=== PATIENT | female | born 1955 | race Two or more races ===

== ENCOUNTER → 2020-06-15 10:29 | Outpatient (BNVA) | payer MEDICARE, MEDICAID, SELFPAY | PROVIDERS: PCP Nurse Practitioner Family; Visit Provider Internal Medicine Endocrinology, Diabetes & Metabolism | DX: M81.0 Age-related osteoporosis without current pathological fracture (principal); E04.2 Nontoxic multinodular goiter; Z86.39 Personal history of other endocrine, nutritional and metabolic disease | CPT/HCPCS: 99212 ==

== ENCOUNTER 2020-07-20 13:29 | Outpatient (REF) | payer MEDICARE, MEDICAID, SELFPAY ==
--- NOTE | ~2020-07-20 | MM_ITS ---
EXAMINATION: MM SCREENING DIGITAL BREAST TOMOSYNTHESIS, BILATERAL CLINICAL INFORMATION: Screening. Asymptomatic. The lifetime risk of breast cancer based on the Tyrer-Cuzick Model is 3.8%. COMPARISON: Mammography: 04/30/2019 and studies dating back to 07/30/2010. TECHNIQUE: Digital breast tomosynthesis is performed in both the craniocaudal and mediolateral oblique views along with computer-aided detection (CAD). Synthesized 2D images are generated from the tomosynthesis. Additional right exaggerated craniocaudal view performed. FINDINGS: There are scattered areas of fibroglandular density (ACR BI-RADS breast composition Category b). No new suspicious mass or grouping of microcalcifications seen within the right breast. Within the left breast, just inferior to nipple line on mediolateral oblique study, there is a 5 x 4 mm circumscribed lesion approximately 5 cm from the nipple. On craniocaudal view, this is not well seen but there is a density in the central aspect of the left breast approximately 5 cm from nipple. Recommend spot compression views and if lesion is persistent then ultrasound. MM/MM tomosynthesis screening BI IMPRESSION: Question developing density left breast as described. ASSESSMENT: BI-RADS 0: Incomplete - Need Additional Imaging Evaluation RECOMMENDATION: 1. Additional views of the left breast. 2. Targeted ultrasound if warranted after review of the additional views. 3. Radiology department staff will contact the patient for additional imaging. This patient's information was entered into a reminder system with a target due date for their next mammogram.
== END 2020-07-20 13:30 | disposition home or self-care (01) ==
LOC: HO.MAMMO 13:29
PROVIDERS: PCP Nurse Practitioner Family; Visit Provider Nurse Practitioner Family
DX: Z12.31 Encounter for screening mammogram for malignant neoplasm of breast (principal); M81.0 Age-related osteoporosis without current pathological fracture
CPT/HCPCS: 77063; 77067; 96372; 96402; J0897

== ENCOUNTER 2020-08-14 13:01 | Outpatient (REF) | payer MEDICARE, MEDICAID, SELFPAY ==
--- NOTE | ~2020-08-14 | MM_ITS ---
EXAMINATION: MM DIAGNOSTIC DIGITAL BREAST TOMOSYNTHESIS, LEFT US DIAGNOSTIC ULTRASOUND BREAST, LEFT CLINICAL INFORMATION: Recall from screening for subtle smooth nodule central left breast just below posterior nipple line central 6:00 position. COMPARISON: Mammography: 07/20/2020, 04/30/2019 TECHNIQUE: Digital breast tomosynthesis is performed. 2D images are generated from the tomosynthesis. The following views are obtained: 3-D spot CC, 3-D spot MLO Ultrasound left breast is targeted to the mid central breast imaging from the 4:00 through 8:00 position. Grayscale imaging and color Doppler are performed without and with harmonics. FINDINGS: There are scattered areas of fibroglandular density (ACR BI-RADS breast composition Category b). The additional views confirm a subtle smooth nodule central 6:00 left breast mid depth approximately 5 mm. Ultrasound demonstrates a simple cyst 6:00 position 4 cm from nipple measuring 0.5 x 0.4 cm. There is increased through-transmission of sound. No associated color flow. No solid mass or architectural abnormality. Results are discussed with the patient at time of visit, using an container crane operator. MM/MM tomosynthesis added views L IMPRESSION: Small cyst central 6:00 left breast corresponding to finding on recent screening mammography. ASSESSMENT: BI-RADS 2: Benign RECOMMENDATION: Routine annual mammography screening. This patient's information was entered into a reminder system with a target due date for their next mammogram.
== END 2020-08-14 13:02 | disposition home or self-care (01) ==
LOC: HO.MAMMO 13:01
PROVIDERS: Visit Provider Family Medicine
DX: R92.2 Inconclusive mammogram (principal)
CPT/HCPCS: 76642; 77061; 77065

== ENCOUNTER 2021-01-19 11:07 | Outpatient (REF) | payer MEDICARE, MEDICAID, SELFPAY ==
[2021-01-19 12:15] LABS: Albumin Level 4.5 g/dL (3.5-5.0); Calcium 10.1 mg/dL (8.4-10.2)
[2021-01-19 12:44] LABS: Thyroid Stimulating Hormone 0.67 uIU/mL (0.32-4.0); Vitamin D 25-OH Total 47.8 ng/mL (>30)
[2021-01-21 05:52] LABS: Calcium (PTHI) 9.9 mg/dL (8.6-10.4); PTHI 41 pg/mL (14-64)
[2021-01-25 16:37] LABS: N-Telopeptide 43 (see note); NTXCreaRU 99 mg/dL (20-275)
== END 2021-01-19 11:08 | disposition home or self-care (01) ==
LOC: HO.LAB 11:07
PROVIDERS: PCP Internal Medicine; Visit Provider Internal Medicine Endocrinology, Diabetes & Metabolism
DX: M81.0 Age-related osteoporosis without current pathological fracture (principal)
CPT/HCPCS: 36415; 82040; 82306; 82310; 82523; 83970; 84439; 84443

== ENCOUNTER → 2021-01-29 10:07 | Outpatient (BNVA) | payer MEDICARE, MEDICAID, SELFPAY | PROVIDERS: PCP Nurse Practitioner Family; Visit Provider Internal Medicine | DX: M81.0 Age-related osteoporosis without current pathological fracture (principal) | CPT/HCPCS: 96372; J0897 ==

== ENCOUNTER 2021-02-24 13:34 | Outpatient (REF) | payer MEDICARE, MEDICAID, SELFPAY ==
--- NOTE | ~2021-02-24 | MM_ITS ---
EXAMINATION: MM DIAGNOSTIC DIGITAL BREAST TOMOSYNTHESIS, BILATERAL US DIAGNOSTIC ULTRASOUND BREAST, RIGHT CLINICAL INFORMATION: Fullness noted by patient superficial right axilla. Mild fullness on clinical exam. Possible node. The lifetime risk of breast cancer based on the Tyrer-Cuzick Model is 4%. COMPARISON: Mammography: 08/14/2020, 07/20/2020, 04/30/2019, 04/26/2018, 04/07/2017 TECHNIQUE: Digital breast tomosynthesis is performed in both the craniocaudal and mediolateral oblique views along with computer-aided detection (CAD). Synthesized 2D images are generated from the tomosynthesis. Additional exaggerated right CC view is provided. Ultrasound right axilla is targeted to the area of clinical concern. Patient is able to point to area at time of imaging. Comparison imaging also performed left axilla. Grayscale imaging and color Doppler are performed without and with harmonics. FINDINGS: There are scattered areas of fibroglandular density (ACR BI-RADS breast composition Category b). Parenchymal pattern is similar to prior studies. There is no developing density or interval mass or architectural abnormality. No abnormal calcifications. No skin thickening or coarsening of the Stephen's ligaments. Ultrasound right axilla demonstrates no lymphadenopathy. There is no cystic or solid mass. No skin thickening or edema tracking in soft tissue planes. Results are discussed with the patient at time of visit, using an mimeograph operator. MM/MM tomosynthesis diagnostic BI IMPRESSION: No mammographic evidence of malignancy or inflammatory changes. Unremarkable targeted right ultrasound. ASSESSMENT: BI-RADS 1: Negative RECOMMENDATION: 1. Patient should be managed based on the clinical impression. If clinically indicated, further evaluation may be considered with surgical consult. Decision to proceed with biopsy should be based on clinical grounds and degree of clinical concern. 2. Otherwise, routine annual screening mammography. This patient's information was entered into a reminder system with a target due date for their next mammogram.
== END 2021-02-24 13:35 | disposition home or self-care (01) ==
LOC: HO.MAMMO 13:34
PROVIDERS: Visit Provider Internal Medicine
DX: R59.0 Localized enlarged lymph nodes (principal)
CPT/HCPCS: 76642; 77062; 77066

== ENCOUNTER 2021-11-04 11:59 | Emergency (ER) | payer MEDICARE, MEDICAID, SELFPAY ==
[2021-11-04 12:51] VITALS: BP 145/70; PULSE 63; RESP 18; TEMP 36.6; O2SAT 99; BMI 27.6
--- NOTE | 2021-11-04 13:10 | ED.BACK ---
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 She states the pain is across her lower back, worse on the right side, worse when she moves around. She also states that last night she could not get comfortable while lying down in bed. She took Tylenol with no relief in the pain. She reports having pain in the past similar to this but not as bad. She denies any radiation of the pain. She denies any numbness, weakness, tingling in her extremities. She denies bowel or bladder incontinence. She denies any other injuries. MD elicited complaint: back pain and back injury Pertinent past history: prior back pain Onset (ago): day(s) (1) Timing: constant Severity: moderate Similar Symptoms Previously: Yes Quality: aching and spasming Location: right lower back and left lower back Radiation: none Exacerbating factors: movement, supine positioning and lifting Relieving factors: immobilization Context: while lifting and turning/twisting Associated symptoms: denies other symptoms Treatments prior to arrival: acetaminophen Work related injury: No Related Data Home Medications Medication Instructions Recorded Confirmed acetaminophen 500 mg tablet 500 mg PO Q6H PRN 06/15/20 06/15/20 (Tylenol Extra Strength) amitriptyline 10 mg tablet 10 mg PO DAILY 06/15/20 06/15/20 denosumab 60 mg/mL subcutaneous 60 mg subcut [id number] 06/15/20 06/15/20 syringe (Prolia) diclofenac sodium 50 mg 50 mg PO BID 06/15/20 06/15/20 tablet,delayed release gabapentin 100 mg capsule 100 mg PO BEDTIME 06/15/20 06/15/20 lisinopril 20 mg tablet 20 mg PO DAILY 06/15/20 06/15/20 omega-3 fatty acids 1,000 mg 1,000 mg PO DAILY 06/15/20 06/15/20 capsule (Fish Oil Concentrate) Previous Rx's Medication Instructions Recorded calcium citrate 250 mg PO BID 30 days #60 tabs 06/15/20 cholecalciferol (vitamin D3) 50 50 mcg PO DAILY 30 days #30 caps 06/15/20 mcg (2,000 unit) capsule tizanidine 2 mg tablet 2 mg PO TID PRN muscle spasticity 11/04/21 #10 tabs Allergies Allergy/AdvReac Type Severity Reaction Status Date / Time butalbital [From FIORICET] Allergy Unknown SWELLING,HI Unverified 01/09/20 17:48 VES pepper (genus Capsicum) Allergy Unknown ITCHING Unverified 01/09/20 17:48 [PEPPER] acetaminophen [Fioricet] AdvReac Unknown swelling Verified 11/12/19 00:00 caffeine [Fioricet] AdvReac Unknown swelling Verified 11/12/19 00:00 Fioricet Allergy Unknown swollen Uncoded 11/04/11 00:00 Review of Systems Review of Systems: Constitutional: No Fever, No Chills ENT/Mouth: No sore throat, No Rhinorrhea Cardiovascular: No Chest Pain, No SOB Respiratory: No Cough, No Sputum Gastrointestinal: No Nausea, No Vomiting, No Diarrhea, No abdominal Pain Genitourinary: No Dysuria, No Urinary Frequency, No Hematuria, no incontinence. Musculoskeletal: + joint pain, + Myalgias Skin: No Skin Lesions, No rash Neuro: No Weakness, No Numbness, No Dizziness, No Headache Heme/Lymph: No Bruising, No Lymphadenopathy PMFSH Past Medical History Medical History (Updated 11/04/21 @ 13:34 by STIVEN Sanchez) History of primary hyperparathyroidism Non-toxic multinodular goiter Osteoporosis Surgical History (Updated 06/11/20 @ 14:06 by INGRID Lee) H/O parathyroidectomy Hx of section Hx of lithotripsy Hx of tubal ligation Family History Family History (Updated 06/11/20 @ 14:08 by INGRID Lee) Father No problems noted. Mother CVD (cardiovascular disease) Heart disease Social History Social History Advance Directives: No Advance Directives Information Provided: No Physical Exam Vital Signs: Vital Signs: Last Vital Signs Temp 97.8 F 11/04/21 12:51 Pulse 63 11/04/21 12:51 Resp 18 11/04/21 12:51 BP 145/70 H 11/04/21 12:51 Pulse Ox 99 11/04/21 12:51 O2 Del Method 11/04/21 12:51 BMI result Body Mass Index 27.6 Appearance: Alert. Oriented X3. No acute distress. HEENT: normal inspection CVS: Normal heart rate and rhythm. Pulses normal. Respiratory: No respiratory distress. Skin: Skin warm and dry. Normal skin color. Normal skin turgor. No rashes. Back: Normal inspection. Low lumbar, middle lumbar right-sided soft tissue tenderness. No midline tenderness. Limited flexion of the spine and rotation of the spine to the right due to pain. Extremities: Normal inspection x4, atraumatic, no lower extremity edema, normal range of motion. Neuro: Oriented X 3. No motor deficit. No sensory deficit. Slow but steady gait Course Course Course Narrative: 65-year-old female presents to the ER with lower back pain after she was moving a table yesterday. She has no red flag symptoms of LBP. Her exam is consistent with muscular strain and spasm. Will prescribe a muscle relaxer. She was also encouraged to continue taking Tylenol and anti-inflammatory medications for the pain. She was also encourage follow-up with her primary care doctor and she agrees to do so. She is stable for discharge home with outpatient follow-up and supportive care. Discharge Plan Discharge Clinical Impression: Strain of lumbar region Patient Disposition: Home, Self-Care Instructions: Low Back Strain (ED), Lower Back Exercises (ED) Additional Instructions: Your pain is most likely due to muscle spasm and strain. Recommend rest. No strenuous activity. No bending, lifting or twisting. Use ice several times per day for 20 minutes at a time for the next 48 hours and then change to heat. Take medications as prescribed to help with pain and discomfort. Follow up with your Primary Care Doctor this week. If your pain worsens, if you develop new numbness, tingling, weakness, loss of function or incontinence call 911 or come back to the ER right away for evaluation. Lo m?s probable es que ruby dolor se deba a espasmos y distensiones musculares. Recomendar descanso. Ninguna actividad extenuante. Sin doblar, levantar o torcer. Use hielo varias veces al d?a emmy 20 minutos a la vez emmy las pr?ximas 48 horas y luego cambie a calor. [place] los medicamentos seg?n lo prescrito para ayudar con el dolor y la incomodidad. Jevon un seguimiento con ruby m?dico de atenci?n primaria esta semana. Si ruby dolor empeora, si desarrolla un nuevo entumecimiento, hormigueo, debilidad, p?rdida de funci?n o incontinencia, llame al 911 o regrese a la aria de emergencias de inmediato para slick evaluaci?n. Prescriptions: New tizanidine 2 mg tablet 2 mg PO TID PRN (Reason: muscle spasticity) Qty: 10 0RF No Action lisinopril 20 mg tablet 20 mg PO DAILY diclofenac sodium 50 mg tablet,delayed release (DR/EC) 50 mg PO BID amitriptyline 10 mg tablet 10 mg PO DAILY Prolia 60 mg/mL syringe 60 mg subcut [id number] omega-3 fatty acids [Fish Oil Concentrate] 1,000 mg capsule 1,000 mg PO DAILY acetaminophen [Tylenol Extra Strength] 500 mg tablet 500 mg PO Q6H PRN gabapentin 100 mg capsule 100 mg PO BEDTIME calcium citrate 250 mg calcium tablet 250 mg PO BID 30 Days Qty: 60 7RF cholecalciferol (vitamin D3) 50 mcg (2,000 unit) capsule 50 mcg PO DAILY 30 Days Qty: 30 7RF Referrals: Kimberlee Balderrama MD [Primary Care Provider] - (LBP s/p lifting) Interventions: ED Discharge Assessment Last Done: 11/04/21 13:51 Discharge Date/Time: 11/04/21 13:53 Print Language: Sudanese
== END 2021-11-04 13:53 | disposition home or self-care (01) ==
PROVIDERS: Emergency Provider Emergency Medicine; PCP Internal Medicine
DX: S39.012A Strain of muscle, fascia and tendon of lower back, initial encounter (principal); M54.6 Pain in thoracic spine; X58.XXXA Exposure to other specified factors, initial encounter; Y93.9 Activity, unspecified; Y92.9 Unspecified place or not applicable; Y99.9 Unspecified external cause status; Z79.899 Other long term (current) drug therapy
CPT/HCPCS: 99282; 99283

== ENCOUNTER 2021-11-04 20:35 | Emergency (ER) | payer MEDICARE, MEDICAID, SELFPAY ==
--- NOTE | ~2021-11-04 | XR_ITS ---
EXAMINATION: XR LUMBOSACRAL SPINE CLINICAL INFORMATION: Lumbar pain minor trauma COMPARISON: 01/15/2015 TECHNIQUE: Three views of the lumbosacral spine. FINDINGS: There is anatomic alignment of the lumbar vertebral bodies and posterior elements. There is mild compression deformity of the superior endplate of L1. Remaining lumbar vertebral body heights are maintained. Intervertebral disc spaces are relatively well-preserved. Sacroiliac joints are intact. Moderate to large amount of stool is noted in the visualized abdomen. XR/XR lumbar spine 2-3V IMPRESSION: Mild compression deformity of the superior endplate of L1 which is age-indeterminate and may be chronic. If clinically warranted, acuity may be more definitively assessed with MRI.
[2021-11-04 21:43] VITALS: BP 146/76; PULSE 64; RESP 16; TEMP 37.4; O2SAT 97; BMI 27.6
[2021-11-04 22:14] LABS: Appearance Urine CLEAR; Color Urine YELLOW; Glucose Urine UA NEG (NEG); Leukocyte Esterase Urine TRACE (NEG); Nitrite Urine NEG (NEG); Urine Blood NEG (NEG); Urine Ketones NEG (NEG); Urine Protein NEG (NEG-TRACE)
[2021-11-04 22:23] LABS: Bacteria Urine TRACE /LPF; RBC Urine 0 /HPF (0); Squamous Epithelial Cell Urine TRACE /LPF; WBC Urine 0-2 /HPF (0-4)
[2021-11-05 03:16] VITALS: BP 145/65; PULSE 68; RESP 18; TEMP 36.8; O2SAT 96
--- NOTE | 2021-11-05 03:19 | ED_ITS ---
HPI - Back Pain/Injury General Chief Complaint: Back Pain/Injury Stated Complaint: lower back pain Time Seen by Provider: 11/05/21 03:19 Source: patient and family Mode of arrival: ambulatory Limitations: no limitations History of Present Illness HPI Narrative: Patient history of osteoporosis comes here for lower back pain which started for last few days ago after she lifted a table patient was seen earlier yesterday when the provider and prescribed tizanidine no x-ray was done patient comes here the pain is not getting better and has hard time in walking. No leg weakness no paresthesia and lower extremity no blood or bowel involvement patient has taken Tylenol for the pain Related Data Home Medications Medication Instructions Recorded Confirmed acetaminophen 500 mg tablet 500 mg PO Q6H PRN 06/15/20 06/15/20 (Tylenol Extra Strength) amitriptyline 10 mg tablet 10 mg PO DAILY 06/15/20 06/15/20 denosumab 60 mg/mL subcutaneous 60 mg subcut [id number] 06/15/20 06/15/20 syringe (Prolia) diclofenac sodium 50 mg 50 mg PO BID 06/15/20 06/15/20 tablet,delayed release gabapentin 100 mg capsule 100 mg PO BEDTIME 06/15/20 06/15/20 lisinopril 20 mg tablet 20 mg PO DAILY 06/15/20 06/15/20 omega-3 fatty acids 1,000 mg 1,000 mg PO DAILY 06/15/20 06/15/20 capsule (Fish Oil Concentrate) Previous Rx's Medication Instructions Recorded calcium citrate 250 mg PO BID 30 days #60 tabs 06/15/20 cholecalciferol (vitamin D3) 50 50 mcg PO DAILY 30 days #30 caps 06/15/20 mcg (2,000 unit) capsule tizanidine 2 mg tablet 2 mg PO TID PRN muscle spasticity 11/04/21 #10 tabs lidocaine 4 % topical patch 1 patch topical DAILY PRN pain #30 11/05/21 (Aspercreme (lidocaine)) ea Allergies Allergy/AdvReac Type Severity Reaction Status Date / Time butalbital [From FIORICET] Allergy Unknown SWELLING,HI Unverified 01/09/20 17:48 VES pepper (genus Capsicum) Allergy Unknown ITCHING Unverified 01/09/20 17:48 [PEPPER] acetaminophen [Fioricet] AdvReac Unknown swelling Verified 11/12/19 00:00 caffeine [Fioricet] AdvReac Unknown swelling Verified 11/12/19 00:00 Fioricet Allergy Unknown swollen Uncoded 11/04/11 00:00 Review of Systems Review of Systems: Yes all other systems are reviewed and are negative [facility] Past Medical History Medical History History of primary hyperparathyroidism Non-toxic multinodular goiter Osteoporosis Surgical History H/O parathyroidectomy Hx of section Hx of lithotripsy Hx of tubal ligation Family History Family History Father No problems noted. Mother CVD (cardiovascular disease) Heart disease Social History Social History Advance Directives: No Physical Exam Vital Signs: Vital Signs: Last Vital Signs Temp 98.2 F 11/05/21 03:16 Pulse 68 11/05/21 03:16 Resp 16 11/05/21 05:36 BP 145/65 H 11/05/21 03:16 Pulse Ox 96 11/05/21 03:16 O2 Del Method 11/05/21 03:16 BMI result Body Mass Index 27.6 Appearance: Alert. Oriented X3. No acute distress. ENT: Pharynx normal. Oral Mucosa moist Neck: Normal inspection. Neck supple. CVS: Normal heart rate and rhythm. Pulses normal. Respiratory: No respiratory distress. Equal air entry bilateral, no wheezing/rales/rhonchi Abdomen: Soft and nontender. Bowel sounds are present, no mass palpable, no CVA tenderness back: Diffuse tenderness L2-L3 no deformity Skin: Skin warm and dry. Normal skin color. Normal skin turgor. Extremities: No lower extremity edema. No calf tenderness Neuro: Oriented X 3. No motor deficit. No sensory deficit.No cerebellar signs , cranial nerves II-XII intact MDM - Back Pain/Injury MDM Narrative Medical decision making narrative: Patient x-ray showed minor L1 compression fracture age indeterminate likely the cause of the pain will apply Lidoderm patch advised to continue diclofenac sodium patient ambulatory in the ED Lab Data Attestation: I reviewed the patient's lab results. Labs: Lab Results 11/04/21 Range/Units 22:08 Urine Color YELLOW Urine Appearance CLEAR Urine pH 6.0 (5.0-8.0) Ur Specific [place] 1.020 (1.005-1.025) Urine Protein NEG (NEG-TRACE) MG/DL Urine Glucose (UA) NEG (NEG) MG/DL Urine Ketones NEG (NEG) MG/DL Urine Blood NEG (NEG) Urine Nitrite NEG (NEG) Ur Leukocyte Esterase TRACE H (NEG) Urine RBC 0 (0) /HPF Urine WBC 0-2 (0-4) /HPF Ur Squamous Epith Cells TRACE /LPF Urine Bacteria TRACE /LPF Discharge Plan Discharge Clinical Impression: Strain of lumbar region, Compression fracture of L1 lumbar vertebra Patient Disposition: Home, Self-Care Instructions: Vertebral Compression Fracture (ED), Acute Low Back Pain (ED) Additional Instructions: Local care as advised Apply a Lidoderm patch to the lower back at the painful area daily once a day Continue diclofenac sodium for pain as prescribed by your PCP Prescriptions: New lidocaine [Aspercreme (lidocaine HCl)] 4 % adhesive patch,medicated 1 patch topical DAILY PRN (Reason: pain) Qty: 30 0RF No Action tizanidine 2 mg tablet 2 mg PO TID PRN (Reason: muscle spasticity) Qty: 10 0RF lisinopril 20 mg tablet 20 mg PO DAILY diclofenac sodium 50 mg tablet,delayed release (DR/EC) 50 mg PO BID amitriptyline 10 mg tablet 10 mg PO DAILY Prolia 60 mg/mL syringe 60 mg subcut [id number] omega-3 fatty acids [Fish Oil Concentrate] 1,000 mg capsule 1,000 mg PO DAILY acetaminophen [Tylenol Extra Strength] 500 mg tablet 500 mg PO Q6H PRN gabapentin 100 mg capsule 100 mg PO BEDTIME calcium citrate 250 mg calcium tablet 250 mg PO BID 30 Days Qty: 60 7RF cholecalciferol (vitamin D3) 50 mcg (2,000 unit) capsule 50 mcg PO DAILY 30 Days Qty: 30 7RF Interventions: ED Discharge Assessment Last Done: 11/05/21 05:39 Discharge Date/Time: 11/05/21 06:00 Print Language: Wolof
[2021-11-05] MEDS: oxyCODONE HCl Immed Release 5 MG TABLET PO (05:31)
[2021-11-05] MEDS: Lidocaine 4 % Patch ADH..PATCH 1 PATCH TRANSDERMA (05:31)
[2021-11-05 05:36] VITALS: RESP 16
== END 2021-11-05 06:00 | disposition home or self-care (01) ==
PROVIDERS: Emergency Provider Internal Medicine; PCP Internal Medicine
DX: S39.012A Strain of muscle, fascia and tendon of lower back, initial encounter (principal); M48.56XA Collapsed vertebra, not elsewhere classified, lumbar region, initial encounter for fracture; X50.0XXA Overexertion from strenuous movement or load, initial encounter; Y93.9 Activity, unspecified; Y92.9 Unspecified place or not applicable; Y99.9 Unspecified external cause status
CPT/HCPCS: 72100; 81001; 99283; 99284

== ENCOUNTER 2021-11-15 15:22 | Emergency (ER) | payer MEDICARE, MEDICAID, SELFPAY ==
--- NOTE | ~2021-11-15 | CT_ITS ---
EXAMINATION: CT ABDOMEN AND PELVIS WITHOUT CONTRAST CLINICAL INFORMATION: Right low back pain. Unable to ambulate COMPARISON: Lumbar spine radiographs 11/05/2021 CT abdomen pelvis 10/30/2013, pelvic MRI 04/25/2009 TECHNIQUE: Multidetector volumetric imaging was performed from the superior aspect of the liver through the pubic symphysis. Sagittal and coronal reformatted images were obtained on the technologist's workstation. This CT examination was performed using dose optimization techniques as appropriate, variously including the following: *Automated exposure control *Adjustment of mA and/or kV according to patient size (this includes techniques or standardized protocols for targeted exams where dose is matched to indication/reason for exam; i.e. extremities or head) *Use of iterative reconstruction technique DLP: 430 mGy-cm FINDINGS: LUNG BASES: Bibasilar atelectasis is present, right greater than left LIVER, GALLBLADDER, AND BILIARY TREE: The liver is normal in size and shape but demonstrates decreased attenuation consistent with hepatic steatosis. There are areas of focal fatty sparing around the gallbladder. No focal hepatic lesion or biliary ductal dilatation is present. The gallbladder is unremarkable with no evidence of radiopaque gallstones, gallbladder wall thickening, or obvious pericholecystic inflammatory changes. PANCREAS: Unremarkable. SPLEEN: Unremarkable. ADRENAL GLANDS: Unremarkable. KIDNEYS AND URETERS: The kidneys are normal in size, shape, and attenuation. A single punctate 3 mm calcification present in the mid right kidney with a 5 mm nonobstructing calculus at on the left. No hydronephrosis, hydroureter, or ureteral calculi seen. No perinephric stranding. BLADDER: Unremarkable. GASTROINTESTINAL TRACT: There is a large 7.5 cm stool present in the rectum. No evidence of bowel obstruction. The small and large bowel are unremarkable. The appendix is unremarkable. ABDOMINAL WALL: No significant hernia is appreciated. Tiny periumbilical hernia containing only fat. LYMPH NODES: No retroperitoneal lymphadenopathy. VASCULAR: Calcific atherosclerotic changes are present without aneurysm PELVIC VISCERA: Unremarkable. OSSEOUS STRUCTURES: Lytic areas in sacrum unchanged dating back to 2013. This was examined by MRI in 2009 possibly thought to be Paget's disease. Given the long-term stability, this is not a worrisome finding. There is collapse of the superior endplate which could be seen on the recent lumbar spine films about 10 days ago however it appears slightly more compressed on the current study and this may be subacute. This was not present on the [address]/CT abdomen pelvis wo con IMPRESSION: 1. Compression fracture L1. If this is causing the patient's pain, MRI may be useful to see if there is edema which may respond to kyphoplasty 2. Bilateral nephrolithiasis without obstruction. 3. Hepatic steatosis 4. Large stool ball in rectum. 5. Long-term stability of many years regarding the sacral lesion. Fleischner guidelines were followed.
[2021-11-15 15:39] VITALS: BP 120/82; PULSE 65; O2SAT 98
[2021-11-15 15:45] VITALS: BP 120/84; PULSE 68; RESP 18; TEMP 36.4; O2SAT 99; BMI 25.4
--- NOTE | 2021-11-15 15:58 | ED_ITS ---
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 She was seen here twice for the same, on 11/04 and 11/05. XR of her lumbar spine showed an age indeterminate compression fracture at L1. She was prescribed a muscle relaxer and lidoderm patches with no relief. She reports the pain started 11/03 in her right lower back after she was moving a table. She has essentially been bedbound since. Her helps her use the bathroom into a container while in the bed. She has not gotten up because of the pain. She denies any urinary or bowel incontinence. MD elicited complaint: back pain Pertinent past history: prior back pain Onset (ago): week(s) (2) Timing: constant and progressively worsening Severity: severe Similar Symptoms Previously: Yes Quality: sharp and aching Location: right lower back Radiation: right upper leg Exacerbating factors: movement Relieving factors: none Context: while lifting Associated symptoms: difficulty walking Work related injury: No Related Data Home Medications Medication Instructions Recorded Confirmed acetaminophen 500 mg tablet 500 mg PO Q6H PRN 06/15/20 06/15/20 (Tylenol Extra Strength) amitriptyline 10 mg tablet 10 mg PO DAILY 06/15/20 06/15/20 denosumab 60 mg/mL subcutaneous 60 mg subcut [id number] 06/15/20 06/15/20 syringe (Prolia) diclofenac sodium 50 mg 50 mg PO BID 06/15/20 06/15/20 tablet,delayed release gabapentin 100 mg capsule 100 mg PO BEDTIME 06/15/20 06/15/20 lisinopril 20 mg tablet 20 mg PO DAILY 06/15/20 06/15/20 omega-3 fatty acids 1,000 mg 1,000 mg PO DAILY 06/15/20 06/15/20 capsule (Fish Oil Concentrate) Previous Rx's Medication Instructions Recorded calcium citrate 250 mg PO BID 30 days #60 tabs 06/15/20 cholecalciferol (vitamin D3) 50 50 mcg PO DAILY 30 days #30 caps 06/15/20 mcg (2,000 unit) capsule tizanidine 2 mg tablet 2 mg PO TID PRN muscle spasticity 11/04/21 #10 tabs lidocaine 4 % topical patch 1 patch topical DAILY PRN pain #30 11/05/21 (Aspercreme (lidocaine)) ea bisacodyl 10 mg rectal suppository 10 mg [place] DAILY #12 ea 11/15/21 (Dulcolax (bisacodyl)) oxycodone 5 mg tablet 5 mg PO BID PRN pain #6 tabs 11/15/21 polyethylene glycol 3350 17 17 g PO DAILY #119 grams 11/15/21 gram/dose oral powder (Miralax) Allergies Allergy/AdvReac Type Severity Reaction Status Date / Time butalbital [From FIORICET] Allergy Unknown SWELLING,HI Unverified 01/09/20 17:48 VES pepper (genus Capsicum) Allergy Unknown ITCHING Unverified 01/09/20 17:48 [PEPPER] acetaminophen [Fioricet] AdvReac Unknown swelling Verified 11/12/19 00:00 caffeine [Fioricet] AdvReac Unknown swelling Verified 11/12/19 00:00 Fioricet Allergy Unknown swollen Uncoded 11/04/11 00:00 Review of Systems Review of Systems: Constitutional: No Fever, No Chills ENT/Mouth: No sore throat, No Rhinorrhea Cardiovascular: No Chest Pain, No SOB Respiratory: No Cough, No Sputum Gastrointestinal: No Nausea, No Vomiting, No Diarrhea, No abdominal Pain Genitourinary: No Dysuria, No Urinary Frequency, No Hematuria Musculoskeletal: No joint pain, + Myalgias Skin: No Skin Lesions, No rash Neuro: No Weakness, No Numbness, No Dizziness, No Headache Psych: No Anxiety/Panic, No Depression Heme/Lymph: No Bruising, No Lymphadenopathy Endocrine: No Polyuria, No Polydipsia PMFSH Past Medical History Medical History History of primary hyperparathyroidism Non-toxic multinodular goiter Osteoporosis Surgical History H/O parathyroidectomy Hx of section Hx of lithotripsy Hx of tubal ligation Family History Family History Father No problems noted. Mother CVD (cardiovascular disease) Heart disease Social History Social History Advance Directives: No Advance Directives Information Provided: Yes Physical Exam Vital Signs: Vital Signs: Last Vital Signs Temp 97.6 F 11/15/21 15:45 Pulse 68 11/15/21 15:45 Resp 18 11/15/21 15:45 BP 120/84 11/15/21 15:45 Pulse Ox 99 11/15/21 15:45 O2 Del Method 11/15/21 15:45 BMI result Body Mass Index 25.4 Appearance: Alert. Oriented X3. No acute distress. HEENT: normal external inspection Neck: Normal inspection. Neck supple. CVS: Normal heart rate and rhythm. Pulses normal. Respiratory: No respiratory distress. Breath sounds normal. Abdomen: Soft and nontender. +BS x4 Back: right sided middle and lower lumbar area with soft tissue tenderness and palpable spasm. no midline tenderness. limited ROM of spine due to pain. No CVA tenderness. Staight leg raise test on the left leg is positive iliciting pain on the right lower back. no sensory deficits. Skin: Skin warm and dry. Normal skin color. Normal skin turgor. No rashes. Extremities: No lower extremity edema. Neuro: Oriented X 3. No motor deficit. No sensory deficit. Gait not tested due to pain Course Course Course Narrative: 65 yo female presenting to the ER for the 3rd time in 2 weeks with right sided low back pain after moving a table. XR lumbar spine showing age indeterminate L1 compression fracture. UA showed no UTI. Her exam and clinical presentation are consistent with soft tissue injury/muscle spasm with soft tissue tenderness of the middle lumbar area. No CVA tenderness. No midline tenderness. No red flag sy mptoms of low back pain. Concern is that she has bed bound for 2 weeks. Will mediate, get labs and CT scan for further evaluation. If she is unable to get up she will require placement to acute rehab vs admission for pain control. Reevaluation(s) Reevaluation #1: After oxycodone and toradol patient has been able to get up with nursing, ambulate around the room. She was put back in bed and then showed how to roll and pivot out of bed, she did well. Labs are unremarkable. UA negative for infection. CT scan is pending. Reevaluation #2: CT scan showing L1 compression fracture that the XR showed. It also showed a large stool ball in the rectum. Will plan for digital disimpaction, enema and oral bowel regimen. Anticipate she will be able to be discharged with plan for outpatient MRI and evaluation for possible kyphoplasty. Reevaluation #3: Moderate disimpaction of soft brown stool. Given enema as well. She feels well enough to be discharged home. She will take bowel regimen and follow up with her PCP. Comfortable with d/c home. MDM - Back Pain/Injury Lab Data Result diagrams: 11/15/21 17:41 11/15/21 17:41 Labs: Lab Results 11/15/21 11/15/21 11/15/21 Range/Units 17:41 17:41 17:41 WBC 9.0 (4.8-10.8) X10*3/uL RBC 4.19 L (4.20-5.50) X10*6/uL Hgb 13.0 (12.0-16.0) g/dl Hct 38.9 (37.0-47.0) % MCV 92.8 (80.0-98.0) fL MCH 31.0 (27.0-33.0) pg MCHC 33.4 (31.0-35.0) g/dl RDW 10.9 L (11.0-16.0) % Plt Count 394 (160-400) X10*3/uL MPV 9.5 (9.4-12.3) fL Immature Gran % (Auto) 0.4 (0.0-0.4) % Neut % (Auto) 73.5 H (45-73) % Lymph % (Auto) 17.6 L (20-40) % [place] % (Auto) 7.3 (2-11) % Eos % (Auto) 0.8 (0-4) % Baso % (Auto) 0.4 (0-2) % Lymph # (Auto) 1.6 (1.2-4.9) X10*3/uL [place] # (Auto) 0.7 (0.1-1.2) X10*3/uL Eos # (Auto) 0.1 (0.0-0.4) X10*3/uL Baso # (Auto) 0.0 (0.0-0.2) X10*3/uL Abs Immat Gran (auto) 0.04 H (0.00-0.03) X10*3/uL Absolute Neuts (auto) 6.6 (2.0-8.3) x10*3/uL Absolute Nucleated RBC 0.000 (0.0-0.012) X10*3/uL Nucleated RBC % (auto) 0.0 (0.0-0.2) /100WBC Sodium 140 (135-145) mmol/L Potassium 4.7 (3.3-5.1) mmol/L Chloride 104 (96-108) mmol/L Carbon Dioxide 29 (22-29) mmol/L Anion Gap 12 (12-20) BUN 31 H (9-16) mg/dL Creatinine 0.85 (0.5-1.4) mg/dL Estim Creat Clear Calc 52.4 Estimated GFR > 60 Random Glucose 111 (60-115) mg/dL Calcium 9.5 (8.4-10.2) mg/dL Magnesium 2.1 (1.6-2.6) mg/dL Total Bilirubin 0.4 (0.0-1.0) mg/dL Direct Bilirubin 0.2 (0.0-0.5) mg/dL AST 15 (5-31) U/L ALT 14 (0-31) U/L Alkaline Phosphatase 99 (39-117) U/L Total Protein 6.9 (6.5-8.0) g/dL Albumin 3.9 (3.5-5.0) g/dL COVID-19 ([facility]) Negative (Negative) COVID-19 Clin Com See Note Procedures Rectal Disimpaction Time out performed rectal disimpaction: Yes Indication: fecal impaction Procedural Sedation: No Sedation/Analgesia: none Technique: manual disimpaction with gloved finger Result: significant stool output Patient Tolerated Procedure: well and no complications Complications: none Critical Care Time Critical Care Time Critical Care Time: No Discharge Plan Discharge Clinical Impression: Compression fracture of L1 vertebra, Constipation Patient Disposition: Home, Self-Care Instructions: Constipation (ED), Acute Low Back Pain (ED) Additional Instructions: Your CT scan showed compression fracture of one of the bones in your lumbar spine. Recommend following up with your doctor for outpatient MRI and evaluation of possible kyphoplasty. Take the prescribed medication as needed for severe pain. CT scan also showed a large amount of stool in your rectum. Take the prescribed laxative medications. Getting up and walking around as well as drinking plenty of water can help with constipation. If you do not have a full bowel movement in the next 48 hours call your doctor or come back to the ER for further evaluation. Prescriptions: New polyethylene glycol 3350 [Miralax] 17 gram/dose powder 17 g PO DAILY Qty: 119 0RF bisacodyl [Dulcolax (bisacodyl)] 10 mg suppository 10 mg [place] DAILY Qty: 12 0RF oxycodone 5 mg tablet 5 mg PO BID PRN (Reason: pain) Qty: 6 0RF Rx Instructions: Partial Fill upon patient request. No Action tizanidine 2 mg tablet 2 mg PO TID PRN (Reason: muscle spasticity) Qty: 10 0RF lidocaine [Aspercreme (lidocaine)] 4 % adhesive patch,medicated 1 patch topical DAILY PRN (Reason: pain) Qty: 30 0RF lisinopril 20 mg tablet 20 mg PO DAILY diclofenac sodium 50 mg tablet,delayed release (DR/EC) 50 mg PO BID amitriptyline 10 mg tablet 10 mg PO DAILY Prolia 60 mg/mL syringe 60 mg subcut [id number] omega-3 fatty acids [Fish Oil Concentrate] 1,000 mg capsule 1,000 mg PO DAILY acetaminophen [Tylenol Extra Strength] 500 mg tablet 500 mg PO Q6H PRN gabapentin 100 mg capsule 100 mg PO BEDTIME calcium citrate 250 mg calcium tablet 250 mg PO BID 30 Days Qty: 60 7RF cholecalciferol (vitamin D3) 50 mcg (2,000 unit) capsule 50 mcg PO DAILY 30 Days Qty: 30 7RF Referrals: Kimberlee Balderrama MD [Primary Care Provider] - Darrell Sims MD [Physician] - (evaluation for possible kyphoplasty) Print Language: Frisian
[2021-11-15] MEDS: Ketorolac Tromethamine 30 MG/ML VIAL IM (16:25)
[2021-11-15] MEDS: oxyCODONE HCl Immed Release 5 MG TABLET PO ×2 (16:25→21:57)
--- NOTE | 2021-11-15 17:43 | PC.NURSE ---
labs drawn and sent for analysis. awaiting results.
[2021-11-15 17:52] LABS: MANUAL DIFF FLAG NO
[2021-11-15 17:56] LABS: Basophils Percent Auto 0.4 % (0-2); Eosinophils Absolute Auto 0.1 X10*3/uL (0.0-0.4); Eosinophils Percent Auto 0.8 % (0-4); Hematocrit 38.9 % (37.0-47.0); Imm Gran Abs Auto 0.04 X10*3/uL (0.00-0.03); Imm Gran Pct Auto 0.4 % (0.0-0.4); Lymphocytes Absolute Auto 1.6 X10*3/uL (1.2-4.9); Lymphocytes Percent Auto 17.6 % (20-40); Mean Corpuscular HGB Conc 33.4 g/dl (31.0-35.0); Mean Corpuscular Volume 92.8 fL (80.0-98.0); Mean Platelet Volume 9.5 fL (9.4-12.3); Monocytes Absolute Auto 0.7 X10*3/uL (0.1-1.2); Monocytes Percent Auto 7.3 % (2-11); Neutrophils Absolute Auto 6.6 x10*3/uL (2.0-8.3); Neutrophils Percent Auto 73.5 % (45-73); Platelet Count 394 X10*3/uL (160-400); Red Blood Count 4.19 X10*6/uL (4.20-5.50); Red Cell Distribution Width 10.9 % (11.0-16.0)
[2021-11-15 18:11] LABS: COVID-19 Test Negative (Negative)
[2021-11-15 18:13] LABS: Alanine Aminotransferase 14 U/L (0-31); Albumin Level 3.9 g/dL (3.5-5.0); Alkaline Phosphatase 99 U/L (39-117); Anion Gap 12 (12-20); Aspartate Amino Transferase 15 U/L (5-31); Bilirubin Direct 0.2 mg/dL (0.0-0.5); Bilirubin Total 0.4 mg/dL (0.0-1.0); Blood Urea Nitrogen 31 mg/dL (9-16); Calcium 9.5 mg/dL (8.4-10.2); Carbon Dioxide 29 mmol/L (22-29); Chloride 104 mmol/L (96-108); Creatinine Clr Calc Pharmacy 52.4; Estimated Glomerular Filt Rate > 60; Glucose Random 111 mg/dL (60-115); Magnesium 2.1 mg/dL (1.6-2.6); Potassium 4.7 mmol/L (3.3-5.1); Sodium 140 mmol/L (135-145); Total Protein 6.9 g/dL (6.5-8.0)
[2021-11-15] MEDS: polyethylene glycoL 3350 17 GM POWD.PACK PO (21:57)
--- NOTE | 2021-11-15 22:48 | PC.NURSE ---
Provider at bedside performing manual disimpaction on patient. Provider also ordered soap/water enema to be administered.
[2021-11-15] MEDS: Sodium Phosphate,Mono-Dibasic 133 ML ENEMA PR (23:17)
== END 2021-11-16 00:08 | disposition home or self-care (01) ==
PROVIDERS: Physician Assistant; Emergency Provider Emergency Medicine; PCP Internal Medicine
DX: M54.50 Low back pain, unspecified (principal); M79.662 Pain in left lower leg; M79.661 Pain in right lower leg; R26.2 Difficulty in walking, not elsewhere classified; Z79.899 Other long term (current) drug therapy; Z20.822 Contact with and (suspected) exposure to COVID-19
CPT/HCPCS: 74176; 80048; 80076; 83735; 85025; 87635; 96372; 99283; 99284; J1885

== ENCOUNTER 2021-11-26 14:03 | Outpatient (REF) | payer MEDICARE, MEDICAID, SELFPAY ==
--- NOTE | ~2021-11-26 | MM_ITS ---
EXAMINATION: BONE DENSITOMETRY CLINICAL INDICATION: Age-related osteoporosis without current pathological fracture. COMPARISON: Previous BD dated 09/11/2018 and baseline BD dated 05/28/2009. TECHNIQUE: Using a [employer] DXA System (software version: 13.1) manufactured by [employer], dual-energy x-ray absorptiometry was performed of the lumbar spine and left hip. The images are of good technical quality. Summary results are attached. FINDINGS: AP SPINE L2-L4 (excluding L1): The data of L1-L4 has been changed to exclude the L1 vertebral body, because degenerative sclerosis at this level may cause overestimation of lumbar spine density. Current: BMD 0.907 g/cm2, Z-score -0.6, T-score -2.4, osteopenia, 24.9% increase from previous, 25.4% increase from baseline (<5% change is not significant). Prior: BMD 0.726 g/cm2. Baseline: BMD 0.723 g/cm2. LEFT FEMUR, NECK: Current: BMD 0.600 g/cm2, Z-score -1.5, T-score -3.2, osteoporosis. Prior: BMD 0.618 g/cm2. Baseline: BMD 0.601 g/cm2. LEFT FEMUR, TOTAL: Current: BMD 0.739 g/cm2, Z-score -0.7, T-score -2.1, osteopenia, 4.9% decrease from previous, 0.4% increase from baseline (<5% change is not significant). Prior: BMD 0.777 g/cm2. Baseline: BMD 0.736 g/cm2. IDENTIFIED RISK FACTORS: Early menopause, secondary osteoporosis. HISTORY OF FRACTURE: None listed. MEDICATIONS: Calcium supplements or multivitamin, vitamin D. MM/XR DEXA axial skeleton IMPRESSION: 1. DIAGNOSIS: Osteoporosis based on the lowest T-score value of -3.2 in the femoral neck applying World Health Organization criteria. 2. 10-YEAR FRACTURE RISK PREDICTION, FRAX: Major osteoporotic fracture (clinical spine, forearm, hip or shoulder) 10.8%. Hip fracture 3.5%. 3. Treatment Recommendations: NOF guidelines recommend consideration for treatment in postmenopausal women and men age 50 and older presenting with the following: -A hip or vertebral (clinical or morphometric) fracture. -T-score less than or equal to -2.5 at the femoral neck or spine after appropriate evaluation to exclude secondary causes. -Low bone mass at the hip or spine and a 10-year fracture probability by FRAX of greater than or equal to 3% for hip fracture or greater than or equal to 20% for major osteoporotic fracture based on the [place] adapted WHO algorithm. 4. Other Recommendations: All treatment decisions require clinical judgment and consideration of individual patient factors, including patient preferences, comorbidities, previous drug use, risk factors not captured in the FRAX model (e.g. frailty, falls, vitamin D deficiency, increased bone turnover, interval significant decline in bone density) and possible under or overestimation of fracture risk by FRAX. Additional medical evaluation for secondary cause of low bone mineral density may be appropriate. FUTURE SCAN RECOMMENDATION: People with diagnosed cases of osteoporosis or at high risk for fracture should have regular bone mineral density tests. For patients eligible for Medicare, routine testing is allowed once every 2 years. The testing frequency can be increased to one year for patients who have rapidly progressing disease, those who are receiving or discontinuing medical therapy to restore bone mass, or have additional risk factors.
== END 2021-11-26 14:04 | disposition home or self-care (01) ==
LOC: HO.MAMMO 14:03
PROVIDERS: PCP Internal Medicine; Visit Provider Internal Medicine Endocrinology, Diabetes & Metabolism
DX: Z13.820 Encounter for screening for osteoporosis (principal); M81.0 Age-related osteoporosis without current pathological fracture; Z78.0 Asymptomatic menopausal state
CPT/HCPCS: 77080

== ENCOUNTER 2021-12-03 14:28 | Outpatient (REF) | payer MEDICARE, MEDICAID, SELFPAY ==
--- NOTE | ~2021-12-03 | MR_ITS ---
EXAMINATION: MR LUMBAR SPINE WITHOUT CONTRAST CLINICAL INFORMATION: 66-year-old with mild compression deformity noted along the superior endplate of L1 on previous x-rays. COMPARISON: 11/05/2021 x-rays. TECHNIQUE: MRI of the lumbar spine was obtained using routine sequences without contrast. FINDINGS: CORONAL ALIGNMENT: Mild S-shaped thoracolumbar scoliotic curvature suspected in the, slightly convex to the right at L4-L5 and to the left at L1-L2, similar to previous x-ray. SAGITTAL ALIGNMENT: Mild gibbus angulation noted at the T12-L1 junction consistent with an L1 compression fracture, similar to prior x-ray. Otherwise, the lumbosacral spine is anatomically aligned. LUMBOSACRAL JUNCTION: Normal. Five [id number] lumbar-type vertebral bodies. VERTEBRAL BODIES: There is a nonhealed superior endplate compression fracture of the L1 vertebral body, with approximately 37% loss of height anteriorly and mild retropulsion of the superior endplate with band-like T1 hypointensity extending across the superior endplate consistent with a benign, osteoporotic compression fracture. This is consistent with the recent bone density report of 11/26/2021. Remaining vertebral body heights are well maintained. Note is made of apparent expansion of the posterior margin of the sacrum between S1-S2 and the lowest visualized sacral segment which appears homogeneously T1 hyperintense with heterogeneous bone marrow hyperintensity on STIR imaging. This could reflect Paget's disease, as was suggested on an MRI of the pelvis performed on 08/21/2009. DISC SPACES AND ENDPLATES: The lumbar intervertebral disc space heights are well maintained. There is minor disc desiccation at L4-L5. There is mild anterior marginal endplate spurring at L1-L2 and T12-L1. SPINAL CANAL: No abnormal developmental findings. BONE MARROW: There is marrow edema in the compressed L1 vertebral body consistent with a nonhealed fracture. CONUS MEDULLARIS: Terminates at T12. Morphology and signal are normal. INTRADURAL NERVE ROOTS: Within normal limits. L5-S1: No disc herniation and no significant DJD, canal or neural foraminal stenosis. L4-L5: Minimal annular bulging. No facet arthrosis, canal or neural foraminal stenosis. L3-L4: No significant disc bulge or herniation. No facet arthrosis, canal or neural foraminal stenosis. L2-L3: Normal disc contour. No facet arthrosis, canal or neural foraminal stenosis. L1-L2: Normal disc contour. No facet arthrosis, canal or neural foraminal stenosis. T12-L1: Some retropulsion of the posterior endplate of the compressed L1 vertebral body is noted, with mild flattening of the ventral dural sac without significant spinal canal stenosis. No significant neural foraminal stenosis, no disc bulge or herniation and no significant facet arthrosis. PARASPINAL/RETROPERITONEAL: The paravertebral soft tissues appear grossly unremarkable. MR/MR lumbar spine wo con IMPRESSION: 1. [id number] benign-appearing, nonhealed compression fracture deformity of the L1 vertebral body with a mild degree of retropulsion of the superior endplate without significant canal stenosis or nerve root compression. Mild gibbus angulation at T12-L1. 2. Minor discogenic degenerative changes and minimal disc bulging at L4-L5. 3. Changes involving the sacrum as described above likely reflecting sequelae of Paget's disease as was suggested on a remote MRI of the pelvis which is no longer available for comparison.
== END 2021-12-03 14:29 | disposition home or self-care (01) ==
LOC: HO.MRI 14:28
PROVIDERS: Visit Provider Internal Medicine
DX: S32.010A Wedge compression fracture of first lumbar vertebra, initial encounter for closed fracture (principal); X58.XXXA Exposure to other specified factors, initial encounter; Y93.9 Activity, unspecified; Y92.9 Unspecified place or not applicable; Y99.8 Other external cause status
CPT/HCPCS: 72148

== ENCOUNTER → 2022-01-25 12:53 | Outpatient (BNVA) | payer MEDICARE, MEDICAID, SELFPAY | PROVIDERS: PCP Internal Medicine; Referring Provider Internal Medicine; Visit Provider Internal Medicine | DX: R00.1 Bradycardia, unspecified (principal); I08.1 Rheumatic disorders of both mitral and tricuspid valves; I27.20 Pulmonary hypertension, unspecified; I10 Essential (primary) hypertension; Z79.899 Other long term (current) drug therapy | CPT/HCPCS: 93005; 99202 ==

== ENCOUNTER 2022-02-07 13:04 | Emergency (ER) | payer MEDICARE, MEDICAID, SELFPAY ==
[2022-02-07 14:26] VITALS: BP 162/86; PULSE 60; RESP 18; TEMP 36.3; O2SAT 99; BMI 26.6
[2022-02-07 15:15] LABS: MANUAL DIFF FLAG NO
[2022-02-07 15:19] LABS: Basophils Percent Auto 0.4 % (0-2); Eosinophils Absolute Auto 0.1 X10*3/uL (0.0-0.4); Eosinophils Percent Auto 1.2 % (0-4); Hematocrit 37.4 % (37.0-47.0); Hemoglobin 12.2 g/dl (12.0-16.0); Imm Gran Abs Auto 0.02 X10*3/uL (0.00-0.03); Imm Gran Pct Auto 0.3 % (0.0-0.4); Lymphocytes Absolute Auto 1.9 X10*3/uL (1.2-4.9); Lymphocytes Percent Auto 27.8 % (20-40); Mean Corpuscular HGB Conc 32.6 g/dl (31.0-35.0); Mean Corpuscular Hemoglobin 30.9 pg (27.0-33.0); Mean Corpuscular Volume 94.7 fL (80.0-98.0); Mean Platelet Volume 9.5 fL (9.4-12.3); Monocytes Absolute Auto 0.6 X10*3/uL (0.1-1.2); Monocytes Percent Auto 8.2 % (2-11); Neutrophils Absolute Auto 4.2 x10*3/uL (2.0-8.3); Neutrophils Percent Auto 62.1 % (45-73); Platelet Count 342 X10*3/uL (160-400); Red Blood Count 3.95 X10*6/uL (4.20-5.50); Red Cell Distribution Width 11.6 % (11.0-16.0); White Blood Count 6.8 X10*3/uL (4.8-10.8)
[2022-02-07 15:27] LABS: Appearance Urine Clear; Color Urine Yellow; Glucose Urine UA Negative (Negative); Leukocyte Esterase Urine Small (1+) (Negative); Nitrite Urine Negative (Negative); PH 6.5 (5.0-9.0); Specific Gravity - Urine 1.025 (1.005-1.025); UMIC TRIGGER UACC YES; Urine Blood Negative (Negative); Urine Ketones Trace mg/dL (Negative); Urine Protein Negative (Neg-Trace)
[2022-02-07 15:32] LABS: Alanine Aminotransferase 10 U/L (0-31); Albumin Level 4.1 g/dL (3.5-5.0); Alkaline Phosphatase 107 U/L (39-117); Anion Gap 16 (12-20); Aspartate Amino Transferase 16 U/L (5-31); Bilirubin Direct 0.2 mg/dL (0.0-0.5); Bilirubin Total 0.5 mg/dL (0.0-1.0); Blood Urea Nitrogen 17 mg/dL (9-16); Calcium 9.8 mg/dL (8.4-10.2); Carbon Dioxide 28 mmol/L (22-29); Chloride 103 mmol/L (96-108); Creatinine Clr Calc Pharmacy 52.2; Estimated Glomerular Filt Rate > 60; Glucose Random 91 mg/dL (60-115); Potassium 4.1 mmol/L (3.3-5.1); Sodium 143 mmol/L (135-145); Total Protein 7.1 g/dL (6.5-8.0)
[2022-02-07 15:47] LABS: Bacteria Urine None Seen (None Seen); Hyaline Casts Urine 0-2 /LPF (0-2); RBC Urine 0-2 /HPF (0-2); UACC Culture Trigger YES; WBC Urine 0-5 /HPF (0-5)
[2022-02-07 17:12] VITALS: BP 161/70; PULSE 60; RESP 16; TEMP 36.7; O2SAT 99
[2022-02-07 22:55] VITALS: BP 134/66; PULSE 78; RESP 17; TEMP 36.5; O2SAT 99
== END 2022-02-08 00:56 | disposition left against medical advice (07) ==
PROVIDERS: Emergency Provider Emergency Medicine; PCP Internal Medicine
DX: R10.12 Left upper quadrant pain (principal); Z79.899 Other long term (current) drug therapy
CPT/HCPCS: 36415; 80053; 81001; 82248; 85025; 87086; 99282; 99283

== ENCOUNTER 2022-02-09 12:21 | Emergency (ER) | payer MEDICARE, MEDICAID, SELFPAY ==
--- NOTE | ~2022-02-09 | US_ITS ---
EXAMINATION: US PELVIS CLINICAL INFORMATION: Vaginal bleeding COMPARISON: None TECHNIQUE: Ultrasound of the pelvis is performed using both transabdominal and transvaginal transducers along with Doppler. Transvaginal imaging is performed due to inadequate visualization transabdominally. FINDINGS: Uterus: The uterus is anteverted and measures 10.4 x 2.5 x 5.4 cm. The double wall endometrial thickness is 3 mm. Anechoic fluid present within the endometrial canal and cervix. The uterus is smooth in contour and has normal myometrial echogenicity. There are at least 3 uterine fibroids ranging in size from 1.3-1.4 cm located along the uterine fundus. Adnexa: Both ovaries are visualized. There is normal color flow to the adnexa. There is no ovarian torsion. There is no pelvic ascites or fluid collection. Right ovary measures 2.0 x 1.1 x 1.7 cm. Left ovary measures 1.8 x 1.2 x 1.3 cm. US/US pelvic and transvaginal IMPRESSION: * There is anechoic fluid within the uterus and cervix normal bilayer endometrial thickness is only 3 mm. Most often anechoic endometrial fluid without endometrial thickening relates to benign cervical stenosis. On the images submitted for review, however, there is nonspecific heterogeneous increased echotexture adjacent to the endometrium as seen on static images 68-69, of unclear significance. In the setting of vaginal bleeding, consider tissue sampling. * Small uterine fibroids as described.
--- NOTE | ~2022-02-09 | CT_ITS ---
EXAMINATION: CT ABDOMEN AND PELVIS WITH CONTRAST CLINICAL INFORMATION: Left-sided abdominal pain with vaginal bleeding COMPARISON: 11/15/2021 TECHNIQUE: Multidetector volumetric images were obtained from the superior aspect of the liver through the pubic symphysis following administration 85 mL of Omnipaque 350 intravenous contrast. Sagittal and coronal reformatted images were obtained on the technologist's workstation. Oral contrast: No This CT examination was performed using dose optimization techniques as appropriate, variously including the following: *Automated exposure control *Adjustment of mA and/or kV according to patient size (this includes techniques or standardized protocols for targeted exams where dose is matched to indication/reason for exam; i.e. extremities or head) *Use of iterative reconstruction technique DLP: 424 mGy-cm FINDINGS: LUNG BASES: Basilar atelectasis is present, right greater than left. Coronary calcification is present. LIVER, GALLBLADDER, AND BILIARY TREE: The liver is normal in size and shape. I suspect hepatic steatosis.. No focal hepatic lesion or biliary ductal dilatation is present. The gallbladder is unremarkable with no evidence of radiopaque gallstones, gallbladder wall thickening, or obvious pericholecystic inflammatory changes. PANCREAS: Unremarkable. SPLEEN: Unremarkable. ADRENAL GLANDS: Unremarkable. KIDNEYS AND URETERS: The kidneys are normal in size, shape, and attenuation. Bilateral nonobstructing nephrolithiasis present with a 4 mm calculus in the left lower pole and a 2 mm calculus in the right lower pole. No hydronephrosis, hydroureter, or ureteral calculi seen. No perinephric stranding. There is a tiny left upper pole renal cortical cyst which needs no further imaging or follow-up. No solid renal masses are seen. BLADDER: Unremarkable. GASTROINTESTINAL TRACT: The small and large bowel are unremarkable. The appendix is none identified with certainty but there is no evidence of appendicitis. ABDOMINAL WALL: There is a small periumbilical hernia seen containing only fat LYMPH NODES: No retroperitoneal lymphadenopathy. VASCULAR: Calcific atherosclerotic plaque. No aneurysms PELVIC VISCERA: There is some cortical lobulation involving the uterus suggestive of small fibroids with one area of calcification at the fundus. Fluid is present within a slightly dilated endometrial cavity consistent with the history of vaginal bleeding. OSSEOUS STRUCTURES: Mild degenerative changes are present spine. Compression fracture involving the superior endplate of L4 and L1 and T9. The L4 and T9 changes are new when compared to 11/15/2021. Sacral lesion is unchanged and stable. CT/CT abdomen pelvis w IV con IMPRESSION: 1. There are uterine fibroids and a slightly thickened endometrium. Given the history of vaginal bleeding, transabdominal and endovaginal ultrasound is recommended for further evaluation.. 2. Incidental note made of hepatic steatosis, bilateral nonobstructing nephrolithiasis, small periumbilical hernia containing only fat and new compression fractures involving L4 and T9 when compared to 11/15/2021. Fleischner guidelines were followed.
[2022-02-09 15:25] VITALS: BP 167/62; PULSE 63; RESP 18; TEMP 37.2; O2SAT 99; BMI 21.1
[2022-02-09 16:05] LABS: MANUAL DIFF FLAG NO
[2022-02-09 16:07] LABS: Basophils Percent Auto 0.6 % (0-2); Eosinophils Absolute Auto 0.1 X10*3/uL (0.0-0.4); Eosinophils Percent Auto 1.3 % (0-4); Hematocrit 36.9 % (37.0-47.0); Hemoglobin 12.1 g/dl (12.0-16.0); Imm Gran Abs Auto 0.01 X10*3/uL (0.00-0.03); Imm Gran Pct Auto 0.2 % (0.0-0.4); Lymphocytes Absolute Auto 1.7 X10*3/uL (1.2-4.9); Lymphocytes Percent Auto 30.9 % (20-40); Mean Corpuscular HGB Conc 32.8 g/dl (31.0-35.0); Mean Corpuscular Hemoglobin 30.6 pg (27.0-33.0); Mean Corpuscular Volume 93.2 fL (80.0-98.0); Mean Platelet Volume 9.5 fL (9.4-12.3); Monocytes Absolute Auto 0.4 X10*3/uL (0.1-1.2); Monocytes Percent Auto 6.8 % (2-11); Neutrophils Absolute Auto 3.3 x10*3/uL (2.0-8.3); Neutrophils Percent Auto 60.2 % (45-73); Platelet Count 337 X10*3/uL (160-400); Red Blood Count 3.96 X10*6/uL (4.20-5.50); Red Cell Distribution Width 11.5 % (11.0-16.0); White Blood Count 5.4 X10*3/uL (4.8-10.8)
[2022-02-09 16:08] LABS: Appearance Urine Cloudy; Color Urine Yellow; Glucose Urine UA Negative (Negative); Leukocyte Esterase Urine Negative (Negative); Nitrite Urine Negative (Negative); PH 7.5 (5.0-9.0); Specific Gravity - Urine 1.015 (1.005-1.025); Urine Blood Negative (Negative); Urine Ketones Trace mg/dL (Negative); Urine Protein Negative (Neg-Trace)
[2022-02-09 16:26] LABS: Alanine Aminotransferase 11 U/L (0-31); Albumin Level 4.2 g/dL (3.5-5.0); Alkaline Phosphatase 104 U/L (39-117); Anion Gap 16 (12-20); Aspartate Amino Transferase 16 U/L (5-31); Bilirubin Direct 0.2 mg/dL (0.0-0.5); Bilirubin Total 0.6 mg/dL (0.0-1.0); Blood Urea Nitrogen 13 mg/dL (9-16); Calcium 9.9 mg/dL (8.4-10.2); Carbon Dioxide 27 mmol/L (22-29); Chloride 103 mmol/L (96-108); Creatinine Clr Calc Pharmacy 63.7; Estimated Glomerular Filt Rate > 60; Glucose Random 96 mg/dL (60-115); Lipase 52 U/L (8-78); Potassium 4.1 mmol/L (3.3-5.1); Sodium 142 mmol/L (135-145); Total Protein 6.9 g/dL (6.5-8.0)
--- NOTE | 2022-02-09 22:47 | ED_ITS ---
HPI - Abdominal Pain General Chief Complaint: Abdominal Pain Stated Complaint: ABD PAIN Time Seen by Provider: 02/09/22 22:25 Source: patient Mode of arrival: ambulatory Limitations: no limitations History of Present Illness HPI narrative: Patient comes to the emergency room complaining 3 weeks of left upper and lower abdominal pain and left flank pain. Patient states that the reason she came today is because yesterday she had an episode of vaginal bleeding. Patient states that for 20+ years she has not had any vaginal bleeding. Patient states it was very mild, no vaginal bleeding today. Patient denies nausea vomiting or diarrhea, no fever or chills, no URI or UTI symptoms Related Data Home Medications Medication Instructions Recorded Confirmed acetaminophen 500 mg tablet 500 mg PO Q6H PRN 06/15/20 01/25/22 (Tylenol Extra Strength) amitriptyline 10 mg tablet 10 mg PO DAILY 06/15/20 01/25/22 denosumab 60 mg/mL subcutaneous 60 mg subcut [id number] 06/15/20 01/25/22 syringe (Prolia) diclofenac sodium 50 mg 50 mg PO BID 06/15/20 01/25/22 tablet,delayed release gabapentin 100 mg capsule 100 mg PO BEDTIME 06/15/20 01/25/22 lisinopril 20 mg tablet 20 mg PO DAILY 06/15/20 01/25/22 omega-3 fatty acids 1,000 mg 1,000 mg PO DAILY 06/15/20 01/25/22 capsule (Fish Oil Concentrate) tramadol 50 mg tablet 50 mg PO TID PRN 01/25/22 01/25/22 Previous Rx's Medication Instructions Recorded calcium citrate 250 mg PO BID 30 days #60 tabs 06/15/20 cholecalciferol (vitamin D3) 50 50 mcg PO DAILY 30 days #30 caps 06/15/20 mcg (2,000 unit) capsule lidocaine 4 % topical patch 1 patch topical DAILY PRN pain #30 11/05/21 (Aspercreme (lidocaine)) ea bisacodyl 10 mg rectal suppository 10 mg WV DAILY #12 ea 11/15/21 (Dulcolax (bisacodyl)) polyethylene glycol 3350 17 17 g PO DAILY #119 grams 11/15/21 gram/dose oral powder (Miralax) Allergies Allergy/AdvReac Type Severity Reaction Status Date / Time butalbital [From FIORICET] Allergy Unknown SWELLING,HI Verified 01/25/22 13:09 VES pepper (genus Capsicum) Allergy Unknown ITCHING Verified 01/25/22 13:09 [PEPPER] acetaminophen [Fioricet] AdvReac Unknown swelling Verified 01/25/22 13:09 caffeine [Fioricet] AdvReac Unknown swelling Verified 01/25/22 13:09 Fioricet Allergy Unknown swollen Uncoded 01/25/22 13:09 Review of Systems Review of Systems Constitutional : No Weight loss, No Fever, No Chills, No Night Sweats, No Fatigue, No Malaise ENT/Mouth : No Hearing loss, No Ear Pain, No Nasal Congestion, No Sinus Pain, No Hoarseness, No sore throat, No Rhinorrhea, No Swallowing Difficulty Eyes: No Eye Pain, No Swelling, No Redness, No Foreign Body, No Discharge, No Vision Changes Cardiovascular : No Chest Pain, No SOB, No Dyspnea on Exertion, No Orthopnea, No Edema, No Palpitations Respiratory : No Cough, No Sputum, No Wheezing, No Smoke Exposure, No Dyspnea Gastrointestinal : No Nausea, No Vomiting, No Diarrhea, No Constipation, complaining of left abdominal pain both upper and lower quadrant and flank pain Genitourinary : Complaining of 1 episode of vaginal bleeding yesterday,, No Dysuria, No Urinary Frequency, No Hematuria, No Urinary Incontinence, No Urgency, complaining of mild left, No Urinary Flow Changes, No Hesitancy Musculoskeletal : No joint pain, No Myalgias, No Joint Swelling Skin : No Skin Lesions, No rash Neuro : No Weakness, No Numbness, No Paresthesias, No Loss of Consciousness, No Dizziness, No Headache Psych : No Anxiety/Panic, No Depression, No SI/HI/AH/VH, No Social Issues, Heme/Lymph: No Bruising, No Bleeding,No Lymphadenopathy Endocrine : No Polyuria, No Polydipsia, No Temperature Intolerance PMFSH Past Medical History Medical History Essential hypertension History of primary hyperparathyroidism Non-toxic multinodular goiter Osteoporosis Surgical History H/O parathyroidectomy Hx of section Hx of lithotripsy Hx of tubal ligation Family History Family History Father No problems noted. Mother CVD (cardiovascular disease) Heart disease Social History Social History (Updated 01/25/22 @ 13:11 by JULIAN Montgomery) Alcohol intake: never Patient Tobacco Use Status: Never used Tobacco Advance Directives: No Advance Directives Information Provided: No Physical Exam ED Vital Signs: Vital Signs - 24 hr 02/09/22 15:25 02/09/22 23:33 Temperature 98.9 F 98.3 F Pulse Rate 63 67 Respiratory Rate 18 Blood Pressure 167/62 H 118/77 Pulse Oximetry 99 97 Oxygen Delivery Method Room Air Room Air BMI result Body Mass Index 21.1 Const Other: Appearance: Alert. Oriented X3. No acute distress. Eyes: Pupils equal, round and reactive to light. ENT: Pharynx normal. Neck: Normal inspection. Neck supple. No lymph nodes noted. No crepitus CVS: Normal heart rate and rhythm. Pulses normal. Normal S1 and S2 Respiratory: No respiratory distress. Breath sounds normal. No Wheezing. No rales Abdomen: Soft , mild tenderness to palpation in left upper quadrant and left lower quadrant : No masses visualized, no vaginal bleeding. Skin: Skin warm and dry. Normal skin color. Normal skin turgor. Extremities: No lower extremity edema. No Lacerations. No Rash Neuro: Oriented X 3. No motor deficit. No sensory deficit. Moving all extremities. No slurred speech. CN 2 through 12 grossly intact Psych: calm, cooperative, normal affect Course Course Course Narrative: Patient states that she had an episode of vaginal bleeding yesterday. At her age, this is highly uncommon and concerning. CT scan will be done with contrast and we will also do a pelvic exam. Patient denies fever chills, no weight loss Patient's labs are within normal limits. No acute findings. I discussed with the patient that her CT scan shows uterine fibroids as likely thickened endometrium. Patient states that to her knowledge she has never been diagnosed with uterine fibroids. Vaginal and trans abdominal ultrasounds are pending Please follow-up with the ultrasound. Sign out given to Dr Jenny COLINDRES - Abdominal Pain Lab Data Result diagrams: 02/09/22 16:01 02/09/22 16:01 Labs: Lab Results 02/09/22 02/09/22 02/09/22 Range/Units 16:01 16:01 16:01 WBC 5.4 (4.8-10.8) X10*3/uL RBC 3.96 L (4.20-5.50) X10*6/uL Hgb 12.1 (12.0-16.0) g/dl Hct 36.9 L (37.0-47.0) % MCV 93.2 (80.0-98.0) fL MCH 30.6 (27.0-33.0) pg MCHC 32.8 (31.0-35.0) g/dl RDW 11.5 (11.0-16.0) % Plt Count 337 (160-400) X10*3/uL MPV 9.5 (9.4-12.3) fL Immature Gran % (Auto) 0.2 (0.0-0.4) % Neut % (Auto) 60.2 (45-73) % Lymph % (Auto) 30.9 (20-40) % Bailey % (Auto) 6.8 (2-11) % Eos % (Auto) 1.3 (0-4) % Baso % (Auto) 0.6 (0-2) % Lymph # (Auto) 1.7 (1.2-4.9) X10*3/uL Bailey # (Auto) 0.4 (0.1-1.2) X10*3/uL Eos # (Auto) 0.1 (0.0-0.4) X10*3/uL Baso # (Auto) 0.0 (0.0-0.2) X10*3/uL Abs Immat Gran (auto) 0.01 (0.00-0.03) X10*3/uL Absolute Neuts (auto) 3.3 (2.0-8.3) x10*3/uL Absolute Nucleated RBC 0.000 (0.0-0.012) X10*3/uL Nucleated RBC % (auto) 0.0 (0.0-0.2) /100WBC Sodium 142 (135-145) mmol/L Potassium 4.1 (3.3-5.1) mmol/L Chloride 103 (96-108) mmol/L Carbon Dioxide 27 (22-29) mmol/L Anion Gap 16 (12-20) BUN 13 (9-16) mg/dL Creatinine 0.74 (0.5-1.4) mg/dL Estim Creat Clear Calc 63.7 Estimated GFR > 60 Random Glucose 96 (60-115) mg/dL Calcium 9.9 (8.4-10.2) mg/dL Total Bilirubin 0.6 (0.0-1.0) mg/dL Direct Bilirubin 0.2 (0.0-0.5) mg/dL AST 16 (5-31) U/L ALT 11 (0-31) U/L Alkaline Phosphatase 104 (39-117) U/L Total Protein 6.9 (6.5-8.0) g/dL Albumin 4.2 (3.5-5.0) g/dL Lipase 52 (8-78) U/L Urine Color Yellow Urine Appearance Cloudy Urine pH 7.5 (5.0-9.0) Ur Specific [place] 1.015 (1.005-1.025) Urine Protein Negative (Neg-Trace) mg/dL Urine Glucose (UA) Negative (Negative) mg/dL Urine Ketones Trace (Negative) mg/dL Urine Blood Negative (Negative) Urine Nitrite Negative (Negative) Ur Leukocyte Esterase Negative (Negative) Discharge Plan Discharge Clinical Impression: Chronic abdominal pain, Abnormal vaginal bleeding in postmenopausal patient Patient Disposition: Home, Self-Care Instructions: Dysfunctional Uterine Bleeding (ED) Additional Instructions: Please follow-up with your primary care physician tomorrow. If you have any worsening or new symptoms, please return to the emergency room or call 911 Prescriptions: No Action polyethylene glycol 3350 [Miralax] 17 gram/dose powder 17 g PO DAILY Qty: 119 0RF bisacodyl [Dulcolax (bisacodyl)] 10 mg suppository 10 mg WV DAILY Qty: 12 0RF lidocaine [Aspercreme (lidocaine)] 4 % adhesive patch,medicated 1 patch topical DAILY PRN (Reason: pain) Qty: 30 0RF lisinopril 20 mg tablet 20 mg PO DAILY diclofenac sodium 50 mg tablet,delayed release (DR/EC) 50 mg PO BID amitriptyline 10 mg tablet 10 mg PO DAILY Prolia 60 mg/mL syringe 60 mg subcut [id number] omega-3 fatty acids [Fish Oil Concentrate] 1,000 mg capsule 1,000 mg PO DAILY acetaminophen [Tylenol Extra Strength] 500 mg tablet 500 mg PO Q6H PRN gabapentin 100 mg capsule 100 mg PO BEDTIME calcium citrate 250 mg calcium tablet 250 mg PO BID 30 Days Qty: 60 7RF cholecalciferol (vitamin D3) 50 mcg (2,000 unit) capsule 50 mcg PO DAILY 30 Days Qty: 30 7RF tramadol 50 mg tablet 50 mg PO TID PRN Referrals: Saúl Wilson MD [Physician] - 5 days (Postmenopausal vaginal bleeding)
[2022-02-09] MEDS: iohexoL 350 MG/ML 100 ML INFUS..BTL 85 ML IV (23:27)
[2022-02-09 23:33] VITALS: BP 118/77; PULSE 67; TEMP 36.8; O2SAT 97
[2022-02-10 02:34] VITALS: BP 146/56; PULSE 65; O2SAT 99
[2022-02-10 03:58] VITALS: BP 135/60; PULSE 57; O2SAT 96
== END 2022-02-10 04:44 | disposition home or self-care (01) ==
PROVIDERS: Emergency Medicine; Emergency Provider Internal Medicine; PCP Internal Medicine
DX: N95.0 Postmenopausal bleeding (principal); G89.29 Other chronic pain; R10.9 Unspecified abdominal pain; I10 Essential (primary) hypertension; Z79.899 Other long term (current) drug therapy
CPT/HCPCS: 36415; 51798; 74177; 76830; 76856; 80053; 81003; 82248; 83690; 85025; 99284; Q9967

== ENCOUNTER → 2022-02-16 13:56 | Outpatient (REF) | payer MEDICARE, MEDICAID, SELFPAY ==
--- NOTE | 2022-02-16 14:01 | HM_ITS ---
Conclusion: 1. Patient was monitored for total period of 1 day and 23 hours 2. Baseline was normal sinus rhythm with average heart of 68 beats per minute 3. Total of 2835 PACs accounting for 3% of total beats account for frequent PACs 4. Frequent short runs of supra will episodes of 3 to 11 beats, fastest at 152 beats per min suggestive SVT 5. No significant bradycardia or pauses noted 6. No patient reported symptoms MTDD
--- NOTE | 2022-02-16 14:01 | CA_ITS ---
Transthoracic Echocardiogram Patient (Last, First, Middle): Kimberlee Seaman M Gender: Female Date of : 1955 Age: 66 Procedure Date: 02/16/2022 Procedure Type: Transthoracic Echocardiogram Location: OP Height: 144.78 cm Weight: 55.79 kg BSA: 1.46 m2 Heart Rate: bpm BP: 118 / 60 mmHg Lyric Writer: Referring MD: Carlos Chacon MD Biomass Plant Manager: Tomas Hernandez MD Symptoms: I38 - Endocarditis, valve unspecified Study Quality: Fair ECG Rhythm: Sinus Conclusions: - 1. Normal LV systolic function with impaired relaxation filling pattern and suggestion of elevated left ventricular end-diastolic pressure 2. Moderately dilated left atrium 3. Moderate mitral and tricuspid regurgitation 4. Normal RV systolic pressure 5. No gross pericardial effusion Findings Left Ventricle Normal left ventricular size, thickness, and systolic function. The visually estimated ejection fraction is between 60-65%. Spectral Doppler is indicative of an impaired relaxation filling pattern. Elevated left ventricular end diastolic pressure. E/E prime ratio is between 8 and 15 consistent with indeterminate filling pressures. Right Ventricle Normal right ventricular cavity size and systolic function. Atria The left atrium is moderately dilated. Interatrial shunt cannot be excluded. The right atrium is normal in size. Aortic Valve The aortic valve structure and function is likely normal. There is no aortic valve stenosis. There is no aortic valve regurgitation. Mitral Valve There is mild anterior and posterior mitral leaflet thickening. There is moderate mitral valve regurgitation. There is no mitral valve stenosis. Pulmonic Valve The pulmonic valve was not well visualized. Tricuspid Valve Likely normal tricuspid valve structure and function. There is moderate tricuspid valve regurgitation. Normal right atrial pressure. There is no evidence of pulmonary hypertension. Great Vessels All visible segments of the aorta are normal in size. The pulmonary artery was not well visualized. Venous The inferior vena cava is normal in size and collapses greater than 50% with inspiration. Pericardium/Pleural There is no evidence of pericardial effusion. Prior Study Comparison Changes noted compared to prior study dated: 10/16/2019. RV systolic pressure is marginally reduced on this study Measurements 2D Linear Measurements Ao Root: 2.60 2.1-3.5 cm LVOT Diam: 1.90 3.0+(-)1.3 cm Mitral Valve MV Pk E: 0.89 MV PK A: 1.18 MV Decel Time: 180.00 E/A: 0.80 E'Lateral: 14.60 E'Medial: 5.98 E/E' Med: 14.90 E/E' Lat: 6.10 PHT: 53.00 MVA PHT: 4.15 Decel [place]cho: 4.94 Aortic Valve AoV Pk Regan: 1.71 AoV Mn Regan: 1.08 AoV VTI: 0.39 AoV Pk Grad: 12.00 Aov Mn Grad: 6.00 INEZ Cont.VTI: 1.58 LVOT LVOT Pk Regan: 1.25 LVOT Mn Regan: 0.59 LVOT VTI: 0.21 LVOT Pk Grad: 6.00 LVOT Mn Grad: 2.00 LVOT Diam: 1.90 LVOT Area: 2.84 Diastolic Function MV Pk E: 0.89 MV Pk A: 1.18 E/A: 0.80 E'Medial: 5.98 E/E' Med: 14.90 E' Laterial: 14.60 E/E' Lat: 6.10 Right Ventricle TAPSE (mm): 25.00 TVS' Regan: 12.00 Tricuspid Valve TR Pk Regan: 2.91 TR Pk Grad: 34.00 RA Press: 3.00 RVSP: 37.00 Great Vessels Aorta Ao Root-2D: 2.60 2.0-3.7 cm Ao Asc: 3.50 2.1-3.4 cm Pulmonary Valve PV Pk Regan: 1.24 Peak PV Grad: 6.00 Updated in Other Vendor System with Status of Final Tomas Hernandez MD electronically signed on 02/17/2022 11:34:08 AM with status of Final
== END ==
LOC: HO.CARD 13:56
PROVIDERS: PCP Internal Medicine; Visit Provider Internal Medicine
DX: R00.1 Bradycardia, unspecified (principal); I38 Endocarditis, valve unspecified
CPT/HCPCS: 93226; 93242; 93306

== ENCOUNTER → 2022-03-03 11:32 | Outpatient (BNVA) | payer MEDICARE, MEDICAID, SELFPAY | PROVIDERS: PCP Internal Medicine; Visit Provider Internal Medicine Endocrinology, Diabetes & Metabolism | DX: M81.0 Age-related osteoporosis without current pathological fracture (principal); E04.2 Nontoxic multinodular goiter | CPT/HCPCS: 96372; 99212; J0897 ==

== ENCOUNTER 2022-04-19 11:16 | Outpatient (REF) | payer MEDICARE, MEDICAID, SELFPAY ==
[2022-04-22 21:49] LABS: HPV 16 RNA DETECTED (NOT DETECTED); HPV mRNA E6/E7 rflx Detected (Not Detected)
== END 2022-04-19 11:17 | disposition home or self-care (01) ==
LOC: HO.LNP 11:16
PROVIDERS: PCP Internal Medicine; Visit Provider Advanced Practice Midwife
DX: Z12.4 Encounter for screening for malignant neoplasm of cervix (principal); Z11.51 Encounter for screening for human papillomavirus (HPV); N95.0 Postmenopausal bleeding
CPT/HCPCS: 58100; 87624; 87625; 88142; 99212

== ENCOUNTER 2022-05-16 14:03 | Outpatient (REF) | payer MEDICARE, MEDICAID, SELFPAY | END 2022-05-16 14:04 | disposition home or self-care (01) | LOC: HO.LNP 14:03 | PROVIDERS: PCP Internal Medicine; Visit Provider Obstetrics & Gynecology | DX: N95.0 Postmenopausal bleeding (principal); N90.89 Other specified noninflammatory disorders of vulva and perineum; D21.9 Benign neoplasm of connective and other soft tissue, unspecified; R87.610 Atypical squamous cells of undetermined significance on cytologic smear of cervix (ASC-US); R87.810 Cervical high risk human papillomavirus (HPV) DNA test positive | CPT/HCPCS: 56605; 58100; 88305; 88312; 99212 ==

== ENCOUNTER → 2022-05-26 13:37 | Outpatient (BNVA) | payer MEDICARE, MEDICAID, SELFPAY | PROVIDERS: PCP Internal Medicine; Referring Provider Internal Medicine; Visit Provider Nurse Practitioner Family | DX: I49.1 Atrial premature depolarization (principal); I47.1 Supraventricular tachycardia; I34.0 Nonrheumatic mitral (valve) insufficiency; I07.1 Rheumatic tricuspid insufficiency; I10 Essential (primary) hypertension | CPT/HCPCS: 99212 ==

== ENCOUNTER 2022-05-30 12:40 | Outpatient (REF) | payer MEDICARE, MEDICAID, SELFPAY | END 2022-05-30 12:41 | disposition home or self-care (01) | LOC: HO.LNP 12:40 | PROVIDERS: PCP Internal Medicine; Visit Provider Obstetrics & Gynecology | DX: R87.610 Atypical squamous cells of undetermined significance on cytologic smear of cervix (ASC-US) (principal); R87.810 Cervical high risk human papillomavirus (HPV) DNA test positive; D21.9 Benign neoplasm of connective and other soft tissue, unspecified; N95.0 Postmenopausal bleeding | CPT/HCPCS: 57454; 88305; 99212 ==

== ENCOUNTER 2022-07-13 08:32 | Outpatient (REF) | payer MEDICARE, MEDICAID, SELFPAY ==
--- NOTE | ~2022-07-13 | US_ITS ---
EXAMINATION: US ABDOMEN COMPLETE CLINICAL INFORMATION: Abdominal pain. Weight loss. COMPARISON: CT abdomen and pelvis 02/09/2022. Ultrasound renal 06/13/2014 and 12/06/2013. TECHNIQUE: Real-time imaging of the abdominal viscera. FINDINGS: PANCREAS: Visualized portions of pancreas are normal in appearance. ABDOMINAL AORTA: The visualized proximal and mid abdominal aorta are normal in caliber. The distal abdominal aorta is not well visualized and therefore not evaluated. INFERIOR VENA CAVA: Visualized portions are normal. LIVER: The liver is normal in size. The liver contour is normal. Liver echogenicity is increased diffusely. There is some areas of decreased echogenicity adjacent to the main portal vein and gallbladder which are nonspecific but most suggestive of focal fatty sparing. No focal hepatic lesion. There is no intrahepatic biliary duct dilatation seen. GALLBLADDER: The gallbladder is physiologically distended. There is a 3 mm echogenic but nonshadowing focus contiguous with the nondependent gallbladder wall which is most suggestive of a small polyp. Also noted is a small 3 mm calcification which appears adherent to the gallbladder wall. No definitive shadowing gallstones are identified. There is no gallbladder wall thickening or pericholecystic fluid appreciated. Negative sonographic Canales's sign. COMMON BILE DUCT: Normal in caliber measuring 0.2 cm in diameter. RIGHT KIDNEY: 4 mm nonobstructing mid pole calculus. No hydronephrosis. The kidney measures 9.0 cm in maximum dimension. LEFT KIDNEY: 3 mm nonobstructing lower pole calculus. No hydronephrosis. No hydronephrosis or focal parenchymal lesions. The kidney measures 10.6 cm in maximum dimension. SPLEEN: The spleen measures 8.8 cm in maximum dimension. FREE FLUID: None. US/US abdomen complete IMPRESSION: 1. Diffusely increased liver echogenicity. This is a nonspecific finding but most suggestive of hepatic steatosis. Correlation with liver enzymes recommended. 2. Suspected 3 mm gallbladder polyp. Follow-up as clinically indicated. 3. Tiny bilateral nonobstructing renal calculi. No hydronephrosis of either kidney.
== END 2022-07-13 08:33 | disposition home or self-care (01) ==
LOC: HO.US 08:32
PROVIDERS: PCP Internal Medicine; Visit Provider Internal Medicine
DX: R10.84 Generalized abdominal pain (principal); R63.4 Abnormal weight loss
CPT/HCPCS: 76700

== ENCOUNTER 2022-07-18 11:21 | Outpatient (REF) | payer MEDICARE, MEDICAID, SELFPAY ==
--- NOTE | ~2022-07-18 | US_ITS ---
EXAMINATION: US PELVIS CLINICAL INFORMATION: Myoma. COMPARISON: Ultrasound pelvis 02/10/2022. TECHNIQUE: Ultrasound of the pelvis is performed using both transabdominal and transvaginal transducers along with Doppler. Transvaginal imaging is performed due to inadequate visualization transabdominally. FINDINGS: Uterus: The uterus is anteverted, retroflexed and measures 10.5 cm in length, 2.2 cm in AP, and 3.6 cm in transverse dimension. The double wall endometrial thickness is 0.8 cm. The uterus is smooth in contour and has normal myometrial echogenicity. Previously visualized several fibroids are not seen at this exam. Adnexa: Both ovaries are visualized. There is normal color flow to the adnexa. There is no ovarian torsion. There is no pelvic ascites or fluid collection. Right ovary measures 2.7 x 1.3 x 2.2 cm and volume 4.0 mL. It is unremarkable. Previously it measured 2.0 x 1.1 x 1.7 cm. Left ovary measures 2.2 x 1.1 x 1.1 cm and volume 1.4 mL. It appears unremarkable. Previously it measured 1.8 x 1.2 x 1.3 cm. There is no free fluid in the cul-de-sac. US/US pelvic and transvaginal IMPRESSION: Unremarkable uterus with no fibroids seen at this time. The ovaries are unremarkable.
== END 2022-07-18 11:22 | disposition home or self-care (01) ==
LOC: HO.US 11:21
PROVIDERS: PCP Internal Medicine; Visit Provider Obstetrics & Gynecology
DX: N90.89 Other specified noninflammatory disorders of vulva and perineum (principal)
CPT/HCPCS: 76830; 76856

== ENCOUNTER 2022-08-16 10:18 | Outpatient (REF) | payer OTHER, SELFPAY | END 2022-08-16 10:19 | disposition home or self-care (01) | LOC: HO.LNP 10:18 | PROVIDERS: PCP Internal Medicine; Visit Provider Obstetrics & Gynecology | DX: R87.610 Atypical squamous cells of undetermined significance on cytologic smear of cervix (ASC-US) (principal); R87.810 Cervical high risk human papillomavirus (HPV) DNA test positive; D21.9 Benign neoplasm of connective and other soft tissue, unspecified | CPT/HCPCS: 88305; 99212 ==

== ENCOUNTER 2022-08-30 09:51 | Outpatient (REF) | payer OTHER, SELFPAY ==
[2022-08-30 12:41] LABS: Free T4 (Free Thyroxine) 1.02 ng/dL (0.71-1.85); Thyroid Stimulating Hormone 2.05 uIU/mL (0.32-4.0)
[2022-09-07 14:33] LABS: N-Telopeptide 45 (see note); NTXCreaRU 152 mg/dL (20-275)
== END 2022-08-30 09:52 | disposition home or self-care (01) ==
LOC: HO.LAB 09:51
PROVIDERS: PCP Internal Medicine; Visit Provider Internal Medicine Endocrinology, Diabetes & Metabolism
DX: E04.2 Nontoxic multinodular goiter (principal); M81.0 Age-related osteoporosis without current pathological fracture
CPT/HCPCS: 36415; 82523; 84439; 84443

== ENCOUNTER 2022-08-31 11:22 | Outpatient (REF) | payer OTHER, SELFPAY ==
[2022-08-31 13:58] LABS: Anion Gap 9 (12-20); Blood Urea Nitrogen 22 mg/dL (9-16); Calcium 9.7 mg/dL (8.4-10.2); Carbon Dioxide 33 mmol/L (22-29); Chloride 106 mmol/L (96-108); Estimated Glomerular Filt Rate > 60; Glucose Random 83 mg/dL (60-115); Potassium 4.5 mmol/L (3.3-5.1); Sodium 143 mmol/L (135-145)
== END 2022-08-31 11:23 | disposition home or self-care (01) ==
LOC: HO.LAB 11:22
PROVIDERS: PCP Internal Medicine; Visit Provider Internal Medicine Endocrinology, Diabetes & Metabolism
DX: M81.0 Age-related osteoporosis without current pathological fracture (principal)
CPT/HCPCS: 36415; 80048; 99212

== ENCOUNTER 2022-09-01 12:45 | Outpatient (REF) | payer OTHER, SELFPAY ==
--- NOTE | ~2022-09-01 | US_ITS ---
EXAMINATION: US THYROID CLINICAL INFORMATION: Nontoxic multinodular goiter. COMPARISON: Ultrasound thyroid 10/10/2019 and 10/18/2017. TECHNIQUE: Linear transducer grayscale and color Doppler examination with attention to the region of the thyroid. FINDINGS: SIZE: Measurements of the thyroid lobes and nodules are given in sagittal, anteroposterior and transverse dimensions respectively. Right Thyroid Lobe: 4.4 x 1.3 x 1.5 cm, volume 4.4 mL. Previously 4.2 x 1.4 x 1.6 cm, volume 5.0 mL. Parenchyma: The gland echotexture is homogeneous. Thyroid vascularity is normal. Left Thyroid Lobe: 4.5 x 1.2 x 1.7 cm, volume 4.5 mL. Previously 4.3 x 1.2 x 1.7 cm, volume 4.6 mL. Parenchyma: The gland echotexture is homogeneous. Thyroid vascularity is normal. Isthmus: 0.2 cm in maximum AP dimension. Previously 0.3 cm. No suspicious focal thyroid nodule is seen. A 0.9 cm cystic nodule with ringdown artifact, TR 1, does not warrant follow-up, previously 0.8 cm.. NODES: No lymphadenopathy is seen in the tissue surrounding the thyroid gland. US/US thyroid IMPRESSION: No suspicious thyroid nodule. ACR TI-RADS RECOMMENDATION REFERENCE: Ultrasound-guided fine-needle aspiration, followup ultrasound, no further follow up. * TR1 (0 point) and TR2 (2 points): No FNA or follow up. * TR3 (3 points): FNA if more than or equal to 2.5 cm in maximum dimension, followup ultrasound in 1, 3 and 5 years if 1.5 to 2.4 cm in maximum dimension. * TR4 (4-6 points): FNA if more than or equal to 1.5 cm in maximum dimension, followup ultrasound in 1, 2, 3 and 5 years if 1 to 1.4 cm in maximum dimension. * TR5 (more than or equal to 7 points): FNA if more than or equal to 1 cm in maximum dimension, followup ultrasound every year for 5 years if 0.5 to 0.9 cm in maximum dimension. * TR3, TR4 or TR5 nodules that are below the size threshold for followup receive no follow up.
== END 2022-09-01 12:46 | disposition home or self-care (01) ==
LOC: HO.US 12:45
PROVIDERS: PCP Internal Medicine; Visit Provider Internal Medicine Endocrinology, Diabetes & Metabolism
DX: E04.2 Nontoxic multinodular goiter (principal)
CPT/HCPCS: 76536

== ENCOUNTER → 2022-09-05 14:13 | Outpatient (BNVA) | payer OTHER, SELFPAY | PROVIDERS: PCP Internal Medicine; Visit Provider Obstetrics & Gynecology | DX: R87.610 Atypical squamous cells of undetermined significance on cytologic smear of cervix (ASC-US) (principal); R87.810 Cervical high risk human papillomavirus (HPV) DNA test positive | CPT/HCPCS: 99212 ==

== ENCOUNTER → 2022-09-06 12:48 | Outpatient (BNVA) | payer OTHER, SELFPAY | PROVIDERS: PCP Internal Medicine; Visit Provider Internal Medicine Endocrinology, Diabetes & Metabolism | DX: M81.0 Age-related osteoporosis without current pathological fracture (principal) | CPT/HCPCS: 96372; J0897 ==

== ENCOUNTER → 2023-02-13 13:46 | Outpatient (REF) | payer OTHER, SELFPAY ==
--- NOTE | 2023-02-13 13:49 | CA_ITS ---
Transthoracic Echocardiogram Patient (Last, First, Middle): Kimberlee Seaman M Gender: Female Date of : 1955 Age: 67 Procedure Date: 02/13/2023 Procedure Type: Transthoracic Echocardiogram Location: OP Height: 121.92 cm Weight: 45.36 kg BSA: 1.18 m2 Heart Rate: 55 bpm BP: 138 / 68 mmHg Baling Press Operator: SHAD Referring MD: Charisse Souza TRANSIT SPECIALIST-Janna [employer] Instrument Maker: Tomas Hernandez MD Symptoms: I34.0 - Nonrheumatic mitral (valve) insufficiency Study Quality: Adequate ECG Rhythm: Bradycardia Conclusions: - 1. Normal LV ejection fraction 65-70% with restrictive filling pattern 2. Moderately dilated left atrium 3. Moderate mitral regurgitation 4. Gymg-ip-qecpkkts tricuspid regurgitation with mildly elevated right ventricular systolic pressure 5. No gross pericardial effusion Findings Left Ventricle Normal left ventricular size, thickness, and systolic function. The visually estimated ejection fraction is between 65-70%. Spectral Doppler is indicative of a restrictive filling pattern. E/E prime ratio is between 8 and 15 consistent with indeterminate filling pressures. Right Ventricle Normal right ventricular cavity size and systolic function. Atria The left atrium is moderately dilated. There is no evidence of interatrial shunt. The right atrium is mildly dilated. Aortic Valve Normal aortic valve structure and function. There is no aortic valve stenosis. There is no aortic valve regurgitation. Mitral Valve There is mild anterior and moderate posterior mitral leaflet thickening. There is moderate mitral valve regurgitation. There is no mitral valve stenosis. Pulmonic Valve The pulmonic valve is likely normal. There is trace pulmonic valve regurgitation. Tricuspid Valve Normal tricuspid valve structure. There is mild to moderate tricuspid valve regurgitation. Normal right atrial pressure. Mild pulmonary hypertension is present. Great Vessels The pulmonary artery was not well visualized. Venous The inferior vena cava is normal in size and collapses greater than 50% with inspiration. Pericardium/Pleural There is no evidence of pericardial effusion. Prior Study Comparison Changes noted compared to prior study dated: 02/16/2022. RV systolic pressure is elevated Measurements 2D Linear Measurements IVSd: 0.84 0.6-0.9/0.6-1.0 cm LVIDd: 4.30 3.9-5.3/4.2-5.9 cm LVIDd Index: 3.64 2.4-3.2/2.2-3.1 cm/m2 LVIDs: 2.41 2.0-3.6 cm LVPWd: 0.75 0.7-1.1 cm LA Diam: 3.70 2.7-3.8/3.0-4.0 cm LAIDs Index: 3.14 1.5-2.3 cm/m2 LV Mass: 130.36 67-162/88-224 g LV Mass Index: 110.48 43-95/49-115 g/m2 LVOT Diam: 1.90 3.0+(-)1.3 cm 2D Systolic Function EF 4C: 66.40 >55% EF 2C: 70.10 >55% EF BiP: 69.40 >55% Mitral Valve MV Pk E: 1.18 MV PK A: 0.68 MV Decel Time: 170.00 E/A: 1.70 E'Lateral: 10.30 E'Medial: 4.79 E/E' Med: 24.60 E/E' Lat: 11.50 PHT: 50.00 MVA PHT: 4.40 Decel Kent: 6.95 MR Vol - PW Dopp: 9.36 MR VTI: 2.34 MR ERO: 4.00 MR Alias Regan: 0.39 MR RAD: 0.30 Aortic Valve AoV Pk Regan: 1.33 AoV Pk Grad: 7.00 INEZ: 2.20 LVOT LVOT Pk Regan: 1.13 LVOT Mn Regan: 0.76 LVOT VTI: 0.27 LVOT Pk Grad: 5.00 LVOT Mn Grad: 3.00 LVOT Diam: 1.90 LVOT Area: 2.84 Diastolic Function MV Pk E: 1.18 MV Pk A: 0.68 E/A: 1.70 E'Medial: 4.79 E/E' Med: 24.60 E' Laterial: 10.30 E/E' Lat: 11.50 Right Ventricle TAPSE (mm): 20.30 TVS' Regan: 12.10 Tricuspid Valve TR Pk Regan: 3.19 TR Pk Grad: 41.00 RA Press: 3.00 RVSP: 44.00 Great Vessels Aorta Sinus of Valsalva: 2.50 2.0-3.5 cm Ao Asc: 3.60 2.1-3.4 cm Pulmonary Veins Pulm Vein S/D 1.10 Pulmonary Valve PV Pk Regan: 0.98 Peak PV Grad: 4.00 Updated in Other Vendor System with Status of Final Tomas Hernandez MD electronically signed on 02/14/2023 12:14:46 PM with status of Final
== END ==
LOC: HO.CARD 13:46
PROVIDERS: PCP Internal Medicine; Visit Provider Nurse Practitioner Family
DX: I07.1 Rheumatic tricuspid insufficiency (principal); I34.0 Nonrheumatic mitral (valve) insufficiency
CPT/HCPCS: 93306

== ENCOUNTER → 2023-02-13 13:49 | Outpatient (BNV) | payer OTHER, SELFPAY | PROVIDERS: PCP Internal Medicine; Visit Provider Internal Medicine Cardiovascular Disease | DX: I34.0 Nonrheumatic mitral (valve) insufficiency (principal); I36.1 Nonrheumatic tricuspid (valve) insufficiency | CPT/HCPCS: 93306 ==

== ENCOUNTER 2023-02-23 14:19 | Outpatient (AMB) | payer OTHER, SELFPAY ==
[2023-02-23 14:46] VITALS: BP 138/64; PULSE 61; BMI 28.7
--- NOTE | 2023-02-23 14:46 | A.OFFVIS_ITS ---
Intake Vital Signs 02/23/23 14:46 Height 4 ft 6 in Weight 119 lb 0.794 oz BMI 28.7 BP 138/64 Blood Pressure Location Lt brachial Position Sitting Pulse 61 Intake Visit Reasons: follow up after echo Market Research Coordinator Required: Yes Market Research Coordinator Language: Cleaning Machine Operator Name: patrice pugh [id number] Allergies butalbital [From FIORICET] Allergy (Unknown, Verified 02/23/23 14:49) SWELLING,HIVES pepper (genus Capsicum) [PEPPER] Allergy (Unknown, Verified 02/23/23 14:49) ITCHING acetaminophen [Fioricet] Adverse Reaction (Unknown, Verified 02/23/23 14:49) swelling caffeine [Fioricet] Adverse Reaction (Unknown, Verified 02/23/23 14:49) swelling Fioricet Allergy (Unknown, Uncoded 08/16/22 10:29) swollen Medication List - Last Reconciled 02/23/23 by Charisse Souza PHYSICIAN OBSTETRICIAN-C acetaminophen (Tylenol Extra Strength) 500 mg PO Q6H PRN amitriptyline 10 mg PO DAILY bisacodyl (Dulcolax (bisacodyl)) 10 mg ME DAILY calcium citrate 250 mg PO BID 30 days cholecalciferol (vitamin D3) 50 mcg PO DAILY 30 days denosumab (Prolia) 60 mg subcut [id number] diclofenac sodium 50 mg PO BID famotidine 20 mg PO BID gabapentin 100 mg PO BEDTIME lisinopril 20 mg PO DAILY omega-3 fatty acids (Fish Oil Concentrate) 1,000 mg PO DAILY simvastatin 20 mg PO BEDTIME tramadol 50 mg PO TID PRN HPI follow up after echo HPI Details Kimberlee is a 67-year-old female with past medical history hypertension mitral regurgitation and tricuspid regurgitation, sinus bradycardia who presents for follow-up. Today she reports she has been doing well since her last visit in May. She has not had any concerning heart palpitations. She tells me last night she had a quick pain in her chest when she was laying down. Normally she has no chest discomfort at rest or with activity. She tells me her breathing is comfortable. No presyncope, syncope, falls. No PND, orthopnea or edema. Ambulates with a cane at times. Takes meds as directed [facility] Medical History Essential hypertension History of primary hyperparathyroidism Non-toxic multinodular goiter Osteoporosis Surgical History Hx of lithotripsy H/O parathyroidectomy Hx of tubal ligation Hx of section Family History Father No problems noted. Mother CVD (cardiovascular disease) Heart disease Social History Household Members: Spouse and Family Household Members Other:: , son Housing: Apartment Alcohol intake: never Patient Tobacco Use Status: Former Tobacco user Current occupational status: disabled Sexual orientation: Straight/Heterosexual Gender identity: Female Review of Systems Const All systems reviewed & are unremarkable except as noted in HPI and below ENT Denies dizziness Card Denies chest pain, Denies chest pain at rest, Denies chest pain with activity, Denies rapid heart rate, Denies pedal edema, Denies edema, Denies leg edema, Denies lightheadedness, Denies palpitations, Denies dyspnea, Denies dyspnea on exertion and Denies orthopnea Resp Denies cough, Denies dyspnea and Denies dyspnea on exertion GI Denies hematochezia and Denies change in stool character Musc Denies abnormal gait, Denies limited range of motion, Denies muscle cramps, Denies muscle weakness, Denies numbness, Denies radiating pain into limb, Denies stiffness and Denies tingling Neuro Denies abnormal gait, Denies dizziness, Denies numbness and Denies tingling Endo Denies palpitations Physical Exam Vital Signs: Last Vital Signs Pulse 61 02/23/23 14:46 BP 138/64 02/23/23 14:46 BMI result Body Mass Index 28.7 Const General: cooperative, healthy appearing, comfortable and no acute distress Orientation/consciousness: patient oriented x3 Neck Neck: Yes normal visual inspection Resp Effort & Inspection: normal respiratory effort Auscultation: clear to auscultation bilaterally, no crackles, no rales, no rhonchi and no wheezes Cardio Jugular venous distension: no JVD Rate: regular rate Rhythm: regular rhythm Heart sounds: S1 normal heart sound present, S2 normal heart sound present, no murmurs and no rubs Neuro General: patient oriented x3 Extrem General: Yes normal to inspection Psych Appearance: grossly normal Mental Status: mental status grossly normal Speech and movement: Normal speech and movement present Office Procedures EKG Details: Today, read by me, sinus rhythm with PAC, rate 61, QTC 430 millisecond [id number], Complete Assessment & Plan Assessment & Plan (1) Bradycardia: Code(s): R00.1 - Bradycardia, unspecified Plan: Previously evaluated for bradycardia. Pulse rate had been added 46 in her PCP office. Pulse rate 64 on her initial cardiology visit. EKG from 01/25/2022 showed normal sinus rhythm, rate 64. No reports of dizziness, presyncope, syncope, falls. She did undergo a Holter monitor on 02/16/2022 for 2 days showing sinus rhythm with average heart rate 68, PACs 3% of the time and brief runs of SVT, longest 11 beats. Echocardiogram done 02/16/2022 showed EF 60-65%, moderate left atrial dilation, moderate MR and moderate TR no significant change from 09/2019. Today she denies any concerning heart palpitations. She is currently not on any rate slowing medications. Will avoid rate slowing meds at this time as her average heart rate is only 68. No significant bradycardia or pauses were identified. EKG done today showing sinus rhythm with 1 Pac, rate 61. Continue good hydration, activity as tolerated. Cardiology office visit in 9 months, sooner if needed. Emergency care if ever needed for concerning symptoms. (2) PAC (premature atrial contraction): Code(s): I49.1 - Atrial premature depolarization Plan: As above (3) SVT (supraventricular tachycardia): Code(s): I47.1 - Supraventricular tachycardia Plan: Brief episodes as above, managed with conservative measures at this time (4) Mitral regurgitation: Code(s): I34.0 - Nonrheumatic mitral (valve) insufficiency Qualifiers: Cardiac valve disease etiology: nonrheumatic Qualified Code(s): I34.0 - Nonrheumatic mitral (valve) insufficiency Plan: Echo last year showing moderate MR and moderate TR. Repeat echo done 02/13/2023 showing EF 65-70%, moderately dilated left atrium, moderate MR, ggkh-hb-[id number] TR, mild pulmonary hypertension, RV SP increased. On examination she has no clinical signs of heart failure. She denies any breathing issues. Continue management with good blood pressure control (5) Tricuspid regurgitation: Code(s): I07.1 - Rheumatic tricuspid insufficiency Qualifiers: Cardiac valve disease etiology: nonrheumatic Qualified Code(s): I36.1 - Nonrheumatic tricuspid (valve) insufficiency Plan: As above Coding Level of Care Code Est Pt Level 3 (24885) Diagnoses Bradycardia R00.1 PAC (premature atrial contraction) I49.1 SVT (supraventricular tachycardia) I47.1 Nonrheumatic mitral valve regurgitation I34.0 Cardiac valve disease etiology: nonrheumatic Nonrheumatic tricuspid valve regurgitation I36.1 Cardiac valve disease etiology: nonrheumatic CPT Codes EKG - CPT: 98265-[id number], Complete ([id number]) Time Spent (min) 22
== END 2023-02-23 15:19 | disposition home or self-care (01) ==
PROVIDERS: Visit Provider Nurse Practitioner Family
DX: I49.1 Atrial premature depolarization (principal); I47.1 Supraventricular tachycardia; I34.0 Nonrheumatic mitral (valve) insufficiency; I36.1 Nonrheumatic tricuspid (valve) insufficiency
CPT/HCPCS: 93010; 99213

== ENCOUNTER → 2023-02-23 14:19 | Outpatient (BNVA) | payer OTHER, SELFPAY | PROVIDERS: Visit Provider Nurse Practitioner Family | DX: I49.1 Atrial premature depolarization (principal); I47.10 Supraventricular tachycardia, unspecified; I10 Essential (primary) hypertension; I34.0 Nonrheumatic mitral (valve) insufficiency; I36.1 Nonrheumatic tricuspid (valve) insufficiency | CPT/HCPCS: 93005; 99212 ==

== ENCOUNTER 2023-03-02 13:47 | Outpatient (AMB) | payer OTHER, SELFPAY ==
--- NOTE | 2023-03-02 13:52 | A.OFFVIS_ITS ---
Intake Vital Signs 03/02/23 14:00 Height 4 ft 6 in Weight 120 lb BMI 28.9 BP 181/80 H Blood Pressure Location Lt brachial Position Sitting Pulse 58 Pulse Source Pulse Oximeter Pulse Oximetry (%) 97 Intake Visit Reasons: BILATERAL LOW BACK PAIN/CONFIRMED Intake Note: Pain today 01/31 Malt Roaster Required: Yes Malt Roaster Language: Assistant Front End Manager Name: Gela MENDEZ #[id number] Allergies butalbital [From FIORICET] Allergy (Unknown, Verified 03/02/23 13:59) SWELLING,HIVES pepper (genus Capsicum) [PEPPER] Allergy (Unknown, Verified 03/02/23 13:59) ITCHING acetaminophen [Fioricet] Adverse Reaction (Unknown, Verified 03/02/23 13:59) swelling caffeine [Fioricet] Adverse Reaction (Unknown, Verified 03/02/23 13:59) swelling Fioricet Allergy (Unknown, Uncoded 08/16/22 10:29) swollen Medication List - Last Reconciled 03/02/23 by SEPIDEH Cross acetaminophen (Tylenol Extra Strength) 500 mg PO Q6H PRN amitriptyline 10 mg PO DAILY bisacodyl (Dulcolax (bisacodyl)) 10 mg [place] DAILY calcium citrate 250 mg PO BID 30 days cholecalciferol (vitamin D3) 50 mcg PO DAILY 30 days denosumab (Prolia) 60 mg subcut [id number] diclofenac sodium 50 mg PO BID famotidine 20 mg PO BID gabapentin 100 mg PO BEDTIME lisinopril 20 mg PO DAILY omega-3 fatty acids (Fish Oil Concentrate) 1,000 mg PO DAILY simvastatin 20 mg PO BEDTIME tramadol 50 mg PO TID PRN HPI BILATERAL LOW BACK PAIN/CONFIRMED HPI Details Patient is a pleasant 67 years old Hungarian speaking female with history of severe osteoporosis in femur and osteopenia in lumbar spine (receives Prolia injections), old L1 compression fracture, h/o left ankle fracture in 2009, presents today for initial evaluation of low back pain. Patient reports she was lifting and moving a heavy furniture last year and has been walking hunched upper back since then due to pain. Her pain is mostly axial without radiation into her lower extremities. She also reports right hip pain that occasionally radiates into her groin. Reports mild left hip pain as well. Occasionally she feels tingling in her right anterior thigh that terminates above knee without weakness or burning. Right anterior thigh tingling resolves with topical cream. Patient reports she was followed at [facility] for physical therapy and back injections, last one in November and was discharged from [facility] due to no show to her appointments. She is currently taking tramadol, Tylenol, NSAIDs for pain with partial pain relief. Pain affects her daily activities, functioning, sleep, social activities, mood and quality of life. Denies any fever, abdominal pain, dizziness, shortness of breath, bladder or bowel incontinence or saddle anesthesia. Ambulates with cane. Location Lower back pain, right groin and hip pain Duration Chronic pain > 1 year Characteristics of symptom or complaint Aching, shotting, sharp, dull, stabbing, throbbing Aggravating or associated factors Movements, lifting, extending backwards, cold weather, standing, walking Relieving factors Heat therapy, rest, Tramadol Treatment PT- no improvement, injections- november in [facility] Medical History Essential hypertension History of primary hyperparathyroidism Non-toxic multinodular goiter Osteoporosis Surgical History Hx of lithotripsy H/O parathyroidectomy Hx of tubal ligation Hx of section Family History Father No problems noted. Mother CVD (cardiovascular disease) Heart disease Social History Household Members: Spouse and Family Household Members Other:: , son Housing: Apartment Alcohol intake: never Patient Tobacco Use Status: Former Tobacco user Current occupational status: disabled Sexual orientation: Straight/Heterosexual Gender identity: Female Review of Systems Const All systems reviewed & are unremarkable except as noted in HPI and below Physical Exam General: Appears afebrile. Alert and oriented. Mood and affect appropriate. Follows and participates in conversation appropriately. Respiratory effort is unlabored. No cough. No nasal discharge. Able to transition from sit to stand unassisted. Ambulates with bilaterally normal heel strike and toe off. Back/Spine/Pelvis Other: Limited lumbar ROM due to pain. Antalgic gait, ambulates with cane. Can flex forward to 60-65degrees and extend to 5-10 degrees before experiencing lumbar pain. Demonstrates 5/5 strength of quadriceps bilaterally as well as flexion/dorsiflexion of bilateral feet against resistance. 2+ pedal pulses bilaterally. Seated straight leg rise with dorsiflexion negative bilaterally. +1 patellar and achilles reflexes bilaterally. Facet loading test positive bilaterally. Soy?s, Pelvic compression and Stinchfield tests reproduce right groin and bilateral lateral hip pain, but no lower back pain. Moderate right groin pain with left I/E hip rotations. Valsalva maneuver negative. Cervical Spine: loss of normal cervical lordosis, cervical muscular tenderness and No Cervical spine tenderness Thoracic/Lumbar Spine: thoracic and lumbar spine normal to inspection, No Thoracic/lumbar spine scar(s), Lasegue's sign negative, straight leg raise negative bilaterally, kyphosis, pain with thoraco-lumbar ROM, paraspinal muscle tenderness, thoraco-lumbar ROM limited, No thoracic spinal tenderness and lumbar spinal tenderness (L4-S1) Pelvis: no buttock tenderness Sacroiliac joints: bilaterally nontender Results Reviewed Results Reviewed: MR LUMBAR SPINE WITHOUT CONTRAST 12/03/21 CLINICAL INFORMATION: 66-year-old with mild compression deformity noted along the superior endplate of L1 on previous x-rays. COMPARISON: 11/05/2021 x-rays. TECHNIQUE: MRI of the lumbar spine was obtained using routine sequences without contrast. FINDINGS: CORONAL ALIGNMENT: Mild S-shaped thoracolumbar scoliotic curvature suspected in the, slightly convex to the right at L4-L5 and to the left at L1-L2, similar to previous x-ray. SAGITTAL ALIGNMENT: Mild gibbus angulation noted at the T12-L1 junction consistent with an L1 compression fracture, similar to prior x-ray. Otherwise, the lumbosacral spine is anatomically aligned. LUMBOSACRAL JUNCTION: Normal. Five [id number]-yml-[id number] lumbar-type vertebral bodies. VERTEBRAL BODIES: There is a nonhealed superior endplate compression fracture of the L1 vertebral body, with approximately 37% loss of height anteriorly and mild retropulsion of the superior endplate with band-like T1 hypointensity extending across the superior endplate consistent with a benign, osteoporotic compression fracture. This is consistent with the recent bone density report of 11/26/2021. Remaining vertebral body heights are well maintained. Note is made of apparent expansion of the posterior margin of the sacrum between S1-S2 and the lowest visualized sacral segment which appears homogeneously T1 hyperintense with heterogeneous bone marrow hyperintensity on STIR imaging. This could reflect Paget's disease, as was suggested on an MRI of the pelvis performed on 08/21/2009. DISC SPACES AND ENDPLATES: The lumbar intervertebral disc space heights are well maintained. There is minor disc desiccation at L4-L5. There is mild anterior marginal endplate spurring at L1-L2 and T12-L1. SPINAL CANAL: No abnormal developmental findings. BONE MARROW: There is marrow edema in the compressed L1 vertebral body consistent with a nonhealed fracture. CONUS MEDULLARIS: Terminates at T12. Morphology and signal are normal. INTRADURAL NERVE ROOTS: Within normal limits. L5-S1: No disc herniation and no significant DJD, canal or neural foraminal stenosis. L4-L5: Minimal annular bulging. No facet arthrosis, canal or neural foraminal stenosis. L3-L4: No significant disc bulge or herniation. No facet arthrosis, canal or neural foraminal stenosis. L2-L3: Normal disc contour. No facet arthrosis, canal or neural foraminal stenosis. L1-L2: Normal disc contour. No facet arthrosis, canal or neural foraminal stenosis. T12-L1: Some retropulsion of the posterior endplate of the compressed L1 vertebral body is noted, with mild flattening of the ventral dural sac without significant spinal canal stenosis. No significant neural foraminal stenosis, no disc bulge or herniation and no significant facet arthrosis. PARASPINAL/RETROPERITONEAL: The paravertebral soft tissues appear grossly unremarkable. IMPRESSION: 1. [id number] benign-appearing, nonhealed compression fracture deformity of the L1 vertebral body with a mild degree of retropulsion of the superior endplate without significant canal stenosis or nerve root compression. Mild gibbus angulation at T12-L1. 2. Minor discogenic degenerative changes and minimal disc bulging at L4-L5. 3. Changes involving the sacrum as described above likely reflecting sequelae of Paget's disease as was suggested on a remote MRI of the pelvis which is no longer available for comparison. XR LUMBOSACRAL SPINE 11/05/21 CLINICAL INFORMATION: Lumbar pain minor trauma COMPARISON: 01/15/2015 TECHNIQUE: Three views of the lumbosacral spine. FINDINGS: There is anatomic alignment of the lumbar vertebral bodies and posterior elements. There is mild compression deformity of the superior endplate of L1. Remaining lumbar vertebral body heights are maintained. Intervertebral disc spaces are relatively well-preserved. Sacroiliac joints are intact. Moderate to large amount of stool is noted in the visualized abdomen. IMPRESSION: Mild compression deformity of the superior endplate of L1 which is age-indeterminate and may be chronic. If clinically warranted, acuity may be more definitively assessed with MRI. Assessment & Plan Assessment & Plan (1) Osteoporosis: Code(s): M81.0 - Age-related osteoporosis without current pathological fracture (2) Chronic low back pain: Code(s): M54.50 - Low back pain, unspecified; G89.29 - Other chronic pain (3) Lumbar degenerative disc disease: Code(s): M51.36 - Other intervertebral disc degeneration, lumbar region (4) History of compression fracture of spine: Code(s): Z87.81 - Personal history of (healed) traumatic fracture (5) Bilateral hip pain: Code(s): M25.551 - Pain in right hip; M25.552 - Pain in left hip Plan Lumbar spine and hip with pelvic views imaging to assess degree of degenerative changes, any subluxation, listhesis, compression fractures or pars defects. [facility] and procedures. Schedule Bilateral Diagnostic L3-L4-DRL5 MBBs with local and fluoroscopy for potential Sprint PNS trial. Informational pamphlet provided. Expectations, risks and benefits were reviewed. Patient is aware he will be contacted to schedule this procedure. All questions were answered and the patient is in agreement of plan. Follow-up after injections and sooner as needed. Orders: Orders XR hip BI w PEL1V Today M25.551 - Pain in right hip, M25.552 - Pain in left hip XR lumbar spine 4V min Today G89.29 - Other chronic pain, M54.50 - Low back pain, unspecified XR thoracic spine 3V Today G89.29 - Other chronic pain, M54.50 - Low back pain, unspecified, Z87.81 - Personal history of (healed) traumatic fracture Medications: Changed From gabapentin 100 mg PO BEDTIME G89.29 - Other chronic pain, M54.50 - Low back pain, unspecified To gabapentin 100 mg PO BEDTIME 30 days 30 caps 0RF pain G89.29 - Other chronic pain, M54.50 - Low back pain, unspecified Coding Level of Care Code New Pt Level 4 (86505) Diagnoses Osteoporosis M81.0 Chronic low back pain M54.50; G89.29 Lumbar degenerative disc disease M51.36 History of compression fracture of spine Z87.81 Bilateral hip pain M25.551; M25.552
[2023-03-02 14:00] VITALS: BP 181/80; PULSE 58; O2SAT 97; BMI 28.9
== END 2023-03-02 14:14 | disposition home or self-care (01) ==
PROVIDERS: PCP Internal Medicine; Referring Provider Internal Medicine; Visit Provider Nurse Practitioner Family
DX: M81.0 Age-related osteoporosis without current pathological fracture (principal); M54.50 Low back pain, unspecified; G89.29 Other chronic pain; M51.36 Other intervertebral disc degeneration, lumbar region; Z87.81 Personal history of (healed) traumatic fracture; M25.551 Pain in right hip; M25.552 Pain in left hip
CPT/HCPCS: 99204

== ENCOUNTER → 2023-03-02 13:47 | Outpatient (BNVA) | payer OTHER, SELFPAY | PROVIDERS: PCP Internal Medicine; Referring Provider Internal Medicine; Visit Provider Nurse Practitioner Family | DX: M81.0 Age-related osteoporosis without current pathological fracture (principal); M54.50 Low back pain, unspecified; M51.36 Other intervertebral disc degeneration, lumbar region; M25.551 Pain in right hip; M25.552 Pain in left hip; Z87.81 Personal history of (healed) traumatic fracture; Z79.620 Long term (current) use of immunosuppressive biologic | CPT/HCPCS: 99202 ==

== ENCOUNTER 2023-03-07 10:03 | Outpatient (REF) | payer OTHER, SELFPAY ==
--- NOTE | ~2023-03-07 | XR_ITS ---
EXAMINATION: XR THORACIC SPINE XR BILATERAL HIPS AND PELVIS XR LUMBOSACRAL SPINE CLINICAL INFORMATION: Personal history of healed traumatic fracture. Patient unable to remove earrings at this time. Low back pain. Pain in right hip. COMPARISON: CT scan of the abdomen and pelvis of 02/09/2022. Radiograph lumbar spine 11/05/2021. TECHNIQUE: Three views of the thoracic spine. Five views of the lumbar spine. AP view of the pelvis and AP and lateral views of each of the bilateral hips. FINDINGS: THORACIC SPINE: The bones are diffusely demineralized. S-shaped thoracolumbar scoliosis. Advanced multilevel degenerative changes in the thoracic spine. Loss of height of multiple lower thoracic vertebral bodies extending from T8 through T12 levels, most notable at T9. The T9 compression fracture was also demonstrated on the prior exam of 02/09/2022. LUMBAR SPINE: Redemonstration of severe compression deformity of L1 vertebral body. Redemonstration of moderate superior endplate compression deformity at L4. Redemonstration of a sacral lesion, better characterized on prior CT scans. Visualization of the sacrum is limited due to overlying bowel. Bones are diffusely demineralized. Facet arthritis in the lower lumbar spine. Moderate multilevel lumbar spondylosis. PELVIS AND BILATERAL HIPS: The bones are diffusely demineralized. Mild degenerative changes in the bilateral hips with joint space narrowing, left greater than right. Degenerative changes in the bilateral sacroiliac joints. Alignment preserved. XR/XR hip BI w PEL1V IMPRESSION: 1. Multiple compression deformities of the thoracic and lumbar vertebral bodies, as detailed above. Diffuse demineralization. 2. Sacral lesion was better characterized on prior exams and is difficult to evaluate as visualization of the sacrum is limited due to overlying bowel. 3. Multilevel degenerative changes in the thoracolumbar spine. 4. Mild degenerative changes in the bilateral hips, left greater than right. MRI recommended if there is concern for fracture or other pathology. MRI should be considered for further evaluation.
--- NOTE | ~2023-03-07 | XR_ITS ---
EXAMINATION: XR THORACIC SPINE XR BILATERAL HIPS AND PELVIS XR LUMBOSACRAL SPINE CLINICAL INFORMATION: Personal history of healed traumatic fracture. Patient unable to remove earrings at this time. Low back pain. Pain in right hip. COMPARISON: CT scan of the abdomen and pelvis of 02/09/2022. Radiograph lumbar spine 11/05/2021. TECHNIQUE: Three views of the thoracic spine. Five views of the lumbar spine. AP view of the pelvis and AP and lateral views of each of the bilateral hips. FINDINGS: THORACIC SPINE: The bones are diffusely demineralized. S-shaped thoracolumbar scoliosis. Advanced multilevel degenerative changes in the thoracic spine. Loss of height of multiple lower thoracic vertebral bodies extending from T8 through T12 levels, most notable at T9. The T9 compression fracture was also demonstrated on the prior exam of 02/09/2022. LUMBAR SPINE: Redemonstration of severe compression deformity of L1 vertebral body. Redemonstration of moderate superior endplate compression deformity at L4. Redemonstration of a sacral lesion, better characterized on prior CT scans. Visualization of the sacrum is limited due to overlying bowel. Bones are diffusely demineralized. Facet arthritis in the lower lumbar spine. Moderate multilevel lumbar spondylosis. PELVIS AND BILATERAL HIPS: The bones are diffusely demineralized. Mild degenerative changes in the bilateral hips with joint space narrowing, left greater than right. Degenerative changes in the bilateral sacroiliac joints. Alignment preserved. XR/XR thoracic spine 3V IMPRESSION: 1. Multiple compression deformities of the thoracic and lumbar vertebral bodies, as detailed above. Diffuse demineralization. 2. Sacral lesion was better characterized on prior exams and is difficult to evaluate as visualization of the sacrum is limited due to overlying bowel. 3. Multilevel degenerative changes in the thoracolumbar spine. 4. Mild degenerative changes in the bilateral hips, left greater than right. MRI recommended if there is concern for fracture or other pathology. MRI should be considered for further evaluation.
--- NOTE | ~2023-03-07 | XR_ITS ---
EXAMINATION: XR THORACIC SPINE XR BILATERAL HIPS AND PELVIS XR LUMBOSACRAL SPINE CLINICAL INFORMATION: Personal history of healed traumatic fracture. Patient unable to remove earrings at this time. Low back pain. Pain in right hip. COMPARISON: CT scan of the abdomen and pelvis of 02/09/2022. Radiograph lumbar spine 11/05/2021. TECHNIQUE: Three views of the thoracic spine. Five views of the lumbar spine. AP view of the pelvis and AP and lateral views of each of the bilateral hips. FINDINGS: THORACIC SPINE: The bones are diffusely demineralized. S-shaped thoracolumbar scoliosis. Advanced multilevel degenerative changes in the thoracic spine. Loss of height of multiple lower thoracic vertebral bodies extending from T8 through T12 levels, most notable at T9. The T9 compression fracture was also demonstrated on the prior exam of 02/09/2022. LUMBAR SPINE: Redemonstration of severe compression deformity of L1 vertebral body. Redemonstration of moderate superior endplate compression deformity at L4. Redemonstration of a sacral lesion, better characterized on prior CT scans. Visualization of the sacrum is limited due to overlying bowel. Bones are diffusely demineralized. Facet arthritis in the lower lumbar spine. Moderate multilevel lumbar spondylosis. PELVIS AND BILATERAL HIPS: The bones are diffusely demineralized. Mild degenerative changes in the bilateral hips with joint space narrowing, left greater than right. Degenerative changes in the bilateral sacroiliac joints. Alignment preserved. XR/XR lumbar spine 4V min IMPRESSION: 1. Multiple compression deformities of the thoracic and lumbar vertebral bodies, as detailed above. Diffuse demineralization. 2. Sacral lesion was better characterized on prior exams and is difficult to evaluate as visualization of the sacrum is limited due to overlying bowel. 3. Multilevel degenerative changes in the thoracolumbar spine. 4. Mild degenerative changes in the bilateral hips, left greater than right. MRI recommended if there is concern for fracture or other pathology. MRI should be considered for further evaluation.
== END 2023-03-07 10:04 | disposition home or self-care (01) ==
LOC: HO.XRAY 10:03
PROVIDERS: Visit Provider Nurse Practitioner Family
DX: M54.50 Low back pain, unspecified (principal); M25.551 Pain in right hip; M25.552 Pain in left hip; G89.29 Other chronic pain; Z87.81 Personal history of (healed) traumatic fracture
CPT/HCPCS: 72072; 72110; 73521

== ENCOUNTER 2023-03-20 12:55 | Outpatient (REF) | payer OTHER, SELFPAY ==
[2023-03-20 14:15] LABS: Albumin Level 4.1 g/dL (3.5-5.0); Anion Gap 10 (12-20); Blood Urea Nitrogen 18 mg/dL (9-16); Calcium 9.2 mg/dL (8.4-10.2); Carbon Dioxide 30 mmol/L (22-29); Chloride 108 mmol/L (96-108); Estimated Glomerular Filt Rate > 60; Glucose Random 86 mg/dL (60-115); Potassium 4.5 mmol/L (3.3-5.1); Sodium 143 mmol/L (135-145)
== END 2023-03-20 12:56 | disposition home or self-care (01) ==
LOC: HO.LAB 12:55
PROVIDERS: PCP Internal Medicine; Visit Provider Internal Medicine Endocrinology, Diabetes & Metabolism
DX: M81.0 Age-related osteoporosis without current pathological fracture (principal)
CPT/HCPCS: 36415; 80048; 82040

== ENCOUNTER 2023-03-23 12:50 | Outpatient (AMB) | payer OTHER, SELFPAY ==
--- NOTE | 2023-03-23 13:13 | AM.OFFVISNUR ---
Intake Intake Visit Reasons: Prolia Injection Allergies butalbital [From FIORICET] Allergy (Unknown, Verified 03/02/23 13:59) SWELLING,HIVES pepper (genus Capsicum) [PEPPER] Allergy (Unknown, Verified 03/02/23 13:59) ITCHING acetaminophen [Fioricet] Adverse Reaction (Unknown, Verified 03/02/23 13:59) swelling caffeine [Fioricet] Adverse Reaction (Unknown, Verified 03/02/23 13:59) swelling Fioricet Allergy (Unknown, Uncoded 08/16/22 10:29) swollen Office Meds Prolia 60 mg/mL subcutaneous syringe Performing Provider: Pedro Mitchell MD Performing Location: [facility] [place] [facility] Administered by: Bonnie Zarate LPN on 03/23/23 13:13 Dose Route Admin Location Dispensed Lot Number Expiration Date ND Lab Rep 60 mg subcut Left arm 1 mL [id number] 06/21/25 [facility] Coding Assessment & Plan Assessment & Plan Orders: Orders AMB Denosumab Injection Practice Supplied Today M81.0 - Age-related osteoporosis without current pathological fracture
== END 2023-03-23 13:12 | disposition home or self-care (01) ==
PROVIDERS: PCP Internal Medicine; Visit Provider Internal Medicine Endocrinology, Diabetes & Metabolism
DX: M81.0 Age-related osteoporosis without current pathological fracture (principal)

== ENCOUNTER → 2023-03-23 12:50 | Outpatient (BNVA) | payer OTHER, SELFPAY | PROVIDERS: PCP Internal Medicine; Visit Provider Internal Medicine Endocrinology, Diabetes & Metabolism | DX: M81.0 Age-related osteoporosis without current pathological fracture (principal); Z79.620 Long term (current) use of immunosuppressive biologic | CPT/HCPCS: 96372; J0897 ==

== ENCOUNTER 2023-03-27 13:14 | Outpatient (AMB) | payer OTHER, MEDICAID, SELFPAY ==
--- NOTE | 2023-03-27 13:19 | A.OFFVIS_ITS ---
Intake Vital Signs 03/27/23 13:21 Height 4 ft 6 in Weight 120 lb 13.013 oz BMI 29.1 BP 146/69 H Blood Pressure Location Rt brachial Position Sitting Pulse 56 Intake Visit Reasons: Intermittent upper abdominal Pain Intake Note: Patient presents to in office visit today as a new patient for abd pain. CC: Patient c/o LUQ abdominal pain for about a year. She reports pain is constant and 10/10 pain scale. Per patient when she eats she gets bloated and pain gets worst. She denies having any other GI symptoms. 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: Yes Accompanied by: Self / Same As Patient Allergies butalbital [From FIORICET] Allergy (Unknown, Verified 03/27/23 13:26) SWELLING,HIVES pepper (genus Capsicum) [PEPPER] Allergy (Unknown, Verified 03/27/23 13:26) ITCHING acetaminophen [Fioricet] Adverse Reaction (Unknown, Verified 03/27/23 13:26) swelling caffeine [Fioricet] Adverse Reaction (Unknown, Verified 03/27/23 13:26) swelling Fioricet Allergy (Unknown, Uncoded 08/16/22 10:29) swollen HPI Intermittent upper abdominal Pain HPI Details 67-year-old female with past medical his tory of compression fracture of her spine, chronic back pain, SVTs, Pac's, tricuspid regurgitation, hypertension, hyperparathyroidism, goiter, osteoporosis is here for initial consultation. Patient reports left upper quadrant pain for over a year now. Patient reports that the pain is sharp and not always related to meals. Patient however does report to have postprandial abdominal bloating. Patient denies any acid reflux. Patient states that the pain is right underneath her ribcage. Patient denies any nausea or vomiting. Reports that she has been moving her bowels without any issues. History of constipation in the past. Patient believes that she empties her bowels completely. Patient reports that she never had a colonoscopy in the past. Denies melena, hematochezia, unintentional weight loss or ribbon like stools. [facility] Medical History Essential hypertension History of primary hyperparathyroidism Non-toxic multinodular goiter Osteoporosis Surgical History Hx of lithotripsy H/O parathyroidectomy Hx of tubal ligation Hx of section Family History Father No problems noted. Mother CVD (cardiovascular disease) Heart disease Social History Household Members: Spouse and Family Household Members Other:: , son Housing: Apartment Alcohol intake: never Patient Tobacco Use Status: Former Tobacco user Current occupational status: disabled Sexual orientation: Straight/Heterosexual Gender identity: Female Review of Systems Const Denies weight gain and Denies weight loss ENT Reports no additional complaints, Denies dysphagia and Denies odynophagia Card Reports no additional complaints Resp Reports no additional complaints GI Reports abdominal pain (LUQ), Denies belching, Denies melena, Reports bloating, Denies change in bowel habits, Denies dysphagia, Denies excessive flatus, Denies dyspepsia, Denies heartburn, Denies diarrhea, Denies loose stools, Denies nausea, Denies odynophagia and Denies vomiting Reports no additional complaints Musc Reports no additional complaints Neuro Reports no additional complaints Psych Reports no additional complaints Endo Reports no additional complaints Physical Exam Vital Signs: Last Vital Signs Pulse 56 03/27/23 13:21 BP 146/69 H 03/27/23 13:21 BMI result Body Mass Index 29.1 Const Other: Ambulating with cane General: healthy appearing, no acute distress and well developed Nutritional Appearance: well nourished Orientation/consciousness: patient oriented x3 HEENT Head: Yes normal to inspection, Yes normocephalic and Yes atraumatic Face and sinus: Yes normal facial exam Mouth: Normal oral and palatal mucosa present Throat: Yes posterior oropharynx normal, Yes tonsils normal and Yes uvula midline Eyes General: appearance normal, both eyes and all related structures Neck Neck: Yes normal visual inspection, Yes full ROM and Yes trachea midline Thyroid: Thyroid normal Resp Effort & Inspection: normal respiratory effort, able to speak in complete sen tences, no tracheal deviation and symmetric chest movement Auscultation: clear to auscultation bilaterally Cardio Jugular venous distension: no JVD Rate: regular rate Heart sounds: S1 normal heart sound present, S2 normal heart sound present, no gallops and no murmurs GI Inspection: Yes normal to inspection and No distended Palpation (GI): Soft to palpation, not firm, nontender and No hepatosplenomegaly present Auscultation: normal bowel sounds General: Yes no CVA tenderness Back/Spine/Pelvis Back: no CVA tenderness Skin General skin exam: elasticity normal, turgor normal and dry skin Neuro General: patient oriented x3 Psych Appearance: grossly normal Mental Status: mental status grossly normal Speech and movement: Normal speech and movement present Affect: normal affect Attitude: cooperative Thought process: Normal thought process present Thought content: Normal thought content present Insight: Good insight present (Psych) Judgement: Good judgement present (Psych) Assessment & Plan Assessment & Plan (1) Abdominal pain: Code(s): R10.9 - Unspecified abdominal pain Qualifiers: Abdominal location: left upper quadrant Qualified Code(s): R10.12 - Left upper quadrant pain (2) Postprandial abdominal bloating: Code(s): R14.0 - Abdominal distension (gaseous) Plan Patient reports left upper quadrant pain. Patient reports that she is moving her bowels, however she does not empty her bowels completely. Will send her script for Colace. Will check lipase, liver profile, thyroid study. Possible gas trapping in splenic flexure, however will send patient for CT scan, rule out diverticulitis, colitis. I will see patient in 2 months so we can discuss going for colonoscopy. Patient never had colonoscopy in the past. She is agreeable to this plan and verbalizes understanding of instructions. She was given the opportunity to ask questions and all questions answered. Thank you for allowing me to participate in her care Orders: Orders Lipase Today R10.9 - Unspecified abdominal pain CT abdomen w IV con Today R10.12 - Left upper quadrant pain, R10.9 - Unspecified abdominal pain Blood Urea Nitrogen Today R10.11 - Right upper quadrant pain Liver Panel Today R10.9 - Unspecified abdominal pain TSH reflex Free T4 Today K59.00 - Constipation, unspecified Creatinine Today R10.11 - Right upper quadrant pain Medications: New docusate sodium 100 mg PO DAILY 30 caps 3RF K59.00 - Constipation, unspecified Discontinued bisacodyl (Dulcolax (bisacodyl)) Discontinued Reason: Patient no longer taking 10 mg [place] DAILY 12 ea 0RF Coding Level of Care Code New Pt Level 3 (17988) Diagnoses Left upper quadrant abdominal pain R10.12 Abdominal location: left upper quadrant Postprandial abdominal bloating R14.0 Time Spent (min) 40 Comment 30 minutes spent with patient and additional 10 minutes spent reviewing her records
[2023-03-27 13:21] VITALS: BP 146/69; PULSE 56; BMI 29.1
== END 2023-03-27 15:21 | disposition home or self-care (01) ==
PROVIDERS: PCP Internal Medicine; Visit Provider Nurse Practitioner Family
DX: R10.12 Left upper quadrant pain (principal); R14.0 Abdominal distension (gaseous)
CPT/HCPCS: 99203; 99213

== ENCOUNTER → 2023-03-27 13:14 | Outpatient (BNVA) | payer OTHER, SELFPAY | PROVIDERS: PCP Internal Medicine; Visit Provider Nurse Practitioner Family | DX: R10.12 Left upper quadrant pain (principal); R14.0 Abdominal distension (gaseous) | CPT/HCPCS: 99202 ==

== ENCOUNTER 2023-03-28 14:09 | Outpatient (AMB) | payer OTHER, SELFPAY ==
[2023-03-28 14:16] VITALS: BP 178/84; PULSE 56; RESP 16; O2SAT 99; BMI 28.8
--- NOTE | 2023-03-28 14:16 | MHC.OFFVIS ---
Intake Vital Signs 03/28/23 14:16 Height 4 ft 6 in Weight 119 lb 8 oz BMI 28.8 BP 178/84 H Blood Pressure Location Rt brachial Position Sitting Respiration 16 Pulse 56 Pulse Source Pulse Oximeter Pulse Oximetry (%) 99 Oxygen Delivery Method Room Air Intake Visit Reasons: follow up xray results Safety Assistant Required: Yes Safety Assistant Language: Traffic Control Signaler Name: Gagan #[id number] Allergies butalbital [From FIORICET] Allergy (Unknown, Verified 03/28/23 14:16) SWELLING,HIVES pepper (genus Capsicum) [PEPPER] Allergy (Unknown, Verified 03/28/23 14:16) ITCHING acetaminophen [Fioricet] Adverse Reaction (Unknown, Verified 03/28/23 14:16) swelling caffeine [Fioricet] Adverse Reaction (Unknown, Verified 03/28/23 14:16) swelling Fioricet Allergy (Unknown, Uncoded 08/16/22 10:29) swollen HPI HPI Comments History of Present Illness Details Patient presents today for follow up to review recent thoracic, lumbar and hip xray results. Patient continues to endorce bilateral lower back pain with radiation into her buttocks and lateral hips and groin pain, worse on the right. She ambulates with slow, antalgic gait with use of cane. [facility] records were reviewed today and these are scanned in patient's chart. Patient underwent left interlaminar L1-L2 JARVIS on 05/10/22 with partial relief. We reviewed her xray imaging today. Patient has pending hip MRI to further evaluate sacral lesions and ongoing significant hip pain, right worse than left. We are also planning for diagnostic lumbar MBBs to address her axial low back symptoms for potential Sprint PNS. Given poor bone quality due to significant osteoporosis with history of multilevel compression fractures, patient is not candidate for steroid injections. Denies any recent cough, cold, infection, fever or other significant changes in medical history since last office visit. PRIOR: Patient is a pleasant 67 years old Occitan speaking female with history of severe osteoporosis in femur and osteopenia in lumbar spine (receives Prolia injections), old L1 compression fracture, h/o left ankle fracture in 2009, presents today for initial evaluation of low back pain. Patient reports she was lifting and moving a heavy furniture last year and has been walking hunched upper back since then due to pain. Her pain is mostly axial without radiation into her lower extremities. She also reports right hip pain that occasionally radiates into her groin. Reports mild left hip pain as well. Occasionally she feels tingling in her right anterior thigh that terminates above knee without weakness or burning. Right anterior thigh tingling resolves with topical cream. Patient reports she was followed at [facility] for physical therapy and back injections, last one in November and was discharged from [facility] due to no show to her appointments. She is currently taking tramadol, Tylenol, NSAIDs for pain with partial pain relief. Pain affects her daily activities, functioning, sleep, social activities, mood and quality of life. Denies any fever, abdominal pain, dizziness, shortness of breath, bladder or bowel incontinence or saddle anesthesia. Ambulates with cane. Location Lower back pain, right groin and hip pain Duration Chronic pain > 1 year Characteristics of symptom or complaint Aching, shotting, sharp, dull, stabbing, throbbing Aggravating or associated factors Movements, lifting, extending backwards, cold weather, standing, walking Relieving factors Heat therapy, rest, Tramadol Treatment PT- no improvement, injections- november in [facility] Medical History Essential hypertension History of primary hyperparathyroidism Non-toxic multinodular goiter Osteoporosis Surgical History Hx of lithotripsy H/O parathyroidectomy Hx of tubal ligation Hx of section Family History Father No problems noted. Mother CVD (cardiovascular disease) Heart disease Social History Household Members: Spouse and Family Household Members Other:: , son Housing: Apartment Alcohol intake: never Patient Tobacco Use Status: Former Tobacco user Current occupational status: disabled Sexual orientation: Straight/Heterosexual Gender identity: Female Review of Systems Const All systems reviewed & are unremarkable except as noted in HPI and below Physical Exam Vital Signs: Last Vital Signs Pulse 56 03/28/23 14:16 Resp 16 03/28/23 14:16 BP 178/84 H 03/28/23 14:16 Pulse Ox 99 03/28/23 14:16 Oxygen Delivery Method Room Air 03/28/23 14:16 BMI result Body Mass Index 28.8 General: Appears afebrile. Alert and oriented. Mood and affect appropriate. Follows and participates in conversation appropriately. Respiratory effort is unlabored. No cough. Able to transition from sit to stand unassisted. Ambulates with bilaterally normal heel strike and toe off. Back/Spine/Pelvis Other: Limited lumbar ROM due to pain. Antalgic gait, ambulates with cane. Demonstrates 5/5 strength of quadriceps bilaterally as well as flexion/dorsiflexion of bilateral feet against resistance. 2+ pedal pulses bilaterally. Seated straight leg rise with dorsiflexion negative bilaterally. +1 patellar and achilles reflexes bilaterally. Facet loading test positive bilaterally. Soy?s, Pelvic compression and Stinchfield tests reproduce right groin and bilateral lateral hip pain and lower back pain. Moderate right and mild left groin pain with I/E hip rotations. Valsalva maneuver negative. Cervical Spine: cervical muscular tenderness and No Cervical spine tenderness Thoracic/Lumbar Spine: thoracic and lumbar spine normal to inspection, No Thoracic/lumbar spine scar(s), Lasegue's sign negative, straight leg raise negative bilaterally, kyphosis, pain with thoraco-lumbar ROM, paraspinal muscle tenderness, thoraco-lumbar ROM limited, No thoracic spinal tenderness and lumbar spinal tenderness (L4-S1) Pelvis: no buttock tenderness Sacroiliac joints: bilaterally (right>left) tender to palpation Results Reviewed Results Reviewed: XR THORACIC SPINE XR BILATERAL HIPS AND PELVIS XR LUMBOSACRAL SPINE 03/07/23 CLINICAL INFORMATION: Personal history of healed traumatic fracture. Patient unable to remove earrings at this time. Low back pain. Pain in right hip. COMPARISON: CT scan of the abdomen and pelvis of 02/09/2022. Radiograph lumbar spine 11/05/2021. TECHNIQUE: Three views of the thoracic spine. Five views of the lumbar spine. AP view of the pelvis and AP and lateral views of each of the bilateral hips. FINDINGS: THORACIC SPINE: The bones are diffusely demineralized. S-shaped thoracolumbar scoliosis. Advanced multilevel degenerative changes in the thoracic spine. Loss of height of multiple lower thoracic vertebral bodies extending from T8 through T12 levels, most notable at T9. The T9 compression fracture was also demonstrated on the prior exam of 02/09/2022. LUMBAR SPINE: Redemonstration of severe compression deformity of L1 vertebral body. Redemonstration of moderate superior endplate compression deformity at L4. Redemonstration of a sacral lesion, better characterized on prior CT scans. Visualization of the sacrum is limited due to overlying bowel. Bones are diffusely demineralized. Facet arthritis in the lower lumbar spine. Moderate multilevel lumbar spondylosis. PELVIS AND BILATERAL HIPS: The bones are diffusely demineralized. Mild degenerative changes in the bilateral hips with joint space narrowing, left greater than right. Degenerative changes in the bilateral sacroiliac joints. Alignment preserved. IMPRESSION: 1. Multiple compression deformities of the thoracic and lumbar vertebral bodies, as detailed above. Diffuse demineralization. 2. Sacral lesion was better characterized on prior exams and is difficult to evaluate as visualization of the sacrum is limited due to overlying bowel. 3. Multilevel degenerative changes in the thoracolumbar spine. 4. Mild degenerative changes in the bilateral hips, left greater than right. MRI recommended if there is concern for fracture or other pathology. MRI should be considered for further evaluation. Assessment & Plan Assessment & Plan (1) History of compression fracture of spine: Code(s): Z87.81 - Personal history of (healed) traumatic fracture (2) Lumbar degenerative disc disease: Code(s): M51.36 - Other intervertebral disc degeneration, lumbar region (3) Chronic low back pain: Code(s): M54.50 - Low back pain, unspecified; G89.29 - Other chronic pain (4) Osteoporosis: Code(s): M81.0 - Age-related osteoporosis without current pathological fracture (5) Bilateral hip pain: Code(s): M25.551 - Pain in right hip; M25.552 - Pain in left hip Plan Lumbar spine and hip with pelvic views imaging results were reviewed with patient today with assistance of leather case finisher. [facility] records were reviewed for previous injections and procedures, records were scanned into patient's chart. Proceed with Bilateral Diagnostic L3-L4-DRL5 MBBs as planned for potential Sprint PNS trial. Expectations, risks and benefits were reviewed. Patient is aware she will be contacted to schedule this procedure. Short script provided for tramadol for moderate to severe pain. She was prescribed this last year and reports good tolerance without known side effects. Patient is aware not to take amitriptyline with tramadol due to potential drug interactions. She states she does not use amitriptyline daily. All questions were answered and the patient is in agreement of plan. Follow-up after injections and sooner as needed. Medications: New tramadol 50 mg PO TID PRN 20 tabs 0RF pain (scale score 7-10) G89.29 - Other chronic pain, M51.36 - Other intervertebral disc degeneration, lumbar region, M54.50 - Low back pain, unspecified, M81.0 - Age-related osteoporosis without current pathological fracture, Z87.81 - Personal history of (healed) traumatic fracture Coding Level of Care Code Est Pt Level 4 (72239) Diagnoses History of compression fracture of spine Z87.81 Lumbar degenerative disc disease M51.36 Chronic low back pain M54.50; G89.29 Osteoporosis M81.0 Bilateral hip pain M25.551; M25.552
== END 2023-03-28 14:33 | disposition home or self-care (01) ==
PROVIDERS: PCP Internal Medicine; Visit Provider Nurse Practitioner Family
DX: G89.29 Other chronic pain (principal); M54.50 Low back pain, unspecified; M51.36 Other intervertebral disc degeneration, lumbar region; Z87.81 Personal history of (healed) traumatic fracture; M81.0 Age-related osteoporosis without current pathological fracture; M25.551 Pain in right hip; M25.552 Pain in left hip
CPT/HCPCS: 99214

== ENCOUNTER → 2023-03-28 14:09 | Outpatient (BNVA) | payer OTHER, SELFPAY | PROVIDERS: PCP Internal Medicine; Visit Provider Nurse Practitioner Family | DX: M51.36 Other intervertebral disc degeneration, lumbar region (principal); M54.50 Low back pain, unspecified; M81.0 Age-related osteoporosis without current pathological fracture; M25.551 Pain in right hip; M25.552 Pain in left hip; G89.29 Other chronic pain; Z87.81 Personal history of (healed) traumatic fracture | CPT/HCPCS: 99212 ==

== ENCOUNTER 2023-05-15 14:27 | Outpatient (REF) | payer OTHER, SELFPAY ==
--- NOTE | ~2023-05-15 | CT_ITS ---
EXAMINATION: CT ABDOMEN WITH CONTRAST CLINICAL INFORMATION: Left upper quadrant pain. COMPARISON: CT abdomen and pelvis 02/09/2022.. TECHNIQUE: Contiguous axial thin section helical images of the abdomen were performed following the administration of oral contrast and 85 mL of Omnipaque 350 intravenous contrast. The data set was reformatted in the coronal and sagittal planes and reviewed on an independent workstation. This CT examination was performed using dose optimization techniques as appropriate, variously including the following: *Automated exposure control *Adjustment of mA and/or kV according to patient size (this includes techniques or standardized protocols for targeted exams where dose is matched to indication/reason for exam; i.e. extremities or head) *Use of iterative reconstruction technique DLP: 129 mGy-cm FINDINGS: LUNG BASES: The lung bases are clear. LIVER, GALLBLADDER, AND BILIARY TREE: The liver is normal size, contour and diffusely attenuated. No focal lesion or intrahepatic ductal dilatation. There is a punctate hyperdensity along the anterior gallbladder wall question small stone. PANCREAS: The pancreas is normal size and density. No focal lesion seen. SPLEEN: The spleen is normal size and density. ADRENAL GLANDS AND KIDNEYS: There is normal symmetry of bilateral adrenal glands and are unremarkable. Both kidney nephrograms are normal size, contour and position. There is a nonenhancing 7 mm midpole left renal cysts. A 5 mm radiopaque calculi seen in the lower pole calyx left kidney. BOWEL LOOPS: There is moderate stool and gas seen throughout the colon without significant distention. Oral contrast opacified small bowel loops are unremarkable. There is no free air or free fluid seen. LYMPH NODES: No abnormal size retroperitoneal lymph nodes or mass seen. VASCULAR: There is atherosclerotic calcification of abdominal aorta without aneurysmal dilatation BONES: There is superior endplate compression deformity L1, T12 and T11 vertebra. The superior end plate deformity of T12 and T11 vertebra is new from 02/09/2022. CT/CT abdomen w IV con IMPRESSION: 1. No acute intra-abdominal process seen. 2. Nonobstructive 5 mm radiopaque calculi lower pole calyx left kidney. 3. Mild constipation. 4. Superior endplate compression deformity T12 and T11 vertebra new from 02/09/2022. Superior endplate L1 compression deformity is old. Fleischner guidelines were followed.
[2023-05-15] MEDS: iohexoL 350 MG/ML 100 ML INFUS..BTL 85 ML IV (16:38)
[2023-05-15] MEDS: Barium Sulfate Oral (Berry) 450 ML ORAL.SUSP PO (16:39)
[2023-05-16 08:34] LABS: Creatinine POC 0.7 mg/dL (0.5-1.4); GFR POC > 60
== END 2023-05-15 14:28 | disposition home or self-care (01) ==
LOC: HO.CT 14:27
PROVIDERS: PCP Internal Medicine; Visit Provider Nurse Practitioner Family
DX: R10.12 Left upper quadrant pain (principal)
CPT/HCPCS: 74160; 82565; Q9967

== ENCOUNTER 2023-05-23 06:20 | Outpatient (REF) | payer OTHER, SELFPAY ==
--- NOTE | ~2023-05-23 | FL_ITS ---
EXAMINATION: XR FLUOROSCOPY WITH IMAGES CLINICAL INFORMATION: Low back pain. COMPARISON: None available. TECHNIQUE: Fluoroscopy Supervised By: Maria Guadalupe Conn APRN WIRER HELPER. Fluoroscopy Time: 0.6 minutes. Cumulative Dose: 5.84 mGy. DAP: 0.101 Gycm2. Images: 6. FINDINGS: There are 6 digital images obtained revealing needle positioned adjacent to the L4, L5, and S1 pedicles with soft tissue contrast opacification. Visualized bones are grossly unremarkable. FL/FL guidance in treatment room IMPRESSION: Fluoroscopy was provided to referring physician for pain management. Fluoroscopy guidance was provided to referring physician for pain management.
== END 2023-05-23 06:21 | disposition home or self-care (01) ==
LOC: CF 06:20
PROVIDERS: Visit Provider Anesthesiology
DX: M51.36 Other intervertebral disc degeneration, lumbar region (principal); M54.50 Low back pain, unspecified; M81.0 Age-related osteoporosis without current pathological fracture; M25.551 Pain in right hip; M25.552 Pain in left hip; M47.816 Spondylosis without myelopathy or radiculopathy, lumbar region; Z87.81 Personal history of (healed) traumatic fracture
CPT/HCPCS: 64493; 64494; J2795; Q9967

== ENCOUNTER 2023-05-23 12:41 | Outpatient (AMB) | payer OTHER, SELFPAY ==
[2023-05-23 12:49] VITALS: BP 126/70; PULSE 57; RESP 14; O2SAT 100; BMI 28.8
--- NOTE | 2023-05-23 12:49 | A.OFFVIS_ITS ---
Intake Vital Signs 05/23/23 12:49 05/23/23 12:51 Height 4 ft 6 in 4 ft 6 in Weight 119 lb 8 oz 119 lb 8 oz BMI 28.8 28.8 BP 126/70 120/64 Blood Pressure Location Lt brachial Lt brachial Position Sitting Sitting Respiration 14 14 Pulse 57 56 Pulse Source Pulse Oximeter Pulse Oximeter Pulse Oximetry (%) 100 99 Oxygen Delivery Method Room Air Room Air Comment pre-op post-op Intake Visit Reasons: BILATERAL DIAGNOSTIC L3, L4, DRL5 MBB Allergies butalbital [From FIORICET] Allergy (Unknown, Verified 05/23/23 12:50) SWELLING,HIVES pepper (genus Capsicum) [PEPPER] Allergy (Unknown, Verified 05/23/23 12:50) ITCHING acetaminophen [Fioricet] Adverse Reaction (Unknown, Verified 05/23/23 12:50) swelling caffeine [Fioricet] Adverse Reaction (Unknown, Verified 05/23/23 12:50) swelling Fioricet Allergy (Unknown, Uncoded 08/16/22 10:29) swollen [facility] Medical History Essential hypertension History of primary hyperparathyroidism Non-toxic multinodular goiter Osteoporosis Surgical History Hx of lithotripsy H/O parathyroidectomy Hx of tubal ligation Hx of section Family History Father No problems noted. Mother CVD (cardiovascular disease) Heart disease Social History Household Members: Spouse and Family Household Members Other:: , son Housing: Apartment Alcohol intake: never Patient Tobacco Use Status: Former Tobacco user Current occupational status: disabled Sexual orientation: Straight/Heterosexual Gender identity: Female Physical Exam Vital Signs: Last Vital Signs Pulse 56 05/23/23 12:51 Resp 14 05/23/23 12:51 BP 120/64 05/23/23 12:51 Pulse Ox 99 05/23/23 12:51 Oxygen Delivery Method Room Air 05/23/23 12:51 BMI result Body Mass Index 28.8 Assessment & Plan Assessment & Plan (1) History of compression fracture of spine: Code(s): Z87.81 - Personal history of (healed) traumatic fracture (2) Lumbar degenerative disc disease: Code(s): M51.36 - Other intervertebral disc degeneration, lumbar region (3) Chronic low back pain: Code(s): M54.50 - Low back pain, unspecified; G89.29 - Other chronic pain (4) Osteoporosis: Code(s): M81.0 - Age-related osteoporosis without current pathological fracture (5) Bilateral hip pain: Code(s): M25.551 - Pain in right hip; M25.552 - Pain in left hip (6) Spondylosis of lumbar region without myelopathy or radiculopathy: Code(s): M47.816 - Spondylosis without myelopathy or radiculopathy, lumbar region Plan: Diagnostic medial branch block L3,L4 dorsal ramus L5 bilateral.? ? ?Informed consent was explained to the patient. All questions were explained and? answered.? The patient was taken inside the operating room where she was positioned prone on the operating table. Time-out was performed delineating correct site, side, the nature of the procedure, patient's allergy, . All operating room staff was participating in OR time-out procedure. ? ? The lower back was prepped with ChloraPrep and draped with sterile towels.? C- arm was brought over the operating field and sq picture of L4-, L5 vertebra and S1 AREA were delineated on the screen.? Point of interest were delineated as confluence of superior articular process of L4 and L5 vertebra bilaterally with corresponding transverse processes as well as confluence of the sacral alae bilaterally with superior articular process of S1.? The projection of the point of interest to the skin were injected with the small amount of local anesthetic lidocaine 2% 1-1.5 cc.? After that 22 gauge 3.5 inch spinal needle was driven sequentially to the points of interest in tunnel vision fashion. After needles gently contacted the bone at the point of interests the needle was injected with small amount of the contrast.? The injection of the contrast did not demonstrate any intravascular or intrathecal spread of the contrast.? After that injection of the? ropivacaine 0.5%-1cc was performed at each needle location.??after that the needles were removed and Bandaids were applied. ? Upon completion of the injections? needle was? removed and sterile Band-Aids were applied.? The patient tolerated procedure very well. Plan Lumbar spine and hip with pelvic views imaging results were reviewed with patient today with assistance of supervisor inspecting. [facility] records were reviewed for previous injections and procedures, records were scanned into patient's chart. Proceed with Bilateral Diagnostic L3-L4-DRL5 MBBs as planned for potential Sprint PNS trial. Expectations, risks and benefits were reviewed. Patient is aware she will be contacted to schedule this procedure. Short script provided for tramadol for moderate to severe pain. She was prescribed this last year and reports good tolerance without known side effects. Patient is aware not to take amitriptyline with tramadol due to potential drug interactions. She states she does not use amitriptyline daily. All questions were answered and the patient is in agreement of plan. Follow-up after injections and sooner as needed. Orders: Orders FL guidance in treatment room Today M51.36 - Other intervertebral disc degeneration, lumbar region Coding Level of Care Code Procedure Only Diagnoses History of compression fracture of spine Z87.81 Lumbar degenerative disc disease M51.36 Chronic low back pain M54.50; G89.29 Osteoporosis M81.0 Bilateral hip pain M25.551; M25.552 Spondylosis of lumbar region without myelopathy or radiculopathy M47.816
[2023-05-23 12:51] VITALS: BP 120/64; PULSE 56; RESP 14; O2SAT 99; BMI 28.8
== END 2023-05-23 13:34 | disposition home or self-care (01) ==
LOC: HO.PMCPRC 12:41
PROVIDERS: PCP Internal Medicine; Visit Provider Anesthesiology
DX: M47.816 Spondylosis without myelopathy or radiculopathy, lumbar region (principal)
CPT/HCPCS: 64493; 64494

== ENCOUNTER 2023-05-29 13:38 | Outpatient (AMB) | payer OTHER, SELFPAY ==
[2023-05-29 13:39] VITALS: BP 155/72; PULSE 74; BMI 29.0
--- NOTE | 2023-05-29 13:39 | A.OFFVIS_ITS ---
Intake Vital Signs 05/29/23 13:39 Height 4 ft 6 in Weight 120 lb 5.958 oz BMI 29.0 BP 155/72 H Blood Pressure Location Lt brachial Position Sitting Pulse 74 Pulse Source Pulse Oximeter Intake Visit Reasons: Follow up 2 months Intake Note: Pt presents to the office today for a 2 month follow up for abdominal pain. Pt states she is still having stomach pain in her upper left quadrant. Pt denies any N/V/D. Pt states she always has this pain and it does not go away during the day at all. Allergies butalbital [From FIORICET] Allergy (Unknown, Verified 05/29/23 13:42) SWELLING,HIVES pepper (genus Capsicum) [PEPPER] Allergy (Unknown, Verified 05/29/23 13:42) ITCHING acetaminophen [Fioricet] Adverse Reaction (Unknown, Verified 05/29/23 13:42) swelling caffeine [Fioricet] Adverse Reaction (Unknown, Verified 05/29/23 13:42) swelling Fioricet Allergy (Unknown, Uncoded 05/29/23 13:42) swollen HPI Follow up 2 months HPI Details LAST VISIT Abdominal pain Postprandial abdominal bloating Plan Patient reports left upper quadrant pain. Patient reports that she is moving her bowels, however she does not empty her bowels completely. Will send her script for Colace. Will check lipase, liver profile, thyroid study. Possible gas trapping in splenic flexure, however will send patient for CT scan, rule out diverticulitis, colitis. I will see patient in 2 months so we can discuss going for colonoscopy. Patient never had colonoscopy in the past. She is agreeable to this plan and verbalizes understanding of instructions. She was given the opportunity to ask questions and all questions answered. ? Thank you for allowing me to participate in her care Orders Orders Lipase Today R10.9 CT abdomen w IV con Today R10.12, R10.9 Blood Urea Nitrogen Today R10.11 Liver Panel Today R10.9 TSH reflex Free T4 Today K59.00 Creatinine Today R10.11 TODAY'S VISIT Patient is here today for follow-up and to discuss lab results and CT scan results. Patient did not do any of her labs. She continues to have abdominal pain in the left upper quadrant. Patient states that sometimes the pain radiates to her scapula. Patient denies any nausea or vomiting. Patient reports that the pain is not always related to food. Patient states that she feels very gassy. Denies any epigastric pain. Patient admits to be drinking lots of milk, eating Pakistani food with lots of beans. CT scan showed no acute processes, mild to moderate stool burden with gas. No obstruction. No diverticulitis. Patient denies any melena, hematochezia, unintentional weight loss or ribbon like stools. Patient denies any dyspepsia, dysphagia or odynophagia. [facility] Medical History Essential hypertension History of primary hyperparathyroidism Non-toxic multinodular goiter Osteoporosis Surgical History Hx of lithotripsy H/O parathyroidectomy Hx of tubal ligation Hx of section Family History Father No problems noted. Mother CVD (cardiovascular disease) Heart disease Social History Household Members: Spouse and Family Household Members Other:: , son Housing: Apartment Alcohol intake: never Patient Tobacco Use Status: Former Tobacco user Current occupational status: disabled Sexual orientation: Straight/Heterosexual Gender identity: Female Review of Systems Const Denies weight gain and Denies weight loss ENT Reports no additional complaints, Denies dysphagia and Denies odynophagia Card Reports no additional complaints Resp Reports no additional complaints GI Reports abdominal pain (LUQ), Denies belching, Denies melena, Denies bloating, Reports constipation, Denies dysphagia, Denies excessive flatus, Denies dyspepsia, Denies heartburn, Denies diarrhea, Denies loose stools, Denies nausea, Denies odynophagia and Denies vomiting Reports no additional complaints Musc Reports no additional complaints Neuro Reports no additional complaints Psych Reports no additional complaints Endo Reports no additional complaints Physical Exam Vital Signs: Last Vital Signs Pulse 74 05/29/23 13:39 BP 155/72 H 05/29/23 13:39 BMI result Body Mass Index 29.0 Const General: healthy appearing, no acute distress and well developed Nutritional Appearance: obese Orientation/consciousness: patient oriented x3 Resp Effort & Inspection: normal respiratory effort, able to speak in complete sentences, no tracheal deviation and symmetric chest movement Auscultation: clear to auscultation bilaterally Cardio Rate: regular rate GI Inspection: Yes normal to inspection, No distended and Yes obesity Palpation (GI): Soft to palpation, not firm, nontender and No hepatosplenomegaly present Auscultation: normal bowel sounds General: Yes no CVA tenderness Back/Spine/Pelvis Back: no CVA tenderness Skin General skin exam: elasticity normal, turgor normal and dry skin Neuro General: patient oriented x3 Psych Appearance: grossly normal Mental Status: mental status grossly normal Results Reviewed Results Reviewed: CT OF ABDOMEN AND PELVIS 05/15/2023 FINDINGS: LUNG BASES: The lung bases are clear. LIVER, GALLBLADDER, AND BILIARY TREE: The liver is normal size, contour and diffusely attenuated. No focal lesion or intrahepatic ductal dilatation. There is a punctate hyperdensity along the anterior gallbladder wall question small stone. PANCREAS: The pancreas is normal size and density. No focal lesion seen. SPLEEN: The spleen is normal size and density. ADRENAL GLANDS AND KIDNEYS: There is normal symmetry of bilateral adrenal glands and are unremarkable. Both kidney nephrograms are normal size, contour and position. There is a nonenhancing 7 mm midpole left renal cysts. A 5 mm radiopaque calculi seen in the lower pole calyx left kidney. BOWEL LOOPS: There is moderate stool and gas seen throughout the colon without significant distention. Oral contrast opacified small bowel loops are unremarkable. There is no free air or free fluid seen. LYMPH NODES: No abnormal size retroperitoneal lymph nodes or mass seen. VASCULAR: There is atherosclerotic calcification of abdominal aorta without aneurysmal dilatation BONES: There is superior endplate compression deformity L1, T12 and T11 vertebra. The superior end plate deformity of T12 and T11 vertebra is new from 02/09/2022. CT/CT abdomen w IV con IMPRESSION: 1. No acute intra-abdominal process seen. 2. Nonobstructive 5 mm radiopaque calculi lower pole calyx left kidney. 3. Mild constipation. 4. Superior endplate compression deformity T12 and T11 vertebra new from 02/09/2022. Superior endplate L1 compression deformity is old. Assessment & Plan Assessment & Plan (1) Abdominal pain: Code(s): R10.9 - Unspecified abdominal pain Qualifiers: Abdominal location: left upper quadrant Qualified Code(s): R10.12 - Left upper quadrant pain (2) Postprandial abdominal bloating: Code(s): R14.0 - Abdominal distension (gaseous) (3) Constipation: Code(s): K59.00 - Constipation, unspecified Qualifiers: Constipation type: slow transit constipation Qualified Code(s): K59.01 - Slow transit constipation Plan Patient will take senna daily. Patient states that she has not been taking Colace. Patient was encouraged to increase fluid intake and activity to promote better bowel motility. Patient can take simethicone on as needed basis for bloating. Discussed with patient avoiding lactose. Patient will try to follow FODMAP diet. List of food recommended as well as list of food to avoid given to patient. Medications: New sennosides (Natural Senna Laxative) 17.2 mg (2 x 8.6 mg) PO BEDTIME 60 tabs 3RF constipation K59.00 - Constipation, unspecified simethicone 125 mg PO BID-QID PRN 120 caps 3RF abdominal distention K21.9 - Gastro-esophageal reflux disease without esophagitis Coding Level of Care Code Est Pt Level 4 (59234) Diagnoses Left upper quadrant abdominal pain R10.12 Abdominal location: left upper quadrant Postprandial abdominal bloating R14.0 Slow transit constipation K59.01 Constipation type: slow transit constipation Time Spent (min) 35 Comment 20 minutes spent with patient and additional 15 minutes spent reviewing her records
== END 2023-05-29 14:08 | disposition home or self-care (01) ==
PROVIDERS: PCP Internal Medicine; Visit Provider Nurse Practitioner Family
DX: R10.12 Left upper quadrant pain (principal); R14.0 Abdominal distension (gaseous); K59.01 Slow transit constipation
CPT/HCPCS: 99214

== ENCOUNTER 2023-05-29 13:38 | Outpatient (REF) | payer OTHER, SELFPAY ==
[2023-05-29 16:17] LABS: Alanine Aminotransferase 18 U/L (0-31); Albumin Level 4.2 g/dL (3.5-5.0); Alkaline Phosphatase 55 U/L (39-117); Aspartate Amino Transferase 18 U/L (5-31); Bilirubin Direct 0.1 mg/dL (0.0-0.5); Bilirubin Total 0.4 mg/dL (0.0-1.0); Blood Urea Nitrogen 21 mg/dL (9-16); Estimated Glomerular Filt Rate > 60; Lipase 52 U/L (8-78); Total Protein 7.7 g/dL (6.5-8.0)
[2023-05-29 16:33] LABS: TSH reflex Free T4 1.08 uIU/mL (0.32-4.0)
== END 2023-05-29 13:39 | disposition home or self-care (01) ==
LOC: HO.LAB 13:38
PROVIDERS: PCP Internal Medicine; Visit Provider Nurse Practitioner Family
DX: R10.11 Right upper quadrant pain (principal); R14.0 Abdominal distension (gaseous); R10.12 Left upper quadrant pain; K59.01 Slow transit constipation
CPT/HCPCS: 36415; 80076; 82565; 83690; 84443; 84520; 99212

== ENCOUNTER 2023-05-30 12:55 | Outpatient (AMB) | payer OTHER, SELFPAY ==
--- NOTE | 2023-05-30 12:58 | MHC.OFFVIS ---
Intake Vital Signs 05/30/23 13:02 Height 4 ft 6 in Weight 120 lb BMI 28.9 BP 177/79 H Blood Pressure Location Rt brachial Position Sitting Pulse 57 Pulse Source Pulse Oximeter Pulse Oximetry (%) 96 Oxygen Delivery Method Room Air Intake Visit Reasons: BILATERAL DIAGNOSTIC L3, L4, DRL5 MBB/05/23/23 Intake Note: Pain today 05/03 Field Map Technician Required: Yes Field Map Technician Language: Room Cleaner Name: Salena #[id number] Accompanied by: Self / Same As Patient Allergies butalbital [From FIORICET] Allergy (Unknown, Verified 05/30/23 13:03) SWELLING,HIVES pepper (genus Capsicum) [PEPPER] Allergy (Unknown, Verified 05/30/23 13:03) ITCHING acetaminophen [Fioricet] Adverse Reaction (Unknown, Verified 05/30/23 13:03) swelling caffeine [Fioricet] Adverse Reaction (Unknown, Verified 05/30/23 13:03) swelling Fioricet Allergy (Unknown, Uncoded 05/29/23 13:42) swollen HPI HPI Comments History of Present Illness Details Patient presents today to assess response to Bilateral Diagnostic L3-L4 DR L5 MBB on 05/23/[address] Calvert. Patient reports 90% pain relief for 3 days following the procedure with significant improvement in her daily functioning, mobility, range of motions, sleep and social interactions. Patient is interested in peripheral nerve stimulation with Sprint trial as next steps for a longer term pain relief. We also discussed lumbar medial branch RFA as next back up option. She is not candidate for therapeutic injections due to osteoporosis. Denies any recent cough, cold, infection, fever, any significant changes in her medical history, medications or recent hospitalizations. Past Procedures: 05/23/23: Bilateral Diagnostic L3-L4 DR L5 MBB-90% pain relief for 3 days PRIOR: Patient presents today for follow up to review recent thoracic, lumbar and hip xray results. Patient continues to endorce bilateral lower back pain with radiation into her buttocks and lateral hips and groin pain, worse on the right. She ambulates with slow, antalgic gait with use of cane. [facility] records were reviewed today and these are scanned in patient's chart. Patient underwent left interlaminar L1-L2 JARVIS on 05/10/22 with partial relief. We reviewed her xray imaging today. Patient has pending hip MRI to further evaluate sacral lesions and ongoing significant hip pain, right worse than left. We are also planning for diagnostic lumbar MBBs to address her axial low back symptoms for potential Sprint PNS. Given poor bone quality due to significant osteoporosis with history of multilevel compression fractures, patient is not candidate for steroid injections. Denies any recent cough, cold, infection, fever or other significant changes in medical history since last office visit. PRIOR: Patient is a pleasant 67 years old Bhutanese speaking female with history of severe osteoporosis in femur and osteopenia in lumbar spine (receives Prolia injections), old L1 compression fracture, h/o left ankle fracture in 2009, presents today for initial evaluation of low back pain. Patient reports she was lifting and moving a heavy furniture last year and has been walking hunched upper back since then due to pain. Her pain is mostly axial without radiation into her lower extremities. She also reports right hip pain that occasionally radiates into her groin. Reports mild left hip pain as well. Occasionally she feels tingling in her right anterior thigh that terminates above knee without weakness or burning. Right anterior thigh tingling resolves with topical cream. Patient reports she was followed at [facility] for physical therapy and back injections, last one in November and was discharged from [facility] due to no show to her appointments. She is currently taking tramadol, Tylenol, NSAIDs for pain with partial pain relief. Pain affects her daily activities, functioning, sleep, social activities, mood and quality of life. Denies any fever, abdominal pain, dizziness, shortness of breath, bladder or bowel incontinence or saddle anesthesia. Ambulates with cane. Location Lower back pain, right groin and hip pain Duration Chronic pain > 1 year Characteristics of symptom or complaint Aching, shotting, sharp, dull, stabbing, throbbing Aggravating or associated factors Movements, lifting, extending backwards, cold weather, standing, walking Relieving factors Heat therapy, rest, Tramadol Treatment PT- no improvement, injections- november in [facility] Medical History Essential hypertension History of primary hyperparathyroidism Non-toxic multinodular goiter Osteoporosis Surgical History Hx of lithotripsy H/O parathyroidectomy Hx of tubal ligation Hx of section Family History Father No problems noted. Mother CVD (cardiovascular disease) Heart disease Social History Household Members: Spouse and Family Household Members Other:: , son Housing: Apartment Alcohol intake: never Patient Tobacco Use Status: Former Tobacco user Current occupational status: disabled Sexual orientation: Straight/Heterosexual Gender identity: Female Review of Systems Const All systems reviewed & are unremarkable except as noted in HPI and below Physical Exam Vital Signs: Last Vital Signs Pulse 57 05/30/23 13:02 BP 177/79 H 05/30/23 13:02 Pulse Ox 96 05/30/23 13:02 Oxygen Delivery Method Room Air 05/30/23 13:02 BMI result Body Mass Index 28.9 General: Appears afebrile. Alert and oriented. Mood and affect appropriate. Follows and participates in conversation appropriately. Respiratory effort is unlabored. No cough. Able to transition from sit to stand unassisted. Ambulates with bilaterally normal heel strike and toe off. Back/Spine/Pelvis Cervical Spine: cervical muscular tenderness and No Cervical spine tenderness Thoracic/Lumbar Spine: thoracic and lumbar spine normal to inspection, No Thoracic/lumbar spine scar(s), Lasegue's sign negative, straight leg raise negative bilaterally, kyphosis, pain with thoraco-lumbar ROM, paraspinal muscle tenderness, thoraco-lumbar ROM limited, No thoracic spinal tenderness and lumbar spinal tenderness (L4-S1) Pelvis: no buttock tenderness Sacroiliac joints: bilaterally (right>left) tender to palpation Results Reviewed Results Reviewed: XR THORACIC SPINE XR BILATERAL HIPS AND PELVIS XR LUMBOSACRAL SPINE 03/07/23 CLINICAL INFORMATION: Personal history of healed traumatic fracture. Patient unable to remove earrings at this time. Low back pain. Pain in right hip. COMPARISON: CT scan of the abdomen and pelvis of 02/09/2022. Radiograph lumbar spine 11/05/2021. TECHNIQUE: Three views of the thoracic spine. Five views of the lumbar spine. AP view of the pelvis and AP and lateral views of each of the bilateral hips. FINDINGS: THORACIC SPINE: The bones are diffusely demineralized. S-shaped thoracolumbar scoliosis. Advanced multilevel degenerative changes in the thoracic spine. Loss of height of multiple lower thoracic vertebral bodies extending from T8 through T12 levels, most notable at T9. The T9 compression fracture was also demonstrated on the prior exam of 02/09/2022. LUMBAR SPINE: Redemonstration of severe compression deformity of L1 vertebral body. Redemonstration of moderate superior endplate compression deformity at L4. Redemonstration of a sacral lesion, better characterized on prior CT scans. Visualization of the sacrum is limited due to overlying bowel. Bones are diffusely demineralized. Facet arthritis in the lower lumbar spine. Moderate multilevel lumbar spondylosis. PELVIS AND BILATERAL HIPS: The bones are diffusely demineralized. Mild degenerative changes in the bilateral hips with joint space narrowing, left greater than right. Degenerative changes in the bilateral sacroiliac joints. Alignment preserved. IMPRESSION: 1. Multiple compression deformities of the thoracic and lumbar vertebral bodies, as detailed above. Diffuse demineralization. 2. Sacral lesion was better characterized on prior exams and is difficult to evaluate as visualization of the sacrum is limited due to overlying bowel. 3. Multilevel degenerative changes in the thoracolumbar spine. 4. Mild degenerative changes in the bilateral hips, left greater than right. MRI recommended if there is concern for fracture or other pathology. MRI should be considered for further evaluation. Assessment & Plan Assessment & Plan (1) Chronic low back pain: Code(s): M54.50 - Low back pain, unspecified; G89.29 - Other chronic pain (2) Lumbar degenerative disc disease: Code(s): M51.36 - Other intervertebral disc degeneration, lumbar region (3) Bilateral hip pain: Code(s): M25.551 - Pain in right hip; M25.552 - Pain in left hip (4) Spondylosis of lumbar region without myelopathy or radiculopathy: Code(s): M47.816 - Spondylosis without myelopathy or radiculopathy, lumbar region Plan Patient is status post diagnostic lumbar medial branch blocks with great results, providing patient with 90% pain relief for 3 days and significant improvement in her daily functioning, mobility and sleep. Patient is not candidate for therapeutic injections due to osteoporosis. We reviewed Sprint PNS trial as next steps and RFA as back up option. Schedule Bilateral L3 Medial Branch Sprint PNS trial with local and fluoroscopy for axial low back pain. Informational pamphlet provided to patient in Bhutanese again today Expectations, risks and benefits were reviewed. Patient is aware she will be contacted to schedule this procedure. Patient would like to attend clinic visits for Sprint dressing changes. All questions were answered and the patient is in agreement of plan. Follow-up after Sprint and sooner as needed. Coding Level of Care Code Est Pt Level 3 (95655) Diagnoses Chronic low back pain M54.50; G89.29 Lumbar degenerative disc disease M51.36 Bilateral hip pain M25.551; M25.552 Spondylosis of lumbar region without myelopathy or radiculopathy M47.816
[2023-05-30 13:02] VITALS: BP 177/79; PULSE 57; O2SAT 96; BMI 28.9
== END 2023-05-30 13:25 | disposition home or self-care (01) ==
PROVIDERS: PCP Internal Medicine; Visit Provider Nurse Practitioner Family
DX: M54.50 Low back pain, unspecified (principal); G89.29 Other chronic pain; M51.36 Other intervertebral disc degeneration, lumbar region; M25.551 Pain in right hip; M25.552 Pain in left hip; M47.816 Spondylosis without myelopathy or radiculopathy, lumbar region
CPT/HCPCS: 99213

== ENCOUNTER → 2023-05-30 12:55 | Outpatient (BNVA) | payer OTHER, SELFPAY | PROVIDERS: PCP Internal Medicine; Visit Provider Nurse Practitioner Family | DX: M54.50 Low back pain, unspecified (principal); M51.36 Other intervertebral disc degeneration, lumbar region; M25.551 Pain in right hip; M25.552 Pain in left hip; M47.816 Spondylosis without myelopathy or radiculopathy, lumbar region; G89.29 Other chronic pain | CPT/HCPCS: 99212 ==

== ENCOUNTER 2023-06-07 13:51 | Outpatient (REF) | payer OTHER, SELFPAY | END 2023-06-07 13:52 | disposition home or self-care (01) | LOC: HO.MAMMO 13:51 | PROVIDERS: PCP Internal Medicine; Visit Provider Internal Medicine | DX: Z12.31 Encounter for screening mammogram for malignant neoplasm of breast (principal) | CPT/HCPCS: 77063; 77067 ==

== ENCOUNTER → 2023-06-07 14:00 | Outpatient (BNV) | payer OTHER, SELFPAY | PROVIDERS: PCP Internal Medicine; Visit Provider Radiology Diagnostic Radiology | DX: Z12.31 Encounter for screening mammogram for malignant neoplasm of breast (principal) | CPT/HCPCS: 77063; 77067 ==

== ENCOUNTER 2023-07-06 14:39 | Outpatient (REF) | payer OTHER, SELFPAY ==
--- NOTE | ~2023-07-06 | MR_ITS ---
EXAMINATION: MR HIP WITHOUT CONTRAST, RIGHT CLINICAL INFORMATION: Right hip pain COMPARISON: Radiographs 03/07/2023 TECHNIQUE: MRI of the right hip was obtained using routine sequences on a high-field strength magnet. FINDINGS: No definite labral tear. Mild cartilage thinning at the anterior superior acetabular rim. Small degenerative cyst of the anterior acetabulum. No joint effusion. No stress reaction, fracture, or evidence of avascular necrosis. Mild gluteus minimus insertional tendinitis. No acute muscle strain or tear. MR/MR hip RT wo con IMPRESSION: 1. Mild right hip osteoarthritis. No acute osseous abnormality. No definite labral tear. 2. Gluteus medius insertional tendinitis with a small insertional enthesophyte.
== END 2023-07-06 14:40 | disposition home or self-care (01) ==
LOC: HO.MRI 14:39
PROVIDERS: PCP Internal Medicine; Visit Provider Nurse Practitioner Family
DX: M25.551 Pain in right hip (principal); M25.552 Pain in left hip; M81.0 Age-related osteoporosis without current pathological fracture
CPT/HCPCS: 73721

== ENCOUNTER 2023-07-11 06:31 | Outpatient (REF) | payer OTHER, SELFPAY ==
--- NOTE | ~2023-07-11 | FL_ITS ---
EXAMINATION: XR FLUOROSCOPY WITH IMAGES CLINICAL INFORMATION: Lumbar spondylosis without myelopathy or radiculopathy. COMPARISON: Intraoperative fluoroscopy dated 06/06/2023. TECHNIQUE: Fluoroscopy Supervised By: Dr. Elias Calvert. Fluoroscopy Time: 0.1 minutes. Cumulative Dose: 1.34 mGy. DAP: 0.0233 Gycm2. Images: 1. FINDINGS: The submitted image shows a guidewire overlapping the right paralumbar region. FL/FL guidance in treatment room IMPRESSION: Intraoperative fluoroscopic guidance is provided during lumbar fusion procedure. Please see the patient's Operative Report for full procedural details.
== END 2023-07-11 06:32 | disposition home or self-care (01) ==
LOC: CF 06:31
PROVIDERS: Visit Provider Anesthesiology
DX: M47.816 Spondylosis without myelopathy or radiculopathy, lumbar region (principal)
CPT/HCPCS: 64555; C1778

== ENCOUNTER 2023-07-11 10:48 | Outpatient (AMB) | payer OTHER, SELFPAY ==
--- NOTE | 2023-07-11 10:59 | MHC.OFFVIS ---
Intake Vital Signs 07/11/23 11:00 07/11/23 11:36 Height 4 ft 6 in 4 ft 6 in Weight 120 lb 120 lb BMI 28.9 28.9 BP 120/58 L 126/70 Blood Pressure Location Lt brachial Lt brachial Position Sitting Sitting Respiration 12 12 Pulse 58 55 Pulse Source Pulse Oximeter Pulse Oximeter Pulse Oximetry (%) 100 99 Oxygen Delivery Method Room Air Room Air Comment pre-op post-op Intake Visit Reasons: RIGHT L3 MB SPRINT PNS TRIAL/ATIVAN REQUEST PRIOR Allergies butalbital [From FIORICET] Allergy (Unknown, Verified 07/11/23 11:01) SWELLING,HIVES pepper (genus Capsicum) [PEPPER] Allergy (Unknown, Verified 07/11/23 11:01) ITCHING acetaminophen [Fioricet] Adverse Reaction (Unknown, Verified 07/11/23 11:01) swelling caffeine [Fioricet] Adverse Reaction (Unknown, Verified 07/11/23 11:01) swelling Fioricet Allergy (Unknown, Uncoded 05/29/23 13:42) swollen PFSH Medical History Essential hypertension History of primary hyperparathyroidism Non-toxic multinodular goiter Osteoporosis Surgical History Hx of lithotripsy H/O parathyroidectomy Hx of tubal ligation Hx of section Family History Father No problems noted. Mother CVD (cardiovascular disease) Heart disease Social History Household Members: Spouse and Family Household Members Other:: , son Housing: Apartment Alcohol intake: never Patient Tobacco Use Status: Former Tobacco user Current occupational status: disabled Sexual orientation: Straight/Heterosexual Gender identity: Female Physical Exam Vital Signs: Last Vital Signs Pulse 55 07/11/23 11:36 Resp 12 07/11/23 11:36 BP 126/70 07/11/23 11:36 Pulse Ox 99 07/11/23 11:36 Oxygen Delivery Method Room Air 07/11/23 11:36 BMI result Body Mass Index 28.9 Office Procedures Sprint PNS Device: Sprint PNS Device [id number] Percutaneous Peripheral Neuroelectrode Procedure: 73005 - Percutaneous Peripheral Neuroelectrode Procedure code (CPT) selection complete Assessment & Plan Assessment & Plan (1) Spondylosis of lumbar region without myelopathy or radiculopathy: Code(s): M47.816 - Spondylosis without myelopathy or radiculopathy, lumbar region Plan Sprint PNS L4 on the right Percutaneous implantation of peripheral nerve stimulation Sprint system. After the risks, benefits and alternatives were discussed with the patient and informed consent was obtained, patient was placed in the prone position and padded to foster comfort. Time out was performed delineating correct site and side of the procedure , name and of the patient, patient participated in time out procedure. Sterily draped C-arm was brought over the operating field and clear picture of the L4 lamina on the right was delineated on the screen. The upper central portion of the lamina was chosen as a target of the needle tip insertion . After identifying and marking the intended target, the skin around the planned entry point and the subcutaneous tissues were injected with local anesthetic forming skin wheal.. A percutaneous sleeve and stimulating probe lead introduction system were assembled, inserted and advanced through the skin wheal to the point of interest under C-arm view in tunnel vision fashion, the introducer needle was delivered to a location in proximity to the nerve. Multiple stimulation parameters were used to deliver stimulation to the nerve in concert with stimulating at multiple positions around the nerve. nerve target acquisition was confirmed noting generation of in the corresponding to the nerve being stimulated. Various electrical parameter combinations were tested, and the lead location was adjusted (physically relocated) until the patient indicated overlapping the distribution of the patient?s typical region of pain. The stimulating probe was removed from the introducer and a percutaneous lead was guided through the needle and delivered to a location in similar proximity to the nerve. Final location was verified with electrical stimulation. The introducer needle was removed, and the exposed end of the percutaneous lead was attached to an external stimulator unit. At the end of the case various electrical parameter combinations were again tested until the patient indicated paresthesia or muscle tension overlapping the distribution of the patient?s typical region of pain. After confirming that lead impedance was in the normal range, the external unit was detached, the needle was removed, and the lead was anchored at the skin. The lead was threaded into the connector block and electrical continuity and desired patient response was confirmed. The connector block was attached to the external stimulator unit. The site was covered with a sterile occlusive dressing and a image was taken to document final placement. Upon completion of the procedure the patient was taken outside the OR where she recovered uneventfully he went home without immediate complications Orders: Orders FL guidance in treatment room Today M47.816 - Spondylosis without myelopathy or radiculopathy, lumbar region Coding Level of Care Code Procedure Only Diagnoses Spondylosis of lumbar region without myelopathy or radiculopathy M47.816 CPT Codes Sprint PNS - Sprint PNS Device: Sprint PNS Device ([id number]) Sprint PNS - SPRINT: 42912 - Percutaneous Peripheral Neuroelectrode ([id number])
[2023-07-11 11:00] VITALS: BP 120/58; PULSE 58; RESP 12; O2SAT 100; BMI 28.9
[2023-07-11 11:36] VITALS: BP 126/70; PULSE 55; RESP 12; O2SAT 99; BMI 28.9
== END 2023-07-11 11:47 | disposition home or self-care (01) ==
PROVIDERS: PCP Internal Medicine; Visit Provider Anesthesiology
DX: M47.816 Spondylosis without myelopathy or radiculopathy, lumbar region (principal)
CPT/HCPCS: 64555

== ENCOUNTER 2023-07-17 11:26 | Outpatient (AMB) | payer OTHER, SELFPAY ==
--- NOTE | 2023-07-17 11:41 | A.OFFVIS_ITS ---
Intake Vital Signs 07/17/23 11:45 Height 4 ft 6 in Weight 117 lb BMI 28.2 BP 142/68 H Blood Pressure Location Rt brachial Position Sitting Pulse 55 Pulse Source Pulse Oximeter Pulse Oximetry (%) 98 Oxygen Delivery Method Room Air Intake Visit Reasons: RIGHT L3 MB PNS SPRINT TRIAL Intake Note: Pain today 08/31 Supervisor [employer] Required: Yes Supervisor [employer] Language: Vegetable Preparer Name: Gela #[id number] Accompanied by: Self / Same As Patient Allergies butalbital [From FIORICET] Allergy (Unknown, Verified 07/17/23 11:46) SWELLING,HIVES pepper (genus Capsicum) [PEPPER] Allergy (Unknown, Verified 07/17/23 11:46) ITCHING acetaminophen [Fioricet] Adverse Reaction (Unknown, Verified 07/17/23 11:46) swelling caffeine [Fioricet] Adverse Reaction (Unknown, Verified 07/17/23 11:46) swelling Fioricet Allergy (Unknown, Uncoded 05/29/23 13:42) swollen HPI HPI Comments History of Present Illness Details Patient presents today 1 week s/p Right L4 medial branch Sprint with Dr. Calvert. Patient reports 50% pain relief since procedure with minimal improvement in her daily functioning, mobility, range of motions and sleep. Her stimulation on arrival was set at 14 without any paresthesia. Patient was not sure how to adjust stimulation. We reviewed device care, dressing changes and program adjustments. Patient reports she is now comfortable to change her stimulation settings but prefers dressing changes in the office. Today we increased her stimulation to 50 with good tolerance. She reported overstimulation at 51-52. Dressing site was without any signs of infection, tenderness, redness, erythema or pathological discharge. Dressing change was done today in the clinic. Denies any recent cough, cold, infection, fever, any significant changes in her medical history, medications or recent hospitalizations. Past Procedures: 07/11/23: Right L4 MB Sprint PNS trial-5 0% pain relief at 14, increased stimulation to 50 05/23/23: Bilateral Diagnostic L3-L4 DR L5 MBB-90% pain relief for 3 days PRIOR: Patient presents today for follow up to review recent thoracic, lumbar and hip xray results. Patient continues to endorce bilateral lower back pain with radiation into her buttocks and lateral hips and groin pain, worse on the right. She ambulates with slow, antalgic gait with use of cane. [facility] records were reviewed today and these are scanned in patient's chart. Patient underwent left interlaminar L1-L2 JARVIS on 05/10/22 with partial relief. We reviewed her xray imaging today. Patient has pending hip MRI to further evaluate sacral lesions and ongoing significant hip pain, right worse than left. We are also planning for diagnostic lumbar MBBs to address her axial low back symptoms for potential Sprint PNS. Given poor bone quality due to significant osteoporosis with history of multilevel compression fractures, patient is not candidate for steroid injections. Denies any recent cough, cold, infection, fever or other significant changes in medical history since last office visit. PRIOR: Patient is a pleasant 67 years old Syrian speaking female with history of severe osteoporosis in femur and osteopenia in lumbar spine (receives Prolia injections), old L1 compression fracture, h/o left ankle fracture in 2009, presents today for initial evaluation of low back pain. Patient reports she was lifting and moving a heavy furniture last year and has been walking hunched upper back since then due to pain. Her pain is mostly axial without radiation into her lower extremities. She also reports right hip pain that occasionally radiates into her groin. Reports mild left hip pain as well. Occasionally she feels tingling in her right anterior thigh that terminates above knee without weakness or burning. Right anterior thigh tingling resolves with topical cream. Patient reports she was followed at [facility] for physical therapy and back injections, last one in November and was discharged from [facility] due to no show to her appointments. She is currently taking tramadol, Tylenol, NSAIDs for pain with partial pain relief. Pain affects her daily activities, functioning, sleep, social activities, mood and quality of life. Denies any fever, abdominal pain, dizziness, shortness of breath, bladder or bowel incontinence or saddle anesthesia. Ambulates with cane. Location Lower back pain, right groin and hip pain Duration Chronic pain > 1 year Characteristics of symptom or complaint Aching, shotting, sharp, dull, stabbing, throbbing Aggravating or associated factors Movements, lifting, extending backwards, cold weather, standing, walking Relieving factors Heat therapy, rest, Tramadol Treatment PT- no improvement, injections- november in [facility] Medical History Essential hypertension History of primary hyperparathyroidism Non-toxic multinodular goiter Osteoporosis Surgical History Hx of lithotripsy H/O parathyroidectomy Hx of tubal ligation Hx of section Family History Father No problems noted. Mother CVD (cardiovascular disease) Heart disease Social History Household Members: Spouse and Family Household Members Other:: , son Housing: Apartment Alcohol intake: never Patient Tobacco Use Status: Former Tobacco user Current occupational status: disabled Sexual orientation: Straight/Heterosexual Gender identity: Female Review of Systems Const All systems reviewed & are unremarkable except as noted in HPI and below Physical Exam General: Appears afebrile. Alert and oriented. Mood and affect appropriate. Follows and participates in conversation appropriately. Respiratory effort is unlabored. No cough. Able to transition from sit to stand unassisted. Ambulates with bilaterally normal heel strike and toe off. Lead Insertion Site: Lead insertion site looks clean, dry, intact.? No pathological discharge, no swelling and no erythema.? Lead site dressings were changed today in the clinic. Positive paresthesia at 50 on the right. Back/Spine/Pelvis Cervical Spine: cervical muscular tenderness and No Cervical spine tenderness Thoracic/Lumbar Spine: thoracic and lumbar spine normal to inspection, No Thoracic/lumbar spine scar(s), Lasegue's sign negative, straight leg raise negative bilaterally, kyphosis, pain with thoraco-lumbar ROM, paraspinal muscle tenderness, thoraco-lumbar ROM limited, No thoracic spinal tenderness and lumbar spinal tenderness (L4-S1) Pelvis: no buttock tenderness Results Reviewed Results Reviewed: XR THORACIC SPINE XR BILATERAL HIPS AND PELVIS XR LUMBOSACRAL SPINE 03/07/23 CLINICAL INFORMATION: Personal history of healed traumatic fracture. Patient unable to remove earrings at this time. Low back pain. Pain in right hip. COMPARISON: CT scan of the abdomen and pelvis of 02/09/2022. Radiograph lumbar spine 11/05/2021. TECHNIQUE: Three views of the thoracic spine. Five views of the lumbar spine. AP view of the pelvis and AP and lateral views of each of the bilateral hips. FINDINGS: THORACIC SPINE: The bones are diffusely demineralized. S-shaped thoracolumbar scoliosis. Advanced multilevel degenerative changes in the thoracic spine. Loss of height of multiple lower thoracic vertebral bodies extending from T8 through T12 levels, most notable at T9. The T9 compression fracture was also demonstrated on the prior exam of 02/09/2022. LUMBAR SPINE: Redemonstration of severe compression deformity of L1 vertebral body. Redemonstration of moderate superior endplate compression deformity at L4. Redemonstration of a sacral lesion, better characterized on prior CT scans. Visualization of the sacrum is limited due to overlying bowel. Bones are diffusely demineralized. Facet arthritis in the lower lumbar spine. Moderate multilevel lumbar spondylosis. PELVIS AND BILATERAL HIPS: The bones are diffusely demineralized. Mild degenerative changes in the bilateral hips with joint space narrowing, left greater than right. Degenerative changes in the bilateral sacroiliac joints. Alignment preserved. IMPRESSION: 1. Multiple compression deformities of the thoracic and lumbar vertebral bodies, as detailed above. Diffuse demineralization. 2. Sacral lesion was better characterized on prior exams and is difficult to evaluate as visualization of the sacrum is limited due to overlying bowel. 3. Multilevel degenerative changes in the thoracolumbar spine. 4. Mild degenerative changes in the bilateral hips, left greater than right. MRI recommended if there is concern for fracture or other pathology. MRI should be considered for further evaluation. Assessment & Plan Assessment & Plan (1) Spondylosis of lumbar region without myelopathy or radiculopathy: Code(s): M47.816 - Spondylosis without myelopathy or radiculopathy, lumbar region (2) Chronic low back pain: Code(s): M54.50 - Low back pain, unspecified; G89.29 - Other chronic pain (3) Lumbar degenerative disc disease: Code(s): M51.36 - Other intervertebral disc degeneration, lumbar region Plan Patient presented today 1 week s/p Right L4 Sprint placement with partial improvement in her daily activities, functioning and sleep. Dressing site was without any signs of infection or pathological discharge. Patient will continue to adjust stimulation settings as needed. Dressing change was done today in the clinic. Patient prefers dressing changes in the clinic.? Patient is scheduled to undergo Left side Sprint placement on 07/25/23. All questions were answered and the patient agreed with the plan. Follow up for dressing changes and Sprint lead removal as scheduled and sooner if needed.? Coding Level of Care Code Est Pt Level 3 (28152) Diagnoses Spondylosis of lumbar region without myelopathy or radiculopathy M47.816 Chronic low back pain M54.50; G89.29 Lumbar degenerative disc disease M51.36
[2023-07-17 11:45] VITALS: BP 142/68; PULSE 55; O2SAT 98; BMI 28.2
== END 2023-07-17 12:02 | disposition home or self-care (01) ==
PROVIDERS: PCP Internal Medicine; Visit Provider Nurse Practitioner Family
DX: M47.816 Spondylosis without myelopathy or radiculopathy, lumbar region (principal); M54.50 Low back pain, unspecified; G89.29 Other chronic pain; M51.36 Other intervertebral disc degeneration, lumbar region
CPT/HCPCS: 99024

== ENCOUNTER → 2023-07-17 11:26 | Outpatient (BNVA) | payer OTHER, SELFPAY | PROVIDERS: PCP Internal Medicine; Visit Provider Nurse Practitioner Family | DX: M47.816 Spondylosis without myelopathy or radiculopathy, lumbar region (principal); M54.50 Low back pain, unspecified; M51.36 Other intervertebral disc degeneration, lumbar region; G89.29 Other chronic pain | CPT/HCPCS: 99212 ==

== ENCOUNTER → 2023-07-24 11:30 | Outpatient (BNVA) | payer OTHER, SELFPAY | PROVIDERS: PCP Internal Medicine; Visit Provider Nurse Practitioner Family | DX: Z48.01 Encounter for change or removal of surgical wound dressing (principal) | CPT/HCPCS: 99211 ==

== ENCOUNTER 2023-07-25 07:02 | Outpatient (REF) | payer OTHER, SELFPAY ==
--- NOTE | ~2023-07-25 | FL_ITS ---
EXAMINATION: XR FLUOROSCOPY WITH IMAGES CLINICAL INFORMATION: Spondylosis without myelopathy or radiculopathy, lumbar region. COMPARISON: CT abdomen 05/15/2023, CT abdomen/pelvis 11/15/2021. TECHNIQUE: Fluoroscopy Supervised By: Dr. Maria Guadalupe Conn. Fluoroscopy Time: 0.1 minutes. Cumulative Dose: 3.40 mGy. DAP: 0.551 Gycm2. Images: 2. FINDINGS: A needle is seen overlying the L5 region. Some wires/leads are seen. Some other serpiginous thin radiopacities are noted. Please see Dr. Maria Guadalupe Conn's report for full procedural details. FL/FL guidance in treatment room IMPRESSION: Fluoroscopy and spot films provided during lumbar procedure.
== END 2023-07-25 07:03 | disposition home or self-care (01) ==
LOC: CF 07:02
PROVIDERS: Visit Provider Anesthesiology
DX: M47.816 Spondylosis without myelopathy or radiculopathy, lumbar region (principal); M81.0 Age-related osteoporosis without current pathological fracture
CPT/HCPCS: 64555; C1778

== ENCOUNTER 2023-07-25 10:42 | Outpatient (AMB) | payer OTHER, SELFPAY ==
[2023-07-25 11:44] VITALS: BP 120/62; PULSE 68; RESP 14; O2SAT 98; BMI 28.2
--- NOTE | 2023-07-25 11:44 | MHC.OFFVIS ---
Intake Vital Signs 07/25/23 11:44 Height 4 ft 6 in Weight 117 lb BMI 28.2 BP 120/62 Blood Pressure Location Lt brachial Position Sitting Respiration 14 Pulse 68 Pulse Source Pulse Oximeter Pulse Oximetry (%) 98 Oxygen Delivery Method Room Air Comment Pre-op Intake Visit Reasons: LEFT L3 MB PNS SPRINT TRIAL Allergies butalbital [From FIORICET] Allergy (Unknown, Verified 07/25/23 11:45) SWELLING,HIVES pepper (genus Capsicum) [PEPPER] Allergy (Unknown, Verified 07/25/23 11:45) ITCHING acetaminophen [Fioricet] Adverse Reaction (Unknown, Verified 07/25/23 11:45) swelling caffeine [Fioricet] Adverse Reaction (Unknown, Verified 07/25/23 11:45) swelling Fioricet Allergy (Unknown, Uncoded 05/29/23 13:42) swollen PFSH Medical History Essential hypertension History of primary hyperparathyroidism Non-toxic multinodular goiter Osteoporosis Surgical History Hx of lithotripsy H/O parathyroidectomy Hx of tubal ligation Hx of section Family History Father No problems noted. Mother CVD (cardiovascular disease) Heart disease Social History Household Members: Spouse and Family Household Members Other:: , son Housing: Apartment Alcohol intake: never Patient Tobacco Use Status: Former Tobacco user Current occupational status: disabled Sexual orientation: Straight/Heterosexual Gender identity: Female Assessment & Plan Assessment & Plan Orders: Orders FL guidance in treatment room Today M47.816 - Spondylosis without myelopathy or radiculopathy, lumbar region Coding
[2023-07-25 12:07] VITALS: BP 114/72; PULSE 58; RESP 14; O2SAT 99; BMI 28.2
--- NOTE | 2023-07-25 12:07 | A.OFFVIS_ITS ---
Intake Vital Signs 07/25/23 11:44 07/25/23 12:07 07/25/23 12:10 Height 4 ft 6 in 4 ft 6 in Weight 117 lb 117 lb BMI 28.2 28.2 28.2 BP 120/62 114/72 Blood Pressure Location Lt brachial Lt brachial Position Sitting Sitting Respiration 14 14 Pulse 68 58 Pulse Source Pulse Oximeter Pulse Oximeter Pulse Oximetry (%) 98 99 Oxygen Delivery Method Room Air Room Air Comment Pre-op post-op Intake Visit Reasons: LEFT L3 MB PNS SPRINT TRIAL Allergies butalbital [From FIORICET] Allergy (Unknown, Verified 07/25/23 12:10) SWELLING,HIVES pepper (genus Capsicum) [PEPPER] Allergy (Unknown, Verified 07/25/23 12:10) ITCHING acetaminophen [Fioricet] Adverse Reaction (Unknown, Verified 07/25/23 12:10) swelling caffeine [Fioricet] Adverse Reaction (Unknown, Verified 07/25/23 12:10) swelling Fioricet Allergy (Unknown, Uncoded 05/29/23 13:42) swollen PFSH Medical History Essential hypertension History of primary hyperparathyroidism Non-toxic multinodular goiter Osteoporosis Surgical History Hx of lithotripsy H/O parathyroidectomy Hx of tubal ligation Hx of section Family History Father No problems noted. Mother CVD (cardiovascular disease) Heart disease Social History Household Members: Spouse and Family Household Members Other:: , son Housing: Apartment Alcohol intake: never Patient Tobacco Use Status: Former Tobacco user Current occupational status: disabled Sexual orientation: Straight/Heterosexual Gender identity: Female Physical Exam Vital Signs: Last Vital Signs Pulse 58 07/25/23 12:07 Resp 14 07/25/23 12:07 BP 114/72 07/25/23 12:07 Pulse Ox 99 07/25/23 12:07 Oxygen Delivery Method Room Air 07/25/23 12:07 BMI result Body Mass Index 28.2 Assessment & Plan Assessment & Plan (1) Spondylosis of lumbar region without myelopathy or radiculopathy: Code(s): M47.816 - Spondylosis without myelopathy or radiculopathy, lumbar region Plan Sprint PNS L4 on the left, completion of the procedure Percutaneous implantation of peripheral nerve stimulation Sprint system. After the risks, benefits and alternatives were discussed with the patient and informed consent was obtained, patient was placed in the prone position and padded to foster comfort. Time out was performed delineating correct site and side of the procedure , name and of the patient, patient participated in time out procedure. Sterily draped C-arm was brought over the operating field and clear picture of the [id number] on the left was delineated on the screen. The upper central portion of the lamina was chosen as a target of the needle tip insertion . After identifying and marking the intended target, the skin around the planned entry point and the subcutaneous tissues were injected with local anesthetic forming skin wheal.. A percutaneous sleeve and stimulating probe lead introduction system were assembled, inserted and advanced through the skin wheal to the point of interest under C-arm view in tunnel vision fashion, the introducer needle was delivered to a location in proximity to the nerve. Multiple stimulation parameters were used to deliver stimulation to the nerve in concert with stimulating at multiple positions around the nerve. nerve target acquisition was confirmed noting generation of in the corresponding to the nerve being stimulated. Various electrical parameter combinations were tested, and the lead location was adjusted (physically relocated) until the patient indicated overlapping the distribution of the patient?s typical region of pain. The stimulating probe was removed from the introducer and a percutaneous lead was guided through the needle and delivered to a location in similar proximity to the nerve. Final location was verified with electrical stimulation. The introd ucer needle was removed, and the exposed end of the percutaneous lead was attached to an external stimulator unit. At the end of the case various electrical parameter combinations were again tested until the patient indicated paresthesia or muscle tension overlapping the distribution of the patient?s typical region of pain. After confirming that lead impedance was in the normal range, the external unit was detached, the needle was removed, and the lead was anchored at the skin. The lead was threaded into the connector block and electrical continuity and desired patient response was confirmed. The connector block was attached to the external stimulator unit. The site was covered with a sterile occlusive dressing and a image was taken to document final placement. Upon completion of the procedure the patient was taken outside the OR where she recovered uneventfully he went home without immediate complications Orders: Orders FL guidance in treatment room Today M47.816 - Spondylosis without myelopathy or radiculopathy, lumbar region Coding Level of Care Code Procedure Only Diagnoses Spondylosis of lumbar region without myelopathy or radiculopathy M47.816
[2023-07-25 12:10] VITALS: BMI 28.2
== END 2023-07-25 12:07 | disposition home or self-care (01) ==
LOC: HO.PMCPRC 10:42
PROVIDERS: PCP Internal Medicine; Visit Provider Anesthesiology
DX: M47.816 Spondylosis without myelopathy or radiculopathy, lumbar region (principal)
CPT/HCPCS: 64555

== ENCOUNTER → 2023-07-31 11:32 | Outpatient (BNVA) | payer OTHER, SELFPAY | PROVIDERS: PCP Internal Medicine; Visit Provider Nurse Practitioner Family ==

== ENCOUNTER 2023-08-01 10:46 | Outpatient (AMB) | payer OTHER, SELFPAY ==
--- NOTE | 2023-08-01 10:57 | MHC.OFFVIS ---
Intake Vital Signs 08/01/23 11:00 Height 4 ft 6 in Weight 118 lb 6 oz BMI 28.5 BP 205/96 H Blood Pressure Location Rt brachial Position Sitting Pulse 71 Pulse Source Pulse Oximeter Pulse Oximetry (%) 99 Oxygen Delivery Method Room Air Intake Visit Reasons: LEFT L3 MB PNS SPRINT TRIAL Intake Note: Pain today 07/01 Miner Placer Required: Yes Miner Placer Language: Senior Architect/Design Manager Name: Gela #[id number] Allergies butalbital [From FIORICET] Allergy (Unknown, Verified 08/01/23 11:01) SWELLING,HIVES pepper (genus Capsicum) [PEPPER] Allergy (Unknown, Verified 08/01/23 11:01) ITCHING acetaminophen [Fioricet] Adverse Reaction (Unknown, Verified 08/01/23 11:01) swelling caffeine [Fioricet] Adverse Reaction (Unknown, Verified 08/01/23 11:01) swelling Fioricet Allergy (Unknown, Uncoded 05/29/23 13:42) swollen HPI HPI Comments History of Present Illness Details Patient presents today 1 week s/p Left L4 medial branch Sprint with Dr. Calvert on 07/25/23. She came to our office yesterday for dressing change by our nurse and was noted to have left lead pulled out on her arrival. The nurse was unable to determine if lead was fractured but noted that it was shorter than expected. Patient presents today with no left lead and right lead intact. Patient reports she forgot her remote at home and most recent settings were set at 51 with positive parasthesia on the right. She reports about 70% pain relief for overall low back pain and reports partial improvement in her daily functioning, mobility, range of motions and sleep. Right side dressing site was without any signs of infection, tenderness, redness, erythema or pathological discharge. Dressing change was done today in the clinic. Denies any recent cough, cold, infection, fever, any significant changes in her medical history, medications or recent hospitalizations. Past Procedures: 07/25/23: Left L4 MB Sprint PNS trial, noted to be pulled out on 07/31/23. 07/11/23: Right L4 MB Sprint PNS trial-50% pain relief at 14, increased stimulation to 50 05/23/23: Bilateral Diagnostic L3-L4 DR L5 MBB-90% pain relief for 3 days PRIOR: Patient presents today for follow up to review recent thoracic, lumbar and hip xray results. Patient continues to endorce bilateral lower back pain with radiation into her buttocks and lateral hips and groin pain, worse on the right. She ambulates with slow, antalgic gait with use of cane. [facility] records were reviewed today and these are scanned in patient's chart. Patient underwent left interlaminar L1-L2 JARVIS on 05/10/22 with partial relief. We reviewed her xray imaging today. Patient has pending hip MRI to further evaluate sacral lesions and ongoing significant hip pain, right worse than left. We are also planning for diagnostic lumbar MBBs to address her axial low back symptoms for potential Sprint PNS. Given poor bone quality due to significant osteoporosis with history of multilevel compression fractures, patient is not candidate for steroid injections. Denies any recent cough, cold, infection, fever or other significant changes in medical history since last office visit. PRIOR: Patient is a pleasant 67 years old Greek speaking female with history of severe osteoporosis in femur and osteopenia in lumbar spine (receives Prolia injections), old L1 compression fracture, h/o left ankle fracture in 2009, presents today for initial evaluation of low back pain. Patient reports she was lifting and moving a heavy furniture last year and has been walking hunched upper back since then due to pain. Her pain is mostly axial without radiation into her lower extremities. She also reports right hip pain that occasionally radiates into her groin. Reports mild left hip pain as well. Occasionally she feels tingling in her right anterior thigh that terminates above knee without weakness or burning. Right anterior thigh tingling resolves with topical cream. Patient reports she was followed at [facility] for physical therapy and back injections, last one in November and was discharged from [facility] due to no show to her appointments. She is currently taking tramadol, Tylenol, NSAIDs for pain with partial pain relief. Pain affects her daily activities, functioning, sleep, social activities, mood and quality of life. Denies any fever, abdominal pain, dizziness, shortness of breath, bladder or bowel incontinence or saddle anesthesia. Ambulates with cane. Location Lower back pain, right groin and hip pain Duration Chronic pain > 1 year Characteristics of symptom or complaint Aching, shotting, sharp, dull, stabbing, throbbing Aggravating or associated factors Movements, lifting, extending backwards, cold weather, standing, walking Relieving factors Heat therapy, rest, Tramadol Treatment PT- no improvement, injections- november in [facility] Medical History Essential hypertension History of primary hyperparathyroidism Non-toxic multinodular goiter Osteoporosis Surgical History Hx of lithotripsy H/O parathyroidectomy Hx of tubal ligation Hx of section Family History Father No problems noted. Mother CVD (cardiovascular disease) Heart disease Social History Household Members: Spouse and Family Household Members Other:: , son Housing: Apartment Alcohol intake: never Patient Tobacco Use Status: Former Tobacco user Current occupational status: disabled Sexual orientation: Straight/Heterosexual Gender identity: Female Review of Systems Const All systems reviewed & are unremarkable except as noted in HPI and below Reports as per HPI, Denies body aches, Denies chills, Denies fever(s), Denies headache(s), Denies malaise and Denies weight loss ENT Denies headache(s) Card Denies chest pain, Denies chest pain with activity, Denies rapid heart rate, Denies lightheadedness, Denies palpitations and Denies dyspnea on exertion Resp Denies dyspnea on exertion Neuro Denies headache(s) Endo Denies palpitations Physical Exam Vital Signs: Last Vital Signs Pulse 71 08/01/23 11:00 BP 205/96 H 08/01/23 11:00 Pulse Ox 99 08/01/23 11:00 Oxygen Delivery Method Room Air 08/01/23 11:00 BMI result Body Mass Index 28.5 General: Appears afebrile. Alert and oriented. Mood and affect appropriate. Anxious. Follows and participates in conversation appropriately. Respiratory effort is unlabored. No cough. Able to transition from sit to stand unassisted. Ambulates with bilaterally normal heel strike and toe off. Lead Insertion Site: Lead insertion site looks clean, dry, intact.? No pathological discharge, no swelling and no erythema.? Right L4 lead site dressing was changed today in the clinic. Left lead is not present, noted to be pulled out on 07/31/23. Assessment & Plan Assessment & Plan (1) Spondylosis of lumbar region without myelopathy or radiculopathy: Code(s): M47.816 - Spondylosis without myelopathy or radiculopathy, lumbar region (2) Chronic low back pain: Code(s): M54.50 - Low back pain, unspecified; G89.29 - Other chronic pain (3) Lumbar degenerative disc disease: Code(s): M51.36 - Other intervertebral disc degeneration, lumbar region Plan Patient presented today 1 week status post Left L4 Sprint placement and dressing change yesterday. She was noted to have left lead partially pulled out and unable to determine if it was fragmented per our nurse. Patient is concerned and anxious about this. We will proceed with lumbar spine xray to evaluate this. Dressing change was performed today for right side. Patient reports partial improvement in her daily activities, functioning and sleep. Dressing site was without any signs of infection or pathological discharge. Patient will continue to adjust stimulation settings as needed. Patient prefers dressing changes in the clinic. All questions were answered and the patient agreed with the plan. Follow up for dressing changes as scheduled and sooner if needed.? Orders: Orders XR lumbar spine 2-3V Today M47.816 - Spondylosis without myelopathy or radiculopathy, lumbar region Coding Level of Care Code Est Pt Level 3 (88221) Diagnoses Spondylosis of lumbar region without myelopathy or radiculopathy M47.816 Chronic low back pain M54.50; G89.29 Lumbar degenerative disc disease M51.36
[2023-08-01 11:00] VITALS: BP 205/96; PULSE 71; O2SAT 99; BMI 28.5
== END 2023-08-01 11:17 | disposition home or self-care (01) ==
PROVIDERS: PCP Internal Medicine; Visit Provider Nurse Practitioner Family
DX: M47.816 Spondylosis without myelopathy or radiculopathy, lumbar region (principal); M54.50 Low back pain, unspecified; G89.29 Other chronic pain; M51.36 Other intervertebral disc degeneration, lumbar region
CPT/HCPCS: 99024

== ENCOUNTER 2023-08-01 10:46 | Outpatient (REF) | payer OTHER, SELFPAY ==
--- NOTE | ~2023-08-01 | XR_ITS ---
EXAMINATION: XR LUMBOSACRAL SPINE CLINICAL INFORMATION: Lumbar spondylosis, without myelopathy or radiculopathy. COMPARISON: Lumbar spine radiographs dated 03/08/2023; CT abdomen and pelvis dated 05/13/2023.. TECHNIQUE: AP and lateral views of the lumbar spine and lateral view of the lumbosacral junction. FINDINGS: There is bony demineralization. There is a slight lumbar dextroscoliosis. There are moderate T9, T11 and T12 compression fractures. There is a moderately severe L1 upper endplate compression fracture. There is a minimal L4 upper endplate deformity. These compression fractures are stable from prior examinations. No acute fracture or spondylolisthesis is seen. The disc spaces are relatively well-maintained. There is facet arthropathy at L4-L5 and L5-S1. The posterior elements are intact. A lumbar pain management device is noted. XR/XR lumbar spine 2-3V IMPRESSION: The are continued stable lower thoracic and lumbar compression fractures, as detailed above. No acute finding is noted.
== END 2023-08-01 10:47 | disposition home or self-care (01) ==
LOC: HO.XRAY 10:46
PROVIDERS: PCP Internal Medicine; Visit Provider Nurse Practitioner Family
DX: M47.816 Spondylosis without myelopathy or radiculopathy, lumbar region (principal); R10.9 Unspecified abdominal pain; R14.0 Abdominal distension (gaseous); K59.00 Constipation, unspecified; M54.50 Low back pain, unspecified; M51.36 Other intervertebral disc degeneration, lumbar region; G89.29 Other chronic pain
CPT/HCPCS: 72100; 99212

== ENCOUNTER 2023-08-01 13:54 | Outpatient (AMB) | payer OTHER, SELFPAY ==
--- NOTE | 2023-08-01 13:58 | A.OFFVIS_ITS ---
Vital Signs 08/01/23 14:07 Height 4 ft 6 in Weight 116 lb 13.52 oz BMI 28.2 BP 140/72 H Blood Pressure Location Lt brachial Position Sitting Pulse 86 Intake Visit Reasons: 2 month follow up Intake Note: Kimberlee presents in the office as a 2 month follow up. CC: She states that she is having some pains in her LUQ. She states that she does suffer from constipation but no diarrhea. Wind Turbine Performance Engineer Required: Yes Wind Turbine Performance Engineer Name: [id number] Marisela Allergies butalbital [From FIORICET] Allergy (Unknown, Verified 08/08/23 11:13) SWELLING,HIVES pepper (genus Capsicum) [PEPPER] Allergy (Unknown, Verified 08/08/23 11:13) ITCHING acetaminophen [Fioricet] Adverse Reaction (Unknown, Verified 08/08/23 11:13) swelling caffeine [Fioricet] Adverse Reaction (Unknown, Verified 08/08/23 11:13) swelling Fioricet Allergy (Unknown, Uncoded 08/01/23 14:09) swollen HPI HPI 2 month follow up: Details: LAST VISIT: Abdominal pain Postprandial abdominal bloating Constipation Plan Patient will take senna daily. Patient states that she has not been taking Colace. Patient was encouraged to increase fluid intake and activity to promote better bowel motility. Patient can take simethicone on as needed basis for bloating. Discussed with patient avoiding lactose. Patient will try to follow FODMAP diet. List of food recommended as well as list of food to avoid given to patient. Medications New sennosides (Natural Senna Laxative) 17.2 mg (2 x 8.6 mg) PO BEDTIME 60 tabs 3RF constipation K59.00 simethicone 125 mg PO BID-QID PRN 120 caps 3RF abdominal distention K21.9 TODAY'S VISIT: Patient is here today for follow-up. Patient reports that she has been feeling well, however she still feels constipated. Patient reports that she only takes Senokot on as needed basis. When she does not have a bowel movements for couple days. Patient denies melena, hematochezia, unintentional weight loss or ribbon like stools. Patient denies dyspepsia, dysphagia or odynophagia. Patient reports occasional postprandial abdominal bloating. Patient denies any other GI concerning symptoms. [facility] Medical History Essential hypertension History of primary hyperparathyroidism Non-toxic multinodular goiter Osteoporosis Surgical History Hx of lithotripsy H/O parathyroidectomy Hx of tubal ligation Hx of section Family History Father No problems noted. Mother CVD (cardiovascular disease) Heart disease Social History Household Members: Spouse and Family Household Members Other:: , son Housing: Apartment Alcohol intake: never Patient Tobacco Use Status: Former Tobacco user Current occupational status: disabled Sexual orientation: Straight/Heterosexual Gender identity: Female Review of Systems Const Denies weight gain and Denies weight loss ENT Reports no additional complaints, Denies dysphagia and Denies odynophagia Card Reports no additional complaints Resp Reports no additional complaints GI Reports abdominal pain (LUQ), Denies belching, Denies melena, Reports bloating, Reports constipation, Denies dysphagia, Denies excessive flatus, Denies dyspepsia, Denies heartburn, Denies diarrhea, Denies loose stools, Denies nausea, Denies odynophagia and Denies vomiting Reports no additional complaints Musc Reports no additional complaints Neuro Reports no additional complaints Psych Reports no additional complaints Endo Reports no additional complaints Physical Exam Vital Signs: Last Vital Signs Pulse 86 08/01/23 14:07 BP 140/72 H 08/01/23 14:07 BMI result Body Mass Index 28.2 Const General: healthy appearing, no acute distress and well developed Nutritional Appearance: obese Orientation/consciousness: patient oriented x3 Resp Effort & Inspection: normal respiratory effort, able to speak in complete sentences, no tracheal deviation and symmetric chest movement Auscultation: clear to auscultation bilaterally Cardio Rate: regular rate GI Inspection: Yes normal to inspection, No distended and Yes obesity Palpation (GI): Soft to palpation, not firm, nontender and No hepatosplenomegaly present Auscultation: normal bowel sounds General: Yes no CVA tenderness Back/Spine/Pelvis Back: no CVA tenderness Skin General skin exam: elasticity normal, turgor normal and dry skin Neuro General: patient oriented x3 Psych Appearance: grossly normal Mental Status: mental status grossly normal Assessment & Plan Assessment & Plan (1) Abdominal pain: Code(s): R10.9 - Unspecified abdominal pain Qualifiers: Abdominal location: left upper quadrant Qualified Code(s): R10.12 - Left upper quadrant pain (2) Postprandial abdominal bloating: Code(s): R14.0 - Abdominal distension (gaseous) (3) Constipation: Code(s): K59.00 - Constipation, unspecified Qualifiers: Constipation type: slow transit constipation Qualified Code(s): K59.01 - Slow transit constipation Plan Patient was encouraged to increase fluid intake and activity to promote better bowel motility. Patient was encouraged to take her Senokot daily. May take simethicone on as needed basis. Avoid dietary triggers. Low FODMAP diet discussed with patient. Patient was encouraged to eat more fruits and vegetable. Increase fluid intake and activity to promote better bowel motility. I will see patient in 6 months. She has a cardiology appointment in November. We will try to discuss with patient going for colonoscopy as she never had colonoscopy in the past. Will ask for risk stratification on her next appointment just in case will send her for colonoscopy. She is agreeable to this plan and verbalizes understanding of instructions. She was given the opportunity to ask questions and all questions answered. Thank you for allowing me to participate in her care
[2023-08-01 14:07] VITALS: BP 140/72; PULSE 86; BMI 28.2
== END 2023-08-01 14:37 | disposition home or self-care (01) ==
PROVIDERS: PCP Internal Medicine; Visit Provider Nurse Practitioner Family
DX: R10.12 Left upper quadrant pain (principal); R14.0 Abdominal distension (gaseous); K59.01 Slow transit constipation
CPT/HCPCS: 99213

== ENCOUNTER → 2023-08-08 10:52 | Outpatient (BNVA) | payer OTHER, SELFPAY | PROVIDERS: PCP Internal Medicine; Visit Provider Nurse Practitioner Family ==

== ENCOUNTER → 2023-08-15 10:46 | Outpatient (BNVA) | payer OTHER, SELFPAY | PROVIDERS: PCP Internal Medicine; Visit Provider Nurse Practitioner Family ==

== ENCOUNTER → 2023-08-21 10:51 | Outpatient (BNVA) | payer OTHER, SELFPAY | PROVIDERS: PCP Internal Medicine; Visit Provider Nurse Practitioner Family ==

== ENCOUNTER → 2023-08-28 10:53 | Outpatient (BNVA) | payer OTHER, SELFPAY | PROVIDERS: PCP Internal Medicine; Visit Provider Anesthesiology | DX: Z48.00 Encounter for change or removal of nonsurgical wound dressing (principal) | CPT/HCPCS: 99211 ==

== ENCOUNTER 2023-09-04 10:52 | Outpatient (AMB) | payer OTHER, SELFPAY ==
--- NOTE | 2023-09-04 11:02 | MHC.OFFVIS ---
Vital Signs 09/04/23 11:10 Height 4 ft 6 in Weight 117 lb BMI 28.2 BP 173/75 H Blood Pressure Location Rt brachial Position Sitting Pulse 56 Pulse Source Pulse Oximeter Pulse Oximetry (%) 100 Oxygen Delivery Method Room Air Intake Visit Reasons: sprint pull Intake Note: Pain today 0/10 Sugarcane Research Technician Required: Yes Sugarcane Research Technician Language: Lace [employer] Textiles Restorer Name: Gela #[id number] Accompanied by: Self / Same As Patient Allergies butalbital [From FIORICET] Allergy (Unknown, Verified 09/04/23 11:13) SWELLING,HIVES pepper (genus Capsicum) [PEPPER] Allergy (Unknown, Verified 09/04/23 11:13) ITCHING acetaminophen [Fioricet] Adverse Reaction (Unknown, Verified 09/04/23 11:13) swelling caffeine [Fioricet] Adverse Reaction (Unknown, Verified 09/04/23 11:13) swelling Fioricet Allergy (Unknown, Uncoded 08/01/23 14:09) swollen HPI Comments Details: Patient presents today for right L4 Sprint removal. The dressing was removed today. Right low back lead insertion sites look clean, dry, intact, no redness, no swelling, no pathological discharge. Area was cleansed with Chloraprep. Lead pulled with tip intact and the area was cleansed again with Chloraprep, applied Bacitracin and covered it with gauze and Tegaderm film dressing. Patient denies any pain and reports significant improvement in ADLs, mobility, sleep, and social interactions. She had a left L4 medial branch Sprint placed on 07/25/2023 but unfortunately the lead was pulled out prior to her 1 week postoperative follow up visit. Patient reports no pain and would like to hold off on revising left Sprint trial at this time. Denies any recent cough, cold, infection, fever, any significant changes in her medical history, medications or recent hospitalizations. Past Procedures: 09/04/23: Right L4 Sprint PNS removal-100% ongoing pain relief 07/25/23: Left L4 MB Sprint PNS trial, noted to be pulled out on 07/31/23. 07/11/23: Right L4 MB Sprint PNS trial-50% pain relief at 14, increased stimulation to 50 05/23/23: Bilateral Diagnostic L3-L4 DR L5 MBB-90% pain relief for 3 days PRIOR: Patient presents today for follow up to review recent thoracic, lumbar and hip xray results. Patient continues to endorce bilateral lower back pain with radiation into her buttocks and lateral hips and groin pain, worse on the right. She ambulates with slow, antalgic gait with use of cane. [facility] records were reviewed today and these are scanned in patient's chart. Patient underwent left interlaminar L1-L2 JARVIS on 05/10/22 with partial relief. We reviewed her xray imaging today. Patient has pending hip MRI to further evaluate sacral lesions and ongoing significant hip pain, right worse than left. We are also planning for diagnostic lumbar MBBs to address her axial low back symptoms for potential Sprint PNS. Given poor bone quality due to significant osteoporosis with history of multilevel compression fractures, patient is not candidate for steroid injections. Denies any recent cough, cold, infection, fever or other significant changes in medical history since last office visit. PRIOR: Patient is a pleasant 67 years old Indian speaking female with history of severe osteoporosis in femur and osteopenia in lumbar spine (receives Prolia injections), old L1 compression fracture, h/o left ankle fracture in 2009, presents today for initial evaluation of low back pain. Patient reports she was lifting and moving a heavy furniture last year and has been walking hunched upper back since then due to pain. Her pain is mostly axial without radiation into her lower extremities. She also reports right hip pain that occasionally radiates into her groin. Reports mild left hip pain as well. Occasionally she feels tingling in her right anterior thigh that terminates above knee without weakness or burning. Right anterior thigh tingling resolves with topical cream. Patient reports she was followed at [facility] for physical therapy and back injections, last one in November and was discharged from [facility] due to no show to her appointments. She is currently taking tramadol, Tylenol, NSAIDs for pain with partial pain relief. Pain affects her daily activities, functioning, sleep, social activities, mood and quality of life. Denies any fever, abdominal pain, dizziness, shortness of breath, bladder or bowel incontinence or saddle anesthesia. Ambulates with cane. Location Lower back pain, right groin and hip pain Duration Chronic pain > 1 year Characteristics of symptom or complaint Aching, shotting, sharp, dull, stabbing, throbbing Aggravating or associated factors Movements, lifting, extending backwards, cold weather, standing, walking Relieving factors Heat therapy, rest, Tramadol Treatment PT- no improvement, injections- november in [facility] Medical History Essential hypertension History of primary hyperparathyroidism Non-toxic multinodular goiter Osteoporosis Surgical History Hx of lithotripsy H/O parathyroidectomy Hx of tubal ligation Hx of section Family History Father No problems noted. Mother CVD (cardiovascular disease) Heart disease Social History Household Members: Spouse and Family Household Members Other:: , son Housing: Apartment Alcohol intake: never Patient Tobacco Use Status: Former Tobacco user Current occupational status: disabled Sexual orientation: Straight/Heterosexual Gender identity: Female Review of Systems Const All systems reviewed & are unremarkable except as noted in HPI and below Physical Exam Vital Signs: Last Vital Signs Pulse 56 09/04/23 11:10 BP 173/75 H 09/04/23 11:10 Pulse Ox 100 09/04/23 11:10 Oxygen Delivery Method Room Air 09/04/23 11:10 BMI result Body Mass Index 28.2 General: Appears afebrile. Alert and oriented. Mood and affect appropriate. Anxious. Follows and participates in conversation appropriately. Respiratory effort is unlabored. No cough. Able to transition from sit to stand unassisted. Ambulates with bilaterally normal heel strike and toe off. Lead Insertion Site: Lead insertion site looks clean, dry, intact.? No pathological discharge, no swelling and no erythema.? Right L4 lead pulled with tip intact. Left lead is not present, noted to be pulled out on 07/31/23. Results Reviewed Results Reviewed: XR THORACIC SPINE XR BILATERAL HIPS AND PELVIS XR LUMBOSACRAL SPINE 03/07/23 CLINICAL INFORMATION: Personal history of healed traumatic fracture. Patient unable to remove earrings at this time. Low back pain. Pain in right hip. COMPARISON: CT scan of the abdomen and pelvis of 02/09/2022. Radiograph lumbar spine 11/05/2021. TECHNIQUE: Three views of the thoracic spine. Five views of the lumbar spine. AP view of the pelvis and AP and lateral views of each of the bilateral hips. FINDINGS: THORACIC SPINE: The bones are diffusely demineralized. S-shaped thoracolumbar scoliosis. Advanced multilevel degenerative changes in the thoracic spine. Loss of height of multiple lower thoracic vertebral bodies extending from T8 through T12 levels, most notable at T9. The T9 compression fracture was also demonstrated on the prior exam of 02/09/2022. LUMBAR SPINE: Redemonstration of severe compression deformity of L1 vertebral body. Redemonstration of moderate superior endplate compression deformity at L4. Redemonstration of a sacral lesion, better characterized on prior CT scans. Visualization of the sacrum is limited due to overlying bowel. Bones are diffusely demineralized. Facet arthritis in the lower lumbar spine. Moderate multilevel lumbar spondylosis. PELVIS AND BILATERAL HIPS: The bones are diffusely demineralized. Mild degenerative changes in the bilateral hips with joint space narrowing, left greater than right. Degenerative changes in the bilateral sacroiliac joints. Alignment preserved. IMPRESSION: 1. Multiple compression deformities of the thoracic and lumbar vertebral bodies, as detailed above. Diffuse demineralization. 2. Sacral lesion was better characterized on prior exams and is difficult to evaluate as visualization of the sacrum is limited due to overlying bowel. 3. Multilevel degenerative changes in the thoracolumbar spine. 4. Mild degenerative changes in the bilateral hips, left greater than right. MRI recommended if there is concern for fracture or other pathology. MRI should be considered for further evaluation. Assessment & Plan Assessment & Plan (1) Spondylosis of lumbar region without myelopathy or radiculopathy: Code(s): M47.816 - Spondylosis without myelopathy or radiculopathy, lumbar region Category: Medical (2) Lumbar degenerative disc disease: Code(s): M51.36 - Other intervertebral disc degeneration, lumbar region Category: Medical (3) Chronic low back pain: Code(s): M54.50 - Low back pain, unspecified; G89.29 - Other chronic pain Category: Medical Plan Patient is status post 2 months right L4 Sprint PNS for low back pain with good results with significant improvement in her daily functioning, ADLs, sleep and social interactions. She will continue to monitor her symptoms and notify our office when her back pain returns to baseline. Patient is also aware that her left side Sprint PNS can be rescheduled if left sided back pain returns in near future. All questions were answered and the patient agreed with the plan. Follow up as needed. Coding Level of Care Code Est Pt Level 3 (92547) Diagnoses Spondylosis of lumbar region without myelopathy or radiculopathy M47.816 Lumbar degenerative disc disease M51.36 Chronic low back pain M54.50; G89.29
[2023-09-04 11:10] VITALS: BP 173/75; PULSE 56; O2SAT 100; BMI 28.2
== END 2023-09-04 11:31 | disposition home or self-care (01) ==
PROVIDERS: PCP Internal Medicine; Visit Provider Nurse Practitioner Family
DX: M47.816 Spondylosis without myelopathy or radiculopathy, lumbar region (principal); M51.36 Other intervertebral disc degeneration, lumbar region; M54.50 Low back pain, unspecified; G89.29 Other chronic pain
CPT/HCPCS: 99213

== ENCOUNTER → 2023-09-04 10:52 | Outpatient (BNVA) | payer OTHER, SELFPAY | PROVIDERS: PCP Internal Medicine; Visit Provider Anesthesiology | DX: M47.816 Spondylosis without myelopathy or radiculopathy, lumbar region (principal); M51.36 Other intervertebral disc degeneration, lumbar region; M54.50 Low back pain, unspecified; G89.29 Other chronic pain | CPT/HCPCS: 99212 ==

== ENCOUNTER 2023-09-12 13:42 | Outpatient (AMB) | payer OTHER, SELFPAY ==
[2023-09-12 13:51] VITALS: BP 132/80; BMI 28.2
--- NOTE | 2023-09-12 13:51 | MHC.OFFVIS ---
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 Dietary Services Manager Required: Yes Dietary Services Manager Language: [place] Information Interpreted: non-clinical & clinical Plant Protection Supervisor: Plant Protection Supervisor Present (Cehryl Bar JULIAN) Accompanied by: Self / Same As Patient Allergies butalbital [From FIORICET] Allergy (Unknown, Verified 09/12/23 13:55) SWELLING,HIVES pepper (genus Capsicum) [PEPPER] Allergy (Unknown, Verified 09/12/23 13:55) ITCHING acetaminophen [Fioricet] Adverse Reaction (Unknown, Verified 09/12/23 13:55) swelling caffeine [Fioricet] Adverse Reaction (Unknown, Verified 09/12/23 13:55) swelling Fioricet Allergy (Unknown, Uncoded 09/12/23 13:55) swollen Post menopausal: Yes HPI Comments Details: Presenting for annual exam. No complaints. Last Pap/HPV was in 04/14 ascus HPV E6/E7 positive, HPV 16 positive HPV 18/45 negative, colpo/biopsy was negative Last Mammogram was BI-RADS 1 in 06/17 No previous screen Colonoscopy Last DEXA scan was in 12/13 [facility]LY [facility] Medical History Essential hypertension History of primary hyperparathyroidism Non-toxic multinodular goiter Osteoporosis Surgical History Hx of lithotripsy H/O parathyroidectomy Hx of tubal ligation Hx of section Family History Father No problems noted. Mother CVD (cardiovascular disease) Heart disease Social History Household Members: Spouse and Family Household Members Other:: , son Housing: Apartment Alcohol intake: never Patient Tobacco Use Status: Former Tobacco user Current occupational status: disabled Sexual orientation: Straight/Heterosexual Gender identity: Female Female Reproductive History Menstrual Date of last pap smear: 04/19/22 Date of Mammogram: 06/07/23 Review of Systems Const All systems reviewed & are unremarkable except as noted in HPI and below Card Reports as per HPI Resp Reports as per HPI GI Reports as per HPI and Reports no additional complaints Reports as per HPI Physical Exam Vital Signs: Last Vital Signs BP 132/80 09/12/23 13:51 BMI result Body Mass Index 28.2 Const General: cooperative, healthy appearing and comfortable Chest Chest palpation & inspection: normal inspection of the chest and normal palpation of entire chest wall Breast/axilla inspection: normal inspection of the breasts and normal inspection of the axillae Breast/axilla palpation: normal palpation of the breasts, normal palpation of the axillae and no axillary lymphadenopathy Resp Effort & Inspection: normal respiratory effort Auscultation: clear to auscultation bilaterally Percussion: percussion normal Cardio Palpation: normal PMI Rate: regular rate Rhythm: regular rhythm Heart sounds: no murmurs and no rubs Peripheral pulses: Peripheral pulses 2+ throughout GI Inspection: Yes normal to inspection Palpation (GI): Soft to palpation, nontender, no guarding, not rigid and No hepatosplenomegaly present Percussion: Yes normal to percussion Auscultation: normal bowel sounds Rectal Exam - Female: deferred General: Yes bladder normal to palpation External Female Exam: No lesion Speculum Exam - Vagina: normal appearance of the vagina, normal palpation, normal vaginal discharge and not erythematous Speculum Exam - Cervix: normal appearance of the cervix and normal palpation Bimanual exam- vagina & uterus: normal bimanual exam, normal palpation, uterine size normal, bladder normal to palpation, consistency normal and normal palpation Bimanual Exam- Adnexa, other: normal adnexae, no masses and no tenderness Assessment & Plan Assessment & Plan (1) Well woman exam: Code(s): Z01.419 - Encounter for gynecological examination (general) (routine) without abnormal findings Category: Medical Plan: Co testing done Counseled the patient about the recommended dietary allowance of 1200 mg of Calcium & 800 IU of vitamin D. Instructions given to the patient to schedule her next screening Mammogram in 06/18 The patient has an appointment with GI will discuss next screening colonoscopy. Will order DEXA scan . The patient was instructed to perform monthly self-breast exams and to schedule a 2 week DEXA scan follow-up appointment and an annual exam in a year; All questions answered and the patient verbalized understanding. Orders: Orders XR DEXA axial skeleton 3 Months Z78.0 - Asymptomatic menopausal state Coding Level of Care Code Est Pt Prev Care >65y(69909) Diagnoses Well woman exam Z01.419
== END 2023-09-12 14:31 | disposition home or self-care (01) ==
LOC: HO.HWS 13:42
PROVIDERS: PCP Internal Medicine; Visit Provider Obstetrics & Gynecology
DX: Z01.419 Encounter for gynecological examination (general) (routine) without abnormal findings (principal)
CPT/HCPCS: 99397

== ENCOUNTER 2023-09-12 13:42 | Outpatient (REF) | payer OTHER, SELFPAY ==
[2023-09-20 22:48] LABS: HPV mRNA E6/E7 rflx Not Detected (Not Detected)
== END 2023-09-12 13:43 | disposition home or self-care (01) ==
LOC: HO.LNP 13:42
PROVIDERS: PCP Internal Medicine; Visit Provider Obstetrics & Gynecology
DX: Z01.419 Encounter for gynecological examination (general) (routine) without abnormal findings (principal); Z11.51 Encounter for screening for human papillomavirus (HPV)
CPT/HCPCS: 87624; 88142

== ENCOUNTER 2023-09-14 12:00 | Outpatient (REF) | payer OTHER, SELFPAY ==
[2023-09-14 14:00] LABS: Albumin Level 4.1 g/dL (3.5-5.0); Anion Gap 11 (12-20); Blood Urea Nitrogen 15 mg/dL (9-16); Calcium 10.3 mg/dL (8.4-10.2); Carbon Dioxide 30 mmol/L (22-29); Chloride 108 mmol/L (96-108); Estimated Glomerular Filt Rate > 60; Glucose Random 82 mg/dL (60-115); Potassium 4.3 mmol/L (3.3-5.1); Sodium 145 mmol/L (135-145)
[2023-09-14 14:15] LABS: Calcium 9.6 mg/dL (8.4-10.2)
== END 2023-09-14 12:01 | disposition home or self-care (01) ==
LOC: HO.LAB 12:00
PROVIDERS: PCP Internal Medicine; Visit Provider Internal Medicine Endocrinology, Diabetes & Metabolism
DX: M81.0 Age-related osteoporosis without current pathological fracture (principal)
CPT/HCPCS: 36415; 80048; 82040; 82310

== ENCOUNTER 2023-09-21 12:58 | Outpatient (AMB) | payer OTHER, SELFPAY ==
--- NOTE | 2023-09-21 13:13 | AM.OFFVISNUR ---
Intake Intake Visit Reasons: Prolia Injection Allergies butalbital [From FIORICET] Allergy (Unknown, Verified 09/12/23 13:55) SWELLING,HIVES pepper (genus Capsicum) [PEPPER] Allergy (Unknown, Verified 09/12/23 13:55) ITCHING acetaminophen [Fioricet] Adverse Reaction (Unknown, Verified 09/12/23 13:55) swelling caffeine [Fioricet] Adverse Reaction (Unknown, Verified 09/12/23 13:55) swelling Fioricet Allergy (Unknown, Uncoded 09/12/23 13:55) swollen Office Meds Prolia 60 mg/mL subcutaneous syringe Performing Provider: Pedro Mitchell MD Performing Location: [facility] Administered by: Bonnie Zarate LPN on 09/21/23 13:13 Dose Route Admin Location Dispensed Lot Number Expiration Date [facility] Immigration Investigator 60 mg subcut Left upper arm 1 mL [id number] 10/21/25 AMGEN Coding Assessment & Plan Assessment & Plan Orders: Orders AMB Denosumab Injection Practice Supplied Today M81.0 - Age-related osteoporosis without current pathological fracture Medications: New Prolia (denosumab) 60 mg subcut ONCE 1 mL 0RF NS M81.0 - Age-related osteoporosis without current pathological fracture
== END 2023-09-21 13:15 | disposition home or self-care (01) ==
PROVIDERS: PCP Internal Medicine; Visit Provider Internal Medicine Endocrinology, Diabetes & Metabolism
DX: M81.0 Age-related osteoporosis without current pathological fracture (principal)

== ENCOUNTER → 2023-09-21 12:58 | Outpatient (BNVA) | payer OTHER, SELFPAY | PROVIDERS: PCP Internal Medicine; Visit Provider Internal Medicine Endocrinology, Diabetes & Metabolism | DX: M81.0 Age-related osteoporosis without current pathological fracture (principal) | CPT/HCPCS: 96372; J0897 ==

== ENCOUNTER 2023-11-27 10:18 | Outpatient (AMB) | payer OTHER, SELFPAY ==
--- NOTE | 2023-11-27 10:24 | A.OFFVIS_ITS ---
Vital Signs 11/27/23 10:25 Height 4 ft 6 in Weight 116 lb 13.52 oz BMI 28.2 BP 120/68 Blood Pressure Location Lt brachial Position Sitting Pulse 62 Pulse Source Pulse Oximeter Intake Visit Reasons: 9 month FU/ clear colonoscopy Manager Union Required: Yes Manager Union Name: [id number] Allergies butalbital [From FIORICET] Allergy (Unknown, Verified 09/12/23 13:55) SWELLING,HIVES pepper (genus Capsicum) [PEPPER] Allergy (Unknown, Verified 09/12/23 13:55) ITCHING acetaminophen [Fioricet] Adverse Reaction (Unknown, Verified 09/12/23 13:55) swelling caffeine [Fioricet] Adverse Reaction (Unknown, Verified 09/12/23 13:55) swelling Fioricet Allergy (Unknown, Uncoded 09/12/23 13:55) swollen Medication List - Last Reconciled 11/27/23 by Carlos Chacon MD calcium citrate 250 mg PO BID 30 days cholecalciferol (vitamin D3) 50 mcg PO DAILY 30 days denosumab (Prolia) 60 mg subcut [id number] diclofenac sodium 50 mg PO BID gabapentin 100 mg PO BEDTIME 30 days lisinopril 40 mg PO DAILY omega-3 fatty acids (Fish Oil Concentrate) 1,000 mg PO DAILY sennosides (Natural Senna Laxative) 17.2 mg (2 x 8.6 mg) PO BEDTIME simethicone 125 mg PO BID-QID PRN simvastatin 20 mg PO BEDTIME tramadol 50 mg PO TID PRN HPI Comments Details: Kimberlee returns for follow-up. She has a history of mitral as well as tricuspid regurgitation. No documented coronary disease, myocardial infarction. Overall, she states she feels fine. No specific cardiac concerns like angina or palpitations or in fact anything else of concern. [facility]LY [facility] Medical History Essential hypertension History of primary hyperparathyroidism Non-toxic multinodular goiter Osteoporosis Surgical History Hx of lithotripsy H/O parathyroidectomy Hx of tubal ligation Hx of section Family History Father No problems noted. Mother CVD (cardiovascular disease) Heart disease Social History Household Members: Spouse and Family Household Members Other:: , son Housing: Apartment Alcohol intake: never Patient Tobacco Use Status: Former Tobacco user Current occupational status: disabled Sexual orientation: Straight/Heterosexual Gender identity: Female Review of Systems Const Denies weakness ENT Denies dizziness Card Denies chest pain, Reports chest pain at rest, Denies chest pain with activity, Denies syncope, Denies rapid heart rate, Denies pedal edema, Denies edema, Denies leg edema, Denies lightheadedness, Denies palpitations, Denies dyspnea, Denies dyspnea on exertion and Denies orthopnea Resp Denies cough, Denies dyspnea and Denies dyspnea on exertion GI Denies hematochezia and Denies change in stool character Musc Denies abnormal gait, Denies muscle cramps, Denies muscle weakness, Denies numbness, Denies radiating pain into limb and Denies tingling Neuro Denies abnormal gait, Denies dizziness, Denies syncope, Denies numbness, Denies tingling and Denies weakness Endo Denies palpitations Physical Exam Vital Signs: Last Vital Signs Pulse 62 11/27/23 10:25 BP 120/68 11/27/23 10:25 BMI result Body Mass Index 28.2 Const General: comfortable and no acute distress Orientation/consciousness: patient oriented x3 HEENT Other: Unremarkable Head: Yes normal to inspection Neck Neck: Yes normal visual inspection Chest Chest palpation & inspection: normal inspection of the chest Resp Auscultation: clear to auscultation bilaterally Cardio Palpation: normal PMI Heart sounds: S1 normal heart sound present, S2 normal heart sound present, no gallops, Murmur heart sound present systolic II/ and no rubs GI Palpation (GI): Soft to palpation Back/Spine/Pelvis Other: unremarkable Skin General skin exam: no rashes or lesions noted Neuro General: patient oriented x3 Extrem General: Yes normal to inspection Psych Mental Status: mental status grossly normal Office Procedures EKG Details: EKG with underlying sinus rhythm at 62/Min; premature supraventricular ectopy in a bigeminal pattern; [place] [id number], Complete Assessment & Plan Assessment & Plan (1) Valvular heart disease: Code(s): I38 - Endocarditis, valve unspecified Category: Medical Plan: In the last echocardiogram, described to have moderate mitral regurgitation [id number] tricuspid regurgitation. Clinically no consequence at this time but will need to be followed. Recheck echocardiogram. (2) Diastolic dysfunction: Code(s): I51.89 - Other ill-defined heart diseases Category: Medical Plan: No overt heart failure symptoms or signs. (3) Pulmonary hypertension: Code(s): I27.20 - Pulmonary hypertension, unspecified Category: Medical Plan: Mild pulmonary hypertension the last study. She has preserved LVEF but advanced diastolic dysfunction. That could be the etiology. No specific management. (4) Essential hypertension: Code(s): I10 - Essential (primary) hypertension Category: Medical Plan: On lisinopril. Stable. Orders: Orders CA echo transthoracic complete 1 Year I38 - Endocarditis, valve unspecified Coding Level of Care Code Est Pt Level 4 (01262) Diagnoses Valvular heart disease I38 Diastolic dysfunction I51.89 Pulmonary hypertension I27.20 Essential hypertension I10 CPT Codes EKG - CPT: 25308-[id number], Complete ([id number])
[2023-11-27 10:25] VITALS: BP 120/68; PULSE 62; BMI 28.2
== END 2023-11-27 10:51 | disposition home or self-care (01) ==
PROVIDERS: PCP Internal Medicine; Visit Provider Internal Medicine
DX: I38 Endocarditis, valve unspecified (principal); I51.89 Other ill-defined heart diseases; I27.20 Pulmonary hypertension, unspecified; I10 Essential (primary) hypertension
CPT/HCPCS: 93010; 99214

== ENCOUNTER → 2023-11-27 10:18 | Outpatient (BNVA) | payer OTHER, SELFPAY | PROVIDERS: PCP Internal Medicine; Visit Provider Internal Medicine | DX: I38 Endocarditis, valve unspecified (principal); I51.89 Other ill-defined heart diseases; I27.20 Pulmonary hypertension, unspecified; I10 Essential (primary) hypertension | CPT/HCPCS: 93005; 99212 ==

== ENCOUNTER 2023-12-13 12:37 | Outpatient (REF) | payer OTHER, SELFPAY ==
--- NOTE | ~2023-12-13 | MM_ITS ---
EXAMINATION: BONE DENSITOMETRY CLINICAL INDICATION: Asymptomatic menopausal state. COMPARISON: Previous BD dated 11/26/2021 and baseline BD dated 05/28/2009. TECHNIQUE: Using a [employer] DXA System (software version: 13.1) manufactured by [employer], dual-energy x-ray absorptiometry was performed of the lumbar spine and left hip. The images are of good technical quality. Summary results are attached. FINDINGS: LEFT FEMUR, NECK: Current: BMD 0.596 g/cm2, Z-score -1.4, T-score -3.2, osteoporosis. Prior: BMD 0.600 g/cm2. Baseline: BMD 0.601 g/cm2. LEFT FEMUR, TOTAL: Current: BMD 0.758 g/cm2, Z-score -0.4, T-score -2.0, osteopenia, 2.6% increase from previous, 3.0% increase from baseline (<5% change is not significant). Prior: BMD 0.739 g/cm2. Baseline: BMD 0.736 g/cm2. AP SPINE L2-L4 (excluding L1): The data of L1-L4 has been changed to exclude the L1 vertebral body, because degenerative sclerosis at this level may cause overestimation of lumbar spine density. Current: BMD 0.785 g/cm2, Z-score -1.6, T-score -3.5, osteoporosis, 13.5% decrease from previous, 8.6% increase from baseline (<5% change is not significant). Prior: BMD 0.907 g/cm2. Baseline: BMD 0.723 g/cm2. IDENTIFIED RISK FACTORS: Early menopause, secondary osteoporosis, height loss, history of fracture (adult). HISTORY OF FRACTURE: Spine. MEDICATIONS: Calcium supplements or multivitamin, vitamin D, ERT/SERMS. MM/XR DEXA axial skeleton IMPRESSION: 1. DIAGNOSIS: Severe osteoporosis based on the lowest T-score value of -3.5 in the lumbar spine applying World Health Organization criteria. 2. 10-YEAR FRACTURE RISK PREDICTION, FRAX: According to the guidelines, FRAX calculation should only be performed on patients in the osteopenia bone density category. Therefore, FRAX was not performed on this patient. 3. Treatment Recommendations: NOF guidelines recommend consideration for treatment in postmenopausal women and men age 50 and older presenting with the following: -A hip or vertebral (clinical or morphometric) fracture. -T-score less than or equal to -2.5 at the femoral neck or spine after appropriate evaluation to exclude secondary causes. -Low bone mass at the hip or spine and a 10-year fracture probability by FRAX of greater than or equal to 3% for hip fracture or greater than or equal to 20% for major osteoporotic fracture based on the [place] adapted WHO algorithm. 4. Other Recommendations: All treatment decisions require clinical judgment and consideration of individual patient factors, including patient preferences, comorbidities, previous drug use, risk factors not captured in the FRAX model (e.g. frailty, falls, vitamin D deficiency, increased bone turnover, interval significant decline in bone density) and possible under or overestimation of fracture risk by FRAX. Additional medical evaluation for secondary cause of low bone mineral density may be appropriate. FUTURE SCAN RECOMMENDATION: People with diagnosed cases of osteoporosis or at high risk for fracture should have regular bone mineral density tests. For patients eligible for Medicare, routine testing is allowed once every 2 years. The testing frequency can be increased to one year for patients who have rapidly progressing disease, those who are receiving or discontinuing medical therapy to restore bone mass, or have additional risk factors. Electronically signed by: Earnest Griffin MD 12/20/2023 09:00 AM EDT RP
== END 2023-12-13 12:38 | disposition home or self-care (01) ==
LOC: HO.MAMMO 12:37
PROVIDERS: PCP Internal Medicine; Visit Provider Obstetrics & Gynecology
DX: Z13.820 Encounter for screening for osteoporosis (principal); Z78.0 Asymptomatic menopausal state
CPT/HCPCS: 77080

== ENCOUNTER 2024-01-16 11:09 | Outpatient (AMB) | payer OTHER, SELFPAY ==
--- NOTE | 2024-01-16 11:13 | A.OFFVIS_ITS ---
Vital Signs 01/16/24 11:14 Height 4 ft 6 in Weight 116 lb 13.52 oz BMI 28.2 Intake Visit Reasons: Dexa follow up Metal Drilling Machine Operator Required: Yes Metal Drilling Machine Operator Language: Webbing Inspector Services: Metal Drilling Machine Operator Present (in person) Metal Drilling Machine Operator Name: Cheryl JORDAN Information Interpreted: non-clinical & clinical Accompanied by: Self / Same As Patient Allergies butalbital [From FIORICET] Allergy (Unknown, Verified 01/16/24 11:14) SWELLING,HIVES pepper (genus Capsicum) [PEPPER] Allergy (Unknown, Verified 01/16/24 11:14) ITCHING acetaminophen [Fioricet] Adverse Reaction (Unknown, Verified 01/16/24 11:14) swelling caffeine [Fioricet] Adverse Reaction (Unknown, Verified 01/16/24 11:14) swelling Fioricet Allergy (Unknown, Uncoded 01/16/24 11:14) swollen HPI Comments Details: Presenting for DEXA follow-up which showed the following: LEFT FEMUR, NECK: Current: BMD 0.596 g/cm2, Z-score -1.4, T-score -3.2, osteoporosis. Prior: BMD 0.600 g/cm2. Baseline: BMD 0.601 g/cm2. LEFT FEMUR, TOTAL: Current: BMD 0.758 g/cm2, Z-score -0.4, T-score -2.0, osteopenia, 2.6% increase from previous, 3.0% increase from baseline (<5% change is not significant). Prior: BMD 0.739 g/cm2. Baseline: BMD 0.736 g/cm2. AP SPINE L2-L4 (excluding L1): The data of L1-L4 has been changed to exclude the L1 vertebral body, because degenerative sclerosis at this level may cause overestimation of lumbar spine density. Current: BMD 0.785 g/cm2, Z-score -1.6, T-score -3.5, osteoporosis, 13.5% decrease from previous, 8.6% increase from baseline (<5% change is not significant). Prior: BMD 0.907 g/cm2. Baseline: BMD 0.723 g/cm2. The patient has been on Prolia for the last 2 years in addition to calcium with vitamin-D, she Is being followed up by Dr. Mitchell [facility] Medical History Essential hypertension History of primary hyperparathyroidism Non-toxic multinodular goiter Osteoporosis Surgical History Hx of lithotripsy H/O parathyroidectomy Hx of tubal ligation Hx of section Family History Father No problems noted. Mother CVD (cardiovascular disease) Heart disease Social History Household Members: Spouse and Family Household Members Other:: , son Housing: Apartment Alcohol intake: never Patient Tobacco Use Status: Former Tobacco user Current occupational status: disabled Sexual orientation: Straight/Heterosexual Gender identity: Female Review of Systems Const All systems reviewed & are unremarkable except as noted in HPI and below Reports as per HPI and Reports no additional complaints GI Reports no additional complaints Reports no additional complaints Physical Exam Vital Signs: BMI result Body Mass Index 28.2 Assessment & Plan Assessment & Plan (1) Osteoporosis: Comment: Worsening bone mineral density at the spine level, -13.5 Code(s): M81.0 - Age-related osteoporosis without current pathological fracture Category: Medical Plan: Discussed with the patient the results of DEXA scan showing decrease in bone mineral density at the spine level a 13.5% over the last 2 years. Differential diagnosis/causes of bone density worsening was discussed with the patient including malabsorption, renal disorders, low vitamin-D level, hyperparathyroidism and others. The patient has an appointment coming up with Dr. Stephen hartley, instructions given the patient to keep her appointment for further management. All questions answered, the patient verbalized understanding Coding Level of Care Code Est Pt Level 3 (08126) Diagnoses Osteoporosis M81.0
[2024-01-16 11:14] VITALS: BMI 28.2
== END 2024-01-16 11:24 | disposition home or self-care (01) ==
LOC: HO.HWS 11:09
PROVIDERS: PCP Internal Medicine; Visit Provider Obstetrics & Gynecology
DX: M81.0 Age-related osteoporosis without current pathological fracture (principal)
CPT/HCPCS: 99213

== ENCOUNTER → 2024-01-16 11:09 | Outpatient (BNVA) | payer OTHER, SELFPAY | PROVIDERS: PCP Internal Medicine; Visit Provider Obstetrics & Gynecology | DX: M81.0 Age-related osteoporosis without current pathological fracture (principal) | CPT/HCPCS: 99212 ==

== ENCOUNTER 2024-01-31 14:14 | Outpatient (AMB) | payer OTHER, SELFPAY ==
[2024-01-31 14:24] VITALS: BP 156/70; PULSE 56; O2SAT 100; BMI 29.0
--- NOTE | 2024-01-31 14:24 | A.OFFVIS_ITS ---
Vital Signs 01/31/24 14:24 Height 4 ft 6 in Weight 120 lb 5.958 oz BMI 29.0 BP 156/70 H Blood Pressure Location Rt brachial Position Sitting Pulse 56 Pulse Source Pulse Oximeter Pulse Oximetry (%) 100 Oxygen Delivery Method Room Air Intake Visit Reasons: 6 month follow up Intake Note: Kimberlee presents in office today for a scheduled 6 mos FUV. CC; No lab or rx orders were placed recently. This is a progress FUV. Pt reports that they have been stable since their last visit, however; they have not seen any signs of improvement. Pt reports that they are still experiencing LUQ pain. Pt denies any constipation or diarrhea, nausea or vomiting. Pt states that they are only experiencing pain. Petrophysicist Required: Yes Petrophysicist Services: Petrophysicist Present Petrophysicist Name: [id number] Torey Information Interpreted: non-clinical & clinical Accompanied by: Self / Same As Patient Allergies butalbital [From FIORICET] Allergy (Unknown, Verified 01/31/24 14:24) SWELLING,HIVES pepper (genus Capsicum) [PEPPER] Allergy (Unknown, Verified 01/31/24 14:24) ITCHING acetaminophen [Fioricet] Adverse Reaction (Unknown, Verified 01/31/24 14:24) swelling caffeine [Fioricet] Adverse Reaction (Unknown, Verified 01/31/24 14:24) swelling Fioricet Allergy (Unknown, Uncoded 01/16/24 11:14) swollen HPI HPI 6 month follow up: Details: LAST VISIT: Abdominal pain Postprandial abdominal bloating Constipation Plan Patient was encouraged to increase fluid intake and activity to promote better bowel motility. Patient was encouraged to take her Senokot daily. May take simethicone on as needed basis. Avoid dietary triggers. Low FODMAP diet discussed with patient. Patient was encouraged to eat more fruits and vegetable. Increase fluid intake and activity to promote better bowel motility. I will see patient in 6 months. She has a cardiology appointment in November. We will try to discuss with patient going for colonoscopy as she never had colonoscopy in the past. Will ask for risk stratification on her next appointment just in case will send her for colonoscopy. She is agreeable to this plan and verbalizes understanding of instructions. She was given the opportunity to ask questions and all questions answered. ? TODAYS VISIT: Patient is here today for follow-up. Patient reports that since the last time I have seen her she has been doing fairly well although she continues to have on and off left upper quadrant pain. Patient reports that the pain is usually on provoked. It happens randomly. Does admit that when she has a bowel movement her pain gets better. Currently is taking Senokot, however she feels like Senokot might not be working well enough. Patient denies any nausea or vomiting. Denies any dyspepsia, dysphagia or odynophagia. Denies melena, hematochezia, unintentional weight loss or ribbon like stools. [facility] Medical History Essential hypertension History of primary hyperparathyroidism Non-toxic multinodular goiter Osteoporosis Surgical History Hx of lithotripsy H/O parathyroidectomy Hx of tubal ligation Hx of section Family History Father No problems noted. Mother CVD (cardiovascular disease) Heart disease Social History Household Members: Spouse and Family Household Members Other:: , son Housing: Apartment Alcohol intake: never Patient Tobacco Use Status: Former Tobacco user Current occupational status: disabled Sexual orientation: Straight/Heterosexual Gender identity: Female Review of Systems Const Denies weight gain and Denies weight loss ENT Reports no additional complaints, Denies dysphagia and Denies odynophagia Card Reports no additional complaints Resp Reports no additional complaints GI Reports abdominal pain (LUQ), Denies belching, Denies melena, Reports bloating, Reports constipation, Denies dysphagia, Denies excessive flatus, Denies dyspepsia, Denies heartburn, Denies diarrhea, Denies loose stools, Denies nausea, Denies odynophagia and Denies vomiting Reports no additional complaints Musc Reports no additional complaints Neuro Reports no additional complaints Psych Reports no additional complaints Endo Reports no additional complaints Physical Exam Vital Signs: Last Vital Signs Pulse 56 01/31/24 14:24 BP 156/70 H 01/31/24 14:24 Pulse Ox 100 01/31/24 14:24 Oxygen Delivery Method Room Air 01/31/24 14:24 BMI result Body Mass Index 29.0 Const General: healthy appearing, no acute distress and well developed Nutritional Appearance: obese Orientation/consciousness: patient oriented x3 Resp Effort & Inspection: normal respiratory effort, able to speak in complete sentences, no tracheal deviation and symmetric chest movement Auscultation: clear to auscultation bilaterally Cardio Rate: regular rate GI Inspection: Yes normal to inspection, No distended and Yes obesity Palpation (GI): Soft to palpation, not firm, nontender and No hepatosplenomegaly present Auscultation: normal bowel sounds General: Yes no CVA tenderness Back/Spine/Pelvis Back: no CVA tenderness Skin General skin exam: elasticity normal, turgor normal and dry skin Neuro General: patient oriented x3 Psych Appearance: grossly normal Mental Status: mental status grossly normal Assessment & Plan Assessment & Plan (1) Abdominal pain: Code(s): R10.9 - Unspecified abdominal pain Qualifiers: Abdominal location: left upper quadrant Qualified Code(s): R10.12 - Left upper quadrant pain (2) Postprandial abdominal bloating: Code(s): R14.0 - Abdominal distension (gaseous) (3) Constipation: Code(s): K59.00 - Constipation, unspecified Qualifiers: Constipation type: slow transit constipation Qualified Code(s): K59.01 - Slow transit constipation Plan Stop senna and start Dulcolax. Increase fluid intake and activity to promote better bowel motility. Will send a message to surgical schedulers to schedule colonoscopy for patient she will return in 3 months to discuss the prep and see if she is feeling better. Patient is agreeable to this plan and verbalizes u nderstanding of instructions. She was given the opportunity to ask questions and all questions answered. Thank you for allowing me to participate in her care Medications: New bisacodyl (Dulcolax (bisacodyl)) 10 mg (2 x 5 mg) PO BEDTIME 180 tabs 4RF Discontinued sennosides Discontinued Reason: Doctor's Order 17.2 mg (2 x 8.6 mg) PO BEDTIME 60 tabs 3RF constipation K59.00 - Constipation, unspecified Coding Level of Care Code Est Pt Level 3 (77196) Diagnoses Left upper quadrant abdominal pain R10.12 Abdominal location: left upper quadrant Postprandial abdominal bloating R14.0 Slow transit constipation K59.01 Constipation type: slow transit constipation Time Spent (min) 25 Comment 15 minutes spent with patient and additional 10 minutes spent reviewing her records
== END 2024-01-31 15:10 | disposition home or self-care (01) ==
PROVIDERS: PCP Internal Medicine; Visit Provider Nurse Practitioner Family
DX: R10.12 Left upper quadrant pain (principal); R14.0 Abdominal distension (gaseous); K59.01 Slow transit constipation
CPT/HCPCS: 99213

== ENCOUNTER → 2024-01-31 14:14 | Outpatient (BNVA) | payer OTHER, SELFPAY | PROVIDERS: PCP Internal Medicine; Visit Provider Nurse Practitioner Family | DX: R10.12 Left upper quadrant pain (principal); R14.0 Abdominal distension (gaseous); K59.01 Slow transit constipation | CPT/HCPCS: 99212 ==

== ENCOUNTER 2024-03-06 09:24 | Outpatient (REF) | payer OTHER, SELFPAY ==
[2024-03-06 11:42] LABS: Albumin Level 4.3 g/dL (3.5-5.0); Anion Gap 13 (12-20); Blood Urea Nitrogen 16 mg/dL (9-16); Calcium 9.3 mg/dL (8.4-10.2); Carbon Dioxide 28 mmol/L (22-29); Chloride 107 mmol/L (96-108); Estimated Glomerular Filt Rate > 60; Glucose Fasting 82 mg/dL (60-99); Potassium 4.5 mmol/L (3.3-5.1); Sodium 143 mmol/L (135-145)
== END 2024-03-06 09:25 | disposition home or self-care (01) ==
LOC: HO.LAB 09:24
PROVIDERS: PCP Internal Medicine; Visit Provider Internal Medicine Endocrinology, Diabetes & Metabolism
DX: M81.0 Age-related osteoporosis without current pathological fracture (principal)
CPT/HCPCS: 36415; 80048; 82040

== ENCOUNTER 2024-03-20 10:36 | Outpatient (AMB) | payer OTHER, SELFPAY ==
--- NOTE | 2024-03-20 11:31 | AM.OFFVISNUR ---
Intake Visit Reasons: Prolia Injection Allergies butalbital [From FIORICET] Allergy (Unknown, Verified 01/31/24 14:24) SWELLING,HIVES pepper (genus Capsicum) [PEPPER] Allergy (Unknown, Verified 01/31/24 14:24) ITCHING acetaminophen [Fioricet] Adverse Reaction (Unknown, Verified 01/31/24 14:24) swelling caffeine [Fioricet] Adverse Reaction (Unknown, Verified 01/31/24 14:24) swelling Fioricet Allergy (Unknown, Uncoded 01/16/24 11:14) swollen Office Meds Prolia 60 mg/mL subcutaneous syringe Performing Provider: Pedro Mitchell MD Performing Location: [facility] Endocrinology Administered by: Cate Lewis RN on 03/20/24 11:31 Dose Route Admin Location Dispensed Lot Number Expiration Date [facility] Local Bulk Driver 60 mg subcut left upper arm 1 mL [id number] 10/21/26 55708-265-98 [facility] Comments: Consent form signed by patient. Pt tolerated injection well. Pt scheduled for f/u with Dr. Mitchell next week to discuss treatment plan and review Dexa scan. Assessment & Plan Assessment & Plan Orders: Orders AMB Denosumab Injection Practice Supplied Today M81.0 - Age-related osteoporosis without current pathological fracture Medications: New Prolia (denosumab) 60 mg subcut ONCE 1 mL 0RF NS M81.0 - Age-related osteoporosis without current pathological fracture
== END 2024-03-20 11:24 | disposition home or self-care (01) ==
PROVIDERS: PCP Internal Medicine; Visit Provider Internal Medicine Endocrinology, Diabetes & Metabolism
DX: M81.0 Age-related osteoporosis without current pathological fracture (principal)

== ENCOUNTER → 2024-03-20 10:36 | Outpatient (BNVA) | payer OTHER, SELFPAY | PROVIDERS: PCP Internal Medicine; Visit Provider Internal Medicine Endocrinology, Diabetes & Metabolism | DX: M81.0 Age-related osteoporosis without current pathological fracture (principal) | CPT/HCPCS: 96372; J0897 ==

== ENCOUNTER 2024-03-28 11:27 | Outpatient (AMB) | payer OTHER, SELFPAY ==
--- NOTE | 2024-03-28 11:30 | A.OFFVIS_ITS ---
Vital Signs 03/28/24 11:31 Height 4 ft 6 in Weight 123 lb 7.342 oz BMI 29.8 BP 122/76 Blood Pressure Location Rt brachial Position Sitting Pulse 86 Pulse Source Pulse Oximeter Intake Visit Reasons: osteoporosis-confirmed Intake Note: Patient presents here today for a follow-up on Osteoporosis: Outside Plant Engineer Required: Yes Outside Plant Engineer Language: Javascript Developer Services: Outside Plant Engineer Present Outside Plant Engineer Name: Umair Accompanied by: Grand Child Allergies butalbital [From FIORICET] Allergy (Unknown, Verified 03/28/24 11:34) SWELLING,HIVES pepper (genus Capsicum) [PEPPER] Allergy (Unknown, Verified 03/28/24 11:34) ITCHING acetaminophen [Fioricet] Adverse Reaction (Unknown, Verified 03/28/24 11:34) swelling caffeine [Fioricet] Adverse Reaction (Unknown, Verified 03/28/24 11:34) swelling Fioricet Allergy (Unknown, Uncoded 03/28/24 11:34) swollen HPI Comments Details: 68 yo female today for fup visit, for osteoporosis She is feeling well. She had her last Prolia injection on 05/28/2019. Her last dose 01/07/2020 Her calcium has been normal after Prolia injection. Her Prolia was stopped in 2020 and she is currently on no pharmacologic therapy She is feeling well. She has no complaints. She has been On Prolia since 03/10/15 , 09/25/17, 04/02/18. 05/28/2019. She has PMH of arthritis, GERD, hypertension. This patient has severe osteoporosis and had primary hyperparathyroidism status post hyperparathyroidism. The patient underwent intraoperative neck exploration on 01/05/15 at [facility] by Dr. Reinier Juárez. Dr. Juárez resected 3-1/2 parathyroid glands and on pathology the gland were found to be mildly hypercellular. Intact PTH normalized and so did serum calcium levels. She had a prior left ankle fracture in 2009 after fell 3 steps in the stairs, no GERD, denies FH of fractures or osteoporosis, + nephrolithiasis, no steroids used, never smoker, anti seizures medications. She has Negative History of head or neck irradiation. Calcium intake: citrated bid 350 mg Vitamin D: 2000 IU daily DEXA scan 09/11/18 AP SPINE L1-L4: Current: BMD 0.742 g/cm2, Z-score -1.9, T-score -3.6, osteoporosis, 3.3% increase from previous, 2.2% increase from baseline (<5% change is not significant). Prior: BMD 0.718 g/cm2. Baseline: BMD 0.726 g/cm2. LEFT FEMUR, NECK: Current: BMD 0.618 g/cm2, Z-score -1.5, T-score -3.0, osteoporosis. Prior: BMD 0.626 g/cm2. Baseline: BMD 0.601 g/cm2. LEFT FEMUR, TOTAL: Current: BMD 0.777 g/cm2, Z-score -0.5, T-score -1.8, osteopenia, 1.7% increase from previous, 5.6% increase from baseline (<5% change is not significant). Prior: BMD 0.764 g/cm2. Baseline: BMD 0.736 g/cm2. LEFT FOREARM RADIUS 33%: BMD 0.740 g/cm2, Z-score -0.3, T-score -1.6, osteopenia, 3.8% increase change from previous, 4.8% decrease change from baseline (<5% change is not significant). Prior: BMD 0.713 g/cm2. Baseline 09/05/2014: BMD 0.777 g/cm2. In Thoracic spone xray has mild flattening of midthoracic vertebrae. FINDINGS: 11/26/21 AP SPINE L2-L4 (excluding L1): The data of L1-L4 has been changed to exclude the L1 vertebral body, because degenerative sclerosis at this level may cause overestimation of lumbar spine density. Current: BMD 0.907 g/cm2, Z-score -0.6, T-score -2.4, osteopenia, 24.9% increase from previous, 25.4% increase from baseline (<5% change is not significant). Prior: BMD 0.726 g/cm2. Baseline: BMD 0.723 g/cm2. LEFT FEMUR, NECK: Current: BMD 0.600 g/cm2, Z-score -1.5, T-score -3.2, osteoporosis. Prior: BMD 0.618 g/cm2. Baseline: BMD 0.601 g/cm2. LEFT FEMUR, TOTAL: Current: BMD 0.739 g/cm2, Z-score -0.7, T-score -2.1, osteopenia, 4.9% decrease from previous, 0.4% increase from baseline (<5% change is not significant). Prior: BMD 0.777 g/cm2. Baseline: BMD 0.736 g/cm2. IDENTIFIED RISK FACTORS: Early menopause, secondary osteoporosis. HISTORY OF FRACTURE: None listed. MEDICATIONS: Calcium supplements or multivitamin, vitamin D. MM/XR DEXA axial skeleton IMPRESSION: 1. DIAGNOSIS: Osteoporosis based on the lowest T-score value of -3.2 in the femoral neck applying World Health Organization criteria She had a FNA on 11/06/14 of left thyroid nodule 1.6 x 0.9 cm non diagnotic. US htyorid 10/10/2019 Right Thyroid Lobe: 4.2 x 1.4 x 1.6 cm, volume 5.0 mL. Previously 4.6 x 1.3 x 1.4 cm, volume 4.3 mL. Parenchyma: The gland echotexture is homogeneous. Thyroid vascularity is normal. Left Thyroid Lobe: 4.3 x 1.2 x 1.7 cm, volume 4.6 mL. Previously 4.4 x 1.1 x 1.3 cm, volume 3.5 mL. Parenchyma: The gland echotexture is homogeneous. Thyroid vascularity is normal. Isthmus: 0.3 cm in maximum AP dimension. Previously 0.2 cm. RIGHT THYROID LOBE: There are 2 nodules seen. 1. Location: Superior. Size: 0.3 x 0.2 x 0.3 cm. Previous: Not seen on the previous study. Nodule characteristics: Hypoechoic with indistinct margins. There is peripheral blood flow. No calcifications identified. 2. Location: Middle. Size: 0.2 x 0.2 x 0.2 cm. Previous: 0.1 x 0.1 x 0.1 cm. Nodule characteristics: Hypoechoic and smoothly marginated without calcification. No internal vascularity.. ISTHMUS: No nodules. LEFT THYROID LOBE: There are 2 nodules seen. 1. Location: Middle. Size: 0.8 x 0.3 x 0.4 cm. Previous: 0.6 x 0.2 x 0.4 cm. Nodule characteristics: Simple colloid cyst which is hypoechoic and smoothly marginated without calcification and without intranodular blood flow.. 2. Location: Inferior. Size: 0.2 x 0.2 x 0.1 cm. Previous: Not seen on the previous study. Nodule characteristics: Hypoechoic and smoothly marginated with inspissated colloid. No calcification. No internal blood flow. NODES: No lymphadenopathy is seen in the tissue surrounding the thyroid gland. Laboratory Tests 03/02/18 04/25/18 04/25/18 08:46 00:00 08:00 Creatinine Est GFR (Non-Af Amer) Calcium Ionized Calcium Phosphorus Magnesium AST ALT Alkaline Phosphatase Albumin N-Telopeptide X-linked 25-OH Vitamin D Total Vit D 1,25-Dihyd Total 1,25 Dihydroxy Vit D2 1,25 Dihydroxy Vit D3 TSH 3rd Generation 1.13 PTH Intact Ur 24 Hour Volume 750 Urine Creatinine Ur Creatinine mg/dL 140.97 Ur Creatinine 24 Hour 1.01 Ur Calcium 24 Hr 136 Calcium/Creat 24 Hr 135 Bone Specific Alk Phos 04/25/18 04/25/18 04/25/18 09:36 09:36 09:36 Creatinine Est GFR (Non-Af Amer) Calcium Ionized Calcium 5.2 Phosphorus 3.0 Magnesium 2.4 AST ALT Alkaline Phosphatase Albumin N-Telopeptide X-linked 25-OH Vitamin D Total Vit D 1,25-Dihyd Total 27 1,25 Dihydroxy Vit D2 <8 1,25 Dihydroxy Vit D3 27 TSH 3rd Generation PTH Intact Ur 24 Hour Volume Urine Creatinine Ur Creatinine mg/dL Ur Creatinine 24 Hour Ur Calcium 24 Hr Calcium/Creat 24 Hr Bone Specific Alk Phos 04/08/19 04/08/19 06/11/19 11:27 11:30 11:40 Creatinine 0.70 Est GFR (Non-Af Amer) > 60 Calcium Ionized Calcium Phosphorus Magnesium AST 20 ALT 22 Alkaline Phosphatase 74 D Albumin N-Telopeptide X-linked 32 25-OH Vitamin D Total 39.9 Vit D 1,25-Dihyd Total 1,25 Dihydroxy Vit D2 1,25 Dihydroxy Vit D3 TSH 3rd Generation PTH Intact Ur 24 Hour Volume Urine Creatinine 107 Ur Creatinine mg/dL Ur Creatinine 24 Hour Ur Calcium 24 Hr Calcium/Creat 24 Hr Bone Specific Alk Phos 8.1 06/11/19 07/05/19 11:40 11:20 Creatinine Est GFR (Non-Af Amer) Calcium 9.4 Ionized Calcium Phosphorus Magnesium AST ALT Alkaline Phosphatase Albumin 4.1 N-Telopeptide X-linked 25-OH Vitamin D Total Vit D 1,25-Dihyd Total 1,25 Dihydroxy Vit D2 1,25 Dihydroxy Vit D3 TSH 3rd Generation PTH Intact 64 Ur 24 Hour Volume Urine Creatinine Ur Creatinine mg/dL Ur Creatinine 24 Hour Ur Calcium 24 Hr Calcium/Creat 24 Hr Bone Specific Alk Phos She resume Prolia injections and was receiving intermittently over number of years. Her bone density has decreased on consistent doses of Prolia over the last several years. No fx since last visit [facility] Medical History Essential hypertension History of primary hyperparathyroidism Non-toxic multinodular goiter Osteoporosis Surgical History Hx of lithotripsy H/O parathyroidectomy Hx of tubal ligation Hx of section Family History Father No problems noted. Mother CVD (cardiovascular disease) Heart disease Social History Household Members: Spouse and Family Household Members Other:: , son Housing: Apartment Alcohol intake: never Patient Tobacco Use Status: Former Tobacco user Current occupational status: disabled Sexual orientation: Straight/Heterosexual Gender identity: Female Physical Exam Vital Signs: Last Vital Signs Pulse 86 03/28/24 11:31 BP 122/76 03/28/24 11:31 BMI result Body Mass Index 29.8 Assessment & Plan Assessment & Plan (1) Osteoporosis: Comment: Worsening bone mineral density at the spine level, -13.5 Code(s): M81.0 - Age-related osteoporosis without current pathological fracture Category: Medical Plan: This 68-year-old female with a history of osteoporosis previously treated with Prolia over several years with interruption of therapy. Secondary workup has been negative . Has been consistently getting Prolia with declines in bone density. Just received last Prolia dose last month 02/2024 Plan is to talk to the patient about transitioning to Evenity. This can perhaps happen 08/2024. There is data suggesting slight increases in bone density with transition to Evenity from Prolia. Would not want to transition patient to Forteo or Tymlos as this will lead to decrease his bone density. I spoke with patient and she is agreeable to this plan (2) Non-toxic multinodular goiter: Code(s): E04.2 - Nontoxic multinodular goiter Category: Medical Plan: Repeat thyroid ultrasound to be performed tomorrow Coding Level of Care Code Est Pt Level 3 (41119) Diagnoses Osteoporosis M81.0 Non-toxic multinodular goiter E04.2
[2024-03-28 11:31] VITALS: BP 122/76; PULSE 86; BMI 29.8
== END 2024-03-28 11:52 | disposition home or self-care (01) ==
PROVIDERS: PCP Internal Medicine; Visit Provider Internal Medicine Endocrinology, Diabetes & Metabolism
DX: M81.0 Age-related osteoporosis without current pathological fracture (principal); E04.2 Nontoxic multinodular goiter
CPT/HCPCS: 99213

== ENCOUNTER → 2024-03-28 11:27 | Outpatient (BNVA) | payer OTHER, SELFPAY | PROVIDERS: PCP Internal Medicine; Visit Provider Internal Medicine Endocrinology, Diabetes & Metabolism | DX: M81.0 Age-related osteoporosis without current pathological fracture (principal); E04.2 Nontoxic multinodular goiter | CPT/HCPCS: 99212 ==

== ENCOUNTER 2024-05-06 13:54 | Outpatient (AMB) | payer OTHER, SELFPAY ==
--- NOTE | 2024-05-06 14:03 | MHC.OFFVIS ---
Vital Signs 05/06/24 14:04 Height 4 ft 6 in Weight 120 lb BMI 28.9 BP 147/69 H Blood Pressure Location Lt brachial Position Sitting Pulse 54 Intake Visit Reasons: 3 mo f/u abdominal pain Intake Note: Patient follow up for abdominal pain. Patient cc: abdominal bloating, Monday she was with diarrhea and lost of vision with her dizziness. Watch Case Polisher Required: Yes Watch Case Polisher Name: [facility] Interpeter Accompanied by: Self / Same As Patient Allergies butalbital [From FIORICET] Allergy (Unknown, Verified 05/06/24 14:01) SWELLING,HIVES pepper (genus Capsicum) [PEPPER] Allergy (Unknown, Verified 05/06/24 14:01) ITCHING acetaminophen [Fioricet] Adverse Reaction (Unknown, Verified 05/06/24 14:01) swelling caffeine [Fioricet] Adverse Reaction (Unknown, Verified 05/06/24 14:01) swelling Fioricet Allergy (Unknown, Uncoded 03/28/24 11:34) swollen HPI HPI 3 mo f/u abdominal pain: Details: LAST VISIT: Abdominal pain Postprandial abdominal bloating Constipation Plan Stop senna and start Dulcolax. Increase fluid intake and activity to promote better bowel motility. Will send a message to surgical schedulers to schedule colonoscopy for patient she will return in 3 months to discuss the prep and see if she is feeling better. Patient is agreeable to this plan and verbalizes understanding of instructions. She was given the opportunity to ask questions and all questions answered. ? Thank you for allowing me to participate in her care Medications New bisacodyl (Dulcolax (bisacodyl)) 10 mg (2 x 5 mg) PO BEDTIME 180 tabs 4RF Discontinued sennosides Discontinued Reason: Doctor's Order 17.2 mg (2 x 8.6 mg) PO BEDTIME 60 tabs 3RF constipation K59.00 TODAY'S VISIT: Patient is here today for follow-up. Patient reports that she is doing better now. No longer has left lower quadrant pain. However occasionally patient does admit to having cramps. Patient does not eat much fiber. Patient is not drinking any water. Reports to have diarrhea last weekend and patient reports that she was sitting in the kitchen where she became dizzy and her vision became blurry. Patient did not lost vision completely. Symptoms lasted for few seconds and it went away. Patient did not follow-up with anyone or did not call her PCP to report this. Patient denies any melena, hematochezia, unintentional weight loss or ribbon like stools. Patient currently is taking Dulcolax and reports that she is moving her bowels better. Patient denies any issues with anesthesia in the past. No history of sleep apnea. Not on any anticoagulation medication. Denies any cardiac or respiratory symptoms. [facility] Medical History Essential hypertension History of primary hyperparathyroidism Non-toxic multinodular goiter Osteoporosis Surgical History Hx of lithotripsy H/O parathyroidectomy Hx of tubal ligation Hx of section Family History Father No problems noted. Mother CVD (cardiovascular disease) Heart disease Social History Household Members: Spouse and Family Household Members Other:: , son Housing: Apartment Alcohol intake: never Patient Tobacco Use Status: Former Tobacco user Current occupational status: disabled Sexual orientation: Straight/Heterosexual Gender identity: Female Review of Systems Const Denies weight gain and Denies weight loss ENT Reports no additional complaints, Denies dysphagia and Denies odynophagia Card Reports no additional complaints Resp Reports no additional complaints GI Reports abdominal pain (LUQ), Denies belching, Denies melena, Reports bloating, Reports constipation, Denies dysphagia, Denies excessive flatus, Denies dyspepsia, Denies heartburn, Denies diarrhea, Denies loose stools, Denies nausea, Denies odynophagia and Denies vomiting Reports no additional complaints Musc Reports no additional complaints Neuro Reports no additional complaints Psych Reports no additional complaints Endo Reports no additional complaints Physical Exam Vital Signs: Last Vital Signs Pulse 54 05/06/24 14:04 BP 147/69 H 05/06/24 14:04 BMI result Body Mass Index 28.9 Const General: healthy appearing, no acute distress and well developed Nutritional Appearance: obese Orientation/consciousness: patient oriented x3 Resp Effort & Inspection: normal respiratory effort, able to speak in complete sentences, no tracheal deviation and symmetric chest movement Auscultation: clear to auscultation bilaterally Cardio Rate: regular rate GI Inspection: Yes normal to inspection, No distended and Yes obesity Palpation (GI): Soft to palpation, not firm, nontender and No hepatosplenomegaly present Auscultation: normal bowel sounds General: Yes no CVA tenderness Back/Spine/Pelvis Back: no CVA tenderness Skin General skin exam: elasticity normal, turgor normal and dry skin Neuro General: patient oriented x3 Psych Appearance: grossly normal Mental Status: mental status grossly normal Assessment & Plan Assessment & Plan (1) Abdominal pain: Code(s): R10.9 - Unspecified abdominal pain Qualifiers: Abdominal location: left lower quadrant Qualified Code(s): R10.32 - Left lower quadrant pain (2) Postprandial abdominal bloating: Code(s): R14.0 - Abdominal distension (gaseous) (3) Constipation: Code(s): K59.00 - Constipation, unspecified Qualifiers: Constipation type: slow transit constipation Qualified Code(s): K59.01 - Slow transit constipation (4) Screen for colon cancer: Code(s): Z12.11 - Encounter for screening for malignant neoplasm of colon Plan Patient will increase fluid intake to promote better bowel motility. Patient was instructed to call ambulance if she will have loss of vision or any other symptoms that would warrant rapid medical assessment. Educated patient about stroke-like symptoms. Patient will continue taking Dulcolax. What to expect before during and after procedure discussed with patient. Procedure scheduled for May and she does have a follow-up appointment in the office after the procedure. Patient denies any cardiac or respiratory symptoms. Not on any anticoagulation medication. Stressed the importance of good bowel prep and clear liquid diet day before procedure. Patient is agreeable to current plan of care and verbalizes understanding of instructions. She was given the opportunity to ask questions and all questions answered. Thank you for allowing me to participate in her care Medications: New methylcellulose (laxative) (Citrucel) take it with full glass of water 500 mg PO DAILY 90 tabs 2RF K59.00 - Constipation, unspecified polyethylene glycol 3350 (Miralax) As directed by gastroenterology department at [facility] 238 grams PO ONCE 238 grams 0RF Z12.11 - Encounter for screening for malignant neoplasm of colon Coding Level of Care Code Est Pt Level 3 (82434) Diagnoses Left lower quadrant abdominal pain R10.32 Abdominal location: left lower quadrant Postprandial abdominal bloating R14.0 Slow transit constipation K59.01 Constipation type: slow transit constipation Screen for colon cancer Z12.11 Time Spent (min) 30 Comment 20 minutes spent with patient and additional 10 minutes spent reviewing her records
[2024-05-06 14:04] VITALS: BP 147/69; PULSE 54; BMI 28.9
== END 2024-05-06 15:19 | disposition home or self-care (01) ==
PROVIDERS: PCP Internal Medicine; Visit Provider Nurse Practitioner Family
DX: K59.01 Slow transit constipation (principal); R14.0 Abdominal distension (gaseous); Z12.11 Encounter for screening for malignant neoplasm of colon
CPT/HCPCS: 99213

== ENCOUNTER → 2024-05-06 13:54 | Outpatient (BNVA) | payer OTHER, SELFPAY | PROVIDERS: PCP Internal Medicine; Visit Provider Nurse Practitioner Family | DX: Z12.11 Encounter for screening for malignant neoplasm of colon (principal); R10.32 Left lower quadrant pain; R14.0 Abdominal distension (gaseous); K59.01 Slow transit constipation | CPT/HCPCS: 99212 ==

== ENCOUNTER 2024-07-03 14:15 | Outpatient (REF) | payer OTHER, SELFPAY ==
--- OUTSIDE RECORDS SUMMARY | 2024-07-03 16:48 | XMS_ITS | Encounter Summary ---
Author Organization [employer] Address [address] [place] [address] Care Team Providers Care Personnel Director Name Role Phone Kimberlee Balderrama MD Primary Care Provide r Encounter Details Date Type Department Care Team (Latest Contact Info) Description 06/25/2024 Travel Social History Tobacco Use Types Packs/Day Years Used Date Smoking Tobacco: Former Cigarettes Passive Smoke Exposure: Past Smokeless Tobacco: Never Alcohol Use Standard Drinks/Week Comments Never 0 (1 standard drink = 0.6 oz pur e alcohol) Depression Answer Date Recorded Patient Health Questionnaire-9 Score 0 05/02/2023 Patient Health Questionnaire-9 Score 0 05/02/2023 Last PHQ-9: Questionnaire Data Not on file 0 05/02/2023 Housing Stability Answer Date Recorded What is your housing situation today? I have [place] 06/25/[address] you li ve. Do you have problems with any of the following? None of the above 06/25/2024 Food Insecurity Answer Date Recorded Within the past 12 months, y ou worried that your food would run out before you got money to buy more: Never True 07/18/2023 Within the past 12 months,th e food you bought just didn't last and you didn't have enough money to get more: Never True Transportation Answer Date Recorded In the past 12 months, has l ack of transportation kept you from medical appts, meetings, work or from getting things needed for daily living? No 07/18/2023 Utilities Answer Date Recorded In the past 12 months, has t he electric, gas, oil or water company threatened to shut off services in your home? No 07/18/2023 Depression Answer Date Recorded Patient Health Questionnaire-2 Score 0 05/02/2023 Internet Access Answer Date Recorded Internet Access Q1 No 06/13/2024 Internet Access Q2 I do not want or need it 05/26 Comments Unknown Sex and Gender Information Value Date Recorded Sex Assigned at Female 02/21/2022 10:20 AM EDT Legal Sex Female 10:20 AM EDT Gender Identity Female 02/21/2022 10:20 AM EDT Sexual Orientation Straight 02/21/2022 10 :20 AM EDT documented as of this encounter Plan of Treatment Upcoming Encounters Date Type Department Care Team (Late st Contact Info) Description 09/25/2024 2:00 PM EDT Office Visit [facility] [address] [place] [address] Kimberlee Balderrama MD [address] [place] [id number] documented as of this encounter Visit Diagnoses Not on filedocumented in this encounter Additional Health Concerns Assessment Noted Time PHQ-9 Depression Total Score: 0 05/02/19 24 2:40 PM EST documented as of this encounter Care Teams Personnel Director Relationship Specialty Start Date End Date Kimberlee Balderrama MD [address] [place] [address] [phone] PCP - General Family Medicine 06/09/20 documented as of this encounter
--- OUTSIDE RECORDS SUMMARY | 2024-07-03 16:48 | XMS_ITS | Encounter Summary ---
Author Organization [employer] Address [address] [place] [address] Care Team Providers Care Building Maintenance Custodian Name Role Phone Kimberlee Balderrama MD Primary Care Provide r Reason for Visit * Reason Comments Pre-visit Planning SDOH screening negat kelly and tobacco screening negative Encounter Details Date Type Department Care Team ([facility] Contact Info) Description 06/13/2024 Patient Outreach [facility] [address] [place] [address] Kimberlee Balderrama MD [address] [place] [address] Pre-visit Planning (SDOH screening negative and tobacco screening negative) Social History Tobacco Use Types Packs/Day Years [...] housing situation today? I have [place] 06/13/[address] you li ve. Do you have problems with any of the following? Oven or stove not working 06/13/2024 Food Insecurity Answer Date Recorded Within the [...] Description 09/25/2024 2:00 PM EDT Office Visit [facility] [address] [place] [address] Kimberlee Balderrama MD [address] [place] [address] documented as of this encounter Visit Diagnoses Not on filedocumented in this encounter Additional Health Concerns Assessment Noted Time PHQ-9 Depression Total Score: 0 05/02/19 24 2:40 PM EST documented as of this encounter Care Teams Building Maintenance Custodian Relationship Specialty Start Date End Date Kimberlee Balderrama MD [address] [place] [address] PCP - General Family Medicine 06/09/20 documented as of this encounter
--- OUTSIDE RECORDS SUMMARY | 2024-07-03 16:48 | XMS_ITS | Clinical Summary ---
Author Organization [employer] Address [address] [place] [address] Care Team Providers Care Analytical Data Scientist Name Role Phone Kimberlee Balderrama MD Primary Care Provide r Allergies Active Allergy Reactions Criticality Noted Date Comments Butalbital Other reaction(s): Angioedema , unspecified Caffeine Other reaction(s): Angioedema , unspecified Nxvvpstpee-Lxyy-Mtjudtgx 08/30/2022 Omeprazole 12/16/2013 Medications denosumab (Prolia) 60 MG/ML solution prefilled syringe Inject 1 mL under the skin. 02/05/20 15 Active omega-3 (Fish Oil) 1000 MG capsule Take 1,000 mg by mouth 2 times daily. 01/29/20 22 Active polyethylene glycol, PEG, 3350 (Glycolax) 17 GM/SCOOP powder TAKE 17 GM MIXED IN 8 OUNCES OF WATER, COFFEE OR TEA ONCE DAILY 11/17/19 22 Active calcium citrate 315 mg + D2 6.25 mcg (Calcitrate) tabletIndications :Age-related osteoporosis with current pathological fracture with routine healing, subsequent encounter Take 1 tablet by mouth 2 times daily. 60 tablet 11 05/20/19 23 Active Simethicone Ultra Strength 180 MG capsule TAKE 1 CAPSULE BY MOUTH UP TO TWICE DAILY FOR GAS 100 capsule 1 10/14/19 23 Active simethicone (Mylicon,Gas-X) 180 MG capsule take up to twice daily for gas or bloating 03/14/20 22 Active Lidocaine 4 % patchIndications: Chronic bilateral low back pain without sciatica Apply 1 patch topically in the morning. Remove after 12 hours. 30 patch 11 11/19/19 23 Active diclofenac (Voltaren) 50 MG EC tabletIndications :Primary osteoarthritis involving multiple joints,Bilateral hip pain,Chronic bilateral low back pain without sciatica TAKE 1 TABLET BY MOUTH TWICE DAILY, DO NOT BREAK, CRUSH, DISSOLVE OR CHEW 60 tablet 09/13/19 24 Active simvastatin (Zocor) 20 MG tabletIndications :Dyslipidemia TAKE 1 TABLET BY MOUTH AT BEDTIME 30 tablet 3 01/22/20 24 Active acetaminophen (Tylenol 8 Hour) 650 MG ER tabletIndications :Degeneration of intervertebral disc of lumbosacral region with discogenic back pain,Primary osteoarthritis involving multiple joints TAKE 2 TABLETS BY MOUTH EVERY 8 HOURS NEEDED. DO NOT BREAK, CRUSH, DISSOLVE OR CHEW. 180 tablet 2 06/26/19 25 Active lisinopril 40 MG tabletIndications :Primary hypertension TAKE 1 TABLET BY MOUTH EVERY DAY 90 tablet 3 06/26/19 25 Active cholecalciferol (D3 Super Strength) 50 MCG (2000 UT) capsuleIndication s:Age-related osteoporosis with current pathological fracture with routine healing, subsequent encounter Take 1 capsule (50 mcg) by mouth Once per day. 30 capsule 11 06/26/19 25 Active simvastatin (Zocor) 20 MG tabletIndications :Primary hypertension Take 1 tablet (20 mg) by mouth at bedtime. 30 tablet 11 06/26/19 25 2025 Active acetaminophen (Tylenol 8 Hour) 650 MG ER tabletIndications :Primary osteoarthritis involving multiple joints TAKE 2 TABLETS BY MOUTH EVERY 8 HOURS NEEDED. DO NOT BREAK, CRUSH, DISSOLVE OR CHEW. 180 tablet 2 05/20/19 23 2024 Discontinued(R eorder (will not trigger notification to Pharmacy)) lisinopril 40 MG tabletIndications :Primary hypertension TAKE 1 TABLET BY MOUTH EVERY DAY 90 tablet 3 08/09/19 24 2024 Discontinued(R eorder (will not trigger notification to Pharmacy)) D3 Super Strength 50 MCG (2000 UT) capsuleIndication s:Age-related osteoporosis with current pathological fracture with routine healing, subsequent encounter TAKE 1 CAPSULE BY MOUTH EVERY DAY 30 capsule 11 10/31/19 24 2024 Discontinued(R eorder (will not trigger notification to Pharmacy)) Active Problems Problem Noted Date Diagnosed Date Degeneration of lumbar or lumbosacral interverte bral disc 06/25/2024 Assessment & Plan (06/25/2024 3:20 PM EST): Pain management referral done Colon cancer screening 07/26/2023 Intertrigo 05/02/2023 Encounter for screening mamm ogram for malignant neoplasm of breast 05/02/2023 Bilateral hip pain 02/20/2023 Left upper quadrant abdominal pain 08/30/2022 Assessment & Plan (09/05/2022 1:15 PM EDT): Colitis? trail of bentyl will be prescribed for her Age-related osteoporosis wit h current pathological fracture with delayed healing 08/23/2022 Hypertensive disorder 08/23/2022 Umbilical hernia without obstruction and without gangrene 06/20/2022 Assessment & Plan (06/20/2022 1:38 PM EST): No active symptoms at this time. WIll wait for complete workup of weight loss FU at next appointment will discuss with patient regarding surgical referral Counseled to go to ED if she develops color change or persistent and tender umbilical hernia Intermittent upper abdominal pain 06/20/2022 Assessment & Plan (06/20/2022 1:38 PM EST): r/o hiatal hernia vs liver mass Order abdominal US, may need a CT scan FU in 4-6 weeks. Axillary lymphadenopathy 06/17/2022 Chronic bilateral low back pain without sciatica 06/17/2022 Assessment & Plan (07/26/2023 12:06 PM EDT): Continue to follow with pain management patient had local injections and now she has a stimulator Assessment & Plan (09/05/2022 1:16 PM EDT): Continue to follow with pain management Compression fracture of L1 lumbar vertebra 06/17 Constipation 06/17/2022 Migraine without aura, not refractory 06/17/2022 Primary osteoarthritis of both knees 06/17/2022 Sinus bradycardia 06/17/2022 Assessment & Plan (06/20/2022 1:35 PM EST): Seen by cardiology and counseled regarding avoiding caffeine or other stimulants for palpitations. FU with them PRN. Thyroid nodule 06/17/2022 Generalized abdominal pain 05/20/2022 Assessment & Plan (05/20/2022 12:34 PM EST): R/O intraabdominal mass. Order abdominal US. FU results of [employer] biopsy. Weight loss 05/20/2022 Assessment & Plan (06/20/2022 1:39 PM EST): Weight has stabilized. Counseled regarding frequent and small meals Complete malignancy workup as above FU with me in 4-6 weeks or earlier PRN. Assessment & Plan (05/20/2022 12:34 PM EST): R/o malignancy, See above. Order labs and FU with me in 1 month. Encounter for screening colonoscopy 05/20/2022 Assessment & Plan (06/20/2022 1:37 PM EST): Refer to colonoscopy, especially patient with weight loss Primary osteoarthritis involving multiple joints 05/20/2022 Assessment & Plan (05/20/2022 12:35 PM EST): Pt has pathological bilateral fractures due to Osteoporosis. Take tylenol PRN FU in 1 monthj Age-related osteoporosis with current pathologic al fracture 05/20/2022 Assessment & Plan (06/25/2024 3:20 PM EST): Continue to follow-up with endocrinology Assessment & Plan (09/05/2022 1:15 PM EDT): Continue to follow with endocrinology for osteoporosis treatment Continue with pain management Assessment & Plan (05/20/2022 12:35 PM EST): Continue vitamin D + Prolia every 6 months. Primary hypertension 05/20/2022 Assessment & Plan (05/20/2022 12:36 PM EST): BP is at goal. Continue lisinopril Counseled re low salt diet/increase moderate physical activity. Check home BP BIW and prn CP/LAU/MULLEN Non smoking patient. Abnormal uterine bleeding 03/14/2022 Dyslipidemia 03/31/2017 Assessment & Plan (06/20/2022 1:36 PM EST): LDL goal is 100. I will start Simvastatin 20 mg FU LFTs and lipids in 2-3 months and adjust medication if needed. She quit smoking more than 5 years ago. We discussed re rx options. She wants to be more strict with life style modifications. Recommended moderate amount of exercise and increased consumption of fruit, vegetables, fish and high fiber foods. We discussed about avoiding consumption of highly saturated fats or trans fats. FU lipids in 6m Allergic rhinitis 03/16/2015 Mitral valve regurgitation 03/16/2015 Overweight 03/16/2015 Primary hyperparathyroidism 03/16/2015 Osteoporosis 03/16/2015 Essential hypertension 03/16/2015 Assessment & Plan (06/25/2024 3:19 PM EST): I advise: - Aerobic exercise to reduce BP. Initial goal of 30 min walk 3-5x/week. Increase as tolerated. - low-sodium diet (goal: <2g/day) and heart healthy diet such as DASH to reduce BP and prevent ASCVD. - Home BP monitoring 1-2 x day with goal of <140/90. - Seek immediate medical attention for chest pain, palpitations, SOB, syncope, or sudden changes in mental status. - Do not change or discontinue current prescriptions without first consulting health care provider Assessment & Plan (07/26/2023 12:05 PM EDT): -BP high today I ask patient to monitor BP at home and bring log, RTC 2 weeks with nurse for BP check if BP not at goal increase lisinopril to 40mg daily - Aerobic exercise to reduce BP. Initial goal of 30 min walk 3-5x/week. Increase as tolerated. - low-sodium diet (goal: <2g/day) and heart healthy diet such as DASH to reduce BP and prevent ASCVD. - Home BP monitoring 1-2 x day with goal of <140/90. - Seek immediate medical attention for chest pain, palpitations, SOB, syncope, or sudden changes in mental status. - Do not change or discontinue current prescriptions without first consulting health care provider Assessment & Plan (05/09/2023 4:08 PM EST): -I advise not to miss any dose of her medication - Aerobic exercise to reduce BP. Initial goal of 30 min walk 3-5x/week. Increase as tolerated. - low-sodium diet (goal: <2g/day) and heart healthy diet such as DASH to reduce BP and prevent ASCVD. - Home BP monitoring 1-2 x day with goal of <140/90. - Seek immediate medical attention for chest pain, palpitations, SOB, syncope, or sudden changes in mental status. - Do not change or discontinue current prescriptions without first consulting health care provider Encounters Date Type Department Care Team Description 06/25/2024 2:30 PM EST Office Visit [address] [address] Kimberlee Balderrama MD Essential hypertension (Primary Dx); Degeneration of intervertebral disc of lumbosacral region with discogenic back pain; Primary osteoarthritis involving multiple joints; Primary hypertension; Age-related osteoporosis with current pathological fracture with routine healing, subsequent encounter; Encounter for immunization 06/25/2024 Travel 06/13/2024 Patient Outreach [address] [address] Kimberlee Balderrama MD Care Coordination ([facility] for SDOH housing search-referral completed ) 06/13/2024 Patient Outreach [address] [phone] Kimberlee Balderrama MD Pre-visit Planning (SDOH screening negative and tobacco screening negative) 06/13/2024 Patient Outreach [address] [address] Kimberlee Balderrama MD Pre-visit Planning (SDOH screening positive and tobacco screening negative) from Last 3 Months Immunizations Name Administration Dates Next Due Hep B, Adolescent or Pediatric 06/22/2010,2008,01/26/2009 Influenza High-dose Quadriva lent Preservative Free 02/20/2023,01/30/2020 Influenza Injectable Quadriv alant Preservative Free IIV4 MDCK 05/25/2021 Influenza injectable quadriv alent IIV4 with preservative 02/21/2018,01/28/2016,03/16/2015 Influenza injectable quadriv alent preservative free 03/14/2022,04/04/2019 Influenza, Split (incl. arnulfo fied surface antigen) 01/01/2013 Influenza, seasonal, injecta ble, preservative free 06/25/2024 Moderna Covid-19 Vaccine 12+ 09/15/2021, 03/10/2021,07/24/2020,06/26 Moderna Covid-19 Vaccine 6+ Bivalent 05/17/2022 Pfizer Covid-19 Vaccine 12+ 04/05/2023 Pneumococcal Conjugate PCV 13 01/30/2020 Pneumococcal Polysaccharide PPSV23 03/14/2022 TD (adult), 2 Lf tetanus tox oid, preservative free, adsorbed 04/30/2009 Tdap 08/07/2012 Zoster, Recombinant 06/24/2019,04/08/2019 Zoster, live 03/16/2015 Social History Tobacco Use Types Packs/Day Years Used Date Smoking Tobacco: Former Cigarettes Passive Smoke Exposure: Past Smokeless Tobacco: Never Tobacco Cessation:Counseling Given: Not Answered Alcohol Use Standard Drinks/Week Comments Never 0 [...] Orientation Straight 02/21/2022 10 :20 AM EDT Last Filed Vital Signs Vital Sign Reading Time Taken Comments Blood Pressure 139/89 06/25/2024 2:25 PM EST Pulse 68 06/25/2024 2:25 PM EST Temperature 37.1 ??C (98.8 ??F) 06/25/2024 2:25 PM ES T Respiratory Rate 12 06/25/2024 2:25 PM EST Oxygen Saturation 99% 05/02/2023 2:39 PM EST Inhaled Oxygen Concentration - - Weight 57.5 kg (126 lb 12.8 oz) 06/25/2024 2:25 PM EST Height 139.7 cm (4' 7 ) 06/25/2024 2:25 PM EST Body Mass Index 29.47 06/25/2024 2:25 PM EST Plan of Treatment Upcoming Encounters Date Type Department Care Team (Late st Contact Info) Description 09/25/2024 2:00 PM EDT Office Visit [facility] [address] [place] [address] Kimberlee Balderrama MD [address] [place] [address] Health Maintenance Due Date Last Done Comments CT Colonography 1955 Colonoscopy 1955 Colorectal Cancer Screening 1955 FIT DNA/Cologuard 1955 FIT 1955 FOBT 1955 Sigmoidoscopy 1955 Hepatitis C Screening 1972 RSV Patients and Patients Aged 60 years or older (1 - Risk 60-74 years 1-dose series) 2014 DTaP/Tdap/Td Vaccines (2 - Td or Tdap) 08/07/2022 08/07/2012, 04/30/2009 COVID-19 Vaccine ( season) 2023 04/05/2023, 05/17/2022, 09/15/2021, Additional history exists Depression Screening 05/02/2024 05/02/2023, 05/02/19 24 Mammogram 06/07/2024 06/07/2023, 06/2020, 08/14/2020, Additional history exists Alcohol/Substance Use Screening 06/25/2025 06/25/2024 SDOH Screening 06/25/2025 06/25/2024 Tobacco Screening 06/25/2025 06/25/2024 Lipid Panel 06/07/2027 06/07/2022, 12/24, 08/11/2020 Hepatitis B Vaccines Aged Out 06/22/2010, 03/03/2009, 01/26/2009 No longer eligible based on patient's age to complete this topic Zoster Vaccines Completed 06/24/2019, 03/24, 03/16/2015 Pneumococcal Vaccine: 50+ Years Completed 03/14/2022, 01/30/2020 Influenza Vaccine Completed 06/25/2024, , 03/14/2022, Additional history exists HIB Vaccines Aged Out No longer eligi ble based on patient's age to complete this topic HPV Vaccines Aged Out No longer eligi ble based on patient's age to complete this topic Hepatitis A Vaccines Aged Out No long er eligible based on patient's age to complete this topic IPV Vaccines Aged Out No longer eligi ble based on patient's age to complete this topic Meningococcal Vaccine Aged Out No jennifer adriana eligible based on patient's age to complete this topic RSV under 20 months Aged Out No longe r eligible based on patient's age to complete this topic Rotavirus Vaccines Aged Out No longer eligible based on patient's age to complete this topic Procedures Procedure Name Priority Date/Time Associated Diagnosis Comments BI MAMMOGRAM SCREENING TOMOSYNTHESIS BILATERAL Routine 06/07/2023 2:12 PM EST LIPID PANEL WITH REFLEX TO DIRECT LDL Routine 06/07/2022 9:37 AM EST Primary hypertension from Last 3 Months or Most Recently Relevant to Health Maintenance Results * BI Mammogram Screening Tomosynthesis Bilateral (06/07/2023 2:12 PM EST) Anatomical Region Laterality Modality Breast Bilateral Mammography 06/07/2023 2:12 PM EST Narrative 07/01/2023 10:39 PM EST ? [facility] ? [address] ?[place] [address] ? Mammography Report ? Signed ? Patient: Kimberlee Seaman ?MR#: [id number] ?? [id number] ? : 1955 ?Acct:[id number] ? Age/Sex: 67 / F ?ADM Date: 06/07/23 ? Loc: HO.MAMMO ? Attending Dr: Kimberlee Forrest MD ? Ordering Physician: Kimberlee Balderrama MD ?Results: ?? 1Negative ? Date of Service: 06/07/23 ?Follow Up: 1 Year From Orig ?? inal Mammogram ? Procedure(s): MM tomosynthesis screening BI ?? Accession Number(s): [id number] ? cc: Kimberlee Balderrama MD ? EXAMINATION: ?? MM SCREENING DIGITAL BREAST TOMOSYNTHESIS, BILATERAL ? CLINICAL INFORMATION: ? Screening. Asymptomatic. ? COMPARISON: ?? Mammography: This study is compared with prior exams dating back to ?? 2019. ? TECHNIQUE: ?? Digital breast tomosynthesis is performed in both the craniocaudal and ?? mediolateral oblique views along with computer-aided detection (CAD). ?? Synthesized 2D images are generated from the tomosynthesis. ? FINDINGS: ?? There are scattered areas of fibroglandular density (ACR BI-RADS breast ?? composition Category b). ? There are no significant masses, abnormal calcifications, or other ?? abnormalities. ? MM/MM tomosynthesis screening BI ?? IMPRESSION: ?? No mammographic evidence of malignancy. ? ASSESSMENT: ? BI-RADS BI-RADS 1 - Negative ? RECOMMENDATION: ?? Routine annual mammography screening. ? 1 year F/U ? This examination should not preclude the clinical evaluation of a ?? suspicious palpable abnormality. ? This patient's information was entered into a reminder system with a ?? target due date for their next mammogram. ? Dictated By: ?Kaylan Finley MD ? Signed By: ?<Electronically signed by Kaylan Finley MD in OV> ? 07/01/235 ? DD/ 1412 ? TD/TT: ? Penal Officer: ? Procedure Note Gio, Image - 07/01/2023 Dustin [facility] [address] [place] [address] Mammography Report Signed Patient: Kimberlee Seaman MMR#: [id number] : 5Acct:[id number] Age/Sex: 67 / FADM Date: 06/07/23 Loc: HO.MAMMO Attending Dr: Kimberlee Forrest MD Ordering Physician: Kimberlee Balderrama MDResults: 1Negative Date of Service: 06/07/23Follow Up: 1 Year From Orig inal Mammogram Procedure(s): MM tomosynthesis screening BI Accession Number(s): [id number] cc: Kimberlee Balderrama MD EXAMINATION: MM SCREENING DIGITAL BREAST TOMOSYNTHESIS, BILATERAL CLINICAL INFORMATION: Screening. Asymptomatic. COMPARISON: Mammography: This study is compared with prior exams dating back to 2019. TECHNIQUE: Digital breast tomosynthesis is performed in both the craniocaudal and mediolateral oblique views along with computer-aided detection (CAD). Synthesized 2D images are generated from the tomosynthesis. FINDINGS: There are scattered areas of fibroglandular density (ACR BI-RADS breast composition Category b). There are no significant masses, abnormal calcifications, or other abnormalities. MM/MM tomosynthesis screening BI IMPRESSION: No mammographic evidence of malignancy. ASSESSMENT: BI-RADS BI-RADS 1 - Negative RECOMMENDATION: Routine annual mammography screening. 1 year F/U This examination should not preclude the clinical evaluation of a suspicious palpable abnormality. This patient's information was entered into a reminder system with a target due date for their next mammogram. Dictated By: Kaylan Finley MD Signed By: <Electronically signed by Kaylan Finley MD in OV> 07/01/232234 DD/ 1412 TD/TT: Penal Officer: us Kimberlee Forrest MD IMG BI PROCEDURES Karthik monique Result - Final * (ABNORMAL) Lipid Panel with Reflex to Direct LDL (06/07/2022 9:37 AM EST) Cholesterol, Total 185 <200 mg/dL [facility] [employer] [place] [employer] HDL Cholesterol 41(L) > OR = 50 mg/dL [facility] [place] [employer] Triglycerides 97 <150 mg/dL [facility] [place] [employer] LDL Cholesterol 124(H) mg/dL (calc) [facility] [place] [employer] Comment: Reference range: <100 Desirable range <100 mg/dL for primary prevention; ?? <70 mg/dL for patients with CHD or diabetic patients with > or = 2 CHD risk factors. LDL-C is now calculated using the Reji calculation, which is a validated novel method providing better accuracy than the Friedewald equation in the estimation of LDL-C. Yash DUMONT et al. RAO. 2013;310(19): 0341-6451 (http://education.[employer].GenVault/faq/REF214) Chol/HDLC Ratio 4.5 <5.0 (calc) [facility] Non-HDL Cholesterol 144(H) <130 mg/dL (calc) [employer] [employer] Comment: For patients with diabetes plus 1 major ASCVD risk factor, treating to a non-HDL-C goal of <100 mg/dL (LDL-C of <70 mg/dL) is considered a therapeutic option. 06/07/2022 9:37 AM EST 06/07/2022 9:38 AM EST Narrative [facility] - 06/07/2022 7:39 PM EST FASTING:YES FASTING: YES Darlene Saldivar MD LAB BLOOD ORDERABLES Fin al Result [facility] [address], [place] [address] [facility] [address] [facility] [address], ([address]) [place] [address] from Last 3 Months or Most Recently Relevant to Health Maintenance Insurance - [employer] Care Teams Analytical Data Scientist Relationship Specialty Start Date End Date Kimberlee Balderrama MD [address] [place] [phone] PCP - General Family Medicine 06/09/20
--- OUTSIDE RECORDS SUMMARY | 2024-07-03 16:48 | XMS_ITS | Encounter Summary ---
Author Organization [employer] [facility] Address [address] [place] [address] Care Team Providers Care Operations Clerk Name Role Phone Kimberlee Balderrama MD Primary Care Provide r Encounter Details Date Type Department Care Team (Late st Contact Info) Description 10/12/2022 Orders Only [facility] [address] [place] [address] [phone] Terri Cisneros LPN Social History Tobacco Use Types Packs/Day Years Used Date Smoking Tobacco: Former Cigarettes Passive Smoke Exposure: Past Smokeless Tobacco: Never Alcohol Use Standard Drinks/Week Comments Never 0 (1 standard drink = 0.6 oz pur e alcohol) Depression Answer Date Recorded Patient Health Questionnaire-9 Score 11 05/20/2022 Depression Answer Date Recorded Patient Health Questionnaire-2 Score 2 06/20/2022 Comments Unknown Sex and Gender Information Value [...] Description 09/25/2024 2:00 PM EDT Office Visit [facility] [address] [place] [address] [phone] Kimberlee Balderrama MD [address] [place] [address] [phone] documented as of this encounter Visit Diagnoses Not on filedocumented in this encounter Additional Health Concerns Assessment Noted Time PHQ-9 Depression Total Score: 11 023 12:13 PM EST documented as of this encounter Care Teams Operations Clerk Relationship Specialty Start Date End Date Kimberlee Balderrama MD [address] [place] [address] PCP - General Family Medicine 06/09/20 documented as of this encounter
--- OUTSIDE RECORDS SUMMARY | 2024-07-03 16:48 | XMS_ITS | Encounter Summary ---
Author Organization [employer] Address [address] [facility] [address] [place] [address] Care Team Providers Care Transfer Worker Name Role Phone Kimberlee Balderrama MD Primary Care Provide r Reason for Referral * Consultation (Routine) - Authorized Specialty Diagnoses / Procedures Referred By Contac t Referred To Contact Pain Medicine Diagnoses Degeneration of intervertebral disc of lumbosacral region with discogenic back pain Kimberlee Balderrama MD [address] [place] [phone] Phone: tel: fax: [facility], [address] [place], [place] Phone: tel: fax: Referral ID Status Reason Start Date Expiration Date Visits Requested Visits Authorized [id number] Authorized Specialty Services Required 06/25/2024 06/25/2025 1 1 Encounter Details Date Type Department Care Team (Latest Contact Info) Description 06/25/2024 2:30 PM EST Office Visit [facility] [address] [place] [address] [phone] Kimberlee Balderrama MD [address] [place] [address] [phone] Essential hypertension (Primary Dx); Degeneration of intervertebral disc of lumbosacral region with discogenic back pain; Primary osteoarthritis involving multiple joints; Primary hypertension; Age-related osteoporosis with current pathological fracture with routine healing, subsequent encounter; Encounter for immunization Social History Tobacco Use Types Packs/Day Years [...] AM EDT documented as of this encounter Last Filed Vital Signs Vital Sign Reading Time Taken Comments Blood Pressure 139/89 06/25/2024 2:25 PM EST Pulse 68 06/25/2024 2:25 PM EST Temperature 37.1 ??C (98.8 ??F) 06/25/2024 2:25 PM ES T Respiratory Rate 12 06/25/2024 2:2 5 PM EST Oxygen Saturation - - Inhaled Oxygen Concentration - - Weight 57.5 kg (126 lb 12.8 oz) 06/25/2024 2:25 PM EST Height 139.7 cm (4' 7 ) 06/25/2024 2:25 PM EST Body Mass Index 29.47 06/25/2024 2:25 PM EST documented in this encounter Progress Notes * Kimberlee Forrest MD - 06/25/2024 2:30 PM EST SUBJECTIVE: Kimberlee Seaman is a 68 y.o. year old female who presents for Chronic Disease Management . Acute Concerns: Patient reports she went to pain management for her back pain, procedure was done and it helped ryan lot but reports pain is coming back again and would like to be referred back Social History Social History Narrative Not on file Patient Active Problem List Diagnosis Generalized abdominal pain Weight loss Encounter for screening colonoscopy Primary osteoarthritis involving multiple joints Age-related osteoporosis with current pathological fracture Primary hypertension Abnormal uterine bleeding Allergic rhinitis Axillary lymphadenopathy Chronic bilateral low back pain without sciatica Compression fracture of L1 lumbar vertebra (CMS/HCC) Constipation Dyslipidemia Migraine without aura, not refractory Mitral valve regurgitation Overweight Primary hyperparathyroidism (CMS/HCC) Primary osteoarthritis of both knees Sinus bradycardia Thyroid nodule Umbilical hernia without obstruction and without gangrene Intermittent upper abdominal pain Osteoporosis Age-related osteoporosis with current pathological fracture with delayed healing Essential hypertension Hypertensive disorder Left upper quadrant abdominal pain Bilateral hip pain Intertrigo Encounter for screening mammogram for malignant neoplasm of breast Colon cancer screening Degeneration of lumbar or lumbosacral intervertebral disc No family history on file. Review of Systems Constitutional: Negative. HENT: Negative. Respiratory: Negative. Cardiovascular: Negative. Musculoskeletal: Positive for arthralgias, back pain and myalgias. OBJECTIVE: Vitals: 06/25/24 1425 BP: 139/89 BP Location: Left arm Patient Position: Sitting BP Cuff Size: Adult Pulse: 68 Resp: 12 Temp: 98.8 ??F (37.1 ??C) TempSrc: Oral Weight: 126 lb 12.8 oz (57.5 kg) Height: 4' 7 (1.397 m) Physical Exam Constitutional: Appearance: Normal appearance. Cardiovascular: Rate and Rhythm: Normal rate and regular rhythm. Pulmonary: Effort: Pulmonary effort is normal. Breath sounds: Normal breath sounds. Abdominal: General: Abdomen is flat. Palpations: Abdomen is soft. Musculoskeletal: Right lower leg: No edema. Left lower leg: No edema. Neurological: Mental Status: She is alert. Follow Up: Follow up in about 3 months (around 09/25/2024) for chronic conditions . Current Outpatient Medications on File Prior to Visit Medication Sig Dispense Refill calcium citrate 315 mg + D2 6.25 mcg (Calcitrate) tablet Take 1 tablet by mouth 2 times daily. 60 tablet 11 denosumab (Prolia) 60 MG/ML solution prefilled syringe Inject 1 mL under the skin. diclofenac (Voltaren) 50 MG EC tablet TAKE 1 TABLET BY MOUTH TWICE DAILY, DO NOT BREAK, CRUSH, DISSOLVE OR CHEW 60 tablet 0 Lidocaine 4 % patch Apply 1 patch topically in the morning. Remove after 12 hours. 30 patch 11 omega-3 (Fish Oil) 1000 MG capsule Take 1,000 mg by mouth 2 times daily. polyethylene glycol, PEG, 3350 (Glycolax) 17 GM/SCOOP powder TAKE 17 GM MIXED IN 8 OUNCES OF WATER,COFFEE OR TEA ONCE DAILY simethicone (Mylicon,Gas-X) 180 MG capsule take up to twice daily for gas or bloating Simethicone Ultra Strength 180 MG capsule TAKE 1 CAPSULE BY MOUTH UP TO TWICE DAILY FOR GAS 100 capsule 1 simvastatin (Zocor) 20 MG tablet TAKE 1 TABLET BY MOUTH AT BEDTIME 30 tablet 3 [DISCONTINUED] acetaminophen (Tylenol 8 Hour) 650 MG ER tablet TAKE 2 TABLETS BY MOUTH EVERY 8 HOURS NEEDED. DO NOT BREAK, CRUSH, DISSOLVE OR CHEW. 180 tablet 2 [DISCONTINUED] D3 Super Strength 50 MCG (2000 UT) capsule TAKE 1 CAPSULE BY MOUTH EVERY DAY 30 capsule 11 [DISCONTINUED] lisinopril 40 MG tablet TAKE 1 TABLET BY MOUTH EVERY DAY 90 tablet 3 No current facility-administered medications on file prior to visit. Problem List Items Addressed This Visit Essential hypertension - Primary I advise: - Aerobic exercise to reduce BP. Initial goal of 30 min walk 3-5x/week. Increase as tolerated. - low-sodium diet (goal: <2g/day) and heart healthy diet such as DASH to reduce BP and prevent ASCVD. - Home BP monitoring 1-2 x day with goal of <140/90. - Seek immediate medical attention for chest pain, palpitations, SOB, syncope, or sudden changes inmental status. - Do not change or discontinue current prescriptions without first consulting health care provider Degeneration of lumbar or lumbosacral intervertebral disc Pain management referral done Relevant Medications acetaminophen (Tylenol 8 Hour) 650 MG ER tablet Other Relevant Orders Referral to Pain Medicine Primary osteoarthritis involving multiple joints Relevant Medications acetaminophen (Tylenol 8 Hour) 650 MG ER tablet Primary hypertension Relevant Medications lisinopril 40 MG tablet simvastatin (Zocor) 20 MG tablet Age-related osteoporosis with current pathological fracture Continue to follow-up with endocrinology Relevant Medications cholecalciferol (D3 Super Strength) 50 MCG (1999 UT) capsule documented in this encounter Miscellaneous Notes * Assessment & Plan Note - Kimberlee Forrest MD - 06/25/2024 3:20 PM EST Associated Problem(s): Degeneration of lumbar or lumbosacral intervertebral disc Pain management referral done * Assessment & Plan Note - Kimberlee Forrest MD - 06/25/2024 3:20 PM EST Associated Problem(s): Age-related osteoporosis with current pathological fracture Continue to follow-up with endocrinology * Assessment & Plan Note - Kimberlee Forrest MD - 06/25/2024 3:19 PM EST Associated Problem(s): Essential hypertension I advise: - Aerobic exercise to reduce BP. Initial goal of 30 min walk 3-5x/week. Increase as tolerated. - low-sodium diet (goal: <2g/day) and heart healthy diet such as DASH to reduce BP and prevent ASCVD. - Home BP monitoring 1-2 x day with goal of <140/90. - Seek immediate medical attention for chest pain, palpitations, SOB, syncope, or sudden changes inmental status. - Do not change or discontinue current prescriptions without first consulting health care provider * Addendum Note - Deon Betancourt MA - 06/25/2024 2:30 PM ESTAddended by: DEON BETANCOURT on: 06/25/2024 04:40 PM Modules accepted: Orders documented in this encounter Plan of Treatment Upcoming Encounters Date Type Department Care Team (Late st Contact Info) Description 09/25/2024 2:00 PM EDT Office Visit [facility] [address] [place] [address] Kimberlee Balderrama MD [address] [place] [phone] Scheduled Referrals Name Type Priority Associated Diagnoses Orde r Schedule Referral to Pain Medicine Outpatient Referral Routine Degeneration Of Intervertebral Disc Of Lumbosacral Region With Discogenic Back Pain Expected: 06/25/2024 (Approximate), Expires: 06/25/2025 documented as of this encounter Visit Diagnoses Diagnosis Essential hypertension- Primary Unspecified essential hypertension Degeneration of intervertebral disc of lumbosacral region with discogenic back pain Primary osteoarthritis involving multiple joints Primary hypertension Unspecified essential hypertension Age-related osteoporosis with current pathological fracture with routine healing, subsequent encounter Encounter for immunization documented in this encounter Additional Health Concerns Assessment Noted Time PHQ-9 Depression Total Score: 0 05/02/19 24 2:40 PM EST documented as of this encounter Care Teams Transfer Worker Relationship Specialty Start Date End Date Kimberlee Balderrama MD [address] [place] [phone] PCP - General Family Medicine 06/09/20 documented as of this encounter
--- OUTSIDE RECORDS SUMMARY | 2024-07-03 16:48 | XMS_ITS | Encounter Summary ---
Author Organization [employer] Address [address] [address] [place] [address] Care Team Providers Care Rod Welder Name Role Phone Kimberlee Balderrama MD Primary Care Provide r Reason for Visit * Reason Comments Care Coordination CHW outreach for SDO H housing search-referral completed Encounter Details Date Type Department Care Team (Latest Contact Info) Description 06/13/2024 Patient Outreach [facility] [address] [place] [address] Kimberlee Balderrama MD [address] [place] [address] Care Coordination (CHW outreach for SDOH housing search-referral completed ) Social History Tobacco Use Types Packs/Day Years [...] your housing situation today? I have efrain sing 06/13/[address] you li [...] AM EDT documented as of this encounter Progress Notes * Anders Grant - 06/13/2024 9:59 AM EST CHW Anders Grant, placed outbound call to patient for assistance with SDOH as a referral was received by the provider. Patient's name and were confirmed. Patient screened positive for the following SDOH pet's control & food insecurities. CHW referral patient to the local list of pantriesin the area for help and advice family to connect with [employer] and pet's control offices [place] resources. Patient verbalizes understanding, and able to agree with plan to follow up. Patient educated on extended clinic hours on Mondays through Wednesdays, and Walk-In Urgent Care Located in [facility]. Patient provided with after-hours line for [facility], , which offer night time triage service and option to transfer to multi mission helicopter aircrewman provider if needed. documented in this encounter Plan of Treatment Upcoming Encounters Date Type Department Care Team (Late st Contact Info) Description 09/25/2024 2:00 PM EDT Office Visit [facility] [address] [place] [phone] Kimberlee Balderrama MD [address] [place], [place] [phone] documented as of this encounter Visit Diagnoses Not on filedocumented in this encounter Additional Health Concerns Assessment Noted Time PHQ-9 Depression Total Score: 0 05/02/19 24 2:40 PM EST documented as of this encounter Care Teams Rod Welder Relationship Specialty Start Date End Date Kimberlee Balderrama MD [address] [place], [place] [phone] PCP - General Family Medicine 06/09/20 documented as of this encounter
--- OUTSIDE RECORDS SUMMARY | 2024-07-03 16:48 | XMS_ITS | Encounter Summary ---
Author Organization [employer] Address [address] [facility] [address] [place] [address] Care Team Providers Care Glass Products Inspector Name Role Phone Kimberlee Balderrama MD Primary Care Provide r Reason for Visit * Reason Comments Pre-visit Planning SDOH screening posit kelly and tobacco screening negative Encounter Details Date Type Department Care Team ([facility] st Contact Info) Description 06/13/2024 Patient Outreach [facility] [address] [place] [phone] Kimberlee Balderrama MD [address] [place] [phone] Pre-visit Planning (SDOH screening positive and tobacco screening negative) Social History Tobacco [...] as of this encounter Progress Notes * Linda Hankins - 06/13/2024 9:03 AM EST CC Linda placed successful outbound call to patient for pre-visit planning. Patient name and confirmed. Patient confirms date and time, and has transportation arrangements. Biggest concern for appointment at this time is back pain Appropriate screening completed in anticipation of appointment.Patient advised to bring to appointment a photo id and insurance card, SDOH positive. Patient looking for assistance with stove does not work, Referral will be placed. documented in this encounter Plan of Treatment Upcoming Encounters Date Type Department Care Team (Late st Contact Info) Description 09/25/2024 2:00 PM EDT Office Visit [facility] [address] [place], [place] [phone] Kimberlee Balderrama MD [address] [place] [phone] documented as of this encounter Visit Diagnoses Not on filedocumented in this encounter Additional Health Concerns Assessment Noted Time PHQ-9 Depression Total Score: 0 05/02/19 24 2:40 PM EST documented as of this encounter Care Teams Glass Products Inspector Relationship Specialty Start Date End Date Kimberlee Balderrama MD [address] [place] [phone] PCP - General Family Medicine 06/09/20 documented as of this encounter
== END 2024-07-03 14:16 | disposition home or self-care (01) ==
LOC: HO.MAMMO 14:15
PROVIDERS: PCP Internal Medicine; Visit Provider Internal Medicine
DX: Z12.31 Encounter for screening mammogram for malignant neoplasm of breast (principal)
CPT/HCPCS: 77063; 77067

== ENCOUNTER → 2024-07-03 14:30 | Outpatient (BNV) | payer OTHER, SELFPAY | PROVIDERS: PCP Internal Medicine; Visit Provider Internal Medicine | DX: Z12.31 Encounter for screening mammogram for malignant neoplasm of breast (principal) | CPT/HCPCS: 77063; 77067 ==

== ENCOUNTER 2024-07-19 12:50 | Outpatient (AMB) | payer OTHER, SELFPAY ==
--- NOTE | 2024-07-19 13:02 | A.OFFVIS_ITS ---
Vital Signs 07/19/24 13:06 Height 4 ft 6 in Weight 126 lb BMI 30.4 BP 170/74 H Blood Pressure Location Rt brachial Position Sitting Pulse 57 Pulse Oximetry (%) 98 Oxygen Delivery Method Room Air Intake Visit Reasons: FU back pain/flaca from 07/11 Intake Note: Pain today 9/10 Development System Efficiency Manager Required: Yes Development System Efficiency Manager Language: Sap Pp Consultant Services: Development System Efficiency Manager Offered & Declined Development System Efficiency Manager Name: Dani Accompanied by: Grand Child Allergies butalbital [From FIORICET] Allergy (Unknown, Verified 07/19/24 13:06) SWELLING,HIVES pepper (genus Capsicum) [PEPPER] Allergy (Unknown, Verified 07/19/24 13:06) ITCHING acetaminophen [Fioricet] Adverse Reaction (Unknown, Verified 07/19/24 13:06) swelling caffeine [Fioricet] Adverse Reaction (Unknown, Verified 07/19/24 13:06) swelling Fioricet Allergy (Unknown, Uncoded 03/28/24 11:34) swollen HPI Comments Details: The patient is a 68-year-old female presenting with mid back pain of 3 months duration, described as a pulsing, tugging, sharp and aching sensation rated at 9/10 in severity. There is no reported injury, fall, or illness, associated with the onset of this pain. The patient has a history of chronic lower back pain which was managed with Sprint PNS trial, advanced degenerative changes in thoracolumbar spine and severe osteoporosis was diagnosed on a bone density scan from November 2023. Past imaging indicated thoracic vertebral height loss, notably from T8 to T12 with a old T9 compression fracture, contributing to her kyphosis and scoliosis, resulting in a forward hunch posture. Standing exacerbates her pain, but she reports being able to sleep without significant issues. - Onset: Three months ago. - Quality: Pulsing, tugging, aching, sharp sensations. - Primary Location: Mid back. - Aggravating Factors: Standing, movements, bending. - Alleviating Factors: Lying down; sleep not notably affected. - Associated Symptoms: Significant kyphosis and scoliosis, chronic low back pain with advanced DDD in thoracic and lumbar spine. - Severity: Reported as 9/10. - Affect: Pain is reported as 9/10, suggesting significant impact. - Analgesia: Uses lidocaine patches intermittently; previous tramadol use was effective in 2022; receives a single tramadol prescription currently; not on continuous opioids. - Adverse Effects: None reported from lidocaine patches or past tramadol usage. - Activities of Daily Living: Pain is exacerbated by standing or bending; she is able to sleep. - Aberrant Drug-Related Behaviors: None reported; no opioid abuse. PRIOR 09/04/23: Patient presents today for right L4 Sprint removal. The dressing was removed today. Right low back lead insertion sites look clean, dry, intact, no redness, no swelling, no pathological discharge. Area was cleansed with Chloraprep. Lead pulled with tip intact and the area was cleansed again with Chloraprep, applied Bacitracin and covered it with gauze and Tegaderm film dressing. Patient denies any pain and reports significant improvement in ADLs, mobility, sleep, and social interactions. She had a left L4 medial branch Sprint placed on 07/25/2023 but unfortunately the lead was pulled out prior to her 1 week postoperative follow up visit. Patient reports no pain and would like to hold off on revising left Sprint trial at this time. Denies any recent cough, cold, infection, fever, any significant changes in her medical history, medications or recent hospitalizations. Past Procedures: 09/04/23: Right L4 Sprint PNS removal-100% ongoing pain relief 07/25/23: Left L4 MB Sprint PNS trial, noted to be pulled out on 07/31/23. 07/11/23: Right L4 MB Sprint PNS trial-50% pain relief at 14, increased stimulation to 50 05/23/23: Bilateral Diagnostic L3-L4 DR L5 MBB-90% pain relief for 3 days PRIOR: Patient presents today for follow up to review recent thoracic, lumbar and hip xray results. Patient continues to endorce bilateral lower back pain with radiation into her buttocks and lateral hips and groin pain, worse on the right. She ambulates with slow, antalgic gait with use of cane. [facility] records were reviewed today and these are scanned in patient's chart. Patient underwent left interlaminar L1-L2 JARVIS on 05/10/22 with partial relief. We reviewed her xray imaging today. Patient has pending hip MRI to further evaluate sacral lesions and ongoing significant hip pain, right worse than left. We are also planning f or diagnostic lumbar MBBs to address her axial low back symptoms for potential Sprint PNS. Given poor bone quality due to significant osteoporosis with history of multilevel compression fractures, patient is not candidate for steroid injections. Denies any recent cough, cold, infection, fever or other significant changes in medical history since last office visit. PRIOR: Patient is a pleasant 67 years old Turkish speaking female with history of severe osteoporosis in femur and osteopenia in lumbar spine (receives Prolia injections), old L1 compression fracture, h/o left ankle fracture in 2009, presents today for initial evaluation of low back pain. Patient reports she was lifting and moving a heavy furniture last year and has been walking hunched upper back since then due to pain. Her pain is mostly axial without radiation into her lower extremities. She also reports right hip pain that occasionally radiates into her groin. Reports mild left hip pain as well. Occasionally she feels tingling in her right anterior thigh that terminates above knee without weakness or burning. Right anterior thigh tingling resolves with topical cream. Patient reports she was followed at [facility] for physical therapy and back injections, last one in November and was discharged from [facility] due to no show to her appointments. She is currently taking tramadol, Tylenol, NSAIDs for pain with partial pain relief. Pain affects her daily activities, functioning, sleep, social activities, mood and quality of life. Denies any fever, abdominal pain, dizziness, shortness of breath, bladder or bowel incontinence or saddle anesthesia. Ambulates with cane. Location Lower back pain, right groin and hip pain Duration Chronic pain > 1 year Characteristics of symptom or complaint Aching, shotting, sharp, dull, stabbing, throbbing Aggravating or associated factors Movements, lifting, extending backwards, cold weather, standing, walking Relieving factors Heat therapy, rest, Tramadol Treatment PT- no improvement, injections- november in [facility] Medical History Essential hypertension History of primary hyperparathyroidism Non-toxic multinodular goiter Osteoporosis Surgical History Hx of lithotripsy H/O parathyroidectomy Hx of tubal ligation Hx of section Family History Father No problems noted. Mother CVD (cardiovascular disease) Heart disease Social History Household Members: Spouse and Family Household Members Other:: , son Housing: Apartment Alcohol intake: never Patient Tobacco Use Status: Former Tobacco user Current occupational status: disabled Sexual orientation: Straight/Heterosexual Gender identity: Female Review of Systems Const Details: - Respiratory: Denies shortness of breath, cough, or recent URI. - Musculoskeletal: Reports mid back pain with kyphosis and scoliosis, advanced spine arthritis. - Neurological: Denies difficulty sleeping due to pain. - General: Denies fever or recent illness. All systems reviewed & are unremarkable except as noted in HPI and below Physical Exam Vital Signs: Last Vital Signs Pulse 57 07/19/24 13:06 BP 170/74 H 07/19/24 13:06 Pulse Ox 98 07/19/24 13:06 Oxygen Delivery Method Room Air 07/19/24 13:06 BMI result Body Mass Index 30.4 General: Appears afebrile. Alert and oriented. Mood and affect appropriate. Anxious. Follows and participates in conversation appropriately. Respiratory effort is unlabored. No cough. Able to transition from sit to stand unassisted. Uses cane with ambulation. Ambulates with bilaterally normal heel strike and toe off. Resp Effort & Inspection: normal respiratory effort, able to speak in complete sentences, no cough and no respiratory distress General: Yes no CVA tenderness Back/Spine/Pelvis Other: Limited lumbar ROM due to pain. Sitting and walking in flexed forward position due to kyphosis. Pain in all ranges of motion, thoracolumbar extension and facet loading bilaterally reproduces moderate pain. Mild midline tenderness to palpation in the mid to lower thoracic, mild to moderate TTP in cervical and lumbar region. Back: no CVA tenderness Cervical Spine: cervical ROM normal and No Cervical spine tenderness Thoracic/Lumbar Spine: thoracic and lumbar spine normal to inspection, Lasegue's sign negative, straight leg raise negative bilaterally, kyphosis, pain with thoraco-lumbar ROM, paraspinal muscle tenderness, thoraco-lumbar ROM limited, Thoracic/lumbar scoliosis, thoracic spinal tenderness (mid to lower thoracic) and lumbar spinal tenderness (L4-S1) Extrem General: Yes capillary refill normal, Yes no clubbing, cyanosis or edema and Yes no calf tenderness Results Reviewed Results Reviewed: XR THORACIC SPINE XR BILATERAL HIPS AND PELVIS XR LUMBOSACRAL SPINE 03/07/23 CLINICAL INFORMATION: Personal history of healed traumatic fracture. Patient unable to remove earrings at this time. Low back pain. Pain in right hip. COMPARISON: CT scan of the abdomen and pelvis of 02/09/2022. Radiograph lumbar spine 11/05/2021. FINDINGS: THORACIC SPINE: The bones are diffusely demineralized. S-shaped thoracolumbar scoliosis. Advanced multilevel degenerative changes in the thoracic spine. Loss of height of multiple lower thoracic vertebral bodies extending from T8 through T12 levels, most notable at T9. The T9 compression fracture was also demonstrated on the prior exam of 02/09/2022. LUMBAR SPINE: Redemonstration of severe compression deformity of L1 vertebral body. Redemonstration of moderate superior endplate compression deformity at L4. Redemonstration of a sacral lesion, better characterized on prior CT scans. Visualization of the sacrum is limited due to overlying bowel. Bones are diffusely demineralized. Facet arthritis in the lower lumbar spine. Moderate multilevel lumbar spondylosis. PELVIS AND BILATERAL HIPS: The bones are diffusely demineralized. Mild degenerative changes in the bilateral hips with joint space narrowing, left greater than right. Degenerative changes in the bilateral sacroiliac joints. Alignment preserved. IMPRESSION: 1. Multiple compression deformities of the thoracic and lumbar vertebral bodies, as detailed above. Diffuse demineralization. 2. Sacral lesion was better characterized on prior exams and is difficult to evaluate as visualization of the sacrum is limited due to overlying bowel. 3. Multilevel degenerative changes in the thoracolumbar spine. 4. Mild degenerative changes in the bilateral hips, left greater than right. MRI recommended if there is concern for fracture or other pathology. MRI should be considered for further evaluation. DEXA axial skeleton 12/12/24 1. DIAGNOSIS: Severe osteoporosis based on the lowest T-score value of -3.5 in the lumbar spine applying World Health Organization criteria. Assessment & Plan Assessment & Plan (1) Osteoporosis: Comment: Worsening bone mineral density at the spine level, -13.5 Code(s): M81.0 - Age-related osteoporosis without current pathological fracture Category: Medical (2) History of compression fracture of spine: Code(s): Z87.81 - Personal history of (healed) traumatic fracture Category: Medical (3) Thoracic degenerative disc disease: Code(s): M51.34 - Other intervertebral disc degeneration, thoracic region Category: Medical (4) Mid back pain: Code(s): M54.9 - Dorsalgia, unspecified Category: Medical (5) Lumbar degenerative disc disease: Code(s): M51.36 - Other intervertebral disc degeneration, lumbar region Category: Medical (6) Chronic low back pain: Code(s): M54.50 - Low back pain, unspecified; G89.29 - Other chronic pain Category: Medical (7) History of compression fracture of spine: Code(s): Z87.81 - Personal history of (healed) traumatic fracture Category: Medical (8) Lumbar degenerative disc disease: Code(s): M51.36 - Other intervertebral disc degeneration, lumbar region Category: Medical Plan I plan to evaluate the mid back pain that the patient has been experiencing for the past three months by performing a thoracic and lumbar spine x-ray to ascertain if new fractures have developed due to significant osteoporosis and previous history of T9 compression fracture. The patient will receive a short- term tramadol prescription along with Narcan for safety purposes. Continuation with lidocaine patches and ensuring regular follow up with PCP and Endocrinology for severe osteoporosis is advised. Follow-up will occur following the x-ray to decide if further evaluation with MRI is appropriate. Patient was informed and verbally consented to the use of an ambient scribe for clinic note documentation during this visit. Orders: Orders XR thoracic spine 3V Today M51.34 - Other intervertebral disc degeneration, thoracic region, M54.9 - Dorsalgia, unspecified, Z87.81 - Personal history of (healed) traumatic fracture XR lumbar spine 4V min Today G89.29 - Other chronic pain, M51.36 - Other intervertebral disc degeneration, lumbar region, M54.50 - Low back pain, unspecified, M81.0 - Age-related osteoporosis without current pathological fracture, Z87.81 - Personal history of (healed) traumatic fracture Medications: New 2 naloxone 4 mg/actuation (Narcan) spray 1 dose into ONE nostril; alternate nostrils w each dose until help arrives 4 mg intranasal Q2M PRN 2 ea 0RF opioid overdose G89.29 - Other chronic pain, M51.36 - Other intervertebral disc degeneration, lumbar region, M54.50 - Low back pain, unspecified, Z87.81 - Personal history of (healed) traumatic fracture Refilled tramadol 50 mg PO TID PRN 30 tabs 0RF pain (scale score 7-10) G89.29 - Other chronic pain, M51.36 - Other intervertebral disc degeneration, lumbar region, M54.50 - Low back pain, unspecified, M81.0 - Age-related osteoporosis without current pathological fracture, Z87.81 - Personal history of (healed) traumatic fracture Patient Instructions: During my discussion with the patient, I explained that due to her severe osteoporosis and history of thoracic compression fractures, it is crucial to pe rform a thoracic spine x-ray to assess for new fractures. I elaborated on kyphoplasty as a potential treatment option, provided it can be done within three months of a fracture occurring, to help restore vertebral height and offer pain relief. As an interim measure, I issued a temporary prescription for tramadol, due to her acute pain issues, while also prescribing Narcan for safety measures. Follow-up emphasizes the importance of regular follow up with PCP or Endocrinology for management of osteoporosis. Patient reports she is starting new medication for it. - Attend the hospital for a thoracic and lumbar spine x-rays today. - Use tramadol as prescribed for acute moderate-severe pain only. - Keep Narcan available as instructed for emergency use. - Continue to use lidocaine patches as needed for pain relief. - Follow up with Endocrinology/PCP for osteoporosis as planned. - Follow up as scheduled for x-ray results and further discussion. Coding Level of Care Code Est Pt Level 4 (55861) Complex EM visit Add On G2211 Diagnoses Osteoporosis M81.0 History of compression fracture of spine Z87.81 Thoracic degenerative disc disease M51.34 Mid back pain M54.9 Lumbar degenerative disc disease M51.36 Chronic low back pain M54.50; G89.29
[2024-07-19 13:06] VITALS: BP 170/74; PULSE 57; O2SAT 98; BMI 30.4
== END 2024-07-19 13:25 | disposition home or self-care (01) ==
LOC: HO.PMC 12:51
PROVIDERS: PCP Internal Medicine; Visit Provider Nurse Practitioner Family
DX: M81.0 Age-related osteoporosis without current pathological fracture (principal); Z87.81 Personal history of (healed) traumatic fracture; M51.34 Other intervertebral disc degeneration, thoracic region; M54.9 Dorsalgia, unspecified; M51.369 Other intervertebral disc degeneration, lumbar region without mention of lumbar back pain or lower extremity pain; M54.50 Low back pain, unspecified; G89.29 Other chronic pain
CPT/HCPCS: 99214; G2211

== ENCOUNTER 2024-07-19 12:50 | Outpatient (REF) | payer OTHER, SELFPAY ==
--- NOTE | ~2024-07-19 | XR_ITS ---
CLINICAL HISTORY: Z87.81 - Personal history of (healed) traumatic fracture 5 views lumbar spine Comparison: CR/SR - XR LUMBAR SPINE 2-3V - 08/01/23 12:49 EDT Findings: Dextroscoliosis. Redemonstrated chronic compression fracture of the superior endplate of L4 without retropulsion. Similar compression fracture noted at L1, T12, T11 partially imaged at T9, please see same day thoracic spine report. No new fractures identified. Osteopenia. Multilevel spondylosis with diffuse osteophytosis, facet arthropathy and degenerative disc disease. Intervertebral foraminal narrowing at L5-S1. No significant degenerative change. IMPRESSION: Similar chronic thoracolumbar compression deformities. This document has been electronically signed by: Benoit Calixto MD on 07/19/2024 19:42:47
--- NOTE | ~2024-07-19 | XR_ITS ---
CLINICAL HISTORY: Z87.81 - Personal history of (healed) traumatic fracture 3 views thoracic spine Comparison: CR/SR - XR THORACIC SPINE 3V - 03/07/23 10:41 EST Findings: Normal alignment. Chronic appearing compression deformities noted at L1, T12, T11, T9 and T8. No obvious new compression fractures. Osteopenia. Multilevel spondylosis with diffuse osteophytosis, facet arthropathy and degenerative disc disease. No significant degenerative change. IMPRESSION: Redemonstrated multilevel thoracolumbar compression fractures. This document has been electronically signed by: Benoit Calixto MD on 07/19/2024 19:39:34
== END 2024-07-19 12:51 | disposition home or self-care (01) ==
LOC: HO.XRAY 12:50
PROVIDERS: PCP Internal Medicine; Visit Provider Nurse Practitioner Family
DX: M51.34 Other intervertebral disc degeneration, thoracic region (principal); M54.9 Dorsalgia, unspecified; M51.360 Other intervertebral disc degeneration, lumbar region with discogenic back pain only; Z87.81 Personal history of (healed) traumatic fracture; G89.29 Other chronic pain
CPT/HCPCS: 72072; 72110; 99212

== ENCOUNTER → 2024-07-19 13:34 | Outpatient (BNV) | payer OTHER, SELFPAY | PROVIDERS: PCP Internal Medicine; Visit Provider Radiology Diagnostic Radiology | DX: S22.000A Wedge compression fracture of unspecified thoracic vertebra, initial encounter for closed fracture (principal) | CPT/HCPCS: 72072; 72110 ==

== ENCOUNTER → 2024-09-03 17:51 | Outpatient (BNV) | payer OTHER, SELFPAY | PROVIDERS: PCP Internal Medicine; Visit Provider Student in an Organized Health Care Education/Training Program | DX: Z87.81 Personal history of (healed) traumatic fracture (principal) | CPT/HCPCS: 72146; 72148 ==

== ENCOUNTER 2024-09-03 17:54 | Outpatient (REF) | payer OTHER, SELFPAY ==
--- NOTE | ~2024-09-03 | MR_ITS ---
CLINICAL HISTORY: Z87.81 - Personal history of (healed) traumatic fracture MR thoracic spine without gadolinium Comparison: CR/SR - XR THORACIC SPINE 3V - 07/19/24 13:50 EDT Findings: Unremarkable thoracic cord. Multiple moderate chronic compression deformities, most notably of T8, T9, T11, and T12 vertebral bodies. No abnormal marrow or soft tissue edema to suggest acute fracture. 3 mm retropulsion of T11 and T12 vertebral bodies without significant spinal canal narrowing. Type 2 Modic changes of T5-T6 endplates. No significant spinal canal or neural foraminal narrowing. Paraspinous musculature intact. Visualized paraspinal soft tissues are grossly unremarkable. IMPRESSION: No evidence of acute fracture or traumatic listhesis of the thoracic spine. Multiple moderate chronic compression deformities, most notably of the T8, T9, T11, and T12 causing markedly exaggerated thoracic kyphosis. No significant spinal canal or neural foraminal narrowing. This document has been electronically signed by: Virgie Huggins MD on 09/03/2024 19:09:24
--- NOTE | ~2024-09-03 | MR_ITS ---
CLINICAL HISTORY: Z87.81 - Personal history of (healed) traumatic fracture MR lumbar spine without gadolinium Comparison: CR/SR - XR LUMBAR SPINE 4V MIN - 07/19/24 13:51 EDT Findings: Slightly exaggerated lumbar lordosis. Severe superior endplate compression deformity of the L1 vertebral body with mild superior endplate retropulsion without significant spinal canal narrowing. Mild superior endplate compression deformity of the L4 vertebral body without significant spinal canal narrowing. No abnormal marrow or soft tissue edema to suggest acute fractures. Cauda equina and conus medullaris within normal limits. Moderate multilevel spondylosis without significant spinal canal or neural foraminal narrowing. Paraspinous musculature intact. IMPRESSION: Redemonstration of chronic superior endplate compression deformities of the L1 and L4 vertebral bodies. No marrow or soft tissue edema to suggest acute fractures. No significant spinal canal or neural foraminal narrowing. This document has been electronically signed by: Virgie Huggins MD on 09/03/2024 19:14:18
== END 2024-09-03 17:55 | disposition home or self-care (01) ==
LOC: HO.MRI 17:54
PROVIDERS: PCP Internal Medicine; Visit Provider Nurse Practitioner Family
DX: M54.50 Low back pain, unspecified (principal); G89.29 Other chronic pain; M81.0 Age-related osteoporosis without current pathological fracture; M51.34 Other intervertebral disc degeneration, thoracic region; M54.9 Dorsalgia, unspecified; Z87.81 Personal history of (healed) traumatic fracture
CPT/HCPCS: 72146; 72148

== ENCOUNTER 2024-10-01 11:12 | Outpatient (AMB) | payer OTHER, SELFPAY ==
--- NOTE | 2024-10-01 11:23 | MHC.OFFVIS ---
Vital Signs 10/01/24 11:27 Height 4 ft 7.04 in Weight 130 lb 1.164 oz BMI 30.2 BP 124/84 Blood Pressure Location Rt brachial Position Sitting Pulse 84 Pulse Source Pulse Oximeter Pulse Oximetry (%) 98 Oxygen Delivery Method Room Air Intake Visit Reasons: Osteoporosis and Evenity #1 Intake Note: Patient presents here today for a follow-up on Osteoporosis. Blunger Machine Operator Required: Yes Blunger Machine Operator Language: Coffee Host Services: Blunger Machine Operator Present Blunger Machine Operator Name: [id number] Information Interpreted: non-clinical & clinical Accompanied by: Self / Same As Patient Allergies butalbital [From FIORICET] Allergy (Unknown, Verified 10/01/24 11:28) SWELLING,HIVES pepper (genus Capsicum) [PEPPER] Allergy (Unknown, Verified 10/01/24 11:28) ITCHING acetaminophen [Fioricet] Adverse Reaction (Unknown, Verified 10/01/24 11:28) swelling caffeine [Fioricet] Adverse Reaction (Unknown, Verified 10/01/24 11:28) swelling Fioricet Allergy (Unknown, Uncoded 10/01/24 11:28) swollen HPI Comments Details: 68 yo female today for fup visit, for osteoporosis She is feeling well. She had her last Prolia injection on 05/28/2019. Her last dose 01/07/2020 Her calcium has been normal after Prolia injection. Her Prolia was stopped in 2020 and she is currently on no pharmacologic therapy She is feeling well. She has no complaints. She has been On Prolia since 03/10/15 , 09/25/17, 04/02/18. 05/28/2019. She has PMH of arthritis, GERD, hypertension. This patient has severe osteoporosis and had primary hyperparathyroidism status post hyperparathyroidism. The patient underwent intraoperative neck exploration on 01/05/[address] at [facility] by Dr. eRinier Juárez. Dr. Juárez resected 3-1/2 parathyroid glands and on pathology the gland were found to be mildly hypercellular. Intact PTH normalized and so did serum calcium levels. She had a prior left ankle fracture in 2009 after fell 3 steps in the stairs, no GERD, denies FH of fractures or osteoporosis, + nephrolithiasis, no steroids used, never smoker, anti seizures medications. She has Negative History of head or neck irradiation. Calcium intake: citrated bid 350 mg Vitamin D: 2000 IU daily DEXA scan 09/11/18 AP SPINE L1-L4: Current: BMD 0.742 g/cm2, Z-score -1.9, T-score -3.6, osteoporosis, 3.3% increase from previous, 2.2% increase from baseline (<5% change is not significant). Prior: BMD 0.718 g/cm2. Baseline: BMD 0.726 g/cm2. LEFT FEMUR, NECK: Current: BMD 0.618 g/cm2, Z-score -1.5, T-score -3.0, osteoporosis. Prior: BMD 0.626 g/cm2. Baseline: BMD 0.601 g/cm2. LEFT FEMUR, TOTAL: Current: BMD 0.777 g/cm2, Z-score -0.5, T-score -1.8, osteopenia, 1.7% increase from previous, 5.6% increase from baseline (<5% change is not significant). Prior: BMD 0.764 g/cm2. Baseline: BMD 0.736 g/cm2. LEFT FOREARM RADIUS 33%: BMD 0.740 g/cm2, Z-score -0.3, T-score -1.6, osteopenia, 3.8% increase change from previous, 4.8% decrease change from baseline (<5% change is not significant). Prior: BMD 0.713 g/cm2. Baseline 09/05/2014: BMD 0.777 g/cm2. In Thoracic spone xray has mild flattening of midthoracic vertebrae. FINDINGS: 11/26/21 AP SPINE L2-L4 (excluding L1): The data of L1-L4 has been changed to exclude the L1 vertebral body, because degenerative sclerosis at this level may cause overestimation of lumbar spine density. Current: BMD 0.907 g/cm2, Z-score -0.6, T-score -2.4, osteopenia, 24.9% increase from previous, 25.4% increase from baseline (<5% change is not significant). Prior: BMD 0.726 g/cm2. Baseline: BMD 0.723 g/cm2. LEFT FEMUR, NECK: Current: BMD 0.600 g/cm2, Z-score -1.5, T-score -3.2, osteoporosis. Prior: BMD 0.618 g/cm2. Baseline: BMD 0.601 g/cm2. LEFT FEMUR, TOTAL: Current: BMD 0.739 g/cm2, Z-score -0.7, T-score -2.1, osteopenia, 4.9% decrease from previous, 0.4% increase from baseline (<5% change is not significant). Prior: BMD 0.777 g/cm2. Baseline: BMD 0.736 g/cm2. IDENTIFIED RISK FACTORS: Early menopause, secondary osteoporosis. HISTORY OF FRACTURE: None listed. MEDICATIONS: Calcium supplements or multivitamin, vitamin D. MM/XR DEXA axial skeleton IMPRESSION: 1. DIAGNOSIS: Osteoporosis based on the lowest T-score value of -3.2 in the femoral neck applying World Health Organization criteria She had a FNA on 11/06/14 of left thyroid nodule 1.6 x 0.9 cm non diagnotic. US htyorid 10/10/2019 Right Thyroid Lobe: 4.2 x 1.4 x 1.6 cm, volume 5.0 mL. Previously 4.6 x 1.3 x 1.4 cm, volume 4.3 mL. Parenchyma: The gland echotexture is homogeneous. Thyroid vascularity is normal. Left Thyroid Lobe: 4.3 x 1.2 x 1.7 cm, volume 4.6 mL. Previously 4.4 x 1.1 x 1.3 cm, volume 3.5 mL. Parenchyma: The gland echotexture is homogeneous. Thyroid vascularity is normal. Isthmus: 0.3 cm in maximum AP dimension. Previously 0.2 cm. RIGHT THYROID LOBE: There are 2 nodules seen. 1. Location: Superior. Size: 0.3 x 0.2 x 0.3 cm. Previous: Not seen on the previous study. Nodule characteristics: Hypoechoic with indistinct margins. There is peripheral blood flow. No calcifications identified. 2. Location: Middle. Size: 0.2 x 0.2 x 0.2 cm. Previous: 0.1 x 0.1 x 0.1 cm. Nodule characteristics: Hypoechoic and smoothly marginated without calcification. No internal vascularity.. ISTHMUS: No nodules. LEFT THYROID LOBE: There are 2 nodules seen. 1. Location: Middle. Size: 0.8 x 0.3 x 0.4 cm. Previous: 0.6 x 0.2 x 0.4 cm. Nodule characteristics: Simple colloid cyst which is hypoechoic and smoothly marginated without calcification and without intranodular blood flow.. 2. Location: Inferior. Size: 0.2 x 0.2 x 0.1 cm. Previous: Not seen on the previous study. Nodule characteristics: Hypoechoic and smoothly marginated with inspissated colloid. No calcification. No internal blood flow. NODES: No lymphadenopathy is seen in the tissue surrounding the thyroid gland. Laboratory Tests 03/02/18 04/25/18 04/25/18 08:46 00:00 08:00 Creatinine Est GFR (Non-Af Amer) Calcium Ionized Calcium Phosphorus Magnesium AST ALT Alkaline Phosphatase Albumin N-Telopeptide X-linked 25-OH Vitamin D Total Vit D 1,25-Dihyd Total 1,25 Dihydroxy Vit D2 1,25 Dihydroxy Vit D3 TSH 3rd Generation 1.13 PTH Intact Ur 24 Hour Volume 750 Urine Creatinine Ur Creatinine mg/dL 140.97 Ur Creatinine 24 Hour 1.01 Ur Calcium 24 Hr 136 Calcium/Creat 24 Hr 135 Bone Specific Alk Phos 04/25/18 04/25/18 04/25/18 09:36 09:36 09:36 Creatinine Est GFR (Non-Af Amer) Calcium Ionized Calcium 5.2 Phosphorus 3.0 Magnesium 2.4 AST ALT Alkaline Phosphatase Albumin N-Telopeptide X-linked 25-OH Vitamin D Total Vit D 1,25-Dihyd Total 27 1,25 Dihydroxy Vit D2 <8 1,25 Dihydroxy Vit D3 27 TSH 3rd Generation PTH Intact Ur 24 Hour Volume Urine Creatinine Ur Creatinine mg/dL Ur Creatinine 24 Hour Ur Calcium 24 Hr Calcium/Creat 24 Hr Bone Specific Alk Phos 04/08/19 04/08/19 06/11/19 11:27 11:30 11:40 Creatinine 0.70 Est GFR (Non-Af Amer) > 60 Calcium Ionized Calcium Phosphorus Magnesium AST 20 ALT 22 Alkaline Phosphatase 74 D Albumin N-Telopeptide X-linked 32 25-OH Vitamin D Total 39.9 Vit D 1,25-Dihyd Total 1,25 Dihydroxy Vit D2 1,25 Dihydroxy Vit D3 TSH 3rd Generation PTH Intact Ur 24 Hour Volume Urine Creatinine 107 Ur Creatinine mg/dL Ur Creatinine 24 Hour Ur Calcium 24 Hr Calcium/Creat 24 Hr Bone Specific Alk Phos 8.1 06/11/19 07/05/19 11:40 11:20 Creatinine Est GFR (Non-Af Amer) Calcium 9.4 Ionized Calcium Phosphorus Magnesium AST ALT Alkaline Phosphatase Albumin 4.1 N-Telopeptide X-linked 25-OH Vitamin D Total Vit D 1,25-Dihyd Total 1,25 Dihydroxy Vit D2 1,25 Dihydroxy Vit D3 TSH 3rd Generation PTH Intact 64 Ur 24 Hour Volume Urine Creatinine Ur Creatinine mg/dL Ur Creatinine 24 Hour Ur Calcium 24 Hr Calcium/Creat 24 Hr Bone Specific Alk Phos She resume Prolia injections and was receiving intermittently over number of years. Her bone density has decreased on consistent doses of Prolia over the last several years. No fx since last visit . Transitioning to a Evenity today transitioning to Evenity today with 1st dose today PFSH Medical History Essential hypertension History of primary hyperparathyroidism Non-toxic multinodular goiter Osteoporosis Surgical History Hx of lithotripsy H/O parathyroidectomy Hx of tubal ligation Hx of section Family History Father No problems noted. Mother CVD (cardiovascular disease) Heart disease Social History Household Members: Spouse and Family Household Members Other:: , son Housing: Apartment Alcohol intake: never Patient Tobacco Use Status: Former Tobacco user Current occupational status: disabled Sexual orientation: Straight/Heterosexual Gender identity: Female Assessment & Plan Assessment & Plan (1) Osteoporosis: Comment: Worsening bone mineral density at the spine level, -13.5 Code(s): M81.0 - Age-related osteoporosis without current pathological fracture Category: Medical Plan: This 68-year-old female with a history of osteoporosis previously treated with Prolia over several years with interruption of therapy. Secondary workup has been negative . Has been consistently getting Prolia with declines in bone density. Just received last Prolia dose last month 02/2024 Plan is to start Evenity 1st dose today (2) Non-toxic multinodular goiter: Code(s): E04.2 - Nontoxic multinodular goiter Category: Medical Plan: Will have patient follow up with Dr. Yap for the multinodular goiter an networker in our practice with expertise in thyroid ultrasound Coding Level of Care Code Est Pt Level 3 (70854) Diagnoses Osteoporosis M81.0 Non-toxic multinodular goiter E04.2
[2024-10-01 11:27] VITALS: BP 124/84; PULSE 84; O2SAT 98; BMI 30.2
--- OUTSIDE RECORDS SUMMARY | 2024-10-01 13:26 | XMS_ITS | Encounter Summary ---
Author Organization [facility] [employer] Address [address] [place] [address] [address] [place] [address] Care Team Providers Care Liquor Inspector Name Role Phone Kimberlee Balderrama MD Primary Care Provide r Encounter Details Date Type Department Care Team (Late st Contact Info) Description 10/12/2022 Orders Only [facility] [address] [place] [address] Terri Cisneros LPN Social History Tobacco Use [...] as of this encounter Plan of Treatment Not on file documented as of this encounter Visit Diagnoses Not on filedocumented in this encounter Additional Health Concerns Assessment Noted Time PHQ-9 Depression Total Score: 11 023 12:13 PM EST documented as of this encounter Care Teams Liquor Inspector Relationship Specialty Start Date End Date Kimberlee Balderrama MD [address] [place] [address] PCP - General Family Medicine 06/09/20 documented as of this encounter
== END 2024-10-01 14:39 | disposition home or self-care (01) ==
LOC: HO.ENCR 11:13
PROVIDERS: PCP Internal Medicine; Visit Provider Internal Medicine Endocrinology, Diabetes & Metabolism
DX: M81.0 Age-related osteoporosis without current pathological fracture (principal); E04.2 Nontoxic multinodular goiter
CPT/HCPCS: 99213

== ENCOUNTER → 2024-10-01 11:12 | Outpatient (BNVA) | payer OTHER, SELFPAY | PROVIDERS: PCP Internal Medicine; Visit Provider Internal Medicine Endocrinology, Diabetes & Metabolism | DX: M81.0 Age-related osteoporosis without current pathological fracture (principal); E04.2 Nontoxic multinodular goiter | CPT/HCPCS: 96372; 99212; J3111 ==

== ENCOUNTER 2024-10-30 08:14 | Outpatient (AMB) | payer OTHER, SELFPAY ==
--- NOTE | 2024-10-30 08:46 | AM.OFFVISNUR ---
Intake Visit Reasons: Evenity #2 Allergies butalbital (From FIORICET) Allergy (Unknown, Verified 10/01/24 11:28) SWELLING,HIVES pepper (genus Capsicum) (PEPPER) Allergy (Unknown, Verified 10/01/24 11:28) ITCHING acetaminophen (Fioricet) Adverse Reaction (Unknown, Verified 10/01/24 11:28) swelling caffeine (Fioricet) Adverse Reaction (Unknown, Verified 10/01/24 11:28) swelling Fioricet Allergy (Unknown, Uncoded 10/01/24 11:28) swollen Office Meds [id number] 210 mg/2.34 mL(105 mg/1.17 mL x2)subcutaneous syringe Performing Provider: Pedro Mitchell MD Performing Location: [facility] End[facility]ology Administered by: Cate Forman RN on 10/30/24 08:30 Dose Route Admin Location Dispensed Lot Number Expiration Date NDC Factory Clerk 210 mg subcut bilateral upper arms 2.34 mL [id number] 01/21/27 89961-376-31 [employer] Total Dispensed Waste 2.34 mL 0 % Comments: Visit interpreted by Kelle ID # [id number]. Patient denies any adverse reactions with first injection. Patient tolerated well. Scheduled for repeat injection in 4 weeks. Assessment & Plan Assessment & Plan Orders: Orders AMB Romosozumab Injection Patient Supplied Today M81.0 - Age-related osteoporosis without current pathological fracture Coding
== END 2024-10-30 08:45 | disposition home or self-care (01) ==
LOC: HO.ENCR 08:15
PROVIDERS: PCP Internal Medicine; Visit Provider Internal Medicine Endocrinology, Diabetes & Metabolism
DX: M81.0 Age-related osteoporosis without current pathological fracture (principal)

== ENCOUNTER → 2024-10-30 08:14 | Outpatient (BNVA) | payer OTHER, SELFPAY | PROVIDERS: PCP Internal Medicine; Visit Provider Internal Medicine Endocrinology, Diabetes & Metabolism | DX: M81.0 Age-related osteoporosis without current pathological fracture (principal) | CPT/HCPCS: 96372; J3111 ==

== ENCOUNTER → 2024-11-11 08:53 | Outpatient (REF) | payer OTHER, SELFPAY ==
--- NOTE | 2024-11-11 08:56 | CA_ITS ---
Transthoracic Echocardiogram Patient (Last, First, Middle): Kimberlee Seaman M Gender: Female Date of : 1955 Age: 68 Procedure Date: 11/11/2024 Procedure Type: Transthoracic Echocardiogram Location: OP Height: 139.7 cm Weight: 58.97 kg BSA: 1.46 m2 Heart Rate: bpm BP: 116 / 60 mmHg Senior Interactive Developer: Referring MD: Carlos Chacon MD Symptoms: I38 - Endocarditis, valve unspecified Study Quality: Good ECG Rhythm: Sinus Conclusions: - The left ventricular systolic function is normal. The calculated ejection fraction is 62% by biplane method. - The left atrium is severely dilated. - There is mild mitral valve regurgitation. - There is moderate tricuspid valve regurgitation. - Mild pulmonary hypertension is present. Findings Left Ventricle Normal left ventricular cavity size. There is mildly increased left ventricular wall thickness. The left ventricular systolic function is normal. The calculated ejection fraction is 62% by biplane method. There is no evidence of regional wall motion abnormalities. Diastolic function is normal for age. Right Ventricle Normal right ventricular cavity size and systolic function. Atria The left atrium is severely dilated. The right atrium is normal in size. Aortic Valve There is a normal trileaflet aortic valve. There is no aortic valve stenosis. There is mild aortic valve regurgitation. Mitral Valve The mitral valve appears normal. There is mild mitral valve regurgitation. There is no mitral valve stenosis. Pulmonic Valve The pulmonic valve is likely normal. Tricuspid Valve There is moderate tricuspid valve regurgitation. Mild pulmonary hypertension is present. Great Vessels The asc aorta is normal in size. Small plaque is seen in the sino tubular ridge. Venous The inferior vena cava is normal in size and collapses greater than 50% with inspiration. Pericardium/Pleural There is no evidence of pericardial effusion. Prior Study Comparison No significant change compared to prior study dated: 02/13/2023. Measurements 2D Linear Measurements IVSd: 1.07 0.6-0.9/0.6-1.0 cm LVIDd: 3.62 3.9-5.3/4.2-5.9 cm LVIDd Index: 2.48 2.4-3.2/2.2-3.1 cm/m2 LVIDs: 2.22 2.0-3.6 cm LVPWd: 1.09 0.7-1.1 cm Ao Root: 2.50 2.1-3.5 cm LA Diam: 2.90 2.7-3.8/3.0-4.0 cm LAIDs Index: 1.99 1.5-2.3 cm/m2 LV Mass: 151.49 67-162/88-224 g LV Mass Index: 103.76 43-95/49-115 g/m2 LVOT Diam: 2.00 3.0+(-)1.3 cm 2D Systolic Function EF 4C: 53.20 >55% EF 2C: 68.70 >55% EF BiP: 61.50 >55% Mitral Valve MV Pk E: 1.09 MV PK A: 0.93 MV Decel Time: 191.00 E/A: 1.20 E'Lateral: 11.70 E'Medial: 5.33 E/E' Med: 20.50 E/E' Lat: 9.30 PHT: 56.00 MVA PHT: 3.93 Decel Lanier: 5.73 Aortic Valve AoV Pk Regan: 1.91 AoV Mn Regan: 1.28 AoV VTI: 0.47 AoV Pk Grad: 15.00 Aov Mn Grad: 8.00 INEZ Cont.VTI: 1.68 AI Pk Regan: 4.51 AI Lanier: 1.69 LVOT LVOT Pk Regan: 1.06 LVOT Mn Regan: 0.66 LVOT VTI: 0.25 LVOT Pk Grad: 4.00 LVOT Mn Grad: 2.00 LVOT Diam: 2.00 LVOT Area: 3.14 Diastolic Function MV Pk E: 1.09 MV Pk A: 0.93 E/A: 1.20 E'Medial: 5.33 E/E' Med: 20.50 E' Laterial: 11.70 E/E' Lat: 9.30 Right Ventricle TAPSE (mm): 24.00 TVS' Regan: 10.00 Tricuspid Valve TR Pk Regan: 2.95 TR Pk Grad: 35.00 RA Press: 3.00 RVSP: 38.00 Great Vessels Aorta Ao Root-2D: 2.50 2.0-3.7 cm Ao Asc: 3.50 2.1-3.4 cm Pulmonary Valve PV Pk Regan: 1.04 Peak PV Grad: 4.00 Updated in Other Vendor System with Status of Final Carlos Chacon MD electronically signed on 11/12/2024 11:35:46 AM with status of Final
--- OUTSIDE RECORDS SUMMARY | 2024-11-11 09:04 | XMS_ITS | Encounter Summary ---
Author Organization [employer] Address [address] [place] [address] [address] [place] [address] Care Team Providers Care Planer Offbearer Name Role Phone Kimberlee Balderrama MD Primary Care Provide r Encounter Details Date Type Department Care Team (Late st Contact Info) Description 10/12/2022 Orders Only [facility] MED[facility] [address] [place] [address] [phone] Terri Cisneros LPN Social History Tobacco Use [...] Care Team (Late st Contact Info) Description 12/26/2024 2:30 PM EDT Office Visit [facility] [address] [place] [address] [phone] Kimberlee Balderrama MD [address] [place] [address] [phone] documented as of this encounter Visit Diagnoses Not on filedocumented in this encounter Additional Health Concerns Assessment Noted Time PHQ-9 Depression Total Score: 11 023 12:13 PM EST documented as of this encounter Care Teams Planer Offbearer Relationship Specialty Start Date End Date Kimberlee Balderrama MD [address] [place] [address] PCP - General Family Medicine 06/09/20 documented as of this encounter
== END ==
LOC: HO.CARD 08:53
PROVIDERS: PCP Internal Medicine; Visit Provider Internal Medicine
DX: E04.2 Nontoxic multinodular goiter (principal); I38 Endocarditis, valve unspecified
CPT/HCPCS: 93306; 99212

== ENCOUNTER → 2024-11-11 08:56 | Outpatient (BNV) | payer OTHER, SELFPAY | PROVIDERS: PCP Internal Medicine; Visit Provider Internal Medicine | DX: I35.1 Nonrheumatic aortic (valve) insufficiency (principal); I51.7 Cardiomegaly; I36.1 Nonrheumatic tricuspid (valve) insufficiency; I27.20 Pulmonary hypertension, unspecified | CPT/HCPCS: 93306 ==

== ENCOUNTER 2024-11-11 13:48 | Outpatient (AMB) | payer OTHER, SELFPAY ==
[2024-11-11 13:49] VITALS: BP 138/84; PULSE 51; O2SAT 99; BMI 29.9
--- NOTE | 2024-11-11 13:49 | MHC.OFFVIS ---
Vital Signs 11/11/24 13:49 Height 4 ft 7 in Weight 128 lb 8.472 oz BMI 29.9 BP 138/84 Blood Pressure Location Lt brachial Position Sitting Pulse 51 Pulse Source Pulse Oximeter Pulse Oximetry (%) 99 Oxygen Delivery Method Room Air Intake Visit Reasons: MNG Intake Note: New patient present today for MNG office visit. Catalogue Illustrator Required: Yes Catalogue Illustrator Language: Aquatic Centre Manager Services: Catalogue Illustrator Present Catalogue Illustrator Name: Darren [id number] Information Interpreted: non-clinical & clinical Accompanied by: Self / Same As Patient Allergies butalbital (From FIORICET) Allergy (Unknown, Verified 11/11/24 13:53) SWELLING,HIVES pepper (genus Capsicum) (PEPPER) Allergy (Unknown, Verified 11/11/24 13:53) ITCHING acetaminophen (Fioricet) Adverse Reaction (Unknown, Verified 11/11/24 13:53) swelling caffeine (Fioricet) Adverse Reaction (Unknown, Verified 11/11/24 13:53) swelling Fioricet Allergy (Unknown, Uncoded 11/11/24 13:53) swollen Medication List - Last Reconciled 11/11/24 by Namrata Yap MD bisacodyl (Dulcolax (bisacodyl)) 10 mg (2 x 5 mg) PO BEDTIME calcium citrate 250 mg PO BID 30 days cholecalciferol (vitamin D3) 50 mcg PO DAILY 30 days diclofenac sodium 50 mg PO BID gabapentin 100 mg PO BEDTIME 30 days lisinopril 40 mg PO DAILY methylcellulose (laxative) (Citrucel) 500 mg PO DAILY naloxone 4 mg/actuation (Narcan) 4 mg intranasal Q2M PRN omega-3 fatty acids (Fish Oil Concentrate) 1,000 mg PO DAILY polyethylene glycol 3350 (Miralax) 238 grams PO ONCE [id number] (Evenity) 210 mg (2.34 mL) subcut .qmonth simethicone 125 mg PO BID-QID PRN simvastatin 20 mg PO BEDTIME tramadol 50 mg PO TID PRN HPI Comments Details: 68-year-old female coming in today for follow up of multinodular goiter. She also follows at our practice for hyperparathyroidism status post 3-1/[address] resection [address] Reinier Juárez at [facility] on 01/05/2015 with normalization of PTH levels after, and osteoporosis. Last seen by Dr. Mitchell 10/01/2024. Osteoporosis not addressed today. She has follow up with Dr. Mitchell in March 2025. Nontoxic multinodular goiter Diagnosed in 2014 FNA 08/2014 of the left thyroid nodule measuring 1.6 X 0.9 cm nodule was nondiagnostic. Repeat ultrasound in September 2019 showed right superior 0.3 cm solid hypoechoic TR 4 nodule, right mid lobe 0.2 cm solid hypoechoic nodule, left mid lobe 0.8 cm simple colloid cyst, left inferior 0.2 cm solid hypoechoic nodule. Ultrasound thyroid 09/01/2022: I reviewed the images myself which showed a homogeneous gland with normal vascularity with the only at 0.9 cm cyst with colloid deposit in the left midpole. This does not need follow up. Patient currently denies heat or cold intolerance, hair loss, palpitation, anxiety, weight changes, mood changes, low energy, changes in appearance of eyes or vision changes, tremors, increased diaphoresis or dry skin. ? Reports constipation Patient denies any difficulty swallowing, pain on swallowing or voice changes or difficulty breathing. Patient denies any history of childhood neck radiation. Denies having ever used lithium, amiodarone or biotin supplements. Patient denies any family history of thyroid cancer or thyroid disease. Physical exam General: sitting comfortably in no acute distress HEENT: normocephalic/atraumatic Neck: supple, symmetrical, no thyromegaly , no dorsocervical or supraclavicular fat pads Cardiac: normal heart sounds Pulm: normal breath sounds B/L, no added breath sounds Abd: not distended, no tenderness Extremities: no edema, no signs of myxedema Neuro: AAO x3, Speech: normal, no facial droop, moving all 4 extremities Laboratory Tests 05/29/23 14:37 TSH 1.08 US THYROID 09/01/22 CLINICAL INFORMATION: Nontoxic multinodular goiter. COMPARISON: Ultrasound thyroid 10/10/2019 and 10/18/2017. TECHNIQUE: Linear transducer grayscale and color Doppler examination with attention to the region of the thyroid. FINDINGS: SIZE: Measurements of the thyroid lobes and nodules are given in sagittal, anteroposterior and transverse dimensions respectively. Right Thyroid Lobe: 4.4 x 1.3 x 1.5 cm, volume 4.4 mL. Previously 4.2 x 1.4 x 1.6 cm, volume 5.0 mL. Parenchyma: The gland echotexture is homogeneous. Thyroid vascularity is normal. Left Thyroid Lobe: 4.5 x 1.2 x 1.7 cm, volume 4.5 mL. Previously 4.3 x 1.2 x 1.7 cm, volume 4.6 mL. Parenchyma: The gland echotexture is homogeneous. Thyroid vascularity is normal. Isthmus: 0.2 cm in maximum AP dimension. Previously 0.3 cm. No suspicious focal thyroid nodule is seen. A 0.9 cm cystic nodule with ringdown artifact, TR 1, does not warrant follow-up, previously 0.8 cm.. NODES: No lymphadenopathy is seen in the tissue surrounding the thyroid gland. US/US thyroid IMPRESSION: No suspicious thyroid nodule. US yorid 10/10/2019 Right Thyroid Lobe: 4.2 x 1.4 x 1.6 cm, volume 5.0 mL. Previously 4.6 x 1.3 x 1.4 cm, volume 4.3 mL. Parenchyma: The gland echotexture is homogeneous. Thyroid vascularity is normal. Left Thyroid Lobe: 4.3 x 1.2 x 1.7 cm, volume 4.6 mL. Previously 4.4 x 1.1 x 1.3 cm, volume 3.5 mL. Parenchyma: The gland echotexture is homogeneous. Thyroid vascularity is normal. Isthmus: 0.3 cm in maximum AP dimension. Previously 0.2 cm. RIGHT THYROID LOBE: There are 2 nodules seen. 1. Location: Superior. Size: 0.3 x 0.2 x 0.3 cm. Previous: Not seen on the previous study. Nodule characteristics: Hypoechoic with indistinct margins. There is peripheral blood flow. No calcifications identified. 2. Location: Middle. Size: 0.2 x 0.2 x 0.2 cm. Previous: 0.1 x 0.1 x 0.1 cm. Nodule characteristics: Hypoechoic and smoothly marginated without calcification. No internal vascularity.. ISTHMUS: No nodules. LEFT THYROID LOBE: There are 2 nodules seen. 1. Location: Middle. Size: 0.8 x 0.3 x 0.4 cm. Previous: 0.6 x 0.2 x 0.4 cm. Nodule characteristics: Simple colloid cyst which is hypoechoic and smoothly marginated without calcification and without intranodular blood flow.. 2. Location: Inferior. Size: 0.2 x 0.2 x 0.1 cm. Previous: Not seen on the previous study. Nodule characteristics: Hypoechoic and smoothly marginated with inspissated colloid. No calcification. No internal blood flow. NODES: No lymphadenopathy is seen in the tissue surrounding the thyroid gland. [facility] Medical History Essential hypertension History of primary hyperparathyroidism Non-toxic multinodular goiter Osteoporosis Surgical History Hx of lithotripsy H/O parathyroidectomy Hx of tubal ligation Hx of section Family History Father No problems noted. Mother CVD (cardiovascular disease) Heart disease Social History Household Members: Spouse and Family Household Members Other:: , son Housing: Apartment Alcohol intake: never Patient Tobacco Use Status: Former Tobacco user Current occupational status: disabled Sexual orientation: Straight/Heterosexual Gender identity: Female Physical Exam Vital Signs: Last Vital Signs Pulse 51 11/11/24 13:49 BP 138/84 11/11/24 13:49 Pulse Ox 99 11/11/24 13:49 Oxygen Delivery Method Room Air 11/11/24 13:49 BMI result Body Mass Index 29.9 Assessment & Plan Assessment & Plan (1) Non-toxic multinodular goiter: Code(s): E04.2 - Nontoxic multinodular goiter Category: Medical Plan: 68-year-old female with no family history of thyroid cancer, with no personal history of head or neck radiation who is coming in today for nontoxic multinodular goiter. Diagnosed with thyroid nodules in 2014 FNA 08/2014 of the left thyroid nodule measuring 1.6 X 0.9 cm nodule was nondiagnostic. Repeat ultrasound in September 2019 showed right superior 0.3 cm solid hypoechoic TR 4 nodule, right mid lobe 0.2 cm solid hypoechoic nodule, left mid lobe 0.8 cm simple colloid cyst, left inferior 0.2 cm solid hypoechoic nodule. Ultrasound thyroid 09/01/2022: I reviewed the images myself which showed a homogeneous gland with normal vascularity with the only at 0.9 cm cyst with colloid deposit in the left midpole. This does not need follow up. Looking at how ultrasound images from 2022, she just has a colloid cyst on the left side, this does not need any follow up. Otherwise she has a normal looking thyroid. No high-risk history. I would not recommend getting any repeat ultrasound, unless anything changes clinically. She can follow up with Dr. Mitchell for osteoporosis. Plan See above Coding Level of Care Code Est Pt Level 3 (08328) Diagnoses Non-toxic multinodular goiter E04.2
== END 2024-11-11 14:12 | disposition home or self-care (01) ==
LOC: HO.ENCR 13:48
PROVIDERS: PCP Internal Medicine; Visit Provider Student in an Organized Health Care Education/Training Program
DX: E04.2 Nontoxic multinodular goiter (principal)
CPT/HCPCS: 99213

== ENCOUNTER 2024-11-25 13:28 | Outpatient (AMB) | payer OTHER, SELFPAY ==
--- NOTE | 2024-11-25 13:30 | MHC.OFFVIS ---
Vital Signs 11/25/24 13:36 Height 4 ft 7 in Weight 130 lb BMI 30.2 BP 148/70 H Blood Pressure Location Rt brachial Position Sitting Pulse 70 Pulse Source Pulse Oximeter Pulse Oximetry (%) 97 Oxygen Delivery Method Room Air Intake Visit Reasons: MRI follow up Intake Note: Pain today 01/31 Lumber Marker Required: Yes Lumber Marker Language: Senior Sourcing Manager Services: Lumber Marker Present Lumber Marker Name: Nataliia [id number] Information Interpreted: non-clinical & clinical Accompanied by: Self / Same As Patient Allergies butalbital (From FIORICET) Allergy (Unknown, Verified 11/25/24 13:36) SWELLING,HIVES pepper (genus Capsicum) (PEPPER) Allergy (Unknown, Verified 11/25/24 13:36) ITCHING acetaminophen (Fioricet) Adverse Reaction (Unknown, Verified 11/25/24 13:36) swelling caffeine (Fioricet) Adverse Reaction (Unknown, Verified 11/25/24 13:36) swelling Fioricet Allergy (Unknown, Uncoded 11/11/24 13:53) swollen HPI Comments Details: The patient is a 68-year-old female presenting with back pain and a review of thoracic and lumbar spine MRI results. The patient has a history of multiple compression fractures in the thoracic and lumbar spine, as noted below. These fractures have contributed to significant kyphosis and scoliosis. Additionally, the patient has significant disc degeneration and arthritis, although there is no significant spinal stenosis or narrowing noted. She also suffers from osteoporosis, which limits treatment options to peripheral nerve stimulation or radiofrequency ablation. She has previously tried peripheral nerve stimulation with temporary pain relief. Patient reports mid back pain has been more prominent than lower back. Denies any recent cough, cold, infection, fever or any significant changes in medical history since last office visit. PRIOR: The patient is a 68-year-old female presenting with mid back pain of 3 months duration, described as a pulsing, tugging, sharp and aching sensation rated at 9/10 in severity. There is no reported injury, fall, or illness, associated with the onset of this pain. The patient has a history of chronic lower back pain which was managed with Sprint PNS trial, advanced degenerative changes in thoracolumbar spine and severe osteoporosis was diagnosed on a bone density scan from November 2023. Past imaging indicated thoracic vertebral height loss, notably from T8 to T12 with a old T9 compression fracture, contributing to her kyphosis and scoliosis, resulting in a forward hunch posture. Standing exacerbates her pain, but she reports being able to sleep without significant issues. - Onset: Three months ago. - Quality: Pulsing, tugging, aching, sharp sensations. - Primary Location: Mid back. - Aggravating Factors: Standing, movements, bending. - Alleviating Factors: Lying down; sleep not notably affected. - Associated Symptoms: Significant kyphosis and scoliosis, chronic low back pain with advanced DDD in thoracic and lumbar spine. - Severity: Reported as 9/10. - Affect: Pain is reported as 9/10, suggesting significant impact. - Analgesia: Uses lidocaine patches intermittently; previous tramadol use was effective in 2022; receives a single tramadol prescription currently; not on continuous opioids. - Adverse Effects: None reported from lidocaine patches or past tramadol usage. - Activities of Daily Living: Pain is exacerbated by standing or bending; she is able to sleep. - Aberrant Drug-Related Behaviors: None reported; no opioid abuse. PRIOR 09/04/23: Patient presents today for right L4 Sprint removal. The dressing was removed today. Right low back lead insertion sites look clean, dry, intact, no redness, no swelling, no pathological discharge. Area was cleansed with Chloraprep. Lead pulled with tip intact and the area was cleansed again with Chloraprep, applied Bacitracin and covered it with gauze and Tegaderm film dressing. Patient denies any pain and reports significant improvement in ADLs, mobility, sleep, and social interactions. She had a left L4 medial branch Sprint placed on 07/25/2023 but unfortunately the lead was pulled out prior to her 1 week postoperative follow up visit. Patient reports no pain and would like to hold off on revising left Sprint trial at this time. Denies any recent cough, cold, infection, fever, any significant changes in her medical history, medications or recent hospitalizations. Past Procedures: 09/04/23: Right L4 Sprint PNS removal-100% ongoing pain relief 07/25/23: Left L4 MB Sprint PNS trial, noted to be pulled out on 07/31/23. 07/11/23: Right L4 MB Sprint PNS trial-50% pain relief at 14, increased stimulation to 50 05/23/23: Bilateral Diagnostic L3-L4 DR L5 MBB-90% pain relief for 3 days PRIOR: Patient presents today for follow up to review recent thoracic, lumbar and hip xray results. Patient continues to endorce bilateral lower back pain with radiation into her buttocks and lateral hips and groin pain, worse on the right. She ambulates with slow, antalgic gait with use of cane. [facility] records were reviewed today and these are scanned in patient's chart. Patient underwent left interlaminar L1-L2 JARVIS on 05/10/22 with partial relief. We reviewed her xray imaging today. Patient has pending hip MRI to further evaluate sacral lesions and ongoing significant hip pain, right worse than left. We are also planning for diagnostic lumbar MBBs to address her axial low back symptoms for potential Sprint PNS. Given poor bone quality due to significant osteoporosis with history of multilevel compression fractures, patient is not candidate for steroid injections. Denies any recent cough, cold, infection, fever or other significant changes in medical history since last office visit. PRIOR: Patient is a pleasant 67 years old Khmer speaking female with history of severe osteoporosis in femur and osteopenia in lumbar spine (receives Prolia injections), old L1 compression fracture, h/o left ankle fracture in 2009, presents today for initial evaluation of low back pain. Patient reports she was lifting and moving a heavy furniture last year and has been walking hunched upper back since then due to pain. Her pain is mostly axial without radiation into her lower extremities. She also reports right hip pain that occasionally radiates into her groin. Reports mild left hip pain as well. Occasionally she feels tingling in her right anterior thigh that terminates above knee without weakness or burning. Right anterior thigh tingling resolves with topical cream. Patient reports she was followed at [facility] for physical therapy and back injections, last one in November and was discharged from [facility] due to no show to her appointments. She is currently taking tramadol, Tylenol, NSAIDs for pain with partial pain relief. Pain affects her daily activities, functioning, sleep, social activities, mood and quality of life. Denies any fever, abdominal pain, dizziness, shortness of breath, bladder or bowel incontinence or saddle anesthesia. Ambulates with cane. Location Lower back pain, right groin and hip pain Duration Chronic pain > 1 year Characteristics of symptom or complaint Aching, shotting, sharp, dull, stabbing, throbbing Aggravating or associated factors Movements, lifting, extending backwards, cold weather, standing, walking Relieving factors Heat therapy, rest, Tramadol Treatment PT- no improvement, injections- [facility] Medical History Essential hypertension History of primary hyperparathyroidism Non-toxic multinodular goiter Osteoporosis Surgical History Hx of lithotripsy H/O parathyroidectomy Hx of tubal ligation Hx of section Family History Father No problems noted. Mother CVD (cardiovascular disease) Heart disease Social History Household Members: Spouse and Family Household Members Other:: , son Housing: Apartment Alcohol intake: never Patient Tobacco Use Status: Former Tobacco user Current occupational status: disabled Sexual orientation: Straight/Heterosexual Gender identity: Female Review of Systems Const All systems reviewed & are unremarkable except as noted in HPI and below Physical Exam Vital Signs: Last Vital Signs Pulse 70 11/25/24 13:36 BP 148/70 H 11/25/24 13:36 Pulse Ox 97 11/25/24 13:36 Oxygen Delivery Method Room Air 11/25/24 13:36 BMI result Body Mass Index 30.2 General: Appears afebrile. Alert and oriented. Mood and affect appropriate. Anxious. Follows and participates in conversation appropriately. Respiratory effort is unlabored. No cough. Able to transition from sit to stand unassisted. Uses cane with ambulation. Ambulates with bilaterally normal heel strike and toe off. General: Yes no CVA tenderness Back/Spine/Pelvis Other: Limited thoracolumbar ROM due to pain. Sitting and walking in flexed forward position due to kyphosis. Pain in all ranges of motion, thoracolumbar extension and facet loading bilaterally reproduces moderate pain. Mild midline tenderness to palpation in the mid to lower thoracic and lumbar regions. Back: no CVA tenderness Cervical Spine: cervical ROM normal, cervical muscular tenderness and No Cervical spine tenderness Thoracic/Lumbar Spine: thoracic and lumbar spine normal to inspection, Lasegue's sign negative, straight leg raise negative bilaterally, kyphosis, pain with thoraco-lumbar ROM, paraspinal muscle tenderness, thoraco-lumbar ROM limited, Thoracic/lumbar scoliosis, thoracic spinal tenderness (mid to lower thoracic) and lumbar spinal tenderness (L4-S1) Sacroiliac joints: bilaterally tender to palpation Extrem General: Yes capillary refill normal, Yes no clubbing, cyanosis or edema and Yes no calf tenderness Results Reviewed Results Reviewed: MR lumbar spine [facility] 09/03/24 CLINICAL HISTORY: Z87.81 - Personal history of (healed) traumatic fracture MR lumbar spine without gadolinium Comparison: CR/SR - XR LUMBAR SPINE 4V MIN - 07/19/24 13:51 EDT Findings: Slightly exaggerated lumbar lordosis. Severe superior endplate compression deformity of the L1 vertebral body with mild superior endplate retropulsion without significant spinal canal narrowing. Mild superior endplate compression deformity of the L4 vertebral body without significant spinal canal narrowing. No abnormal marrow or soft tissue edema to suggest acute fractures. Cauda equina and conus medullaris within normal limits. Moderate multilevel spondylosis without significant spinal canal or neural foraminal narrowing. Paraspinous musculature intact. IMPRESSION: Redemonstration of chronic superior endplate compression deformities of the L1 and L4 vertebral bodies. No marrow or soft tissue edema to suggest acute fractures. No significant spinal canal or neural foraminal narrowing. MR thoracic spine wo con 09/03/24 Comparison: CR/SR - XR THORACIC SPINE 3V - 07/19/24 13:50 EDT Findings: Unremarkable thoracic cord. Multiple moderate chronic compression deformities, most notably of T8, T9, T11, and T12 vertebral bodies. No abnormal marrow or soft tissue edema to suggest acute fracture. 3 mm retropulsion of T11 and T12 vertebral bodies without significant spinal canal narrowing. Type 2 Modic changes of T5-T6 endplates. No significant spinal canal or neural foraminal narrowing. Paraspinous musculature intact. Visualized paraspinal soft tissues are grossly unremarkable. IMPRESSION: No evidence of acute fracture or traumatic listhesis of the thoracic spine. Multiple moderate chronic compression deformities, most notably of the T8, T9, T11, and T12 causing markedly exaggerated thoracic kyphosis. No significant spinal canal or neural foraminal narrowing. Assessment & Plan Assessment & Plan (1) Osteoporosis: Comment: Worsening bone mineral density at the spine level, -13.5 Code(s): M81.0 - Age-related osteoporosis without current pathological fracture Category: Medical (2) History of compression fracture of spine: Code(s): Z87.81 - Personal history of (healed) traumatic fracture Category: Medical (3) Thoracic degenerative disc disease: Code(s): M51.34 - Other intervertebral disc degeneration, thoracic region Category: Medical (4) Mid back pain: Code(s): M54.9 - Dorsalgia, unspecified Category: Medical (5) Lumbar degenerative disc disease: Code(s): M51.36 - Other intervertebral disc degeneration, lumbar region Category: Medical (6) Chronic low back pain: Code(s): M54.50 - Low back pain, unspecified; G89.29 - Other chronic pain Category: Medical Plan The plan includes addressing the patient's predominantly axial mid back pain with a diagnostic injection to determine eligibility for further interventions such as radiofrequency ablation or peripheral nerve stimulation. Tentatively schedule bilateral diagnostic [id number] MBB with local and fluoroscopy. Expectations, risks and benefits were reviewed.The patient is advised to consider the options and contact the clinic to proceed with the preferred treatment. No new or acute fractures were identified, and the focus remains on managing existing conditions and alleviating pain. All questions and concerns have been answered and patient agreed with the plan. Follow up as needed. Patient was informed and verbally consented to the use of an ambient scribe for clinic note documentation during this visit. Coding Level of Care Code Est Pt Level 4 (02622) Complex EM visit Add On G2211 Diagnoses Osteoporosis M81.0 History of compression fracture of spine Z87.81 Thoracic degenerative disc disease M51.34 Mid back pain M54.9 Lumbar degenerative disc disease M51.36 Chronic low back pain M54.50; G89.29
[2024-11-25 13:36] VITALS: BP 148/70; PULSE 70; O2SAT 97; BMI 30.2
--- OUTSIDE RECORDS SUMMARY | 2024-11-25 13:44 | XMS_ITS | Encounter Summary ---
Author Organization [employer] Address [address] [place] [address] [address] [place] [address] Care Team Providers Care Appraiser Art Name Role Phone Kimberlee Balderrama MD Primary Care Provide r Encounter Details Date Type Department Care Team (Late st Contact Info) Description 10/12/2022 Orders Only [facility] [address] [place] [address] [phone] Terri Cisneros LPN Social History Tobacco Use [...] Description 12/26/2024 2:30 PM EDT Office Visit [facility] [address] [place] [address] [phone] Kimberlee Balderrama MD [address] [place] [address] [phone] documented as of this encounter Visit Diagnoses Not on filedocumented in this encounter Additional Health Concerns Assessment Noted Time PHQ-9 Depression Total Score: 11 023 12:13 PM EST documented as of this encounter Care Teams Appraiser Art Relationship Specialty Start Date End Date Kimberlee Balderrama MD [address] [place] [address] PCP - General Family Medicine 06/09/20 documented as of this encounter
== END 2024-11-25 13:51 | disposition home or self-care (01) ==
LOC: HO.PMC 13:29
PROVIDERS: PCP Internal Medicine; Visit Provider Nurse Practitioner Family
DX: M81.0 Age-related osteoporosis without current pathological fracture (principal); Z87.81 Personal history of (healed) traumatic fracture; M51.34 Other intervertebral disc degeneration, thoracic region; M54.9 Dorsalgia, unspecified; M51.369 Other intervertebral disc degeneration, lumbar region without mention of lumbar back pain or lower extremity pain; M54.50 Low back pain, unspecified; G89.29 Other chronic pain
CPT/HCPCS: 99214; G2211

== ENCOUNTER → 2024-11-25 13:28 | Outpatient (BNVA) | payer OTHER, SELFPAY | PROVIDERS: PCP Internal Medicine; Visit Provider Nurse Practitioner Family | DX: Z71.2 Person consulting for explanation of examination or test findings (principal); M81.0 Age-related osteoporosis without current pathological fracture; G89.29 Other chronic pain; M51.360 Other intervertebral disc degeneration, lumbar region with discogenic back pain only; M54.9 Dorsalgia, unspecified; M51.34 Other intervertebral disc degeneration, thoracic region; Z87.81 Personal history of (healed) traumatic fracture | CPT/HCPCS: 99212 ==

== ENCOUNTER 2024-11-27 13:49 | Outpatient (AMB) | payer OTHER, SELFPAY ==
--- NOTE | 2024-11-27 14:08 | AM.OFFVISNUR ---
Intake Visit Reasons: Evenity #3 Allergies butalbital (From FIORICET) Allergy (Unknown, Verified 11/25/24 13:36) SWELLING,HIVES pepper (genus Capsicum) (PEPPER) Allergy (Unknown, Verified 11/25/24 13:36) ITCHING acetaminophen (Fioricet) Adverse Reaction (Unknown, Verified 11/25/24 13:36) swelling caffeine (Fioricet) Adverse Reaction (Unknown, Verified 11/25/24 13:36) swelling Fioricet Allergy (Unknown, Uncoded 11/11/24 13:53) swollen Office Meds romosozumab-aqqg 210 mg/2.34 mL(105 mg/1.17 mL x2)subcutaneous syringe Performing Provider: Pedro Mitchell MD Performing Location: [facility] [place] Endocrinology Administered by: Zulma Lua RN on 11/27/24 14:08 Dose Route Admin Location Dispensed Lot Number Expiration Date NDC Speech Pathology Supervisor 210 mg subcut bilateral upper arms 2.34 mL [id number] 01/21/27 03394-677-64 AMGEN Total Dispensed Waste 2.34 mL 0 % Comments: Pt accompanied by granddaughter who interpreted visit. 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 No adverse reactions reported from previous injection. Pt tolerated injection well. Pt scheduled in 4 weeks for next appt. Assessment & Plan Assessment & Plan Orders: Orders AMB Romosozumab Injection Patient Supplied Today M81.0 - Age-related osteoporosis without current pathological fracture Coding
--- OUTSIDE RECORDS SUMMARY | 2024-11-27 14:18 | XMS_ITS | Encounter Summary ---
Author Organization [employer] Address [address] [place] [address] [address] [place] [address] Care Team Providers Care Senior Payroll Manager Name Role Phone Kimberlee Balderrama MD Primary Care Provide r Encounter Details Date Type Department Care Team (Late st Contact Info) Description 10/12/2022 Orders Only [facility] [address] [place] [address] [phone] Terri Cisneros LPN Social History Tobacco Use [...] Description 12/26/2024 2:30 PM EDT Office Visit [facility] [address] [place] [address] [phone] Kimberlee Balderrama MD [address] [place] [address] [phone] documented as of this encounter Visit Diagnoses Not on filedocumented in this encounter Additional Health Concerns Assessment Noted Time PHQ-9 Depression Total Score: 11 023 12:13 PM EST documented as of this encounter Care Teams Senior Payroll Manager Relationship Specialty Start Date End Date Kimberlee Balderrama MD [address] [place] [address] PCP - General Family Medicine 06/09/20 documented as of this encounter
== END 2024-11-27 14:06 | disposition home or self-care (01) ==
LOC: HO.ENCR 13:49
PROVIDERS: PCP Internal Medicine; Visit Provider Internal Medicine Endocrinology, Diabetes & Metabolism
DX: M81.0 Age-related osteoporosis without current pathological fracture (principal)

== ENCOUNTER → 2024-11-27 13:49 | Outpatient (BNVA) | payer OTHER, SELFPAY | PROVIDERS: PCP Internal Medicine; Visit Provider Internal Medicine Endocrinology, Diabetes & Metabolism | DX: M81.0 Age-related osteoporosis without current pathological fracture (principal); Z79.620 Long term (current) use of immunosuppressive biologic | CPT/HCPCS: 96372; J3111 ==

== ENCOUNTER 2024-11-28 12:50 | Outpatient (AMB) | payer MEDICARE, MEDICAID, SELFPAY ==
--- OUTSIDE RECORDS SUMMARY | 2024-11-28 12:53 | XMS_ITS | Encounter Summary ---
Author Organization [employer] Address [address] [place] [address] [address] [place] [address] Care Team Providers Care Vocational Rehab Consultant Name Role Phone Kimberlee Balderrama MD Primary Care Provide r Encounter Details Date Type Department Care Team (Late st Contact Info) Description 10/12/2022 Orders Only [facility] [address] [place] [address] [phone] Terri Cisneros LPN Social History Tobacco Use [...] Description 12/26/2024 2:30 PM EDT Office Visit [facility] [address] [place] [address] [phone] Kimberlee Balderrama MD [address] [place] [address] [phone] documented as of this encounter Visit Diagnoses Not on filedocumented in this encounter Additional Health Concerns Assessment Noted Time PHQ-9 Depression Total Score: 11 023 12:13 PM EST documented as of this encounter Care Teams Vocational Rehab Consultant Relationship Specialty Start Date End Date Kimberlee Balderrama MD [address] [place] [address] PCP - General Family Medicine 06/09/20 documented as of this encounter
[2024-11-28 12:55] VITALS: BP 122/68; PULSE 64; BMI 28.7
--- NOTE | 2024-11-28 12:55 | A.OFFVIS_ITS ---
Vital Signs 11/28/24 12:55 Height 4 ft 7 in Weight 123 lb 7.342 oz BMI 28.7 BP 122/68 Blood Pressure Location Lt brachial Position Sitting Pulse 64 Pulse Source Monitor Intake Visit Reasons: 1 yr f/up Injection Machine Operator Required: Yes Injection Machine Operator Name: MARVIN [id number] Allergies butalbital (From FIORICET) Allergy (Unknown, Verified 11/25/24 13:36) SWELLING,HIVES pepper (genus Capsicum) (PEPPER) Allergy (Unknown, Verified 11/25/24 13:36) ITCHING acetaminophen (Fioricet) Adverse Reaction (Unknown, Verified 11/25/24 13:36) swelling caffeine (Fioricet) Adverse Reaction (Unknown, Verified 11/25/24 13:36) swelling Fioricet Allergy (Unknown, Uncoded 11/11/24 13:53) swollen Medication List - Last Reconciled 11/28/24 by Carlos Chacon MD calcium citrate 250 mg PO BID 30 days cholecalciferol (vitamin D3) 50 mcg PO DAILY 30 days diclofenac sodium 50 mg PO BID gabapentin 100 mg PO BEDTIME 30 days lisinopril 40 mg PO DAILY romosozumab-aqqg (Evenity) 210 mg (2.34 mL) subcut .qmonth simvastatin 20 mg PO BEDTIME tramadol 50 mg PO TID PRN HPI Comments Details: Kimberlee returns for follow-up. She has a history of mitral as well as tricuspid regurgitation. No documented coronary disease, myocardial infarction. Overall no cardiac complaints and she states she feels well. [facility] Medical History Essential hypertension History of primary hyperparathyroidism Non-toxic multinodular goiter Osteoporosis Surgical History Hx of lithotripsy H/O parathyroidectomy Hx of tubal ligation Hx of section Family History Father No problems noted. Mother CVD (cardiovascular disease) Heart disease Social History Household Members: Spouse and Family Household Members Other:: , son Housing: Apartment Alcohol intake: never Patient Tobacco Use Status: Former Tobacco user Current occupational status: disabled Sexual orientation: Straight/Heterosexual Gender identity: Female Review of Systems Const Denies weakness ENT Denies dizziness Card Denies chest pain, Denies chest pain with activity, Denies syncope, Denies rapid heart rate, Denies pedal edema, Denies edema, Denies leg edema, Denies lightheadedness, Denies palpitations, Denies dyspnea, Denies dyspnea on exertion and Denies orthopnea Resp Denies cough, Denies dyspnea and Denies dyspnea on exertion GI Denies hematochezia and Denies change in stool character Musc Denies abnormal gait, Denies muscle cramps, Denies muscle weakness, Denies numbness, Denies radiating pain into limb and Denies tingling Neuro Denies abnormal gait, Denies dizziness, Denies syncope, Denies numbness, Denies tingling and Denies weakness Endo Denies palpitations Physical Exam Vital Signs: Last Vital Signs Pulse 64 11/28/24 12:55 BP 122/68 11/28/24 12:55 BMI result Body Mass Index 28.7 Const General: comfortable and no acute distress Orientation/consciousness: patient oriented x3 HEENT Other: Unremarkable Head: Yes normal to inspection Neck Neck: Yes normal visual inspection Chest Chest palpation & inspection: normal inspection of the chest Resp Auscultation: clear to auscultation bilaterally Cardio Palpation: normal PMI Heart sounds: S1 normal heart sound present, S2 normal heart sound present, no gallops, Murmur heart sound present systolic II/ and no rubs GI Palpation (GI): Soft to palpation Back/Spine/Pelvis Other: unremarkable Skin General skin exam: no rashes or lesions noted Neuro General: patient oriented x3 Extrem General: Yes normal to inspection Psych Mental Status: mental status grossly normal Office Procedures EKG Details: EKG with underlying sinus rhythm with supraventricular ectopy; minimal criteria for LVH; [place] [id number], Complete Assessment & Plan Assessment & Plan (1) Valvular heart disease: Code(s): I38 - Endocarditis, valve unspecified Category: Medical Plan: In the most recent echocardiogram, mild mitral regurgitation and moderate tricuspid regurgitation. No specific implications. Maybe followed on echocardiogram periodically. (2) Essential hypertension: Code(s): I10 - Essential (primary) hypertension Category: Medical Plan: On lisinopril. Stable. (3) Pulmonary hypertension: Code(s): I27.20 - Pulmonary hypertension, unspecified Category: Medical Plan: Mild pulmonary hypertension the last study. No specific implications. (4) Atrial arrhythmia: Code(s): I49.8 - Other specified cardiac arrhythmias Category: Medical Plan: EKG shows sinus rhythm with frequent supraventricular ectopy. Pattern of bigeminy. Increased chance of atrial fibrillation in the future. In prior Holter, underlying rhythm is sinus with an average rate of 68/Min. Frequent PACs with burden of 3%. Short atrial runs. Plan Discussion Notes I discussed with the patient that her leaky heart valves do not currently require intervention as they are not severely compromised. We agreed to monitor her condition and plan for a follow-up in one year unless she experiences any new symptoms. Patient was informed and verbally consented to the use of an ambient scribe for clinic note documentation during this visit. Patient Instructions: - Continue taking prescribed medications as directed. - Monitor for any new symptoms such as chest pain or breathing difficulties and report them immediately. - Return for a follow-up appointment in one year unless symptoms develop sooner. Coding Level of Care Code Est Pt Level 4 (98568) Diagnoses Valvular heart disease I38 Essential hypertension I10 Pulmonary hypertension I27.20 Atrial arrhythmia I49.8 CPT Codes EKG - CPT: 26457-[id number], Complete ([id number])
== END 2024-11-28 13:22 | disposition home or self-care (01) ==
LOC: HO.HCS 12:51
PROVIDERS: PCP Internal Medicine; Visit Provider Internal Medicine
DX: I38 Endocarditis, valve unspecified (principal); I10 Essential (primary) hypertension; I27.20 Pulmonary hypertension, unspecified; I49.8 Other specified cardiac arrhythmias
CPT/HCPCS: 93010; 99214

== ENCOUNTER → 2024-11-28 12:50 | Outpatient (BNVA) | payer OTHER, SELFPAY | PROVIDERS: PCP Internal Medicine; Visit Provider Internal Medicine | DX: I10 Essential (primary) hypertension (principal); I49.8 Other specified cardiac arrhythmias; I27.20 Pulmonary hypertension, unspecified; I38 Endocarditis, valve unspecified | CPT/HCPCS: 93005; 99212 ==

== ENCOUNTER 2024-12-25 13:48 | Outpatient (AMB) | payer OTHER, SELFPAY ==
--- NOTE | 2024-12-25 14:04 | AM.OFFVISNUR ---
Intake Visit Reasons: Evenity #4 Allergies butalbital (From FIORICET) Allergy (Unknown, Verified 11/25/24 13:36) SWELLING,HIVES pepper (genus Capsicum) (PEPPER) Allergy (Unknown, Verified 11/25/24 13:36) ITCHING acetaminophen (Fioricet) Adverse Reaction (Unknown, Verified 11/25/24 13:36) swelling caffeine (Fioricet) Adverse Reaction (Unknown, Verified 11/25/24 13:36) swelling Fioricet Allergy (Unknown, Uncoded 11/11/24 13:53) swollen Office Meds romosozumab-aqqg 210 mg/2.34 mL(105 mg/1.17 mL x2)subcutaneous syringe Performing Provider: Pedro Mitchell MD [place] [facility] [place] Administered by: Zulma Lua RN on 12/25/24 14:04 Dose Route Admin Location Dispensed Lot Number Expiration Date NDC [employer] Officer 210 mg subcut bilateral upper arms 2.34 mL [id number] 03/23/27 90101-861-51 AMGEN Total Dispensed Waste 2.34 mL 0 % Comments: Pt accompanied by granddaughter who interpreted visit. Pt declined design verification engineer. No adverse reactions reported from previous injection. Pt tolerated injection well. Pt scheduled in 4 weeks for next appt. No further questions at this time. Assessment & Plan Assessment & Plan Orders: Orders AMB Romosozumab Injection Patient Supplied Today M81.0 - Age-related osteoporosis without current pathological fracture Coding
--- OUTSIDE RECORDS SUMMARY | 2024-12-25 15:57 | XMS_ITS | Encounter Summary ---
Author Organization [employer] Address [address] [facility] [facility] [address] [place] [address] Care Team Providers Care Patrol Police Lieutenant Name Role Phone Kimberlee Balderrama MD Primary Care Provide r Reason for Visit * Reason Onset Date Comments Chart Prep 12/25/2024 Encounter Details Date Type Department Care Team ([facility] st Contact Info) Description 12/25/2024 Telephone [facility] [address] [place] [address] Kimberlee Balderrama MD [address] [place] [address] Chart Prep Social History Tobacco Use Types Packs/Day Years Used Date Smoking Tobacco: Former Cigarettes Passive Smoke Exposure: Past Smokeless Tobacco: Never Alcohol Use Standard Drinks/Week Comments Never 0 (1 standard drink = 0.6 oz pur e alcohol) Depression Answer Date Recorded Patient Health Questionnaire-9 Score 7 09/25/2024 Patient Health Questionnaire-9 Score 7 09/25/2024 Last PHQ-9: Questionnaire Data Not on file 0 09/25/2024 Housing Stability Answer Date Recorded What is [...] Answer Date Recorded Patient Health Questionnaire-2 Score 3 09/25/2024 Internet Access Answer Date Recorded Internet Access [...] AM EDT documented as of this encounter Miscellaneous Notes * Telephone Encounter - Christine Monique MA - 12/25/2024 3:29 PM EDT Chart Prep Labs: done Images: done Referrals: complete Vaccines due: Covid, Flu, RSV, and DTAP Screenings: colonoscopy Overdue care gaps: PHQ-9 and RANDI-7 documented in this encounter Plan of Treatment Upcoming Encounters Date Type Department Care Team (Late st Contact Info) Description 12/26/2024 2:30 PM EDT Office Visit [facility] [address] [place] [address] Kimberlee Balderrama MD [address] [place] [address] documented as of this encounter Visit Diagnoses Not on filedocumented in this encounter Additional Health Concerns Assessment Noted Time PHQ-9 Depression Total Score: 7 09/26/19 25 2:12 PM EDT documented as of this encounter Care Teams Patrol Police Lieutenant Relationship Specialty Start Date End Date Kimberlee Balderrama MD [address] [place] [phone] PCP - General Family Medicine 06/09/20 documented as of this encounter
--- OUTSIDE RECORDS SUMMARY | 2024-12-25 15:58 | XMS_ITS | Encounter Summary ---
Author Organization [employer] Address [address] [place] [address] [address] [place] [address] Care Team Providers Care Director Of Database Marketing Name Role Phone Kimberlee Balderrama MD Primary Care Provide r Encounter Details Date Type Department Care Team (Late st Contact Info) Description 10/12/2022 Orders Only [facility] [address] [place] [address] [phone] Terri Cisneros LPN Social History Tobacco Use [...] Description 12/26/2024 2:30 PM EDT Office Visit [facility] [address] [place] [address] [phone] Kimberlee Balderrama MD [address] [place] [address] [phone] documented as of this encounter Visit Diagnoses Not on filedocumented in this encounter Additional Health Concerns Assessment Noted Time PHQ-9 Depression Total Score: 11 023 12:13 PM EST documented as of this encounter Care Teams Director Of Database Marketing Relationship Specialty Start Date End Date Kimberlee Balderrama MD [address] [place] [address] PCP - General Family Medicine 06/09/20 documented as of this encounter
--- OUTSIDE RECORDS SUMMARY | 2024-12-25 15:58 | XMS_ITS | Clinical Summary ---
Author Organization [employer] Address [address] [place] [address] 7[address] [place] [address] Care Team Providers Care Sfdc Developer Name Role Phone Kimberlee Balderrama MD Primary Care Provide r Allergies Active Allergy Reactions Criticality Noted Date Comments Butalbital Other reaction(s): Angioedema , unspecified Caffeine Other reaction(s): Angioedema , unspecified Odiyrisohx-Dpxu-Oojxzhiu 08/30/2022 Omeprazole 12/16/2013 Medications denosumab (Prolia) 60 MG/ML solution prefilled syringe Inject 1 mL under the skin. 5 Active omega-3 (Fish Oil) 1000 MG capsule Take 1,000 mg by mouth 2 times daily. 2 Active polyethylene glycol, PEG, 3350 (Glycolax) 17 GM/SCOOP powder TAKE 17 GM MIXED IN 8 OUNCES OF WATER, COFFEE OR TEA ONCE DAILY 2 Active calcium citrate 315 mg + D2 6.25 mcg (Calcitrate) tabletIndications: Age-related osteoporosis with current pathological fracture with routine healing, subsequent encounter Take 1 tablet by mouth 2 times daily. 60 tablet 11 3 Active Simethicone Ultra Strength 180 MG capsule TAKE 1 CAPSULE BY MOUTH UP TO TWICE DAILY FOR GAS 100 capsule 1 3 Active simethicone (Mylicon,Gas-X) 180 MG capsule take up to twice daily for gas or bloating 2 Active Lidocaine 4 % patchIndications:C hronic bilateral low back pain without sciatica Apply 1 patch topically in the morning. Remove after 12 hours. 30 patch 11 3 Active diclofenac (Voltaren) 50 MG EC tabletIndications: Primary osteoarthritis involving multiple joints,Bilateral hip pain,Chronic bilateral low back pain without sciatica TAKE 1 TABLET BY MOUTH TWICE DAILY, DO NOT BREAK, CRUSH, DISSOLVE OR CHEW 60 tablet 4 Active simvastatin (Zocor) 20 MG tabletIndications: Dyslipidemia TAKE 1 TABLET BY MOUTH AT BEDTIME 30 tablet 3 4 Active acetaminophen (Tylenol 8 Hour) 650 MG ER tabletIndications: Degeneration of intervertebral disc of lumbosacral region with discogenic back pain,Primary osteoarthritis involving multiple joints TAKE 2 TABLETS BY MOUTH EVERY 8 HOURS NEEDED. DO NOT BREAK, CRUSH, DISSOLVE OR CHEW. 180 tablet 2 5 Active lisinopril 40 MG tabletIndications: Primary hypertension TAKE 1 TABLET BY MOUTH EVERY DAY 90 tablet 3 5 Active cholecalciferol (D3 Super Strength) 50 MCG (2000 UT) capsuleIndications :Age-related osteoporosis with current pathological fracture with routine healing, subsequent encounter Take 1 capsule (50 mcg) by mouth Once per day. 30 capsule 11 5 Active simvastatin (Zocor) 20 MG tabletIndications: Primary hypertension Take 1 tablet (20 mg) by mouth at bedtime. 30 tablet 11 5 06/26/19 26 Active Active Problems Problem Noted Date Diagnosed Date Vaginal itching 09/25/2024 Degeneration of lumbar or lumbosacral interverte bral [...] current pathological fracture with delayed healing 08/23/2022 Assessment & Plan (09/25/2024 4:57 PM EDT): Patient seen for she has an upcoming appointment with endocrinology and it is likely that there will not change her osteoporosis treatment, I advised not to miss this appointment I prescribed for her short course of tramadol (I make sure that 1 that is cannot be dispensed around tablet) I advised to continue to follow-up with pain management Hypertensive disorder 08/23/2022 Umbilical hernia without obstruction [...] mass. Order abdominal US. FU results of [facility] biopsy. Weight loss 05/20/2022 Assessment & Plan [...] 03/16/2015 Essential hypertension 03/16/2015 Assessment & Plan (09/25/2024 4:56 PM EDT): Today blood pressure is elevated most likely because she did not took her medication I advised to take her medication every day without missing any dose and low- sodium diet I also advised to log her blood pressure at home log was provided and report back if blood pressure is at home more than 140/90 in spite of taking the medication Assessment & Plan (06/25/2024 3:19 PM EST): [...] Encounters Date Type Department Care Team Description 12/25/[address] [address] Kimberlee Balderrama MD Chart Prep 12/17/2024 Patient Outreach [address] [address] Kimberlee Balderrama MD Pre-visit Planning (SDOH screening completed on 06/25/2024) 10/01/[address] [address] Kimberlee Balderrama MD SEP RECALL 09/25/2024 2:00 PM EDT Office Visit [address] [address] Kimberlee Balderrama MD Compression fracture of L1 vertebra, sequela (Primary Dx); Age-related osteoporosis with current pathological fracture with delayed healing; Essential hypertension; Vaginal itching; Screening for colon cancer 09/25/2024 Travel 09/24/[address] [address] Kimberlee Balderrama MD chart prep from Last 3 Months Immunizations Immunization Administration Dates Next Due Hep B, Adolescent [...] Sign Reading Time Taken Comments Blood Pressure 162/90 09/25/2024 3:05 PM EDT Pulse 52 09/25/2024 2:11 PM EDT Temperature 36.4 C (97.5 F) 09/25/2024 2:11 PM EDT Respiratory Rate 20 09/25/2024 2:11 PM EDT Oxygen Saturation 98% 09/25/2024 2:11 PM EDT Inhaled Oxygen Concentration - - Weight 58.7 kg (129 lb 6.4 oz) 09/25/2024 2:11 P M EDT Height 137.2 cm (4' 6 ) 09/25/2024 2:11 PM EDT Body Mass Index 31.2 09/25/2024 2:11 PM EDT Plan of Treatment Upcoming Encounters Date Type Department Care Team (Late st Contact Info) Description 12/26/2024 2:30 PM EDT Office Visit [facility] [address] [place] [address] Kimberlee Balderrama MD [address] [place] [address] Health Maintenance Due Date Last Done Comments CT Colonography 1955 Colonoscopy 1955 Colorectal Cancer Screening 1955 FIT DNA/Cologuard 1955 FIT 1955 FOBT 1955 Sigmoidoscopy 1955 Hepatitis C Screening 1972 RSV Patients and Patients Aged 60 years or older (1 - Risk 60-74 years 1-dose series) 2014 DTaP/Tdap/Td Vaccines (2 - Td or Tdap) 08/07/2022 08/07/2012, 04/30/2009 COVID-19 Vaccine ( season) 2024 04/05/2023, 05/17/2022, 09/15/2021, Additional history exists Influenza Vaccine (#1) 2024 , 02/20/2023, 03/14/2022, Additional history exists Alcohol/Substance Use Screening 06/25/2025 06/25/2024 SDOH Screening 06/25/2025 06/25/2024 Mammogram 07/03/2025 07/03/2024, 05/25, 02/24/2021, Additional history exists Depression Screening 09/25/2025 09/25/2024, 09/26/19 Tobacco Screening 09/25/2025 09/25/2024 Lipid Panel 06/07/2027 06/07/2022, 12/24, 08/11/2020 Hepatitis B Vaccines Aged Out 06/22/2010, 03/03/2009, 01/26/2009 No longer eligible based on patient's age to complete this topic Zoster Vaccines Completed 06/24/2019, 03/24, 03/16/2015 Pneumococcal Vaccine: 50+ Years Completed 03/14/2022, 01/30/2020 HIB Vaccines Aged Out No longer eligi [...] patient's age to complete this topic Meningococcal B Vaccine Aged Out No l onger eligible based on patient's age to complete [...] Procedure Name Priority Date/Time Associated Diagnosis Comments LAB COLOGUARD COLON CANCER SCREEN- Unsuccessful Attempt Routine 11/13/2024 3:38 AM EDT Screening for colon cancer BI MAMMOGRAM SCREENING TOMOSYNTHESIS BILATERAL Routine 07/03/2024 2:30 PM EDT LIPID PANEL WITH REFLEX TO DIRECT LDL Routine 06/07/2022 9:37 AM EST Primary hypertension from Last 3 Months or Most Recently Relevant to Health Maintenance Results * Cologuard?? colon cancer screening (11/13/2024 3:38 AM EDT) - Unsuccessful Attempt Cologuard Result Sample Could Not Be Processed 9 N/A 11/13/2024 3:38 AM EDT [facility] (CLIA #:[id number]) Comment: The Cologuard (TM) test was assigned to this specimen. An empty collection kit was received in the laboratory. The patient will be contacted to initiate a new sample collection. Stool specimen (specimen) 11/12/2024 10:57 AM EDT iKmberlee Forrest MD LAB MOLECULAR DIAGNOS TICS ORDERABLES Final Result [facility] (CLIA #:[id number]) [address] [place], [place] [address], [place] [phone] * BI Mammogram Screening Tomosynthesis Bilateral (07/03/2024 2:30 PM EDT) Anatomical Region Laterality Modality Breast Bilateral Mammography 07/03/2024 2:30 PM EDT Narrative 07/12/2024 3:33 PM EDT [facility] [address] [place] [address] Dr. [place], [place] [address] Mammography Report Signed Patient: Kimberlee Seaman MR#: [id number] 857 : 1955 Acct:[id number] Age/Sex: 68 / F ADM Date: 07/03/24 Loc: MAMMO Attending Dr: Kimberlee Forrest MD Ordering Physician: Kimberlee Balderrama MD Results: 1Negative Date of Service: 07/03/24 Follow Up: 1 Year From Orig inal Mammogram Procedure(s): MM tomosynthesis screening BI Accession Number(s): [id number] cc: Kimberlee Balderrama MD EXAMINATION: MM SCREENING DIGITAL BREAST TOMOSYNTHESIS, BILATERAL CLINICAL INFORMATION: Screening. Asymptomatic. COMPARISON: Mammography: Comparison is made with available priors TECHNIQUE: Digital breast mammography with tomosynthesis is performed in both the craniocaudal and mediolateral oblique views along with computer-aided detection (CAD). FINDINGS: The breasts are heterogeneously dense, which may obscure small masses (ACR BI-RADS breast composition Category c). There are no significant masses, abnormal calcifications, [...] target due date for their next mammogram. Electronically signed by: Teresa Braxton DO 07/12/2024 03:30 PM EDT Dictated By: Teresa Braxton DO Signed By: <Electronically signed by Teresa Braxton DO in OV> 07/12/24 1530 DD/ 1430 TD/TT: 07/03/24 1457 Quality Assurance Nurse: Procedure Note Donotuseinterpreter, Image - 07/12/2024 [facility] [address] [place] [address] Mammography Report Signed Patient: Kimberlee Seaman MMR#: [id number] : 5Acct:[id number] Age/Sex: 68 / FADM Date: 07/03/24 Loc: MAMMO Attending Dr: Kimberlee Forrest MD Ordering Physician: Kimberlee Balderrama MDResults: 1Negative Date of Service: 07/03/24Follow Up: 1 Year From Orig inal Mammogram Procedure(s): MM tomosynthesis screening BI Accession Number(s): [id number] cc: Kimberlee Balderrama MD EXAMINATION: MM SCREENING DIGITAL BREAST TOMOSYNTHESIS, BILATERAL CLINICAL INFORMATION: Screening. Asymptomatic. COMPARISON: Mammography: Comparison is made with available priors TECHNIQUE: Digital breast mammography with tomosynthesis is performed in both the craniocaudal and mediolateral oblique views along with computer-aided detection (CAD). FINDINGS: The breasts are heterogeneously dense, which may obscure small masses (ACR BI-RADS breast composition Category c). There are no significant masses, abnormal calcifications, [...] target due date for their next mammogram. Electronically signed by: Teresa Braxton DO 07/12/2024 03:30 PM EDT Dictated By: Teresa Braxton DO Signed By: <Electronically signed by Teresa Braxton DO in OV> 07/12/24 1530 DD/ 1430 TD/TT: 07/03/24 1457 Quality Assurance Nurse: Kimberlee Forrest MD IMG BI PROCEDURES Fin al Result * (ABNORMAL) Lipid Panel with Reflex to Direct LDL (06/07/2022 9:37 AM EST) Cholesterol, Total 185 <200 mg/dL [facility] [place] [facility] HDL Cholesterol 41(L) > OR = 50 mg/dL [facility] [place] [facility] Triglycerides 97 <150 mg/dL [facility] [place] [facility] LDL Cholesterol 124(H) mg/dL (calc) [facility] [place] [facility] Comment: Reference range: <100 Desirable range <100 mg/dL for primary prevention; <70 mg/dL for patients with CHD or diabetic patients with > or = 2 CHD risk factors. LDL-C is now calculated using the Reji calculation, which is a validated novel method providing better accuracy than the Friedewald equation in the estimation of LDL-C. Yash DUMONT et al. RAO. 2013;310(19): 0138-2076 (http://Cell>Point.Freever/faq/NCR432) Chol/HDLC Ratio 4.5 <5.0 (calc) [facility] Non-HDL Cholesterol 144(H) <130 mg/dL (calc) [facility] Comment: For patients with diabetes plus 1 major ASCVD risk factor, treating to a non-HDL-C goal of <100 mg/dL (LDL-C of <70 mg/dL) is considered a therapeutic option. 06/07/2022 9:37 AM EST 06/07/2022 9:38 AM EST Narrative [facility] - 06/07/2022 7:39 PM EST FASTING:YES FASTING: YES Darlene Saldivar MD LAB BLOOD ORDERABLES Fin al Result [facility] [address], [place] [address] [facility] [place] [facility] [address] [facility], (Nl[address]) [place] [address] from Last 3 Months or Most Recently Relevant to Health Maintenance Insurance [facility] [employer] (HMO D-SNP) [place] [id number] Care Teams Sfdc Developer Relationship Specialty Start Date End Date Kimberlee Balderrama MD [address] [place] [id number] PCP - General Family Medicine 06/09/20
== END 2024-12-25 14:03 | disposition home or self-care (01) ==
LOC: HO.ENCR 13:49
PROVIDERS: PCP Internal Medicine; Visit Provider Internal Medicine Endocrinology, Diabetes & Metabolism
DX: M81.0 Age-related osteoporosis without current pathological fracture (principal)

== ENCOUNTER → 2024-12-25 13:48 | Outpatient (BNVA) | payer OTHER, SELFPAY | PROVIDERS: PCP Internal Medicine; Visit Provider Internal Medicine Endocrinology, Diabetes & Metabolism | DX: M81.0 Age-related osteoporosis without current pathological fracture (principal) | CPT/HCPCS: 96372; J3111 ==

== ENCOUNTER 2025-01-22 14:03 | Outpatient (AMB) | payer OTHER, SELFPAY ==
--- NOTE | 2025-01-22 14:23 | AM.OFFVISNUR ---
Intake Visit Reasons: Evenity #5 Allergies butalbital (From FIORICET) Allergy (Unknown, Verified 11/25/24 13:36) SWELLING,HIVES pepper (genus Capsicum) (PEPPER) Allergy (Unknown, Verified 11/25/24 13:36) ITCHING acetaminophen (Fioricet) Adverse Reaction (Unknown, Verified 11/25/24 13:36) swelling caffeine (Fioricet) Adverse Reaction (Unknown, Verified 11/25/24 13:36) swelling Fioricet Allergy (Unknown, Uncoded 11/11/24 13:53) swollen Office Meds romosozumab-aqqg 210 mg/2.34 mL(105 mg/1.17 mL x2)subcutaneous syringe Performing Provider: Pedro Mitchell MD [place]forming Location[place] [facility] Administered by: Cate Forman RN on 01/22/25 14:23 Dose Route Admin Location Dispensed Lot Number Expiration Date NDC Appraiser Timber 210 mg subcut 2.34 mL [id number] 03/23/27 90942-167-57 [facility] Total Dispensed Waste 2.34 mL 0 % Comments: Patient accompanied by grand-daughter Max, rn interventional was declined. Patient denies any adverse reactions to previous injections besides a slight bump at injection site that resolved the next day. Patient advised this can happen but should resolve as it did. Advise to continue to monitor and let us know if she has any redness or warmth with the raised area. Patient tolerated injection well and scheduled for f/u in x4 weeks. Assessment & Plan Assessment & Plan Orders: Orders AMB Romosozumab Injection Patient Supplied Today M81.0 - Age-related osteoporosis without current pathological fracture Coding
--- OUTSIDE RECORDS SUMMARY | 2025-01-22 15:15 | XMS_ITS | Encounter Summary ---
Author Organization [employer] Address [address] [place] [address] 7t [place] [address] Care Team Providers Care Orthotist Prosthetist Name Role Phone Kimberlee Balderrama MD Primary Care Provide r Encounter Details Date Type Department Care Team (Late st Contact Info) Description 10/12/2022 Orders Only [facility] [address] [place] [address] Terri Cisneros LPN Social History Tobacco Use [...] documented as of this encounter Care Teams Orthotist Prosthetist Relationship Specialty Start Date End Date Kimberlee Balderrama MD [address] [place] [address] PCP - General Family Medicine 06/09/20 documented as of this encounter
--- OUTSIDE RECORDS SUMMARY | 2025-01-22 15:15 | XMS_ITS | Clinical Summary ---
Author Organization [employer] Address [address] [place] [address] 7t [place] [address] Care Team Providers Care Reference Assistant Name Role Phone Kimberlee Balderrama MD Primary Care Provide r Allergies Active Allergy Reactions Criticality Noted Date Comments Butalbital Other reaction(s): Angioedema , unspecified Caffeine Other reaction(s): Angioedema , unspecified Tzrkdhbrgd-Frkc-Izidwqbi 08/30/2022 Omeprazole 12/16/2013 Medications denosumab (Prolia) 60 [...] CHEW. 180 tablet 2 06/26/19 25 Active cholecalciferol (D3 Super Strength) 50 MCG (2000 UT) capsuleIndication s:Age-related osteoporosis with current pathological fracture with routine healing, subsequent encounter Take 1 capsule (50 mcg) by mouth Once per day. 30 capsule 11 06/26/19 25 Active simvastatin (Zocor) 20 MG tabletIndications :Primary hypertension Take 1 tablet (20 mg) by mouth at bedtime. 30 tablet 11 06/26/19 25 2025 Active lisinopril 40 MG tabletIndications :Primary hypertension TAKE 1 TABLET BY MOUTH EVERY DAY 90 tablet 3 12/27/19 25 Active nystatin (Mycostatin) 012913 UNIT/GM powderIndications :Intertrigo Apply topically 2 times daily. 60 g 1 12/27/19 25 2025 Active lisinopril 40 MG tabletIndications :Primary hypertension TAKE 1 TABLET BY MOUTH EVERY DAY 90 tablet 3 06/26/19 25 2024 Discontinued(R eorder (will not trigger notification to Pharmacy)) RSV Pre-Fusion F A&B Vac Rcmb (Abrysvo) 120 MCG/0.5ML reconstituted solutionIndicatio ns:Primary hypertension Inject 0.5 mL (120 mcg) into the muscle 1 (one) time for 1 dose. 0.5 mL 12/27/19 25 2024 Active Problems Problem Noted Date Diagnosed Date Anal itching 12/26/2024 Assessment & Plan (12/26/2024 7:19 PM EDT): Pinworm test ordered today patient will be contacted with results Vaginal itching 09/25/2024 Degeneration of lumbar or lumbosacral interverte bral disc 06/25/2024 Assessment & Plan (06/25/2024 3:20 PM EST): Pain management referral done Colon cancer screening 07/26/2023 Intertrigo 05/02/2023 Assessment & Plan (12/26/2024 7:23 PM EDT): I will prescribe for patient nystatin powder Encounter for screening mamm ogram for malignant neoplasm of breast 05/02/2023 Bilateral hip pain 02/20/2023 Left upper quadrant abdominal pain 08/30/2022 Assessment & Plan (09/05/2022 1:15 PM EDT): Colitis? trail of bentyl will be prescribed for her Age-related osteoporosis wit h current pathological fracture with delayed healing 08/23/2022 Assessment & Plan (12/26/2024 7:23 PM EDT): Continue to follow-up with endocrinology for treatment Assessment & Plan (09/25/2024 4:57 PM EDT): [...] management Compression fracture of L1 lumbar vertebra (CMS/ HCC) 06/17/2022 Constipation 06/17/2022 Migraine without aura, not refractory [...] mass. Order abdominal US. FU results of [employer] biopsy. Weight loss 05/20/2022 Assessment & Plan [...] months. Primary hypertension 05/20/2022 Assessment & Plan (12/26/2024 7:17 PM EDT): I advised: - Aerobic exercise to reduce BP. Initial [...] consulting health care provider Assessment & Plan (05/20/2022 12:36 PM EST): [...] Encounters Date Type Department Care Team Description 12/26/2024 2:30 PM EDT Office Visit [address] [address] Kimberlee Balderrama MD Screening for colon cancer (Primary Dx); Dietary counseling; Exercise counseling; Primary hypertension; Age-related osteoporosis with current pathological fracture with delayed healing; Intertrigo; Anal itching 12/26/2024 Travel 12/25/[address] [address] Kimberlee Balderrama MD Chart Prep 12/17/2024 Patient Outreach [address] [address] Kimberlee Balderrama MD Pre-visit Planning ([facility] screening completed on 06/25/2024) from Last 3 Months Immunizations Immunization Administration [...] Sign Reading Time Taken Comments Blood Pressure 136/74 12/26/2024 2:31 PM EDT Pulse 51 12/26/2024 2:31 PM EDT Temperature 34.8 C (94.7 F) 12/26/2024 2:31 PM EDT Respiratory Rate 18 12/26/2024 2:31 PM EDT Oxygen Saturation 98% 12/26/2024 2:31 PM EDT Inhaled Oxygen Concentration - - Weight 58.6 kg (129 lb 3.2 oz) 12/26/2024 2:31 P M EDT Height 137.2 cm (4' 6 ) 12/26/2024 2:31 PM EDT Body Mass Index 31.15 12/26/2024 2:31 PM EDT Plan of Treatment Health Maintenance Due Date Last Done Comments [...] history exists Depression Screening 09/25/2025 09/25/2024, 09/26/19 25 Tobacco Screening 12/26/2025 12/26/2024 Lipid Panel 06/07/2027 06/07/2022, 12/24, 08/11/2020 Hepatitis [...] Processed 9 N/A 11/13/2024 3:38 AM EDT [facility] (CLIA #:[id number]) Comment: The Cologuard (TM) test was assigned to this specimen. An empty collection kit was received in the laboratory. The patient will be contacted to initiate a new sample collection. Stool specimen (specimen) 11/12/2024 10:57 AM EDT Kimberlee Forrest MD LAB MOLECULAR DIAGNOS TICS ORDERABLES Final Result [facility] (CLIA #:[id number]) [address] [place] [address], * BI Mammogram Screening Tomosynthesis Bilateral (07/03/2024 2:30 PM EDT) Anatomical Region Laterality Modality Breast Bilateral Mammography 07/03/2024 2:30 PM EDT Narrative 07/12/2024 3:33 PM EDT [facility] [address] [place] [address] Mammography Report Signed Patient: Kimberlee Seaman MR#: [id number] 857 : 1955 Acct:[id number] Age/Sex: 68 / F ADM Date: 07/03/24 Loc: HO.MAMMO Attending Dr: Kimberlee Forrest MD Ordering Physician: Kimberlee Balderrama MD Results: 1Negative Date of Service: 07/03/24 Follow Up: 1 Year From [facility] Mammogram Procedure(s): MM tomosynthesis screening BI Accession Number(s): [id number] cc: Kimberlee Balderrama MD EXAMINATION: MM SCREENING [...] Teresa Braxton DO 07/12/2024 03:30 PM EDT RP Dictated By: Teresa Braxton DO Signed By: <Electronically signed by Teresa Braxton DO in OV> 07/12/24 1530 DD/ 1430 TD/TT: 07/03/24 1457 Human Resources District Manager: Procedure Note Donotuseinterpreter, Image - 07/12/2024 [facility] [address] [place] [address] Mammography Report Signed Patient: Kimberlee Seaman MMR#: [id number] : 5Acct:[id number] Age/Sex: 68 / FADM Date: 07/03/24 Loc: HO.MAMMO Attending Dr: Kimberlee Forrest MD Ordering Physician: Kimberlee Balderrama MDResults: 1Negative Date of Service: 07/03/24Follow Up: 1 Year From Orig inal Mammogram Procedure(s): MM tomosynthesis screening BI Accession Number(s): [id number] cc: Kimberlee Balderrama MD EXAMINATION: MM SCREENING [...] 07/12/24 1530 DD/ 1430 TD/TT: 07/03/24 1457 Human Resources District Manager: Kimberlee Forrest MD IMG BI PROCEDURES Fin al Result * (ABNORMAL) Lipid Panel with Reflex to Direct LDL (06/07/2022 9:37 AM EST) Cholesterol, Total 185 <200 mg/dL [facility] HDL Cholesterol 41(L) > OR = 50 mg/dL [facility] Triglycerides 97 <150 mg/dL [facility] LDL Cholesterol 124(H) mg/dL (calc) [facility] Comment: Reference range: <100 Desirable range <100 mg/dL for primary prevention; <70 mg/dL for patients with CHD or diabetic patients with > or = 2 CHD risk factors. LDL-C is now calculated using the Yash-Shook calculation, which is a validated novel method providing better accuracy than the Friedewald equation in the estimation of LDL-C. Yash DUMONT et al. RAO. 2013;310(19): 9271-1576 (http://education.CNG-One.MyActivityPal/faq/KGN873) Chol/HDLC Ratio 4.5 <5.0 (calc) [facility] Non-HDL Cholesterol 144(H) <130 mg/dL (calc) [facility] Comment: For patients with diabetes plus 1 major ASCVD risk factor, treating to a non-HDL-C goal of <100 mg/dL (LDL-C of <70 mg/dL) is considered a therapeutic option. 06/07/2022 9:37 AM EST 06/07/2022 9:38 AM EST Narrative [facility] - 06/07/2022 7:39 PM EST FASTING:YES FASTING: YES Darlene Saldivar MD LAB BLOOD ORDERABLES Fin al Result [facility] [address] [facility], 3rd Fl, [place] [address] [facility] [address] [facility], ([address]) [place] [address] from Last 3 Months or Most Recently Relevant to Health Maintenance Insurance [place] [id number] Care Teams Reference Assistant Relationship Specialty Start Date End Date Kimberlee Balderrama MD [address] [place] [address] PCP - General Family Medicine 06/09/20
== END 2025-01-22 14:21 | disposition home or self-care (01) ==
LOC: HO.ENCR 14:04
PROVIDERS: PCP Internal Medicine; Visit Provider Student in an Organized Health Care Education/Training Program
DX: M81.0 Age-related osteoporosis without current pathological fracture (principal)

== ENCOUNTER → 2025-01-22 14:03 | Outpatient (BNVA) | payer OTHER, SELFPAY | PROVIDERS: PCP Internal Medicine; Visit Provider Student in an Organized Health Care Education/Training Program | DX: M81.0 Age-related osteoporosis without current pathological fracture (principal) | CPT/HCPCS: 96372; J3111 ==

== ENCOUNTER 2025-02-19 13:42 | Outpatient (AMB) | payer OTHER, SELFPAY ==
--- NOTE | 2025-02-19 14:04 | AM.OFFVISNUR ---
Intake Visit Reasons: Evenity #6 Allergies butalbital (From FIORICET) Allergy (Unknown, Verified 11/25/24 13:36) SWELLING,HIVES pepper (genus Capsicum) (PEPPER) Allergy (Unknown, Verified 11/25/24 13:36) ITCHING acetaminophen (Fioricet) Adverse Reaction (Unknown, Verified 11/25/24 13:36) swelling caffeine (Fioricet) Adverse Reaction (Unknown, Verified 11/25/24 13:36) swelling Fioricet Allergy (Unknown, Uncoded 11/11/24 13:53) swollen Office Meds romosozumab-aqqg 210 mg/2.34 mL(105 mg/1.17 mL x2)subcutaneous syringe Performing Provider: Pedro Mitchell MD Performing Location: [facility] Endocrinology Administered by: Zulma Lua RN on 02/19/25 13:55 Dose Route Admin Location Dispensed Lot Number Expiration Date NDC Insurance Agency Manager 210 mg subcut bilateral upper arms 2.34 mL [id number] 07/23/27 48990-535-79 AMGEN Total Dispensed Waste 2.34 mL 0 % Comments: Pt accompanied by granddaughter who interpreted visit. Pt declined lokie engineer. No adverse reactions reported from previous injection. Pt tolerated injection well. Pt scheduled in 4 weeks for next appt. No further questions at this time. Assessment & Plan Assessment & Plan Orders: Orders AMB Romosozumab Injection Patient Supplied Today M81.0 - Age-related osteoporosis without current pathological fracture Coding
--- OUTSIDE RECORDS SUMMARY | 2025-02-19 17:28 | XMS_ITS | Clinical Summary ---
Author Organization [employer] Address [address] [place] [address] [address] [place] [address] Care Team Providers Care Process Machine Operator Name Role Phone Kimberlee Balderrama MD Primary Care Provide r Allergies Active Allergy Reactions Criticality Noted Date Comments Butalbital Other reaction(s): Angioedema , unspecified Caffeine Other reaction(s): Angioedema , unspecified Gouhhapccx-Ongd-Kaflmlxd 08/30/2022 Omeprazole 12/16/2013 Medications denosumab (Prolia) 60 [...] OR CHEW. 180 tablet 2 5 Active cholecalciferol (D3 Super Strength) 50 MCG (2000 UT) capsuleIndications :Age-related osteoporosis with current pathological fracture with routine healing, subsequent encounter Take 1 capsule (50 mcg) by mouth Once per day. 30 capsule 11 5 Active simvastatin (Zocor) 20 MG tabletIndications: Primary hypertension Take 1 tablet (20 mg) by mouth at bedtime. 30 tablet 11 5 06/26/19 26 Active lisinopril 40 MG tabletIndications: Primary hypertension TAKE 1 TABLET BY MOUTH EVERY DAY 90 tablet 3 5 Active nystatin (Mycostatin) 884123 UNIT/GM powderIndications: Intertrigo Apply topically 2 times daily. 60 g 1 5 12/27/19 26 Active Active Problems Problem Noted Date [...] mass. Order abdominal US. FU results of SHIFT COMMANDER biopsy. Weight loss 05/20/2022 Assessment & Plan [...] Description 12/26/2024 2:30 PM EDT Office Visit [facility] [address] [place] [phone] Kimberlee Balderrama MD Screening for colon cancer (Primary Dx); Dietary counseling; Exercise counseling; Primary hypertension; Age-related osteoporosis with current pathological fracture with delayed healing; Intertrigo; Anal itching 12/26/2024 Travel 12/25/2024 Telephone [facility] [address] [place] [phone] Kimberlee Balderrama MD Chart Prep 12/17/2024 Patient Outreach [facility] [address] [place] [phone] Kimberlee Balderrama MD Pre-visit Planning ([facility] screening completed on 06/25/2024) from Last 3 [...] Comments BI MAMMOGRAM SCREENING TOMOSYNTHESIS BILATERAL Routine 07/03/2024 2:30 PM EDT LIPID PANEL WITH REFLEX TO DIRECT LDL Routine 06/07/2022 9:37 AM EST Primary hypertension from Last 3 Months or Most Recently Relevant to Health Maintenance Results * BI Mammogram Screening Tomosynthesis Bilateral (07/03/2024 2:30 PM EDT) Anatomical Region Laterality Modality Breast Bilateral Mammography 07/03/2024 2:30 PM EDT Narrative 07/12/2024 3:33 PM EDT [facility] [address] [place], [place] [address] Mammography Report Signed Patient: Kimberlee Seaman MR#: [id number] : 1955 Acct:[id number] Age/Sex: 68 / F ADM Date: 07/03/24 Loc: HO.MAMMO Attending Dr: Kimberlee Forrest MD Ordering Physician: Kimberlee Balderrama MD Results: 1Negative Date of Service: 07/03/24 Follow Up: 1 Year From Orig inal Mammogram Procedure(s): MM tomosynthesis screening BI Accession Number(s): [id number] cc: Kimberlee Balderrama MD EXAMINATION: MM SCREENING [...] 07/12/24 1530 DD/ 1430 TD/TT: 07/03/24 1457 Recapper: Procedure Note Donotuseinterpreter, Image - [facility]12[facility] [address] [place] [address] Mammography Report Signed Patient: Kimberlee Seaman MMR#: [id number] : 5Acct:[id number] Age/Sex: 68 / FADM Date: 07/03/24 Loc: HO.MAMMO Attending Dr: Kimberlee Forrest MD Ordering Physician: Kimberlee Balderrama MDResults: 1Negative Date of Service: 07/03/24Follow Up: 1 Year From Orig inal Mammogram Procedure(s): MM tomosynthesis screening BI Accession Number(s): [id number] cc: Kimberlee Balderrama MD EXAMINATION: MM SCREENING [...] 07/12/24 1530 DD/ 1430 TD/TT: 07/03/24 1457 Recapper: Kimberlee Forrest MD IMG BI PROCEDURES Fin al Result * (ABNORMAL) Lipid Panel with Reflex to Direct LDL (06/07/2022 9:37 AM EST) Cholesterol, Total 185 <200 mg/dL [facility] HDL Cholesterol 41(L) > OR = 50 mg/dL [facility] Triglycerides 97 <150 mg/dL [facility] LDL Cholesterol 124(H) mg/dL (calc) [facility] Comment: Reference range: <100 Desirable range <100 mg/dL for primary prevention; <70 mg/dL for patients with CHD or diabetic patients with > or = 2 CHD risk factors. LDL-C is now calculated using the Reji calculation, which is a validated novel method providing better accuracy than the Friedewald equation in the estimation of LDL-C. Yash DUMONT et al. RAO. 2013;310(19): 5904-6938 (http://education.Slice/faq/BJW902) Chol/HDLC Ratio 4.5 <5.0 (calc) [facility] Non-HDL Cholesterol 144(H) <130 mg/dL (calc) [facility] Comment: For patients with diabetes plus 1 major ASCVD risk factor, treating to a non-HDL-C goal of <100 mg/dL (LDL-C of <70 mg/dL) is considered a therapeutic option. 06/07/2022 9:37 AM EST 06/07/2022 9:38 AM EST Narrative [facility] - 06/07/2022 7:39 PM EST FASTING:YES FASTING: YES us Darlene Saldivar MD LAB BLOOD ORDERABLES Fin al Result [facility] [address] [facility], [facility], [place] [address] [facility] [place] [facility] [address] [facility], ([address]) [place] [address] from Last 3 Months or Most Recently Relevant to Health Maintenance Insurance [facility] OPT[facility] (O D-SNP) [place] [id number] Care Teams Process Machine Operator Relationship Specialty Start Date End Date Kimberlee Balderrama MD [address] [place] [phone] PCP - General Family Medicine 06/09/20
--- OUTSIDE RECORDS SUMMARY | 2025-02-19 17:28 | XMS_ITS | Encounter Summary ---
Author Organization [employer] Address [address] [place] [address] [address] [place] [address] Care Team Providers Care School Treasurer Name Role Phone Kimberlee Balderrama MD Primary Care Provide r Encounter Details Date Type Department Care Team (Late st Contact Info) Description 10/12/2022 Orders Only [facility] [address] [place] [address] Terri Cisneros LPN Social History Tobacco Use [...] documented as of this encounter Care Teams School Treasurer Relationship Specialty Start Date End Date Kimberlee Balderrama MD [address] [place] [address] PCP - General Family Medicine 06/09/20 documented as of this encounter
== END 2025-02-19 14:02 | disposition home or self-care (01) ==
LOC: HO.ENCR 13:43
PROVIDERS: PCP Internal Medicine; Visit Provider Internal Medicine Endocrinology, Diabetes & Metabolism
DX: M81.0 Age-related osteoporosis without current pathological fracture (principal)

== ENCOUNTER → 2025-02-19 13:42 | Outpatient (BNVA) | payer OTHER, SELFPAY | PROVIDERS: PCP Internal Medicine; Visit Provider Internal Medicine Endocrinology, Diabetes & Metabolism | DX: M81.0 Age-related osteoporosis without current pathological fracture (principal); Z79.620 Long term (current) use of immunosuppressive biologic | CPT/HCPCS: 96372; J3111 ==

== ENCOUNTER 2025-03-19 13:51 | Outpatient (AMB) | payer OTHER, SELFPAY ==
--- NOTE | 2025-03-19 14:25 | AM.OFFVISNUR ---
Intake Visit Reasons: Evenity #7 Allergies butalbital (From FIORICET) Allergy (Unknown, Verified 11/25/24 13:36) SWELLING,HIVES pepper (genus Capsicum) (PEPPER) Allergy (Unknown, Verified 11/25/24 13:36) ITCHING acetaminophen (Fioricet) Adverse Reaction (Unknown, Verified 11/25/24 13:36) swelling caffeine (Fioricet) Adverse Reaction (Unknown, Verified 11/25/24 13:36) swelling Fioricet Allergy (Unknown, Uncoded 11/11/24 13:53) swollen Office Meds romosozumab-aqqg 210 mg/2.34 mL(105 mg/1.17 mL x2)subcutaneous syringe Performing Provider: Pedro Mitchell MD Performing Location: [facility] Endocrinology Administered by: Zulma Lua RN on 03/19/25 14:15 Dose Route Admin Location Dispensed Lot Number Expiration Date NDC President 210 mg subcut bilateral upper arms 2.34 mL [id number] 07/23/27 02126-446-42 AMGEN Total Dispensed Waste 2.34 mL 0 % Comments: Pt accompanied by granddaughter who interpreted visit. Pt declined spanish interpreter/translator. No adverse reactions reported from previous injection. Pt tolerated injection well. Pt scheduled in 4 weeks for next appt. No further questions at this time. Assessment & Plan Assessment & Plan Orders: Orders AMB Romosozumab Injection Patient Supplied Today M81.0 - Age-related osteoporosis without current pathological fracture Coding
== END 2025-03-19 14:24 | disposition home or self-care (01) ==
LOC: HO.ENCR 13:52
PROVIDERS: PCP Internal Medicine; Visit Provider Internal Medicine Endocrinology, Diabetes & Metabolism
DX: M81.0 Age-related osteoporosis without current pathological fracture (principal)

== ENCOUNTER → 2025-03-19 13:51 | Outpatient (BNVA) | payer OTHER, SELFPAY | PROVIDERS: PCP Internal Medicine; Visit Provider Internal Medicine Endocrinology, Diabetes & Metabolism | DX: M81.0 Age-related osteoporosis without current pathological fracture (principal) | CPT/HCPCS: 96372; J3111 ==

== ENCOUNTER 2025-04-02 13:55 | Outpatient (AMB) | payer OTHER, SELFPAY ==
--- NOTE | 2025-04-02 13:57 | MHC.OFFVIS ---
Vital Signs 04/02/25 14:03 Height 4 ft 8.18 in Weight 134 lb 11.239 oz BMI 30.0 BP 124/84 Blood Pressure Location Rt brachial Position Sitting Pulse 75 Pulse Source Pulse Oximeter Pulse Oximetry (%) 97 Oxygen Delivery Method Room Air Intake Visit Reasons: Osteoporosis Intake Note: Patient presents here today for a follow-up on Osteoporosis. Social Service Manager Required: Yes Social Service Manager Language: Gis Administrator Services: Social Service Manager Offered & Declined Social Service Manager Name: Grandchild Accompanied by: Grandchild Allergies butalbital (From FIORICET) Allergy (Unknown, Verified 04/02/25 14:03) SWELLING,HIVES pepper (genus Capsicum) (PEPPER) Allergy (Unknown, Verified 04/02/25 14:03) ITCHING acetaminophen (Fioricet) Adverse Reaction (Unknown, Verified 04/02/25 14:03) swelling caffeine (Fioricet) Adverse Reaction (Unknown, Verified 04/02/25 14:03) swelling Fioricet Allergy (Unknown, Uncoded 04/02/25 14:03) swollen HPI Comments Details: 69 yo female today for fup visit, for osteoporosis She is feeling well. She had her last Prolia injection on 05/28/2019. Her last dose 01/07/2020 Her calcium has been normal after Prolia injection. Her Prolia was stopped in 2020 and she is currently on no pharmacologic therapy She is feeling well. She has no complaints. She has been On Prolia since 03/10/15 , 09/25/17, 04/02/18. 05/28/2019. She has PMH of arthritis, GERD, hypertension. This patient has severe osteoporosis and had primary hyperparathyroidism status post hyperparathyroidism. The patient underwent intraoperative neck exploration on 01/05/15 at [facility] by Dr. Reinier Juárez. Dr. Juárez resected 3-1/2 parathyroid glands and on pathology the gland were found to be mildly hypercellular. Intact PTH normalized and so did serum calcium levels. She had a prior left ankle fracture in 2009 after fell 3 steps in the stairs, no GERD, denies FH of fractures or osteoporosis, + nephrolithiasis, no steroids used, never smoker, anti seizures medications. She has Negative History of head or neck irradiation. Calcium intake: citrated bid 350 mg Vitamin D: 2000 IU daily DEXA scan 09/11/18 AP SPINE L1-L4: Current: BMD 0.742 g/cm2, Z-score -1.9, T-score -3.6, osteoporosis, 3.3% increase from previous, 2.2% increase from baseline (<5% change is not significant). Prior: BMD 0.718 g/cm2. Baseline: BMD 0.726 g/cm2. LEFT FEMUR, NECK: Current: BMD 0.618 g/cm2, Z-score -1.5, T-score -3.0, osteoporosis. Prior: BMD 0.626 g/cm2. Baseline: BMD 0.601 g/cm2. LEFT FEMUR, TOTAL: Current: BMD 0.777 g/cm2, Z-score -0.5, T-score -1.8, osteopenia, 1.7% increase from previous, 5.6% increase from baseline (<5% change is not significant). Prior: BMD 0.764 g/cm2. Baseline: BMD 0.736 g/cm2. LEFT FOREARM RADIUS 33%: BMD 0.740 g/cm2, Z-score -0.3, T-score -1.6, osteopenia, 3.8% increase change from previous, 4.8% decrease change from baseline (<5% change is not significant). Prior: BMD 0.713 g/cm2. Baseline 09/05/2014: BMD 0.777 g/cm2. In Thoracic spone xray has mild flattening of midthoracic vertebrae. FINDINGS: 11/26/21 AP SPINE L2-L4 (excluding L1): The data of L1-L4 has been changed to exclude the L1 vertebral body, because degenerative sclerosis at this level may cause overestimation of lumbar spine density. Current: BMD 0.907 g/cm2, Z-score -0.6, T-score -2.4, osteopenia, 24.9% increase from previous, 25.4% increase from baseline (<5% change is not significant). Prior: BMD 0.726 g/cm2. Baseline: BMD 0.723 g/cm2. LEFT FEMUR, NECK: Current: BMD 0.600 g/cm2, Z-score -1.5, T-score -3.2, osteoporosis. Prior: BMD 0.618 g/cm2. Baseline: BMD 0.601 g/cm2. LEFT FEMUR, TOTAL: Current: BMD 0.739 g/cm2, Z-score -0.7, T-score -2.1, osteopenia, 4.9% decrease from previous, 0.4% increase from baseline (<5% change is not significant). Prior: BMD 0.777 g/cm2. Baseline: BMD 0.736 g/cm2. IDENTIFIED RISK FACTORS: Early menopause, secondary osteoporosis. HISTORY OF FRACTURE: None listed. MEDICATIONS: Calcium supplements or multivitamin, vitamin D. MM/XR DEXA axial skeleton IMPRESSION: 1. DIAGNOSIS: Osteoporosis based on the lowest T-score value of -3.2 in the femoral neck applying World Health Organization criteria She had a FNA on 11/06/14 of left thyroid nodule 1.6 x 0.9 cm non diagnotic. US htyorid 10/10/2019 Right Thyroid Lobe: 4.2 x 1.4 x 1.6 cm, volume 5.0 mL. Previously 4.6 x 1.3 x 1.4 cm, volume 4.3 mL. Parenchyma: The gland echotexture is homogeneous. Thyroid vascularity is normal. Left Thyroid Lobe: 4.3 x 1.2 x 1.7 cm, volume 4.6 mL. Previously 4.4 x 1.1 x 1.3 cm, volume 3.5 mL. Parenchyma: The gland echotexture is homogeneous. Thyroid vascularity is normal. Isthmus: 0.3 cm in maximum AP dimension. Previously 0.2 cm. RIGHT THYROID LOBE: There are 2 nodules seen. 1. Location: Superior. Size: 0.3 x 0.2 x 0.3 cm. Previous: Not seen on the previous study. Nodule characteristics: Hypoechoic with indistinct margins. There is peripheral blood flow. No calcifications identified. 2. Location: Middle. Size: 0.2 x 0.2 x 0.2 cm. Previous: 0.1 x 0.1 x 0.1 cm. Nodule characteristics: Hypoechoic and smoothly marginated without calcification. No internal vascularity.. ISTHMUS: No nodules. LEFT THYROID LOBE: There are 2 nodules seen. 1. Location: Middle. Size: 0.8 x 0.3 x 0.4 cm. Previous: 0.6 x 0.2 x 0.4 cm. Nodule characteristics: Simple colloid cyst which is hypoechoic and smoothly marginated without calcification and without intranodular blood flow.. 2. Location: Inferior. Size: 0.2 x 0.2 x 0.1 cm. Previous: Not seen on the previous study. Nodule characteristics: Hypoechoic and smoothly marginated with inspissated colloid. No calcification. No internal blood flow. NODES: No lymphadenopathy is seen in the tissue surrounding the thyroid gland. Laboratory Tests 03/02/18 04/25/18 04/25/18 08:46 00:00 08:00 Creatinine Est GFR (Non-Af Amer) Calcium Ionized Calcium Phosphorus Magnesium AST ALT Alkaline Phosphatase Albumin N-Telopeptide X-linked 25-OH Vitamin D Total Vit D 1,25-Dihyd Total 1,25 Dihydroxy Vit D2 1,25 Dihydroxy Vit D3 TSH 3rd Generation 1.13 PTH Intact Ur 24 Hour Volume 750 Urine Creatinine Ur Creatinine mg/dL 140.97 Ur Creatinine 24 Hour 1.01 Ur Calcium 24 Hr 136 Calcium/Creat 24 Hr 135 Bone Specific Alk Phos 04/25/18 04/25/18 04/25/18 09:36 09:36 09:36 Creatinine Est GFR (Non-Af Amer) Calcium Ionized Calcium 5.2 Phosphorus 3.0 Magnesium 2.4 AST ALT Alkaline Phosphatase Albumin N-Telopeptide X-linked 25-OH Vitamin D Total Vit D 1,25-Dihyd Total 27 1,25 Dihydroxy Vit D2 <8 1,25 Dihydroxy Vit D3 27 TSH 3rd Generation PTH Intact Ur 24 Hour Volume Urine Creatinine Ur Creatinine mg/dL Ur Creatinine 24 Hour Ur Calcium 24 Hr Calcium/Creat 24 Hr Bone Specific Alk Phos 04/08/19 04/08/19 06/11/19 11:27 11:30 11:40 Creatinine 0.70 Est GFR (Non-Af Amer) > 60 Calcium Ionized Calcium Phosphorus Magnesium AST 20 ALT 22 Alkaline Phosphatase 74 D Albumin N-Telopeptide X-linked 32 25-OH Vitamin D Total 39.9 Vit D 1,25-Dihyd Total 1,25 Dihydroxy Vit D2 1,25 Dihydroxy Vit D3 TSH 3rd Generation PTH Intact Ur 24 Hour Volume Urine Creatinine 107 Ur Creatinine mg/dL Ur Creatinine 24 Hour Ur Calcium 24 Hr Calcium/Creat 24 Hr Bone Specific Alk Phos 8.1 06/11/19 07/05/19 11:40 11:20 Creatinine Est GFR (Non-Af Amer) Calcium 9.4 Ionized Calcium Phosphorus Magnesium AST ALT Alkaline Phosphatase Albumin 4.1 N-Telopeptide X-linked 25-OH Vitamin D Total Vit D 1,25-Dihyd Total 1,25 Dihydroxy Vit D2 1,25 Dihydroxy Vit D3 TSH 3rd Generation PTH Intact 64 Ur 24 Hour Volume Urine Creatinine Ur Creatinine mg/dL Ur Creatinine 24 Hour Ur Calcium 24 Hr Calcium/Creat 24 Hr Bone Specific Alk Phos She resume Prolia injections and was receiving intermittently over number of years. Her bone density has decreased on consistent doses of Prolia over the last several years. No fx since last visit . Transitioning to a Evenity today transitioning to Evenity today with 1st dose today. No fx since last visit PFSH Medical History Essential hypertension History of primary hyperparathyroidism Non-toxic multinodular goiter Osteoporosis Surgical History Hx of lithotripsy H/O parathyroidectomy Hx of tubal ligation Hx of section Family History Father No problems noted. Mother CVD (cardiovascular disease) Heart disease Social History Household Members: Spouse and Family Household Members Other:: , son Housing: Apartment Alcohol intake: never Patient Tobacco Use Status: Former Tobacco user Current occupational status: disabled Sexual orientation: Straight/Heterosexual Gender identity: Female Assessment & Plan Assessment & Plan (1) Osteoporosis: Comment: Worsening bone mineral density at the spine level, -13.5 Code(s): M81.0 - Age-related osteoporosis without current pathological fracture Category: Medical Plan: This 68-year-old female with a history of osteoporosis previously treated with Prolia over several years with interruption of therapy. Secondary workup has been negative . Has been consistently getting Prolia with declines in bone density. She started Evenity 12/2024 Plan is to continue the Evenity for full years course until 12/2025 Coding Level of Care Code Est Pt Level 3 (67081) Diagnoses Osteoporosis M81.0
[2025-04-02 14:03] VITALS: BP 124/84; PULSE 75; O2SAT 97
--- OUTSIDE RECORDS SUMMARY | 2025-04-02 21:39 | XMS_ITS | Clinical Summary ---
Author Organization [employer] Address [address] [place] [address] 7t [place] [address] Care Team Providers Care Estate Tax Examiner Name Role Phone Kimberlee Balderrama MD Primary Care Provide r Allergies Active Allergy Reactions Criticality Noted Date Comments Butalbital Other reaction(s): Angioedema , unspecified Caffeine Other reaction(s): Angioedema , unspecified Pfhejohxbj-Jjra-Qamijkai 08/30/2022 Omeprazole 12/16/2013 Medications denosumab (Prolia) 60 [...] 90 tablet 3 5 Active nystatin (Mycostatin) 188274 UNIT/GM powderIndications: Intertrigo Apply topically 2 times [...] mass. Order abdominal US. 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 Weight loss 05/20/2022 Assessment & Plan [...] prescriptions without first consulting health care provider Immunizations Immunization Administration Dates Next Due Hep [...] 60 years or older (1 - Risk 50-74 years 1-dose series) 2004 DTaP/Tdap/Td Vaccines (2 - Td or Tdap) 08/07/2022 08/07/2012, 04/30/2009 COVID-19 Vaccine ( season) 2024 04/05/2023, 05/17/2022, 09/15/2021, Additional history exists Influenza Vaccine (#1) 2024 , 02/20/2023, 03/14/2022, Additional history exists Alcohol/Substance Use Screening 06/25/2025 06/25/2024 SDOH Screening 06/25/2025 06/25/2024 Mammogram 07/03/2025 07/03/2024, 05/25, 02/24/2021, Additional history exists Depression Screening 09/25/2025 09/25/2024, 09/26/19 Tobacco Screening 12/26/2025 12/26/2024 Lipid Panel 06/07/2027 [...] PM EDT Narrative 07/12/2024 3:33 PM EDT [facility] [address] [place] [address] Mammography Report Signed Patient: Kimberlee Seaman MR#: [id number] 857 : 1955 Acct:[id number] Age/Sex: 68 / F ADM Date: 07/03/24 Loc: HO.MAMMO Attending Dr: Kimberlee Forrest MD Ordering Physician: Kimberlee Balderrama MD Results: 1Negative Date of Service: 07/03/24 Follow Up: 1 Year From Orig ina Mammogram Procedure(s): MM tomosynthesis screening BI Accession Number(s): [id number] cc: Kimberlee Balderrama MD EXAMINATION: MM SCREENING [...] 07/12/24 1530 DD/ 1430 TD/TT: 07/03/24 1457 Social Organization Professor: Procedure Note Donotuseinterpreter, Image - 07/12/2024 [facility] [address] [place] [address] Mammography Report Signed Patient: Kimberlee Seaman MMR#: [id number] : 5Acct:[id number] Age/Sex: 68 / FADM Date: 07/03/24 Loc: HO.MAMMO Attending Dr: Kimberlee Forrest MD Ordering Physician: Kimberlee Balderrama MDResults: 1Negative Date of Service: 07/03/24Follow Up: 1 Year From Orig inal Mammogram Procedure(s): MM tomosynthesis screening BI Accession Number(s): [id number] cc: Kimberlee Balderrama MD EXAMINATION: MM SCREENING [...] 07/12/24 1530 DD/ 1430 TD/TT: 07/03/24 1457 Social Organization Professor: us Kimberlee Forrest MD IMG BI PROCEDURES Fin al Result * (ABNORMAL) Lipid Panel with Reflex to Direct LDL (06/07/2022 9:37 AM EST) Cholesterol, Total 185 <200 mg/dL [facility] HDL Cholesterol 41(L) > OR = 50 mg/dL [facility] Triglycerides 97 <150 mg/dL [facility] [place] [facility] LDL Cholesterol 124(H) mg/dL (calc) [facility] Comment: Reference range: <100 Desirable range <100 mg/dL for primary prevention; <70 mg/dL for patients with CHD or diabetic patients with > or = 2 CHD risk factors. LDL-C is now calculated using the Yash-Bouchra calculation, which is a validated novel method providing better accuracy than the Friedewald equation in the estimation of LDL-C. Yash SS et al. RAO. 2013;310(19): 6695-4299 (http://education.Flatter World/faq/YLS609) Chol/HDLC Ratio 4.5 <5.0 (calc) [facility] [place] [facility] Non-HDL Cholesterol 144(H) <130 mg/dL (calc) [facility] Comment: For patients with diabetes plus 1 major ASCVD risk factor, treating to a non-HDL-C goal of <100 mg/dL (LDL-C of <70 mg/dL) is considered a therapeutic option. 06/07/2022 9:37 AM EST 06/07/2022 9:38 AM EST Narrative [facility] - 06/07/2022 7:39 PM EST FASTING:YES FASTING: YES us Darlene Saldivar MD LAB BLOOD ORDERABLES Fin al Result [facility] [address] [facility], [place] [address] [facility] [place] [facility] [address] [facility], ([address]) [place] [address] from Last 3 Months or Most Recently Relevant to Health Maintenance Insurance [facility] OPTIONS (HMO D-SNP) [place] [id number] Care Teams Estate Tax Examiner Relationship Specialty Start Date End Date Kimberlee Balderrama MD [address] [place] [phone] PCP - General Family Medicine 06/09/20
--- OUTSIDE RECORDS SUMMARY | 2025-04-02 21:39 | XMS_ITS | Encounter Summary ---
Author Organization [employer] Address [address] [place] [address] [address] [place] [address] Care Team Providers Care Footwear Machinery Instructor Name Role Phone Kimberlee Balderrama MD Primary Care Provide r Encounter Details Date Type Department Care Team (Late st Contact Info) Description 10/12/2022 Orders Only [facility] [address] [place] [address] Terri Cisneros LPN Social History Tobacco Use [...] documented as of this encounter Care Teams Footwear Machinery Instructor Relationship Specialty Start Date End Date Kimberlee Balderrama MD [address] [place] [address] PCP - General Family Medicine 06/09/20 documented as of this encounter
== END 2025-04-02 14:11 | disposition home or self-care (01) ==
LOC: HO.ENCR 13:56
PROVIDERS: PCP Internal Medicine; Visit Provider Internal Medicine Endocrinology, Diabetes & Metabolism
DX: M81.0 Age-related osteoporosis without current pathological fracture (principal)
CPT/HCPCS: 99213

== ENCOUNTER → 2025-04-02 13:55 | Outpatient (BNVA) | payer OTHER, SELFPAY | PROVIDERS: PCP Internal Medicine; Visit Provider Internal Medicine Endocrinology, Diabetes & Metabolism | DX: M81.0 Age-related osteoporosis without current pathological fracture (principal) | CPT/HCPCS: 99212 ==

== ENCOUNTER 2025-04-15 13:55 | Outpatient (AMB) | payer OTHER, SELFPAY ==
--- NOTE | 2025-04-15 14:10 | AM.OFFVISNUR ---
Intake Visit Reasons: Evenity #8 Allergies butalbital (From FIORICET) Allergy (Unknown, Verified 04/02/25 14:03) SWELLING,HIVES pepper (genus Capsicum) (PEPPER) Allergy (Unknown, Verified 04/02/25 14:03) ITCHING acetaminophen (Fioricet) Adverse Reaction (Unknown, Verified 04/02/25 14:03) swelling caffeine (Fioricet) Adverse Reaction (Unknown, Verified 04/02/25 14:03) swelling Fioricet Allergy (Unknown, Uncoded 04/02/25 14:03) swollen Office Meds romosozumab-aqqg 210 mg/2.34 mL(105 mg/1.17 mL x2)subcutaneous syringe Performing Provider: Pedro Mitchell MD Performing Location: [facility] – [place] Endocrinology Administered by: Zulma Lua RN on 04/15/25 14:10 Dose Route Admin Location Dispensed Lot Number Expiration Date NDC Special Class Welder 210 mg subcut bilateral upper arms 2.34 mL [id number] 08/22/27 01447-493-38 [facility]GEN Total Dispensed Waste 2.34 mL 0 % Comments: Pt declined structural test engineer. No adverse reactions reported from previous injection. Pt tolerated injection well. Pt scheduled in 4 weeks for next appt. No further questions at this time. Assessment & Plan Assessment & Plan Orders: Orders AMB Romosozumab Injection Patient Supplied Today M81.0 - Age-related osteoporosis without current pathological fracture Coding
--- OUTSIDE RECORDS SUMMARY | 2025-04-15 15:12 | XMS_ITS | Encounter Summary ---
Author Organization [employer] Address [address] [place] [address] [address] [place] [address] Care Team Providers Care Chemical Production Machine Operator Name Role Phone Kimberlee Balderrama MD Primary Care Provide r Encounter Details Date Type Department Care Team ([facility] st Contact Info) Description 10/12/2022 Orders Only [facility] MEDICINE [address] [place] [address] Terri Cisneros LPN Social History Tobacco Use [...] documented as of this encounter Care Teams Chemical Production Machine Operator Relationship Specialty Start Date End Date Kimberlee Balderrama MD [address] [place] [address] PCP - General Family Medicine 06/09/20 documented as of this encounter
--- OUTSIDE RECORDS SUMMARY | 2025-04-15 15:12 | XMS_ITS | Clinical Summary ---
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 30 capsule 11 04/10/2025 1:14 PM EST 5 Active simvastatin (Zocor) 20 MG tabletIndications: Primary hypertension Take 1 tablet (20 mg) by mouth at bedtime. 30 tablet 11 5 06/26/19 26 Active lisinopril 40 MG tabletIndications: Primary hypertension TAKE 1 TABLET BY MOUTH EVERY DAY 90 tablet 3 5 Active nystatin (Mycostatin) 752722 UNIT/GM powderIndications: Intertrigo Apply topically 2 times [...] mass. Order abdominal US. FU results of INK PRINTER biopsy. Weight loss 05/20/2022 Assessment & Plan [...] EDT Narrative 07/12/2024 3:33 PM EDT [place] [facility] [address] [place] [address] Mammography Report Signed Patient: Kimberlee Seaman MR#: [id number] : 1955 Acct:[id number] Age/Sex: 68 / F ADM Date: 07/03/24 Loc: HO.MAMMO Attending Dr: Kimberlee Forrest MD Ordering Physician: Kimberlee Balderrama MD Results: 1Negative Date of Service: 07/03/24 Follow Up: 1 Year From Orig ina Mammogram Procedure(s): MM tomosynthesis screening BI Accession Number(s): [id number] cc: Kimberlee Balderrama MD EXAMINATION: MM SCREENING [...] 07/12/24 1530 DD/ 1430 TD/TT: 07/03/24 1457 Cylinder Press Operator: Procedure Note Donotuseinterpreter, Image - [facility]/12/[facility] [address] [place] [address] Mammography Report Signed Patient: Kimberlee Seaman MMR#: [id number] : 5Acct:[id number] Age/Sex: 68 / FADM Date: 07/03/24 Loc: HO.MAMMO Attending Dr: Kimberlee Forrest MD Ordering Physician: Kimberlee Balderrama MDResults: 1Negative Date of Service: 07/03/24Follow Up: 1 Year From Orig inal Mammogram Procedure(s): MM tomosynthesis screening BI Accession Number(s): [id number] cc: Kimberlee Balderrama MD EXAMINATION: MM SCREENING [...] 07/12/24 1530 DD/ 1430 TD/TT: 07/03/24 1457 Cylinder Press Operator: us Kimberlee Forrest MD IMG BI PROCEDURES Fin al Result * (ABNORMAL) Lipid Panel with Reflex to Direct LDL (06/07/2022 9:37 AM EST) Cholesterol, Total 185 <200 mg/dL [facility] HDL Cholesterol 41(L) > OR = 50 mg/dL [facility] Triglycerides 97 <150 mg/dL [facility] LDL Cholesterol 124(H) mg/dL (calc) [facility] Comment: Reference range: <100 Desirable range <100 mg/dL for primary prevention; <70 mg/dL for patients with CHD or diabetic patients with > or = 2 CHD risk factors. LDL-C is now calculated using the Yash-Bouchra calculation, which is a validated novel method providing better accuracy than the Friedewald equation in the estimation of LDL-C. Yash SS et al. RAO. 2013;310(19): 7020-1231 (http://education.[employer].Zenops/faq/NOW446) Chol/HDLC Ratio 4.5 <5.0 (calc) [facility] Non-HDL Cholesterol 144(H) <130 mg/dL (calc) [facility] Comment: For patients with diabetes plus 1 major ASCVD risk factor, treating to a non-HDL-C goal of <100 mg/dL (LDL-C of <70 mg/dL) is considered a therapeutic option. 06/07/2022 9:37 AM EST 06/07/2022 9:38 AM EST Narrative [facility] - 06/07/2022 7:39 PM EST FASTING:YES FASTING: YES us Darlene Saldivar MD LAB BLOOD ORDERABLES Fin al Result [facility] [address], [place] [address] [facility] [address] [facility], ([address]) [place] [address] from Last 3 Months or Most Recently Relevant to Health Maintenance Insurance [facility] OPTIONS (HMO D-SNP) [place]EN [place] [id number] Care Teams Log Stacker Operator Relationship Specialty Start Date End Date Kimberlee Balderrama MD [address] [place] [id number] PCP - General Family Medicine 06/09/20
== END 2025-04-15 14:09 | disposition home or self-care (01) ==
LOC: HO.ENCR 13:56
PROVIDERS: PCP Internal Medicine; Visit Provider Internal Medicine Endocrinology, Diabetes & Metabolism
DX: M81.0 Age-related osteoporosis without current pathological fracture (principal)

== ENCOUNTER → 2025-04-15 13:55 | Outpatient (BNVA) | payer OTHER, SELFPAY | PROVIDERS: PCP Internal Medicine; Visit Provider Internal Medicine Endocrinology, Diabetes & Metabolism | DX: M81.0 Age-related osteoporosis without current pathological fracture (principal) | CPT/HCPCS: 96372; J3111 ==